=== PATIENT | female | born 2000 | race Caucasian/White ===

== ENCOUNTER 2023-12-15 10:11 | Outpatient (OUT) | payer OTHER, SELFPAY ==
--- NOTE | 2023-12-15 10:13 | US_ITS ---
The [address] [address] Patient Name: CEDRIC MALDONADO MRN: [id number] date: 2000 Sex: F Assigned Patient Location: [facility] Current Patient Location: [facility] Accession/Order Number: [id number] Exam Date: 12/15/2023 10:15 Report Date: 12/15/2023 11:46 At the request of: OSORIO PANIAGUA Procedure: US OB transvaginal EXAMINATION: US OB transvaginal HISTORY: MISSED MENSES COMPARISON: No relevant comparison available. FINDINGS: GESTATIONAL SAC: Present YOLK SAC: Absent POLE: Absent CARDIAC: Absent UTERUS: Normal size and appearance. OVARIES: Right: Normal. Left: Normal. CERVIX: 3.7 cm in length and closed. CUL-DE-SAC: Normal. OTHER: None. AGE BY LMP: 9 weeks 1 day GORGE BY LMP: 07/18/2024 AGE BY US CRL: GORGE BY US CRL: US/US OB transvaginal IMPRESSION: 1. 6 x 4 x 2 mm fluid collection within endometrial cavity, possibly very early gestational sac. Follow-up recommended. Electronically authenticated by: VIC SOTO Date: 12/15/2023 11:46
== END 2023-12-15 10:12 | disposition home or self-care (01) ==
LOC: NOMS 10:11
PROVIDERS: Visit Provider Obstetrics & Gynecology
DX: N92.6 Irregular menstruation, unspecified (principal)
CPT/HCPCS: 76817

== ENCOUNTER 2023-12-29 10:29 | Outpatient (OUT) | payer OTHER, SELFPAY ==
--- NOTE | 2023-12-29 10:31 | US_ITS ---
[address] [address] Patient Name: CEDRIC MALDONADO MRN: [id number] date: 2000 Sex: F Assigned Patient Location: [facility] Current Patient Location: Accession/Order Number: [id number] Exam Date: 12/29/2023 10:32 Report Date: 12/30/2023 05:06 At the request of: OSORIO PANIAGUA Procedure: US OB transvaginal EXAMINATION: US OB transvaginal HISTORY: VIABILITY COMPARISON: Ultrasound OB transvaginal 12/15/2023 FINDINGS: GESTATIONAL SAC: Present and normal appearing. YOLK SAC: Present and normal appearing. POLE: Present and normal appearing. CARDIAC: Present. UTERUS: Normal size and appearance. OVARIES: Right: Normal. Left: Normal. CERVIX: 3.4 cm in length and closed. CUL-DE-SAC: Normal. OTHER: None. AGE BY LMP: 11 weeks 1 day GORGE BY LMP: 07/18/2024 AGE BY US CRL: 6 weeks 5 days GORGE BY US CRL: 08/18/2024 US/US OB transvaginal IMPRESSION: 1. Single live intrauterine 6 weeks 5 days by today's ultrasound. Electronically authenticated by: VIC SOTO Date: 12/30/2023 05:06
--- OUTSIDE RECORDS SUMMARY | 2023-12-29 10:52 | XMS_ITS | CCD ---
Author Organization [facility] Care Team Providers Care [employer] Laboratory Technician Name Role Phone Tanmay Wu Attending Unavailable NO FAMILY PHYSICIAN Primary Care Unavailable Dipti Quinones Primary Care Provider [phone] Unavailable Primary Care Provider Unavailshila Quinones SPINNING ROOM WORKER - Dipti WEEMS Primary Care Provider OVIDIO ROY Referring Unavailable DIPTI QUINONES Primary Care Unavailable DIPTI QUINONES Referring Unavailable ARCELIA ., DR AC Primary Care Unavailable ARCELIA ., DR AC Attending Unavailable ARCELIA ., DR AC Admitting Unavailable ARCELIA ., DR AC Primary Care Unavailable ARCELIA ., DR AC Consulting Unavailable ARCELIA ., DR AC Admitting Unavailable ARCELIA ., DR AC Attending Unavailable ARCELIA ., DR AC Consulting Unavailable REQUEST, NONE LISTED Primary Care Unavaila ble ARCELIA ., DR AC Admitting Unavailable ARCELIA ., DR AC Attending Unavailable ZIEBER, DR VIC Cary Consulting Unavailable VIRGILIO ., TRINITY Consulting Unavailable VIRGILIO ., TRINITY Attending Unavailable REQUEST, NONE LISTED Primary Care Unavaila ble VIRGILIO ., TRINITY Admitting Unavailable ARCELIA ., DR AC Consulting Unavailable ARCELIA ., DR AC Admitting Unavailable ARCELIA ., DR AC Attending Unavailable REQUEST, NONE LISTED Primary Care Unavaila ble ARCELIA ., DR AC Consulting Unavailable REQUEST, NONE LISTED Primary Care Unavaila ble ARCELIA ., DR AC Attending Unavailable ARCELIA ., DR AC Admitting Unavailable ARCELIA ., DR AC Admitting Unavailable ARCELIA ., DR AC Consulting Unavailable REQUEST, DR NONE LISTED Primary Care Unavaila ble ARCELIA ., DR AC Attending Unavailable ARCELIA ., DR AC Admitting Unavailable REQUEST, DR NONE LISTED Primary Care Unavaila ble DEBORAH, DR AMIE Montemayor Consulting Unavailable ARCELIA ., DR AC Attending Unavailable ARCELIA ., DR AC Consulting Unavailable ARCELIA ., DR AC Primary Care Unavailable VIRGILIO ., TRINITY Consulting Unavailable VIRGILIO ., TRINITY Attending Unavailable VIRGILIO ., TRINITY Admitting Unavailable ARCELIA ., DR AC Primary Care Unavailable ARCELIA ., DR AC Consulting Unavailable ARCELIA ., DR AC Attending Unavailable ARCELIA ., DR AC Admitting Unavailable ZIEBER, DR VIC Cary Consulting Unavailable REQUEST, DR ROSS LISTED Consulting Unavaila ble ARCELIA ., DR AC Primary Care Unavailable ARCELIA ., DR AC Consulting Unavailable ARCELIA ., DR AC Attending Unavailable ARCELIA ., DR AC Admitting Unavailable ARCELIA ., DR AC Procedure Practitioner Unavail able KARASIK ., DR AVERY Consulting Unavailabl e KARASIK ., DR AVERY Attending Unavailabl e [facility] [place] URIAS Primary Care Unavailable KARASIK ., DR AVERY Admitting Unavailabl e Medications Current Medications Medication Drug Class(es) Dates Sig (Normalized) Sig (Original) ibuprofen 600 mg oral tablet (4 sources) Nonsteroidal Anti-inflammatory Drug take 1 tablet by mouth every six hours as needed for pain ibuprofen (ADVIL;MOTRIN) 600 MG tablet Take 600 mg by mouth every 6 hours as needed for Pain 0 Active Problems Active Problems Problem Classification Problem Date Documented Da te Episodic/Chronic Allergic reactions (1 source) Urticaria; Translations: [Urticaria, unspecified] Episodic Menstrual disorders (4 sources) Dysmenorrhea; Translations: [Dysmenorrhea, unspecified] Onset: 07-28-2014 07-28-2014 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 sources) Second degree perineal laceration during delivery; Translations: [SECOND DEG PERINEAL LAC DUR DELIV] Onset: 07-01-2022 Episodic Other complications of (4 sources) Decreased movements, second trimester, not applicable or unspecified; Translations: [DECR FTL MOVEMENTS 2ND TRI NA/UNS] Onset: 04-20-2022 Episodic Other nutritional; endocrine; and metabolic disorders (1 source) Body mass index 30+ - obesity; Translations: [Body mass index (BMI) 35.0-35.9, adult] Chronic Other and delivery including normal (14 sources) Encounter for routine follow-up; Translations: [Single live ] Onset: 01-04-2022 Episodic Other screening for suspected conditions (not mental disorders or infectious disease) (16 sources) Patient encounter status; Translations: [Encounter for screening for other suspected endocrine disorder] Onset: 03-01-2022 Episodic Other skin disorders (1 source) Decorative tattoo; Translations: [Other specified disorders of pigmentation] Episodic Polyhydramnios and other problems of amniotic cavity (4 sources) Premature rupture of membranes, unspecified as to length of time between rupture and onset of labor, unspecified weeks of gestation; Translations: [PROM UNS TM BTWN RUPT AND LABR UNS WK] Onset: 05-26-2022 Episodic Residual codes; unclassified (1 source) Sexually active; Translations: [High risk heterosexual behavior] Episodic Residual codes; unclassified (1 source) Weeks of gestation of not specified; Translations: [WEEKS GESTATION NOT SPEC] Onset: 07-06-2022 Episodic Residual codes; unclassified (1 source) 27 weeks gestation of ; Translations: [27 WEEKS GESTATION OF ] Onset: 04-25-2022 Episodic Past or Other Problems Problem Classification Problem Date Documented Date Episodic/Chronic Headache; including migraine (4 sources) Frequent headache; Translations: [Frequent headaches] Onset: 07-28-2014 07-28-2014 Episodic Immunizations and screening for infectious disease (3 sources) Contact with or exposure to other viral diseases; Translations: [Encounter for screening for human papillomavirus (HPV)] Onset: 03-03-2022 Episodic Other female genital disorders (1 source) Other specified noninflammatory disorders of vagina; Translations: [OTH SPEC NONINFLAMMATORY D/O VAGINA] Onset: 03-03-2022 Episodic Other skin disorders (3 sources) Acne; Translations: [Acne vulgaris] Onset: 07-28-2014 07-28-2014 Episodic Other skin disorders (1 source) Acne vulgaris; Translations: [Acne vulgaris] Onset: 07-28-2014 07-28-2014 Episodic Results Test Name Value Interpretation Reference Range Facility CBC AUTO DIFFon 07-02-2022 BASO # 0.0 103/ul Normal 0.0-0.1 [facility] Comment on above: Performed By: #### G LU1HR #### [facility] [address] [address] [address] Shell Cadena Basophils/100 WBC (Bld) 0.1 % Critically low 0.2-2.0 [facility] Comment on above: Performed By: #### G LU1HR #### [facility] [address] [address] [address] Shell Cadena EO # 0.1 103/ul Normal 0.0-0.7 [facility] Comment on above: Performed By: #### G LU1HR #### [facility] [address] [address] [address] Shell Cadena Eosinophils/100 WBC (Bld) 0.7 % Critically low 0.9-7.0 [facility] Comment on above: Performed By: #### G LU1HR #### [facility] [address] [place] [address] Dr. Shell Cadena Erythrocyte distribution width (RBC) [Ratio] 13.2 % Normal 11.0-15.0 [facility] Comment on above: Performed By: #### G LU1HR #### [facility] [address] [place] [address] Dr. Shell Cadena Hematocrit (Bld) [Volume fraction] 29.9 % Critically low 36.0-48.0 [facility] Comment on above: Performed By: #### G LU1HR #### [facility] [address] [place] [address] Dr. Shell Cadena Hemoglobin (Bld) [Mass/Vol] 9.9 g/dL Critically low 12.0-16.0 [facility] Comment on above: Performed By: #### G LU1HR #### [facility] [address] [address] [address] Shell Cadena IG # 0.10 10e3/ul Critically high 0.00-0.03 [facility] Comment on above: Performed By: #### G LU1HR #### [facility] [address] [place] [address] Dr. Shell Cadena IG % 0.7 % Critically high 0.0-0.5 [facility] Comment on above: Performed By: #### G LU1HR #### [facility] [address] [address] [address] Shell Cadena LYMPH # 2.7 103/ul Normal 1.2-3.8 [facility] Comment on above: Performed By: #### G LU1HR #### [facility] [address] [address] [address] Shell Cadena Lymphocytes/100 WBC (Bld) 18.4 % Critically low 20.5-60.0 [facility] Comment on above: Performed By: #### G LU1HR #### [facility] [address] [address] [address] Shell Cadena MANUAL DIFF REQ NO Normal [facility] Comment on above: Performed By: #### G LU1HR #### [facility] [address] [address] [address] Shell Cadena MCH (RBC) [Entitic mass] 29.1 pg Normal 26.7-34.0 [facility] Comment on above: Performed By: #### G LU1HR #### [facility] [address] [address] [address] Shell Cadena MCHC (RBC) [Mass/Vol] 33.1 g/dL Normal 29.9-35.2 [facility] Comment on above: Performed By: #### G LU1HR #### [facility] [address] [address] [address] Shell Cadena MCV (RBC) [Entitic vol] 87.9 fL Normal 81.0-99.0 [facility] Comment on above: Performed By: #### G LU1HR #### [facility] [address] [address] [address] Shell Cadena MONO # 0.9 103/ul Critically high 0.3-0.8 [facility] Comment on above: Performed By: #### G LU1HR #### [facility] [address] [address] [address] Shell Cadena Monocytes/100 WBC (Bld) 5.7 % Normal 1.7-12.0 [facility] Comment on above: Performed By: #### G LU1HR #### [facility] [address] [place] [address] Dr. Shell Cadena NEUT # 11.0 103/ul Critically high 1.4-6.5 [facility] Comment on above: Performed By: #### G LU1HR #### [facility] [address] [place] [address] Dr. Shell Cadena Neutrophils/100 WBC (Bld) 74.4 % Normal 43.0-75.0 [facility] Comment on above: Performed By: #### G LU1HR #### [facility] [address] [place] [address] Dr. Shell Cadena Platelet mean volume (Bld) [Entitic vol] 10.8 fL Normal 9.5-13.5 [facility] Comment on above: Performed By: #### G LU1HR #### [facility] [address] [place] [address] Dr. Shell Cadena PLT 411 103/ul Normal 150-450 [facility] Comment on above: Performed By: #### G LU1HR #### [facility] [address] [place] [address] Dr. Shell Cadena RBC 3.40 106/ul Critically low 4.20-5.40 [facility] Comment on above: Performed By: #### G LU1HR #### [facility] [address] [place] [address] Dr. Shell Cadena WBC 14.8 103/ul Critically high 4.0-11.0 [facility] Comment on above: Performed By: #### G LU1HR #### [facility] [address] [place] [address] Dr. Shell Cadena CULTURE URINEon 07-02-2022 CULTURE URINE Culture Observations: GREATER THAN TWO ORGANISMS PRESENT. PLEASE RESUBMIT CLEAN CATCH MID-STREAM URINE IF CLINICALLY INDICATED. Normal [facility] Comment on above: Performed By: #### U RCX #### [facility] [address] [place] [address] Dr. Shell Cadena CBC AUTO DIFFon 07-01-2022 BASO # 0.0 103/ul Normal 0.0-0.1 [facility] Comment on above: Performed By: #### N BOX #### [facility] [address] [address] [address] Shell Cadena Basophils/100 WBC (Bld) 0.2 % Normal 0.2-2.0 [facility] Comment on above: Performed By: #### N BOX #### [facility] [address] [address] [address] Shell Cadena EO # 0.2 103/ul Normal 0.0-0.7 [facility] Comment on above: Performed By: #### N BOX #### [facility] [address] [place] [address] Dr. hSell Cadena Eosinophils/100 WBC (Bld) 1.3 % Normal 0.9-7.0 [facility] Comment on above: Performed By: #### N BOX #### [facility] [address] [place] [address] Dr. Shell Cadena Erythrocyte distribution width (RBC) [Ratio] 13.2 % Normal 11.0-15.0 [facility] Comment on above: Performed By: #### N BOX #### [facility] [address] [place] [address] Dr. Shell Cadena Hematocrit (Bld) [Volume fraction] 34.7 % Critically low 36.0-48.0 [facility] Comment on above: Performed By: #### N BOX #### [facility] [address] [place] [address] Dr. Shell Cadena Hemoglobin (Bld) [Mass/Vol] 11.5 g/dL Critically low 12.0-16.0 [facility] Comment on above: Performed By: #### N BOX #### [facility] [address] [address] [address] Shell Cadena IG # 0.07 10e3/ul Critically high 0.00-0.03 [facility] Comment on above: Performed By: #### N BOX #### [facility] [address] [place] [address] Dr. Shell Cadena IG % 0.5 % Normal 0.0-0.5 [facility] Comment on above: Performed By: #### N BOX #### [facility] [address] [place] [address] Dr. Shell Cadena LYMPH # 2.4 103/ul Normal 1.2-3.8 [facility] Comment on above: Performed By: #### N BOX #### [facility] [address] [place] [address] Dr. Shell Cadena Lymphocytes/100 WBC (Bld) 18.9 % Critically low 20.5-60.0 [facility] Comment on above: Performed By: #### N BOX #### [facility] [address] [place] [address] Dr. Shell Cadena MANUAL DIFF REQ NO Normal [facility] Comment on above: Performed By: #### N BOX #### [facility] [address] [place] [address] Dr. Shell Cadena MCH (RBC) [Entitic mass] 28.8 pg Normal 26.7-34.0 [facility] Comment on above: Performed By: #### N BOX #### [facility] [address] [place] [address] Dr. Shell Cadena MCHC (RBC) [Mass/Vol] 33.1 g/dL Normal 29.9-35.2 [facility] Comment on above: Performed By: #### N BOX #### [facility] [address] [place] [address] Dr. Shell Cadena MCV (RBC) [Entitic vol] 87.0 fL Normal 81.0-99.0 [facility] Comment on above: Performed By: #### N BOX #### [facility] [address] [place] [address] Dr. Shell Cadena MONO # 0.8 103/ul Normal 0.3-0.8 [facility] Comment on above: Performed By: #### N BOX #### [facility] [address] [place] [address] Dr. Shell Cadena Monocytes/100 WBC (Bld) 6.5 % Normal 1.7-12.0 [facility] Comment on above: Performed By: #### N BOX #### [facility] [address] [address] [address] Shell Cadena NEUT # 9.4 103/ul Critically high 1.4-6.5 [facility] Comment on above: Performed By: #### N BOX #### [facility] [address] [address] [address] Shell Cadena Neutrophils/100 WBC (Bld) 72.6 % Normal 43.0-75.0 [facility] Comment on above: Performed By: #### N BOX #### [facility] [address] [place] [address] Dr. Shell Cadena Platelet mean volume (Bld) [Entitic vol] 10.7 fL Normal 9.5-13.5 [facility] Comment on above: Performed By: #### N BOX #### [facility] [address] [place] [address] Dr. Shell Cadena PLT 466 103/ul Critically high 150-450 [facility] Comment on above: Performed By: #### N BOX #### [facility] [address] [place] [address] Dr. Shell Cadena RBC 3.99 106/ul Critically low 4.20-5.40 [facility] Comment on above: Performed By: #### N BOX #### [facility] [address] [place] [address] Dr. Shell Cadena WBC 12.9 103/ul Critically high 4.0-11.0 [facility] Comment on above: Performed By: #### N BOX #### [facility] [address] [place] [address] Dr. Shell Cadena DRUG SCREEN RAPID (URINE)on 07-01-2022 AMP Negative Normal NEGATIVE [facility] Comment on above: Performed By: #### N BOX #### [facility] [address] [place] [address] Dr. Shell Cadena BAR Negative Normal NEGATIVE [facility] Comment on above: Performed By: #### N BOX #### [facility] [address] [place] [address] Dr. Shell Cadena BUP Negative Normal NEGATIVE [facility] Comment on above: Performed By: #### N BOX #### [facility] [address] [place] [address] Dr. Shell Cadena BZO Negative Normal NEGATIVE [facility] Comment on above: Performed By: #### N BOX #### [facility] [address] [place] [address] Dr. Shell Cadena PAMELA Negative Normal NEGATIVE [facility] Comment on above: Performed By: #### N BOX #### [facility] [address] [place] [address] Dr. Shell Cadena CUT-OFFS SEE BELOW Normal [facility] Comment on above: Result Comment: AMP (Amphetamine): 500ng/mL, BAR (Barbituates): 200 ng/mL, BZO (Benzodiazepines): 150 ng/mL, BUP (Buprenorphine): 10 ng/mL, PAMELA (Cocaine): 150 ng/mL, mAMP (Methamphetamine): 500 ng/mL, MTD (Methadone): 200 ng/mL, OPI (Opiates): 100 ng/mL, OXY (Oxycodone): 100 ng/mL, PCP (Phencyclidine): 25 ng/mL, PPX (Propoxyphene): 300 ng/mL, THC (Cannabinoids): 50 ng/mL, TCA (Trycyclic Antidepressants): 300 ng/mL Performed By: #### N BOX #### [facility] [address] [place] [address] Dr. Shell Cadena DRUG CUT HEADER DRUG CLASS TEST SYSTEM CUT-OFF CONCENTRATIONS ARE FOLLOWS: Normal [facility] Comment on above: Performed By: #### N BOX #### [facility] [address] [place] [address] Dr. Shell Cadena mAMP Negative Normal NEGATIVE [facility] Comment on above: Performed By: #### N BOX #### [facility] [address] [place] [address] Dr. Shell Cadena MTD Negative Normal NEGATIVE [facility] Comment on above: Performed By: #### N BOX #### [facility] [address] [address] [address] Shell Cadena OPI Negative Normal NEGATIVE [facility] Comment on above: Performed By: #### N BOX #### [facility] [address] [address] [address] Shell Cadena OXY Negative Normal NEGATIVE [facility] Comment on above: Performed By: #### N BOX #### [facility] [address] [address] [address] Shell Cadena PCP Negative Normal NEGATIVE [facility] Comment on above: Performed By: #### N BOX #### [facility] [address] [place] [address] Dr. Shell Cadena PPX Negative Normal NEGATIVE [facility] Comment on above: Performed By: #### N BOX #### [facility] [address] [place] [address] Dr. Shell Cadena TCA Negative Normal NEGATIVE [facility] Comment on above: Performed By: #### N BOX #### [facility] [address] [place] [address] Dr. Shell Cadena THC Positive Abnormal NEGATIVE [facility] Comment on above: Performed By: #### N BOX #### [facility] [address] [place] [address] Dr. Shell Cadena TYPE AND SCREENon 07-01-2022 TYPE AND SCREEN Negative Normal [facility] Comment on above: Performed By: #### G LU1HR #### [facility] [address] [place] [address] Dr. Shell Cadena UA (CLEAN/CATCH) CUTTER APPRENTICE HAND/MICRO I F IND.on 07-01-2022 Bilirubin Ql (U) Negative Normal NEGATIVE [facility] Comment on above: Performed By: #### U ACSTERRI UMICRO #### [facility] [address] [place] [address] Dr. Shell Cadena Clarity (U) CLEAR Normal CLEAR [facility] Comment on above: Performed By: #### U ACSTERRI UMICRO #### [facility] [address] [place] [address] Dr. Shell Cadena Color (U) LT. YELLOW Normal YELLOW [facility] Comment on above: Performed By: #### U ACSIND, UMICRO #### [facility] [address] [address] [address] Shell Cadena Glucose Ql (U) Negative Normal NEGATIVE [facility] Comment on above: Performed By: #### U ACSIND, UMICRO #### [facility] [address] [address] [address] Shell Cadena Hemoglobin Ql (U) LARGE Abnormal NEGATIVE [facility] Comment on above: Performed By: #### U ACSIND, UMICRO #### [facility] [address] [address] [address] Shell Cadena Ketones Ql (U) Negative Normal NEGATIVE [facility] Comment on above: Performed By: #### U ACSIND, UMICRO #### [facility] [address] [address] [address] Shell Cadena LEUKOCYTES SMALL Abnormal NEGATIVE [facility] Comment on above: Performed By: #### U ACSIND, UMICRO #### [facility] [address] [address] [address] Shell Cadena Nitrite Ql (U) Negative Normal NEGATIVE [facility] Comment on above: Performed By: #### U ACSIND, UMICRO #### [facility] [address] [address] [address] Shell Cadena pH (U) 6.5 [pH] Normal 5-9 [facility] Comment on above: Performed By: #### U ACSIND, UMICRO #### [facility] [address] [address] [address] Shell Cadena SPEC GRAVITY 1.020 Normal 1.005-<=1.025 [facility] Comment on above: Performed By: #### U ACSIND, UMICRO #### [facility] [address] [address] [address] Shell Cadena UA PROTEIN Negative Normal NEGATIVE/ TRACE [facility] Comment on above: Performed By: #### U ACSIND, UMICRO #### [facility] [address] [address] [address] Shell Cadena UR MICRO IND INDICATED Normal [facility] Comment on above: Performed By: #### U ACSIND, UMICRO #### [facility] [address] [place] [address] Dr. Shell Cadena Urobilinogen Qn (U) 0.2 {Tabitha'U}/dL Normal 0.2 - 1. 0 [facility] Comment on above: Performed By: #### U ACSIND, UMICRO #### [facility] [address] [place] [address] Dr. Shell Cadena URINE MICROSCOPIC ONLYon BACTERIA TRACE Abnormal NONE SEEN [facility] Comment on above: Performed By: #### U ACSIND, UMICRO #### [facility] [address] [place] [address] Dr. Shell Cadena Bacteria identified Cx Nom (U) INDICATED Normal [facility] Comment on above: Performed By: #### U ACSIND, UMICRO #### [facility] [address] [place] [address] Dr. Shell Cadena CAST NONE SEEN Normal NONE SEEN [facility] Comment on above: Performed By: #### U ACSIND, UMICRO #### [facility] [address] [place] [address] Dr. Shell Cadena Crystals LM Nom (Urine sed) NONE SEEN Normal NONE SEEN [facility] Comment on above: Performed By: #### U ACSIND, UMICRO #### [facility] [address] [place] [address] Dr. Shell Cadena Epithelial cells LM Ql (Urine sed) FEW Abnormal NONE SEEN /RARE [facility] Comment on above: Performed By: #### U ACSIND, UMICRO #### [facility] [address] [place] [address] Dr. Shell Cadena MUCOUS NONE SEEN Normal NONE SEEN [facility] Comment on above: Performed By: #### U ACSIND, UMICRO #### [facility] [address] [place] [address] Dr. Shell Cadena RBC (U) [#/Vol] /uL Abnormal 0-2 [facility] Comment on above: Performed By: #### U ELDON VASQUEZ #### [facility] [address] [place] [address] Dr. Shell Cadena WBC 10-20 Abnormal NONE SEEN [facility] Comment on above: Performed By: #### U ELDON VASQUEZ #### [facility] [address] [place] [address] Dr. Shell Cadena GROUP B STREP CULTUREon 06-06 S. agalactiae Ag Ql (Unsp spec) Culture Observations: NEGATIVE FOR GROUP B STREPTOCOCCUS. Normal [facility] Comment on above: Performed By: #### G BSCX #### [facility] [address] [place] [address] Dr. Shell Cadena US PREG AMNIOTIC FLUID VOLUM Eddie 05-26-2022 US PREG AMNIOTIC FLUID VOLUME EXAMINATION: US PREG AMNIOTIC FLUID VOLUME HISTORY: Premature rupture of membranes COMPARISON: Ultrasound anatomy 03/10/2022 TECHNIQUE: Limited sonographic examination for amniotic fluid volume FINDINGS: Presentation: Cephalic Amniotic fluid: 10.2 cm (normal range). Heart rate: 140 bpm GA: 32 weeks 1 day GORGE: 07/20/2022 IMPRESSION: 1. Single live intrauterine . 2. Normal amniotic fluid volume. Electronically authenticated by: VIC SOTO Date: 2022-05-26 15:21 Normal [facility] CBC AUTO DIFFon 04-23-2022 BASO # 0.0 103/ul Normal 0.0-0.1 [facility] Comment on above: Performed By: #### G LU1HR #### [facility] [address] [place] [address] Dr. Shell Cadena Basophils/100 WBC (Bld) 0.2 % Normal 0.2-2.0 T [facility] Comment on above: Performed By: #### G LU1HR #### [facility] [address] [place] [address] Dr. Shell Cadena EO # 0.2 103/ul Normal 0.0-0.7 [facility] Comment on above: Performed By: #### G LU1HR #### [facility] [address] [place] [address] Dr. Shell Cadena Eosinophils/100 WBC (Bld) 2.1 % Normal 0.9-7.0 [facility] Comment on above: Performed By: #### G LU1HR #### [facility] [address] [place] [address] Dr. Shell Cadena Erythrocyte distribution width (RBC) [Ratio] 12.8 % Normal 11.0-15.0 [facility] Comment on above: Performed By: #### G LU1HR #### [facility] [address] [place] [address] Dr. Shell Cadena Hematocrit (Bld) [Volume fraction] 31.7 % Critically low 36.0-48.0 [facility] Comment on above: Performed By: #### G LU1HR #### [facility] [address] [place] [address] Dr. Shell Cadena Hemoglobin (Bld) [Mass/Vol] 10.7 g/dL Critically low 12.0-16.0 [facility] Comment on above: Performed By: #### G LU1HR #### [facility] [address] [place] [address] Dr. Shell Cadena IG # 0.09 10e3/ul Critically high 0.00-0.03 [facility] Comment on above: Performed By: #### G LU1HR #### [facility] [address] [place] [address] Dr. Shell Cadena IG % 0.8 % Critically high 0.0-0.5 [facility] Comment on above: Performed By: #### G LU1HR #### [facility] [address] [place] [address] Dr. Shell Cadena LYMPH # 2.0 103/ul Normal 1.2-3.8 [facility] Comment on above: Performed By: #### G LU1HR #### [facility] [address] [place] [address] Dr. Shell Cadena Lymphocytes/100 WBC (Bld) 18.1 % Critically low 20.5-60.0 [facility] Comment on above: Performed By: #### G LU1HR #### [facility] [address] [place] [address] Dr. Shell Cadena MANUAL DIFF REQ NO Normal [facility] Comment on above: Performed By: #### G LU1HR #### [facility] [address] [place] [address] Dr. Shell Cadena MCH (RBC) [Entitic mass] 30.4 pg Normal 26.7-34.0 [facility] Comment on above: Performed By: #### G LU1HR #### [facility] [address] [place] [address] Dr. Shell Cadena MCHC (RBC) [Mass/Vol] 33.8 g/dL Normal 29.9-35.2 [facility] Comment on above: Performed By: #### G LU1HR #### [facility] [address] [place] [address] Dr. Shell Cadena MCV (RBC) [Entitic vol] 90.1 fL Normal 81.0-99.0 [facility] Comment on above: Performed By: #### G LU1HR #### [facility] [address] [place] [address] Dr. Shell Cadena MONO # 0.7 103/ul Normal 0.3-0.8 [facility] Comment on above: Performed By: #### G LU1HR #### [facility] [address] [place] [address] Dr. Shell Cadena Monocytes/100 WBC (Bld) 6.1 % Normal 1.7-12.0 [facility] Comment on above: Performed By: #### G LU1HR #### [facility] [address] [place] [address] Dr. Shell Cadena NEUT # 7.9 103/ul Critically high 1.4-6.5 [facility] Comment on above: Performed By: #### G LU1HR #### [facility] [address] [place] [address] Dr. Shell Cadena Neutrophils/100 WBC (Bld) 72.7 % Normal 43.0-75.0 [facility] Comment on above: Performed By: #### G LU1HR #### [facility] [address] [address] [address] Shell Cadena Platelet mean volume (Bld) [Entitic vol] 10.4 fL Normal 9.5-13.5 [facility] Comment on above: Performed By: #### G LU1HR #### [facility] [address] [place] [address] Dr. Shell Cadena PLT 369 103/ul Normal 150-450 [facility] Comment on above: Performed By: #### G LU1HR #### [facility] [address] [place] [address] Dr. Shell Cadena RBC 3.52 106/ul Critically low 4.20-5.40 [facility] Comment on above: Performed By: #### G LU1HR #### [facility] [address] [place] [address] Dr. Shell Cadena WBC 10.9 103/ul Normal 4.0-11.0 [facility] Comment on above: Performed By: #### G LU1HR #### [facility] [address] [place] [address] Dr. Shell Cadena GLUCOSE - 1HRon 04-23-2022 Glucose [Mass/Vol] 117 mg/dL Critically high 74-106 T [facility] Comment on above: Performed By: #### G LU1HR #### [facility] [address] [place] [address] Dr. Shell Cadena UA (CLEAN/CATCH) CUTTER APPRENTICE HAND/MICRO I F IND.on 04-20-2022 Bilirubin Ql (U) Negative Normal NEGATIVE [facility] Comment on above: Performed By: #### U ACSIND #### [facility] [address] [place] [address] Dr. Shell Cadena Clarity (U) CLEAR Normal CLEAR [facility] Comment on above: Performed By: #### U ACSIND #### [facility] [address] [place] [address] Dr. Shell Cadena Color (U) LT. YELLOW Normal YELLOW [facility] Comment on above: Performed By: #### U ACSIND #### [facility] [address] [address] [address] Shell Cadena Glucose Ql (U) Negative Normal NEGATIVE [facility] Comment on above: Performed By: #### U ACSIND #### [facility] [address] [address] [address] Shell Cadena Hemoglobin Ql (U) Negative Normal NEGATIVE [facility] Comment on above: Performed By: #### U ACSIND #### [facility] [address] [address] [address] Shell Cadena Ketones Ql (U) Negative Normal NEGATIVE [facility] Comment on above: Performed By: #### U ACSIND #### [facility] [address] [place] [address] Dr. Shell Cadena LEUKOCYTES Negative Normal NEGATIVE [facility] Comment on above: Performed By: #### U ACSIND #### [facility] [address] [address] [address] Shell Cadena Nitrite Ql (U) Negative Normal NEGATIVE [facility] Comment on above: Performed By: #### U ACSIND #### [facility] [address] [place] [address] Dr. Shell Cadena pH (U) 6.0 [pH] Normal 5-9 [facility] Comment on above: Performed By: #### U ACSIND #### [facility] [address] [address] [address] Shell Cadena SPEC GRAVITY 1.015 Normal 1.005-<=1.025 [facility] Comment on above: Performed By: #### U ACSIND #### [facility] [address] [place] [address] Dr. Shell Cadena UA PROTEIN Negative Normal NEGATIVE/ TRACE [facility] Comment on above: Performed By: #### U ACSIND #### [facility] [address] [address] [address] Shell Cadena UR MICRO IND NOT INDICATED Normal [facility] Comment on above: Performed By: #### U ACSIND #### [facility] [address] [place], [place] [address] Dr. Shell Cadena Urobilinogen Qn (U) 0.2 {Tabitha'U}/dL Normal 0.2 - 1. 0 [facility] Comment on above: Performed By: #### U ACSIND #### [facility] [address] [id number] Shell Cadena US PREG ANATOMY SINGLEon US PREG ANATOMY SINGLE EXAMINATION: US PREG ANATOMY SINGLE HISTORY: screening COMPARISON: Ultrasound transvaginal 12/10/2021 TECHNIQUE: Transabdominal sonographic examination was performed for obstetrical and evaluation. FINDINGS: Number: 1 Heart Rate: 153.4 bpm H.B. /min Amniotic Fluid Volume: Subjectively normal Placental Location: Anterior with lower margin 4.9 cm from os. Cervix Length: 4.8 cm, closed. ANATOMY: Normal Structures -cerebellum, choroid plexus, cisterna magna, lateral cerebral ventricles, orbits, midline falx, hard palate, four-chamber heart, RVOT, LVOT, stomach, kidneys, bladder, umbilical cord insertion into abdomen, three-vessel cord, cervical spine, thoracic spine, lumbar spine, sacral spine, right upper extremity, left upper extremity, right lower extremity, left lower extremity. SUBOPTIMALLY SEEN: None ABNORMALITIES: None BIOMETRY: BPD: 5.1 cm 21 weeks 4 days HC: 19.4 cm 21 weeks 4 days AC: 16.5 cm 21 weeks 4 days FL: 3.4 cm 20 weeks 5 days EFW:407.7 grams; 49% FL/AC: 20.5 FL/BPD: 66.2 HC/AC: 1.2 GESTATIONAL AGE: Age by EDC: 21 weeks 1 days GORGE by EDC: 07/20/2022 Age by current US: 21 weeks 3 days GORGE by current US: 07/18/2022 IMPRESSION: 1. Single live intrauterine with growth detailed above. Electronically authenticated by: VIC SOTO Date: 2022-03-11 07:26 Normal [facility] PAP ACOG PANEL 2: 21 to 29on 03-09-2022 . . Normal [facility] Comment on above: Result Comment: Perf ormed at: WB Performed By: #### N BOX #### [facility] [address] [address] [address] Shell Cadena Age Gdln ACOG Testing 21-29 [facility] Comment on above: Performed By: #### N BOX #### [facility] [address] [address] [address] Shell Cadena DIAGNOSIS: Comment [facility] Comment on above: Result Comment: NEGA TIVE FOR INTRAEPITHELIAL LESION OR MALIGNANCY. THIS SPECIMEN WAS RESCREENED PART OF OUR MANAGER OF BUSINESS OPERATIONS PROGRAM. Performed at: WB Performed By: #### N BOX #### [facility] [address] [place] [address] Dr. Shell Cadena Methodology: Comment [facility] Comment on above: Result Comment: This liquid based ThinPrep(R) pap test was screened with the use of an image guided system. Performed at: WB Performed By: #### N BOX #### [facility] [address] [place] [address] Dr. Shell Cadena Note: Comment [facility] Comment on above: Result Comment: The Pap smear is a screening test designed to aid in the detection of premalignant and malignant conditions of the uterine cervix. It is not a diagnostic procedure and should not be used as the sole means of detecting cervical cancer. Both false-positive and false-negative reports do occur. . Performed at: WB Performed By: #### N BOX #### [facility] [address] [place] [address] Dr. Shell Cadena Performed by: Comment Normal [facility] Comment on above: Result Comment: Hudson Roy, Wholesale Account Manager (ASCP) Performed at: [facility] Performed By: #### N BOX #### [facility] [address] [place] [address] Dr. Shell Cadena QC reviewed by: Comment Normal [facility] Comment on above: Result Comment: Han Quevedo, Wholesale Account Manager Performed at: WB Performed By: #### N BOX #### [facility] [address] [place] [address] Dr. Shell Cadena Reflex Criteria: Comment Normal [facility] Comment on above: Result Comment: The HPV DNA reflex criteria were not met with this specimen result therefore, no HPV testing was performed. . Performed at: WB Performed By: #### N BOX #### [facility] [address] [address] [address] Shell Cadena Specimen adequacy: Comment Normal [facility] Comment on above: Result Comment: Sati sfactory for evaluation. No endocervical component is identified. Performed at: WB Performed By: #### N BOX #### [facility] [address] [address] [address] Shell Cadena AFP MATERNAL FOR SPINA BIFID Aon 03-04-2022 AFP MoM 1.01 [facility] Comment on above: Performed By: #### N BOX #### [facility] [address] [address] [address] Shell Cadena AFP Value 61.7 ng/mL [facility] Comment on above: Performed By: #### N BOX #### [facility] [address] [address] [address] Shell Cadena AFP, Serum for Spina Bifida Report Normal [facility] Comment on above: Performed By: #### N BOX #### [facility] [address] [address] [address] Shell Cadena Comment Comment [facility] Comment on above: Result Comment: Zen Messer, Ph.D., [facility] Director . References: Available Upon Request. . Multiples Of Median Cutoffs For AFP Elevations Silveira 2.5 Black 2.8 IDD 2.0 Twins 4.5 Abbreviation Definitions IDD - Insulin Dep Diabetes OSBR - Open Spina Bifida Risk . For further inquiries contact [employer] [facility] at [phone]. . This test was developed and its performance characteristics determined by [employer]. It has not been cleared or approved by the Food and Drug Administration. Performed By: #### N BOX #### [facility] [address] [address] [address] Shell Cadena Gest Age Collection Date 20.7 weeks [facility] Comment on above: Performed By: #### N BOX #### [facility] [address] [address] [address] Shell Cadena Gestat, Age Based on LMP Normal [facility] Comment on above: Result Comment: 02/2021 Recalculations are not recommended when gestational dating by LMP and ultrasound are within 10 days. Performed By: #### N BOX #### [facility] [address] [address] [address] Shell Cadena Insulin Dep Diabetes No Normal [facility] Comment on above: Performed By: #### N BOX #### [facility] [address] [address] [address] Shell Cadena Interpretation Comment Normal [facility] Comment on above: Result Comment: Inte rpretation: Screen Negative . This result is screen negative for OSB. The AFP MoM calculated is based on the gestational age provided. MS-AFP can identify up to 80% of open neural tube defects. Closed neural tube defects and some open defects may not be detected by this test. This test does not screen for Down Syndrome or Trisomy 18. If screening for Down Syndrome or Trisomy 18 is desired, contact [employer] to discuss available options. The [employer] recommends amniocentesis be offered to women age 35 and older. Performed By: #### N BOX #### [facility] [address] [place] [address] Dr. Shell Cadena [age] Normal [facility] Comment on above: Performed By: #### N BOX #### [facility] [address] [place] [address] Dr. Shell Cadena Multiple Gestation No Normal [facility] Comment on above: Performed By: #### N BOX #### [facility] [address] [place] [address] Dr. Shell Cadena OS[place] [id number] Normal [facility] Comment on above: Performed By: #### N BOX #### [facility] [address] [place] [address] Dr. Shell aCdena PDF . Normal [facility] Comment on above: Performed By: #### N BOX #### [facility] [address] [place] [address] Dr. Shell Cadena Race Normal [facility] Comment on above: Performed By: #### N BOX #### [facility] [address] [place] [address] Dr. Shell Cadena Test Results: Negative Normal [facility] Comment on above: Performed By: #### N BOX #### [facility] [address] [place] [address] Dr. Shell Cadena CHLAMYDIA/GONOCOCCUS FERNANDO (SW AB/URINE/PAPon 03-03-2022 Chlamydia trachomatis, FERNANDO Negative Normal Negative [facility] Comment on above: Performed By: #### N BOX #### [facility] [address] [place] [address] Dr. Shell Cadena Neisseria gonorrhoeae, FERNANDO Negative Normal Negative [facility] Comment on above: Performed By: #### N BOX #### [facility] [address] [place] [address] Dr. Shell Cadena VAGINITIS/VAGINOSIS DNA PROB Eddie 03-03-2022 Marla species Negative Normal Negative [facility] Comment on above: Performed By: #### G LU1HR #### [facility] [address] [place] [address] Dr. Shell Cadena Gardnerella vaginalis Negative Normal Negative [facility] Comment on above: Performed By: #### G LU1HR #### [facility] [address] [place] [address] Dr. Shell Cadena Trichomonas vaginalis Negative Normal Negative [facility] Comment on above: Performed By: #### G LU1HR #### [facility] [address] [place] [address] Dr. Shell Cadena HEP B SURFACE ANTIGEN SCREEN on 01-05-2022 HBsAg Screen Negative Normal Negative [facility] Comment on above: Performed By: #### H BSANS #### [facility] [address] [place] [address] Dr. Shell Cadena HEPATITIS C VIRUS AB W/ REFL EX QUANTon 01-05-2022 HCV AB <0.1 Normal 0.0-0.9 [facility] Comment on above: Performed By: #### H CVPCRR #### [facility] [address] [place] [address] Dr. Shell Cadena Interpretation: Comment Normal [facility] Comment on above: Result Comment: Nega tive Not infected with HCV, unless recent infection is suspected or other evidence exists to indicate HCV infection. Performed By: #### H CVPCRR #### [facility] [address] [place] [address] Dr. Shell Cadena HIV 1 AND 2 WITH REFLEXon HIV Screen 4th Generation wRfx Non-Reactive Normal Non Reactive [facility] Comment on above: Result Comment: HIV Negative HIV-1/HIV-2 antibodies and HIV-1 p24 antigen were NOT detected. There is no laboratory evidence of HIV infection. Performed By: #### G LU1HR #### [facility] [address] [place] [address] Dr. Shell Cadena RPR QUANTon 01-05-2022 Rapid Plasma Reagin, Quant Non-Reactive Normal NonRea<1:1 [facility] Comment on above: Result Comment: Plea se Note: This test does not meet current guidelines for screening and diagnosis of syphilis. This test is intended for following treatment response in patients being treated for syphilis infection. To screen for syphilis infection, a reflex cascade that includes both RPR and a treponema-specific assay should be utilized, such as Treponema pallidum (Syphilis) Screening Kenedy (045580) or Rapid Plasma Reagin (RPR) Test With Reflex to Quantitative RPR and Confirmatory Treponema pallidum Antibodies (579556). Performed By: #### N BOX #### [facility] [address] [place] [address] Dr. Shell Cadena RUBELLA AB IGGon 01-05-2022 Rubella Antibodies, IgG 2.83 index Normal Immune >0.99 [facility] Comment on above: Result Comment: Non- immune <0.90 Equivocal 0.90 - 0.99 Immune >0.99 Performed By: #### N BOX #### [facility] [address] [place] [address] Dr. Shell Cadena CBC AUTO DIFFon 01-04-2022 BASO # 0.0 103/ul Normal 0.0-0.1 [facility] Comment on above: Performed By: #### C BC #### [facility] [address] [place] [address] Dr. Shell Cadena Basophils/100 WBC (Bld) 0.1 % Critically low 0.2-2.0 [facility] Comment on above: Performed By: #### C BC #### [facility] [address] [place] [address] Dr. Shell Cadena EO # 0.3 103/ul Normal 0.0-0.7 [facility] Comment on above: Performed By: #### C BC #### [facility] [address] [place] [address] Dr. Shell Cadena Eosinophils/100 WBC (Bld) 3.5 % Normal 0.9-7.0 [facility] Comment on above: Performed By: #### C BC #### [facility] [address] [place] [address] Dr. Shell Cadena Erythrocyte distribution width (RBC) [Ratio] 12.4 % Normal 11.0-15.0 [facility] Comment on above: Performed By: #### C BC #### [facility] [address] [place] [address] Dr. Shell Cadena Hematocrit (Bld) [Volume fraction] 34.8 % Critically low 36.0-48.0 [facility] Comment on above: Performed By: #### C BC #### [facility] [address] [place] [address] Dr. Shell Cadena Hemoglobin (Bld) [Mass/Vol] 12.0 g/dL Normal 12.0-16.0 [facility] Comment on above: Performed By: #### C BC #### [facility] [address] [place] [address] Dr. Shell Cadena IG # 0.03 10e3/ul Normal 0.00-0.03 [facility] Comment on above: Performed By: #### C BC #### [facility] [address] [place] [address] Dr. Shell Cadena IG % 0.4 % Normal 0.0-0.5 [facility] Comment on above: Performed By: #### C BC #### [facility] [address] [place] [address] Dr. Shell Cadena LYMPH # 1.5 103/ul Normal 1.2-3.8 [facility] Comment on above: Performed By: #### C BC #### [facility] [address] [place] [address] Dr. Shell Cadena Lymphocytes/100 WBC (Bld) 20.5 % Normal 20.5-60.0 [facility] Comment on above: Performed By: #### C BC #### [facility] [address] [place] [address] Dr. Shell Cadena MANUAL DIFF REQ NO Normal [facility] Comment on above: Performed By: #### C BC #### [facility] [address] [place] [address] Dr. Shell Cadena MCH (RBC) [Entitic mass] 29.6 pg Normal 26.7-34.0 [facility] Comment on above: Performed By: #### C BC #### [facility] [address] [place] [address] Dr. Shell Cadena MCHC (RBC) [Mass/Vol] 34.5 g/dL Normal 29.9-35.2 [facility] Comment on above: Performed By: #### C BC #### [facility] [address] [place] [address] Dr. Shell Cadena MCV (RBC) [Entitic vol] 85.9 fL Normal 81.0-99.0 [facility] Comment on above: Performed By: #### C BC #### [facility] [address] [place] [address] Dr. Shell Cadena MONO # 0.4 103/ul Normal 0.3-0.8 [facility] Comment on above: Performed By: #### C BC #### [facility] [address] [place] [address] Dr. Shell Cadena Monocytes/100 WBC (Bld) 6.0 % Normal 1.7-12.0 [facility] Comment on above: Performed By: #### C BC #### [facility] [address] [place] [address] Dr. Shell Cadena NEUT # 5.0 103/ul Normal 1.4-6.5 [facility] Comment on above: Performed By: #### C BC #### [facility] [address] [place] [address] Dr. Shell Cadena Neutrophils/100 WBC (Bld) 69.5 % Normal 43.0-75.0 [facility] Comment on above: Performed By: #### C BC #### [facility] [address] [place] [address] Dr. Shell Cadena Platelet mean volume (Bld) [Entitic vol] 10.1 fL Normal 9.5-13.5 [facility] Comment on above: Performed By: #### C BC #### [facility] [address] [place] [address] Dr. Shell Cadena PLT 364 103/ul Normal 150-450 [facility] Comment on above: Performed By: #### C BC #### [facility] [address] [place] [address] Dr. Shell Cadena RBC 4.05 106/ul Critically low 4.20-5.40 [facility] Comment on above: Performed By: #### C BC #### [facility] [address] [place] [address] Dr. Shell Cadena WBC 7.2 103/ul Normal 4.0-11.0 [facility] Comment on above: Performed By: #### C BC #### [facility] [address] [place] [address] Dr. Shell Cadena CULTURE URINEon 01-04-2022 CULTURE URINE Culture Observations: NO GROWTH. Normal [facility] Comment on above: Performed By: #### G LU1HR #### [facility] [address] [place] [address] Dr. Shell Cadena GLYCOHEMOGLOBIN A1Con 2021 ADA RECOMMENDATION SEE BELOW Normal [facility] Comment on above: Result Comment: ADA RECOMMENDED LIMIT 4.0 - 6.0 ADA THERAPEUTIC TARGET < 7.0 ACTION SUGGESTED > 7.0 Performed By: #### N BOX #### [facility] [address] [place] [address] Dr. Shell Cadena Glucose [Mass/Vol] 91 mg/dL Normal [facility] Comment on above: Performed By: #### N BOX #### [facility] [address] [address] [address] Shell Cadena HbA1c (Bld) [Mass fraction] 4.8 % Normal 4.5-6.2 [facility] Comment on above: Performed By: #### N BOX #### [facility] [address] [place] [address] Dr. Shell Cadena ISIS BOX TEST PT SEND OUTo n 01-04-2022 SENT TO REF LAB 01/04/2022 Normal [facility] Comment on above: Performed By: #### N BOX #### [facility] [address] [place] [address] Dr. Shell Cadena TYPE AND SCREENon 01-04-2022 TYPE AND SCREEN Negative Normal [facility] Comment on above: Performed By: #### G LU1HR #### [facility] [address] [place] [address] Dr. Shell Cadena US PREG TVon 12-10-2021 US PREG TV EXAMINATION: US PREG TV HISTORY: Missed period COMPARISON: No relevant comparison available. FINDINGS: Transvaginal images Silveira intrauterine gestation Gestational sac: 3.4 cm, 8 weeks 4 days CRL: 1.77 cm, 8 weeks 2 days Yolk sac: 5.1 mm Heart rate: 182 bpm Cervix: Closed, 3.9 cm The uterus is normal in appearance, anteverted, anteflexed The ovaries are normal in appearance Clinical age: 9 weeks 1 day Clinical GORGE: 07/14/2022 Ultrasound age: 8 weeks 2 days Ultrasound GORGE: 07/20/2022 IMPRESSION: Viable silveira intrauterine gestation measuring 8 weeks 2 days Electronically authenticated by: AMIE CABRERA Date: 2021-12-10 17:08 Normal [facility] Chanelle Pierre Panelon 021 EBV (VCA) Ab, IgG 1296 U/mL High <100 [facility] Comment on above: Performed By: #### H IVCMB, PHEP, CRP, ANAX, EBVPRO #### [address] [address] [employer]: Sebastian Roman MD #### CP, SED, TSHX, CDP, HCG #### [facility] [address] [place], [place] [id number] [employer]: Amie Urrutia MD EBV (VCA) Ab, IgM 15 U/mL Normal <100 [facility] Comment on above: Performed By: #### H IVCMB, PHEP, CRP, ANAX, EBVPRO #### [address] [id number] [employer]: Sebastian Roman MD #### CP, SED, TSHX, CDP, HCG #### [facility] [address] [place], [place] [id number] [employer]: Amie Urrutia MD EBV Early Ab, IgG 76 U/mL Normal <100 [facility] Comment on above: Performed By: #### H IVCMB, PHEP, CRP, ANAX, EBVPRO #### [address] [id number] [employer]: Sebastian Roman MD #### CP, SED, TSHX, CDP, HCG #### [facility] [address] [place], [place] [id number] [employer]: Amie Urrutia MD EBV Interpretation (NOTE) Normal [facility] Comment on above: Result Comment: Reference Range: Negative <100 U/mL Positive >120 U/mL Equivocal 100-120 U/mL Guidelines for the Interpretation of Chanelle-Pierre Viral Serologies Antibodies Clinical Situation IgG-VCA EBNA EA IgM-VCA _ No past infection - - - - Acute infection + - + + Convalescent phase + + +/- +/- Past infection + + - - Chronic or reactivated + + + - infection + = Antibody present - = Antibody absent Reference: Clinical Diagnosis and Management by Laboratory Methods; 17 Edition, Tanmay Taylor M.D. Performed By: #### H IVCMB, PHEP, CRP, ANAX, EBVPRO #### [address] [id number] [employer]: Sebastian Roman MD #### CP, SED, TSHX, CDP, HCG #### [facility] [address] [place], [place] [id number] [employer]: Amie Urrutia MD EBV Nuclear Ab, IgG 416 U/mL High <100 [facility] Comment on above: Performed By: #### H IVCMB, PHEP, CRP, ANAX, EBVPRO #### [address] [id number] [employer]: Sebastian Roman MD #### CP, SED, TSHX, CDP, HCG #### [facility] [address] [place], [place] [id number] [employer]: Amie Urrutia MD NAS Screen w/reflexon 2020 NAS Screen Negative Normal NEG [facility] Comment on above: Performed By: #### H IVCMB, PHEP, CRP, ANAX, EBVPRO #### [address] [id number] [employer]: Sebastian Roman MD #### CP, SED, TSHX, CDP, HCG #### [facility] [address] [place], [place] [phone] [employer]: Amie Urrutia MD Anti-dsDNA 0.7 IU/mL Normal <10.0 [facility] Comment on above: Result Comment: Reference Range: <10.0 Negative 10.0-15.0 Equivocal >15.0 Positive Performed By: #### H IVCMB, PHEP, CRP, ANAX, EBVPRO #### [address] [id number] [employer]: Sebastian Roman MD #### CP, SED, TSHX, CDP, HCG #### [facility] [address] [place] [address] [employer]: Amie Urrutia MD RAJ Screen 0.2 U/mL Normal <0.7 [facility] Comment on above: Result Comment: Reference Range: <0.7 Negative 0.7-1.0 Equivocal >1.0 Positive RAJ Screen includes U1RNP,RNP70,Sm,Ro(SS-A),La(SS-B),CENP,Scl-70,Molly-1 Performed By: #### H IVCMB, PHEP, CRP, ANAX, EBVPRO #### [address] [address] [employer]: Sebastian Roman MD #### CP, SED, TSHX, CDP, HCG #### [facility] [address] [place] [address] [employer]: Amie Urrutia MD C-Reactive Proteinon 021 CRP [Mass/Vol] mg/L Normal 0.0-5.0 [facility] Comment on above: Performed By: #### H IVCMB, PHEP, CRP, ANAX, EBVPRO #### [address] [id number] [employer]: Sebastian Roman MD #### CP, SED, TSHX, CDP, HCG #### [facility] [address] [place] [phone] [employer]: Amie Urrutia MD Food, Comprehensiveon 2020 Barley IgE <0.10 Normal 0.00-0.34 [facility] Comment on above: Result Comment: ALLERGEN, INTERP, IMMUNOCAP SCORE IGE <0.10 Class 0 No significant level detected 0.10-0.34 Class 0/1 Clinical relevance undertermined 0.35 to 0.70 Class 1 Low 0.71 to 3.50 Class 2 Moderate 3.51 to 17.50 Class 3 High 17.51 to 50.00 Class 4 Very High 50.01 to 100.00 Class 5 Very High >100.00 Class 6 Very High units: kU/L Increasing ranges are reflective of increasing concentrations of allergen specific IgE. These concentrations may not correlate with the degree of clinical response or skin testing results when challenged with a specific allergen. The correlation of allergy laboratory results with the clinical history and in vivo reactivity to specific allergens is essential. A negative test may not rule out clinical allergy or even anaphylaxis. Performed By: #### H IVCMB, PHEP, CRP, ANAX, EBVPRO #### [place] [id number] [employer]: Sebastian Roman MD #### CP, SED, TSHX, CDP, HCG #### [facility] [address] [place] [address] [employer]: Amie Urrutia MD Beef IgE <0.10 Normal 0.00-0.34 [facility] Comment on above: Performed By: #### H IVCMB, PHEP, CRP, ANAX, EBVPRO #### [facility] [employer] [address] [place], [place] [id number] [employer]: Sebastian Roman MD #### CP, SED, TSHX, CDP, HCG #### [facility] [address] [place] [address] [employer]: Amie Urrutia MD Cabbage IgE <0.10 Normal 0.00-0.34 [facility] Comment on above: Performed By: #### H IVCMB, PHEP, CRP, ANAX, EBVPRO #### [facility] [employer] [address] [place] [id number] [employer]: Sebastian Roman MD #### CP, SED, TSHX, CDP, HCG #### [facility] [address] [place] [phone] [employer]: Amie Urrutia MD Carrot IgE <0.10 Normal 0.00-0.34 [facility] Comment on above: Performed By: #### H IVCMB, PHEP, CRP, ANAX, EBVPRO #### [address] [id number] [employer]: Sebastian Roman MD #### CP, SED, TSHX, CDP, HCG #### [facility] [address] [place] [phone] [employer]: Amie Urrutia MD Chicken IgE <0.10 Normal 0.00-0.34 [facility] Comment on above: Performed By: #### H IVCMB, PHEP, CRP, ANAX, EBVPRO #### [place] [id number] [employer]: Sebastian Roman MD #### CP, SED, TSHX, CDP, HCG #### [facility] [address] [place] [phone] [employer]: Amie Urrutia MD Codfish IgE <0.10 Normal 0.00-0.34 [facility] Comment on above: Performed By: #### H IVCMB, PHEP, CRP, ANAX, EBVPRO #### [address] [phone] [employer]: Sebastian Roman MD #### CP, SED, TSHX, CDP, HCG #### [facility] [address] [place] [phone] [employer]: Amie Urrutia MD Cuba IgE <0.10 Normal 0.00-0.34 [facility] Comment on above: Performed By: #### H IVCMB, PHEP, CRP, ANAX, EBVPRO #### [address] [phone] [employer]: Sebastian Roman MD #### CP, SED, TSHX, CDP, HCG #### [facility] [address] [place], [place] [phone] [employer]: Amie Urrutia MD Crab IgE <0.10 Normal 0.00-0.34 [facility] Comment on above: Performed By: #### H IVCMB, PHEP, CRP, ANAX, EBVPRO #### [address] [phone] [employer]: Sebastian Roman MD #### CP, SED, TSHX, CDP, HCG #### [facility] [address] [place] [address] [employer]: Amie Urrutia MD Egg White IgE <0.10 Normal 0.00-0.34 [facility] Comment on above: Performed By: #### H IVCMB, PHEP, CRP, ANAX, EBVPRO #### [address] [id number] [employer]: Sebastian Roman MD #### CP, SED, TSHX, CDP, HCG #### [facility] [address] [place] [address] [employer]: Amie Urrutia MD Grape IgE <0.10 Normal 0.00-0.34 [facility] Comment on above: Performed By: #### H IVCMB, PHEP, CRP, ANAX, EBVPRO #### [address] [id number] [employer]: Sebastian Roman MD #### CP, SED, TSHX, CDP, HCG #### [facility] [address] [place] [address] [employer]: Amie Urrutia MD Lettuce IgE <0.10 Normal 0.00-0.34 [facility] Comment on above: Performed By: #### H IVCMB, PHEP, CRP, ANAX, EBVPRO #### [address] [phone] [employer]: Sebastian Roman MD #### CP, SED, TSHX, CDP, HCG #### [facility] [address] [place] [phone] [employer]: Amie Urrutia MD Milk (Cow) IgE <0.10 Normal 0.00-0.34 [facility] Comment on above: Performed By: #### H IVCMB, PHEP, CRP, ANAX, EBVPRO #### [address] [id number] [employer]: Sebastian Roman MD #### CP, SED, TSHX, CDP, HCG #### [facility] [address] [place] [phone] [employer]: Amie Urrutia MD [facility] IgE <0.10 Normal 0.00-0.34 [facility] Comment on above: Performed By: #### H IVCMB, PHEP, CRP, ANAX, EBVPRO #### [address] [id number] [employer]: Sebastian Roman MD #### CP, SED, TSHX, CDP, HCG #### [facility] [address] [place] [phone] [employer]: Amie Urrutia MD Oat IgE <0.10 Normal 0.00-0.34 [facility] Comment on above: Performed By: #### H IVCMB, PHEP, CRP, ANAX, EBVPRO #### [address] [id number] [employer]: Sebastian Roman MD #### CP, SED, TSHX, CDP, HCG #### [facility] [address] [place], [place] [id number] [employer]: Amie Urrutia MD Swain IgE <0.10 Normal 0.00-0.34 [facility] Comment on above: Performed By: #### H IVCMB, PHEP, CRP, ANAX, EBVPRO #### [address] [id number] [employer]: Sebastian Roman MD #### CP, SED, TSHX, CDP, HCG #### [facility] [address] [place], [place] [phone] [employer]: Amie Urrutia MD Peanut IgE <0.10 Normal 0.00-0.34 [facility] Comment on above: Performed By: #### H IVCMB, PHEP, CRP, ANAX, EBVPRO #### [address] [id number] [employer]: Sebastian Roman MD #### CP, SED, TSHX, CDP, HCG #### [facility] [address] [place], [place] [phone] [employer]: MD Jaz Branm IgE <0.10 Normal 0.00-0.34 [facility] Comment on above: Performed By: #### H IVCMB, PHEP, CRP, ANAX, EBVPRO #### [address] [id number] [employer]: Sebastian Roman MD #### CP, SED, TSHX, CDP, HCG #### [facility] [address] [place], [place] [phone] [employer]: Amie Urrutia MD Pork IgE <0.10 Normal 0.00-0.34 [facility] Comment on above: Performed By: #### H IVCMB, PHEP, CRP, ANAX, EBVPRO #### [address] [id number] [employer]: Sebastian Roman MD #### CP, SED, TSHX, CDP, HCG #### [facility] [address] [place] [address] [employer]: Amie Urrutia MD Potato IgE <0.10 Normal 0.00-0.34 [facility] Comment on above: Performed By: #### H IVCMB, PHEP, CRP, ANAX, EBVPRO #### [address] [id number] [employer]: Sebastian Roman MD #### CP, SED, TSHX, CDP, HCG #### [facility] [address] [place] [phone] [employer]: Amie Urrutia MD Rice IgE <0.10 Normal 0.00-0.34 [facility] Comment on above: Performed By: #### H IVCMB, PHEP, CRP, ANAX, EBVPRO #### [address] [phone] [employer]: Sebastian Roman MD #### CP, SED, TSHX, CDP, HCG #### [facility] [address] [place] [phone] [employer]: Amie Urrutia MD Reno IgE <0.10 Normal 0.00-0.34 [facility] Comment on above: Performed By: #### H IVCMB, PHEP, CRP, ANAX, EBVPRO #### [address] [id number] [employer]: Sebastian Roman MD #### CP, SED, TSHX, CDP, HCG #### [facility] [address] [place] [phone] [employer]: Amie Urrutia MD Shrimp IgE <0.10 Normal 0.00-0.34 [facility] Comment on above: Performed By: #### H IVCMB, PHEP, CRP, ANAX, EBVPRO #### [address] [id number] [employer]: Sebastian Roman MD #### CP, SED, TSHX, CDP, HCG #### [facility] [address] [place] [address] [employer]: Amie Urrutia MD Soybean IgE <0.10 Normal 0.00-0.34 [facility] Comment on above: Performed By: #### H IVCMB, PHEP, CRP, ANAX, EBVPRO #### [address] [id number] [employer]: Sebastian Roman MD #### CP, SED, TSHX, CDP, HCG #### [facility] [address] [place] [phone] [employer]: Amie Urrutia MD Tomato IgE <0.10 Normal 0.00-0.34 [facility] Comment on above: Performed By: #### H IVCMB, PHEP, CRP, ANAX, EBVPRO #### [place] [id number] [employer]: Sebastian Roman MD #### CP, SED, TSHX, CDP, HCG #### [facility] [address] [place] [phone] [employer]: Amie Urrutia MD Tuna IgE <0.10 Normal 0.00-0.34 [facility] Comment on above: Performed By: #### H IVCMB, PHEP, CRP, ANAX, EBVPRO #### [place] [id number] [employer]: Sebastian Roman MD #### CP, SED, TSHX, CDP, HCG #### [facility] [address] [place] [phone] [employer]: Amie Urrutia MD Wheat IgE <0.10 Normal 0.00-0.34 [facility] Comment on above: Performed By: #### H IVCMB, PHEP, CRP, ANAX, EBVPRO #### [address] [address] [employer]: Sebastian Roman MD #### CP, SED, TSHX, CDP, HCG #### [facility] [address] [place], [place] [phone] [employer]: Amie Urrutia MD Immunoglobulin E 41 IU/mL Normal <101 [facility] Comment on above: Performed By: #### H IVCMB, PHEP, CRP, ANAX, EBVPRO #### [address] [address] [employer]: Sebastian Roman MD #### CP, SED, TSHX, CDP, HCG #### [facility] [address] [place], [place] [id number] [employer]: Amie Urrutia MD HIV Ag/Abon 10-27-2020 HIV Ag/Ab Non-Reactive Normal NR [facility] Comment on above: Result Comment: No l aboratory evidence of HIV infection. If acute HIV infection is suspected, consider testing for HIV-1 RNA. Performed By: #### H IVCMB, PHEP, CRP, ANAX, EBVPRO #### [address] [address] [employer]: Sebastian Roman MD #### CP, SED, TSHX, CDP, HCG #### [facility] [address] [place], [place] [id number] [employer]: Amie Urrutia MD Hepatitis Acute Dinesh 10-27 Hep A Ab,IgM Non-Reactive Normal NR [facility] Comment on above: Performed By: #### H IVCMB, PHEP, CRP, ANAX, EBVPRO #### [address] [id number] [employer]: Sebastian Roman MD #### CP, SED, TSHX, CDP, HCG #### [facility] [address] [place], [place] [phone] [employer]: Amie Urrutia MD Hep B Core Ab,IgM Non-Reactive Normal [facility] Comment on above: Performed By: #### H IVCMB, PHEP, CRP, ANAX, EBVPRO #### [address] [id number] [employer]: Sebastian Roman MD #### CP, SED, TSHX, CDP, HCG #### [facility] [address] [place], [place] [phone] [employer]: Amie Urrutia MD Hep B Surf Ag Non-Reactive Normal NR [facility] Comment on above: Performed By: #### H IVCMB, PHEP, CRP, ANAX, EBVPRO #### [address] [phone] [employer]: Sebastian Roman MD #### CP, SED, TSHX, CDP, HCG #### [facility] [address] [place], [place] [phone] [employer]: Amie Urrutia MD Hep C Ab Non-Reactive Normal [facility] Comment on above: Result Comment: The hepatitis C procedure used in our laboratory is a Chemiluminescent test specific for three recombinant HCV antigens. A negative anti-HCV result indicates that the antibodies to hepatitis C virus are not present at this time. Individuals with reactive anti-HCV should be considered infected and infectious until proven otherwise. Confirmation of all equivocal or reactive results is recommended by ordering HCV RNA by PCR. Performed By: #### H IVCMB, PHEP, CRP, ANAX, EBVPRO #### [address] [id number] [employer]: Sebastian Roman MD #### CP, SED, TSHX, CDP, HCG #### [facility] [address] [place] [address] [employer]: Amie Urrutia MD C-Reactive ProteinOrdered By : Dipti Quinones on 10-26-2020 CRP [Mass/Vol] mg/L 0.0 - 5.0 mg/L [email or web address] Work Phone: [email or web address] Work Phone: CBC Auto DifferentialOrdered By: Dipti Quinones on 10-26-2020 [employer] E[employer] # 0.20 [employer] Work Phone: Absolute Immature Granulocyte NOT REPORTED [email or web address] Work Phone: Absolute Lymph # 2.30 [employer] [facility] Work Phone: Absolute Wilkin # 0.40 [employer] Work Phone: Basophils (Bld) [#/Vol] 0.00 10*3/uL [email or web address] Work Phone: Basophils/100 WBC (Bld) 0 % 0 - 2 % [employer] Work Phone: Differential Type YES [facility] Work Phone: Eosinophils/100 WBC (Bld) 3 % 0 - 5 % [email or web address] Work Phone: Hematocrit (Bld) [Volume fraction] 39.0 % 36 - 46 % [email or web address] Work Phone: Hemoglobin.gastrointest inal spec 1 Ql (Stl) 13.3 g/dL 12.0 - 16.0 g/dL [email or web address] Work Phone: Immature Granulocytes NOT REPORTED 0 % [employer] Work Phone: Lymphocytes/100 WBC (Bld) 30 % 15 - 40 % [email or web address] Work Phone: MCH (RBC) [Entitic mass] 29.8 pg 26 - 34 pg [email or web address] Work Phone: MCHC (RBC) [Mass/Vol] 34.2 g/dL 31 - 37 g/dL [employer] Work Phone: MCV (RBC) [Entitic vol] 87.0 fL 80 - 100 fL [employer] Phone: Monocytes/100 WBC (Bld) 6 % 4 - 8 % [employer] Phone: NRBC Automated NOT REPORTED per 100 WBC [facility] [employer] [facility] Work Phone: Platelet distribution width (Bld) [Ratio] 13.4 % 12.1 - 15.2 % [employer] Phone: Platelet Estimate NOT REPORTED [employer] Phone: Platelet mean volume (Bld) [Entitic vol] NOT REPORTED 6.0 - 12.0 fL [employer] Phone: Platelets (Bld) [#/Vol] 403 10*3/uL [employer] Phone: RBC (Bld) [#/Vol] 4.48 10*6/uL 4.0 - 5.2 m/uL [employer] Phone: RBC (Bld) [#/Vol] NOT REPORTED [employer] Phone: Segmented neutrophils/100 WBC (Bld) 61 % 47 - 75 % [employer] Phone: Segs Absolute 4.60 [employer] Work Phone: WBC (Bld) [#/Vol] 7.6 10*3/uL [employer] Phone: WBC (Bld) [#/Vol] NOT REPORTED [employer] Phone: [employer] Phone: CBC with Diffon 10-26-2020 Abs. Basophil 0.00 k/uL Normal 0.0-0.2 [facility] Comment on above: Performed By: #### H IVCMB, PHEP, CRP, ANAX, EBVPRO #### [address] [phone] [employer]: Sebastian Roman MD #### CP, SED, TSHX, CDP, HCG #### [facility] [address] [place], [place] [phone] [employer]: Amie Urrutia MD Abs.Neutrophil (Seg) 4.60 k/uL Normal 2.5-7.0 [facility] Comment on above: Performed By: #### H IVCMB, PHEP, CRP, ANAX, EBVPRO #### [address] [id number] [employer]: Sebastian Roman MD #### CP, SED, TSHX, CDP, HCG #### [facility] [address] [place] [address] [employer]: Amie Urrutia MD Auto Diff Performed YES Normal [facility] Comment on above: Performed By: #### H IVCMB, PHEP, CRP, ANAX, EBVPRO #### [address] [phone] [employer]: Sebastian Roman MD #### CP, SED, TSHX, CDP, HCG #### [facility] [address] [place], [place] [phone] [employer]: Amie Urrutia MD Basophils/100 WBC (Bld) 0 % Normal 0-2 M [facility] Comment on above: Performed By: #### H IVCMB, PHEP, CRP, ANAX, EBVPRO #### [address] [phone] [employer]: Sebastian Roman MD #### CP, SED, TSHX, CDP, HCG #### [facility] [address] [place] [address] [employer]: Amie Urrutia MD Eosinophils (Bld) [#/Vol] 0.20 10*3/uL Normal 0.0-0.4 [facility] Comment on above: Performed By: #### H IVCMB, PHEP, CRP, ANAX, EBVPRO #### [address] [id number] [employer]: Sebastian Roman MD #### CP, SED, TSHX, CDP, HCG #### [facility] [address] [place], [place] [id number] [employer]: Amie Urrutia MD Eosinophils/100 WBC (Bld) 3 % Normal 0-5 [facility] Comment on above: Performed By: #### H IVCMB, PHEP, CRP, ANAX, EBVPRO #### [address] [id number] [employer]: Sebastian Roman MD #### CP, SED, TSHX, CDP, HCG #### [facility] [address] [place] [phone] [employer]: Amie Urrutia MD Erythrocyte distribution width (RBC) [Ratio] 13.4 % Normal 12.1-15.2 [facility] Comment on above: Performed By: #### H IVCMB, PHEP, CRP, ANAX, EBVPRO #### [address] [phone] [employer]: Sebastian Roman MD #### CP, SED, TSHX, CDP, HCG #### [facility] [address] [place] [phone] [employer]: Amie Urrutia MD Hematocrit (Bld) [Volume fraction] 39.0 % Normal 36-46 [facility] Comment on above: Performed By: #### H IVCMB, PHEP, CRP, ANAX, EBVPRO #### [address] [id number] [employer]: Sebastian Roman MD #### CP, SED, TSHX, CDP, HCG #### [facility] [address] [place], [place] [id number] [employer]: Amie Urrutia MD Hemoglobin (Bld) [Mass/Vol] 13.3 g/dL Normal 12.0-16.0 [facility] Comment on above: Performed By: #### H IVCMB, PHEP, CRP, ANAX, EBVPRO #### [address] [id number] [employer]: Sebastian Roman MD #### CP, SED, TSHX, CDP, HCG #### [facility] [address] [place] [address] [employer]: Amie Urrutia MD Lymphocytes (Bld) [#/Vol] 2.30 10*3/uL Normal 1.0-4.8 [facility] Comment on above: Performed By: #### H IVCMB, PHEP, CRP, ANAX, EBVPRO #### [address] [id number] [employer]: Sebastian Roman MD #### CP, SED, TSHX, CDP, HCG #### [facility] [address] [place], [place] [id number] [employer]: Amie Urrutia MD Lymphocytes/100 WBC (Bld) 30 % Normal 15-40 [facility] Comment on above: Performed By: #### H IVCMB, PHEP, CRP, ANAX, EBVPRO #### [address] [id number] [employer]: Sebastian Roman MD #### CP, SED, TSHX, CDP, HCG #### [facility] [address] [place], [place] [id number] [employer]: Amie Urrutia MD MCH (RBC) [Entitic mass] 29.8 pg Normal 26-34 [facility] Comment on above: Performed By: #### H IVCMB, PHEP, CRP, ANAX, EBVPRO #### [address] [id number] [employer]: Sebastian Roman MD #### CP, SED, TSHX, CDP, HCG #### [facility] [address] [place], [place] [id number] [employer]: Amie Urrutia MD MCHC (RBC) [Mass/Vol] 34.2 g/dL Normal 31-37 [facility] Comment on above: Performed By: #### H IVCMB, PHEP, CRP, ANAX, EBVPRO #### [address] [id number] [employer]: Sebastian Roman MD #### CP, SED, TSHX, CDP, HCG #### [facility] [address] [place] [address] [employer]: Amie Urrutia MD MCV (RBC) [Entitic vol] 87.0 fL Normal 80-100 [facility] Comment on above: Performed By: #### H IVCMB, PHEP, CRP, ANAX, EBVPRO #### [address] [address] [employer]: Sebastian Roman MD #### CP, SED, TSHX, CDP, HCG #### [facility] [address] [place] [id number] [employer]: Amie Urrutia MD Monocytes (Bld) [#/Vol] 0.40 10*3/uL Normal 0.0-1.0 [facility] Comment on above: Performed By: #### H IVCMB, PHEP, CRP, ANAX, EBVPRO #### [address] [id number] [employer]: Sebastian Roman MD #### CP, SED, TSHX, CDP, HCG #### [facility] [address] [place], [place] [id number] [employer]: Amie Urrutia MD Monocytes/100 WBC (Bld) 6 % Normal 4-8 [facility] Comment on above: Performed By: #### H IVCMB, PHEP, CRP, ANAX, EBVPRO #### [address] [id number] [employer]: Sebastian Roman MD #### CP, SED, TSHX, CDP, HCG #### [facility] [address] [place], [place] [id number] [employer]: Amie Urrutia MD Neutrophil (Seg) 61 % Normal 47-75 [facility] Comment on above: Performed By: #### H IVCMB, PHEP, CRP, ANAX, EBVPRO #### [address] [id number] [employer]: Sebastian Roman MD #### CP, SED, TSHX, CDP, HCG #### [facility] [address] [place], [place] [id number] [employer]: Amie Urrutia MD Platelets (Bld) [#/Vol] 403 10*3/uL Normal 140-450 [facility] Comment on above: Performed By: #### H IVCMB, PHEP, CRP, ANAX, EBVPRO #### [address] [address] [employer]: Sebastian Roman MD #### CP, SED, TSHX, CDP, HCG #### [facility] [address] [place], [place] [id number] [employer]: Amie Urrutia MD RBC (Bld) [#/Vol] 4.48 10*6/uL Normal 4.0-5.2 [facility] Comment on above: Performed By: #### H IVCMB, PHEP, CRP, ANAX, EBVPRO #### [address] [id number] [employer]: Sebastian Roman MD #### CP, SED, TSHX, CDP, HCG #### [facility] [address] [place], [place] [id number] [employer]: Amie Urrutia MD WBC (Bld) [#/Vol] 7.6 10*3/uL Normal 4.5-13.5 [facility] Comment on above: Performed By: #### H IVCMB, PHEP, CRP, ANAX, EBVPRO #### [address] [address] [employer]: Sebastian Roman MD #### CP, SED, TSHX, CDP, HCG #### [facility] [address] [place], [place] [id number] [employer]: Amie Urrutia MD Abs.Imm.Granulocyte NOT REPORTED Normal 0.00-0.30 [facility] Comment on above: Performed By: #### H IVCMB, PHEP, CRP, ANAX, EBVPRO #### [address] [id number] [employer]: Sebastian Roman MD #### CP, SED, TSHX, CDP, HCG #### [facility] [address] [place], [place] [id number] [employer]: Amie Urrutia MD Immature Granulocyte NOT REPORTED Normal 0 [facility] Comment on above: Performed By: #### H IVCMB, PHEP, CRP, ANAX, EBVPRO #### [address] [id number] [employer]: Sebastian Roman MD #### CP, SED, TSHX, CDP, HCG #### [facility] [address] [place], [place] [id number] [employer]: Amie Urrutia MD MPV NOT REPORTED Normal 6.0-12.0 [facility] Comment on above: Performed By: #### H IVCMB, PHEP, CRP, ANAX, EBVPRO #### [facility] [address] [place], [place] 5837508 [employer]: Sebastian Roman MD #### CP, SED, TSHX, CDP, HCG #### [facility] [address] [place], [place] [id number] [employer]: Amie Urrutia MD NRBC Automated NOT REPORTED Normal [facility] Comment on above: Performed By: #### H IVCMB, PHEP, CRP, ANAX, EBVPRO #### [address] [id number] [employer]: Sebastian Roman MD #### CP, SED, TSHX, CDP, HCG #### [facility] [address] [place] [address] [employer]: Amie Urrutia MD Platelet Estimate NOT REPORTED Normal [facility] Comment on above: Performed By: #### H IVCMB, PHEP, CRP, ANAX, EBVPRO #### [address] [id number] [employer]: Sebastian Roman MD #### CP, SED, TSHX, CDP, HCG #### [facility] [address] [place] [address] [employer]: Amie Urrutia MD RBC morphology finding Nom (Bld) NOT REPORTED Normal [facility] Comment on above: Performed By: #### H IVCMB, PHEP, CRP, ANAX, EBVPRO #### [address] [phone] [employer]: Sebastian Roman MD #### CP, SED, TSHX, CDP, HCG #### [facility] [address] [place], [place] [phone] [employer]: Amie Urrutia MD WBC Morphology NOT REPORTED Normal [facility] Comment on above: Performed By: #### H IVCMB, PHEP, CRP, ANAX, EBVPRO #### [place] [place], [place] 8209808 [employer]: Sebastian Roman MD #### CP, SED, TSHX, CDP, HCG #### [facility] [address] [place], [place] [id number] [employer]: Amie Urrutia MD Comp Metabolic Profon 2020 (cont.) Normal [facility] Comment on above: Result Comment: Aver age GFR for 20-29 years old: 116 mL/min/1.73sq m Chronic Kidney Disease: <60 mL/min/1.73sq m Kidney failure: <15 mL/min/1.73sq m eGFR calculated using average adult body mass. Additional eGFR calculator available at: http://www.[employer]en[employer]roll/multiple_crcl_2011.htm Performed By: #### H IVCMB, PHEP, CRP, ANAX, EBVPRO #### [address] [id number] [employer]: Sebastian Roman MD #### CP, SED, TSHX, CDP, HCG #### [facility] [address] [place], [place] [phone] [employer]: Amie Urrutia MD Albumin [Mass/Vol] 4.3 g/dL Normal 3.5-5.2 [facility] Comment on above: Performed By: #### H IVCMB, PHEP, CRP, ANAX, EBVPRO #### [facility] [place], [place] 3010908 [employer]: Sebastian Roman MD #### CP, SED, TSHX, CDP, HCG #### [facility] [address] [place], [place] 4815290 [employer]: Amie Urrutia MD Alkaline Phos 82 U/L Normal 35-104 [facility] Comment on above: Performed By: #### H IVCMB, PHEP, CRP, ANAX, EBVPRO #### [address] 2000508 [employer]: Sebastian Roman MD #### CP, SED, TSHX, CDP, HCG #### [facility] [address] [place], [place] [id number] [employer]: Amie Urrutia MD ALT [Catalytic activity/Vol] 13 U/L Normal 5-33 [facility] Comment on above: Performed By: #### H IVCMB, PHEP, CRP, ANAX, EBVPRO #### [address] [id number] [employer]: Sebastian Roman MD #### CP, SED, TSHX, CDP, HCG #### [facility] [address] [place], [place] [id number] [employer]: Amie Urrutia MD Anion gap [Moles/Vol] 10 mmol/L Normal 9-17 [facility] Comment on above: Performed By: #### H IVCMB, PHEP, CRP, ANAX, EBVPRO #### [address] [phone] [employer]: Sebastian Roman MD #### CP, SED, TSHX, CDP, HCG #### [facility] [address] [place], [place] [phone] [employer]: Amie Urrutia MD AST [Catalytic activity/Vol] 14 U/L Normal <32 [facility] Comment on above: Performed By: #### H IVCMB, PHEP, CRP, ANAX, EBVPRO #### [address] [id number] [employer]: Sebastian Roman MD #### CP, SED, TSHX, CDP, HCG #### [facility] [address] [place], [place] [id number] [employer]: Amie Urrutia MD Bilirubin [Mass/Vol] 0.26 mg/dL Low 0.30-1.20 [facility] Comment on above: Performed By: #### H IVCMB, PHEP, CRP, ANAX, EBVPRO #### [address] [id number] [employer]: Sebastian Roman MD #### CP, SED, TSHX, CDP, HCG #### [facility] [address] [place], [place] [id number] [employer]: Amie Urrutia MD BUN/CRE Ratio 12 Normal 9-20 [facility] Comment on above: Performed By: #### H IVCMB, PHEP, CRP, ANAX, EBVPRO #### [address] [id number] [employer]: Sebastian Roman MD #### CP, SED, TSHX, CDP, HCG #### [facility] [address] [place], [place] 4515590 [employer]: Amie Urrutia MD Calcium [Mass/Vol] 9.5 mg/dL Normal 8.6-10.4 [facility] Comment on above: Performed By: #### H IVCMB, PHEP, CRP, ANAX, EBVPRO #### [address] [id number] [employer]: Sebastian Roman MD #### CP, SED, TSHX, CDP, HCG #### [facility] [address] [place], [place] 1364390 [employer]: Amie Urrutia MD Chloride [Moles/Vol] 103 mmol/L Normal 98-107 [facility] Comment on above: Performed By: #### H IVCMB, PHEP, CRP, ANAX, EBVPRO #### [address] [id number] [employer]: Sebastian Roman MD #### CP, SED, TSHX, CDP, HCG #### [facility] [address] [place] [address] [employer]: Amie Urrutia MD CO2 [Moles/Vol] 24 mmol/L Normal 20-31 [facility] Comment on above: Performed By: #### H IVCMB, PHEP, CRP, ANAX, EBVPRO #### [address] [id number] [employer]: Sebastian Roman MD #### CP, SED, TSHX, CDP, HCG #### [facility] [address] [place] [phone] [employer]: Amie Urrutia MD Creatinine [Mass/Vol] 0.51 mg/dL Normal 0.50-0.90 [facility] Comment on above: Performed By: #### H IVCMB, PHEP, CRP, ANAX, EBVPRO #### [address] [phone] [employer]: Sebastian Roman MD #### CP, SED, TSHX, CDP, HCG #### [facility] [address] [place] [address] [employer]: Amie Urrutia MD GFR, Amer >60 Normal >60 [facility] Comment on above: Performed By: #### H IVCMB, PHEP, CRP, ANAX, EBVPRO #### [address] [id number] [employer]: Sebastian Roman MD #### CP, SED, TSHX, CDP, HCG #### [facility] [address] [place], [place] [id number] [employer]: Amie Urrutia MD GFR,non Amer >60 Normal >60 [facility] Comment on above: Performed By: #### H IVCMB, PHEP, CRP, ANAX, EBVPRO #### [address] [id number] [employer]: Sebastian Roman MD #### CP, SED, TSHX, CDP, HCG #### [facility] [address] [place], [place] [phone] [employer]: Amie Urrutia MD Glucose [Mass/Vol] 87 mg/dL Normal 70-99 [facility] Comment on above: Performed By: #### H IVCMB, PHEP, CRP, ANAX, EBVPRO #### [address] [address] [employer]: Sebastian Roman MD #### CP, SED, TSHX, CDP, HCG #### [facility] [address] [place], [place] [phone] [employer]: Amie Urrutia MD Potassium [Moles/Vol] 3.4 mmol/L Low 3.7-5.3 [facility] Comment on above: Performed By: #### H IVCMB, PHEP, CRP, ANAX, EBVPRO #### [address] [address] [employer]: Sebastian Roman MD #### CP, SED, TSHX, CDP, HCG #### [facility] [address] [place], [place] 3695890 [employer]: Amie Urrutia MD Protein [Mass/Vol] 7.1 g/dL Normal 6.4-8.3 [facility] Comment on above: Performed By: #### H IVCMB, PHEP, CRP, ANAX, EBVPRO #### [address] [address] [employer]: Sebastian Roman MD #### CP, SED, TSHX, CDP, HCG #### [facility] [address] [place], [place] [id number] [employer]: Amie Urrutia MD Sodium [Moles/Vol] 137 mmol/L Normal 135-144 [facility] Comment on above: Performed By: #### H IVCMB, PHEP, CRP, ANAX, EBVPRO #### [address] [id number] [employer]: Sebastian Roman MD #### CP, SED, TSHX, CDP, HCG #### [facility] [address] [place], [place] [phone] [employer]: Amie Urrtuia MD Urea nitrogen [Mass/Vol] 6 mg/dL Normal 6-20 [facility] Comment on above: Performed By: #### H IVCMB, PHEP, CRP, ANAX, EBVPRO #### [address] [phone] [employer]: Sebastian Roman MD #### CP, SED, TSHX, CDP, HCG #### [facility] [address] [place] [phone] [employer]: Amie Urrutia MD Albumin/Glob Ratio NOT REPORTED Normal 1.0-2.5 [facility] Comment on above: Performed By: #### H IVCMB, PHEP, CRP, ANAX, EBVPRO #### [address] [id number] [employer]: Sebastian Roman MD #### CP, SED, TSHX, CDP, HCG #### [facility] [address] [place], [place] [phone] [employer]: Amie Urrutia MD Staging: NOT REPORTED Normal [facility] Comment on above: Performed By: #### H IVCMB, PHEP, CRP, ANAX, EBVPRO #### [address] [id number] [employer]: Sebastian Roman MD #### CP, SED, TSHX, CDP, HCG #### [facility] [address] [place] [address] [employer]: Amie Urrutia MD Comprehensive Metabolic Pane lOrdered By: Dipti Quinones on 10-26-2020 Albumin [Mass/Vol] 4.3 g/dL 3.5 - 5.2 g/dL [facility] [employer] Work Phone: Albumin/Globulin Ratio NOT REPORTED [facility] Phone: ALP (Bld) [Catalytic activity/Vol] 82 U/L 35 - 104 U/L [facility] Work Phone: ALT [Catalytic activity/Vol] 13 U/L 5 - 33 U/L [facility] [employer] Phone: Anion gap [Moles/Vol] 10 mmol/L 9 - 17 mmol/L [facility] Phone: AST [Catalytic activity/Vol] 14 U/L <32 [facility] [employer] Phone: Bilirubin [Mass/Vol] 0.26 mg/dL Low 0.30 - 1.20 mg/dL [facility] Phone: Calcium [Mass/Vol] 9.5 mg/dL 8.6 - 10. 4 mg/dL [facility] Phone: Chloride [Moles/Vol] 103 mmol/L 98 - 10 7 mmol/L [facility] Phone: CO2 [Moles/Vol] 24 mmol/L 20 - 31 mmol/L [facility] [employer] Phone: Creatinine [Mass/Vol] 0.51 mg/dL 0.50 - 0.90 mg/dL [facility] [employer] Phone: Free PSA/Total PSA [Mass fraction] 7.1 g/dL 6.4 - 8.3 g/dL [employer] Phone: GFR >60 >60 mL/min [employer] Phone: GFR Non- >60 >60 mL/min [facility] Phone: GFR/1.73 sq M.predicted MDRD (S/P/Bld) [Vol rate/Area] [facility] Phone: Comment on above: Average GFR for 20-2 9 years old: 116 mL/min/1.73sq m Chronic Kidney Disease: <60 mL/min/1.73sq m Kidney failure: <15 mL/min/1.73sq m eGFR calculated using average adult body mass. Additional eGFR calculator available at: http://www.[employer]en[employer]roll/multiple_crcl_2012.htm GFR/1.73 sq M.predicted MDRD (S/P/Bld) [Vol rate/Area] NOT REPORTED [employer] Phone: Glucose [Mass/Vol] 87 mg/dL 70 - 99 mg/dL [employer] Phone: Interpretation and review of laboratory results Abnormal [employer] Phone: Potassium [Moles/Vol] 3.4 mmol/L Low 3.7 - 5.3 mmol/L [facility] Phone: Sodium [Moles/Vol] 137 mmol/L 135 - 144 mmol/L [employer] Phone: Urea nitrogen (BldV) [Mass/Vol] 6 mg/dL 6 - 20 mg/dL [employer] Phone: Urea nitrogen/Creatinine (Bld) [Mass ratio] 12 [facility] [employer] Phone: HCG Screen, Bloodon 10-27-19 21 HCG Screen, Blood Negative Normal NEG [facility] Comment on above: Result Comment: Spec imens with hCG levels near the threshold of the test (25 mIU/mL) may give a negative or indeterminate result. In such cases, another test should be performed with a new specimen in 48-72 hours. If early is suspected clinically in this setting, correlation with quantitative serum b-hCG level is suggested. [employer] has confirmed the use of plasma for this test. This has not been cleared or approved by the U.S. Food and Drug Administration. The FDA has determined that such clearance is not necessary. Performed By: #### H IVCMB, PHEP, CRP, ANAX, EBVPRO #### [employer] [address] [place] [address] [employer]: Sebastian Roman MD #### CP, SED, TSHX, CDP, HCG #### [facility] [address] [place] [address] [employer]: Amie Urrutia MD HIV ScreenOrdered By: Dipti Quinones on 10-26-2020 HIV Ag/Ab Non-Reactive NONREACTIVE XD [facility] [employer] Work Phone: Comment on above: No laboratory eviden ce of HIV infection. If acute HIV infection is suspected, consider testing for HIV-1 RNA. [employer] Phone: Hepatitis Panel, AcuteOrdere d By: Dipti Quinones on 10-26-2020 HAV IgM IA Qn (S) Non-Reactive NONREACTIVE [facility] [employer] Work Phone: Hep B Core Ab, IgM Non-Reactive NONREACTIVE [facility] [employer] Work Phone: Hepatitis B Surface Ag Non-Reactive NONREACTIVE [facility] Work Phone: Hepatitis C Ab Non-Reactive NONREACTIVE [facility] [employer] [facility] Work Phone: Comment on above: The hepatitis C procedure used in our laboratory is a Chemiluminescent test specific for three recombinant HCV antigens. A negative anti-HCV result indicates that the antibodies to hepatitis C virus are not present at this time. Individuals with reactive anti-HCV should be considered infected and infectious until proven otherwise. Confirmation of all equivocal or reactive results is recommended by ordering HCV RNA by PCR. [employer] Phone: No Panel InformationOrdered By: Dipti Quinones on 10-26-2020 [employer] Phone: Sedimentation Rateon 10-26- 021 Sedimentation Rate 7 mm Normal 0-20 [facility] Comment on above: Performed By: #### H IVCMB, PHEP, CRP, ANAX, EBVPRO #### [facility] [address] [place], [place] 2486[address] [employer]: Sebastian Roman MD #### CP, SED, TSHX, CDP, HCG #### [facility] [address] [place] [address] [employer]: Amie Urrutia MD Sedimentation RateOrdered By : Dipti Quinones on 10-26-2020 Sed Rate 7 mm 0 - 20 mm [facility] Work Phone: [facility] Work Phone: TSH w/reflex to FT4on 2020 TSH Qn 3.36 m[IU]/L Normal 0.30-5.00 [facility] Comment on above: Performed By: #### H IVCMB, PHEP, CRP, ANAX, EBVPRO #### [facility] [place], [place] [id number] [employer]: Sebastian Roman MD #### CP, SED, TSHX, CDP, HCG #### [facility] [address] [place] [address] [employer]: Amie Urrutia MD TSH with ReflexOrdered By: Ar Quinones on 10-26-2020 TSH Qn 3.36 m[IU]/L [facility] Work Phone: UrinalysisOrdered By: Dipti Quinones on 10-26-2020 Bilirubin Urine Negative NEGATIVE [facility] Work Phone: Color, UA YELLOW YELLOW [facility] Work Phone: Glucose, Ur Negative NEGATIVE [facility] Work Phone: Ketones Ql (U) Negative NEGATIVE [facility] Work Phone: Leukocyte esterase Test strip Ql (U) Negative NEGATIVE [facility] Work Phone: Nitrite, Urine Negative NEGATIVE [facility] Work Phone: pH, UA 7.0 [facility] [employer] Phone: Protein, UA Negative NEGATIVE [facility] [employer] Phone: Specific [place], UA 1.010 [facility] [employer] Phone: Turbidity UA CLEAR CLEAR [facility] [employer] Phone: Urinalysis Comments [facility] [employer] Phone: Urine Hgb Negative NEGATIVE [facility] [employer] Phone: Urobilinogen, Urine Normal Normal [facility] [employer] Phone: [facility] [employer] Phone: Urinalysis, Routineon 2020 Bilirubin, SemiQt,Ur Negative Normal NEG [facility] Comment on above: Performed By: #### H IVCMB, PHEP, CRP, ANAX, EBVPRO #### [address] [address] [employer]: Sebastian Roman MD #### CP, SED, TSHX, CDP, HCG #### [facility] [address] [place] [address] [employer]: Amie Urrutia MD Blood, Urine Negative Normal NEG [facility] Comment on above: Performed By: #### H IVCMB, PHEP, CRP, ANAX, EBVPRO #### [facility] [employer] [address] [place] [id number] [employer]: Sebastian Roman MD #### CP, SED, TSHX, CDP, HCG #### [facility] [address] [place] [address] [employer]: Amie Urrutia MD Clarity (U) CLEAR Normal CLEAR [facility] Comment on above: Performed By: #### H IVCMB, PHEP, CRP, ANAX, EBVPRO #### [facility] [employer] [address] [place] [address] [id number] [employer]: Sebastian Roman MD #### CP, SED, TSHX, CDP, HCG #### [facility] [address] [facility] [place], [place] [id number] [employer]: Amie Urrutia MD Color (U) YELLOW Normal YEL [facility] Comment on above: Performed By: #### H IVCMB, PHEP, CRP, ANAX, EBVPRO #### [address] [address] [employer]: Sebastian Roman MD #### CP, SED, TSHX, CDP, HCG #### [facility] [address] [place], [place] [id number] [employer]: Amie Urrutia MD Comment [facility] Comment on above: Performed By: #### H IVCMB, PHEP, CRP, ANAX, EBVPRO #### [address] [address] [employer]: Sebastian Roman MD #### CP, SED, TSHX, CDP, HCG #### [facility] [address] [place], [place] 0000490 [employer]: Amie Urrutia MD Glucose Ql (U) Negative Normal NEG [facility] Comment on above: Performed By: #### H IVCMB, PHEP, CRP, ANAX, EBVPRO #### [address] [address] [employer]: Sebastian Roman MD #### CP, SED, TSHX, CDP, HCG #### [facility] [address] [place], [place] [id number] [employer]: Amie Urrutia MD Ketones Ql (U) Negative Normal NEG [facility] Comment on above: Performed By: #### H IVCMB, PHEP, CRP, ANAX, EBVPRO #### [address] [id number] [employer]: Sebastian Roman MD #### CP, SED, TSHX, CDP, HCG #### [facility] [address] [place], [place] [address]990 [employer]: Amie Urrutia MD Leukocyte esterase Test strip Ql (U) Negative Normal NEG [facility] Comment on above: Performed By: #### H IVCMB, PHEP, CRP, ANAX, EBVPRO #### [address] [id number] [employer]: Sebastian Roman MD #### CP, SED, TSHX, CDP, HCG #### [facility] [address] [place] [id number] [employer]: Amie Urrutia MD Nitrite,Ur Negative Normal NEG [facility] Comment on above: Performed By: #### H IVCMB, PHEP, CRP, ANAX, EBVPRO #### [address] [id number] [employer]: Sebastian Roman MD #### CP, SED, TSHX, CDP, HCG #### [facility] [address] [place] [id number] [employer]: Amie Urrutia MD PH,Ur 7.0 Normal 5.0-8.0 [facility] Comment on above: Performed By: #### H IVCMB, PHEP, CRP, ANAX, EBVPRO #### [address] [id number] [employer]: Sebastian Roman MD #### CP, SED, TSHX, CDP, HCG #### [facility] [address] [place], [place] [id number] [employer]: Amie Urrutia MD Protein Ql (U) Negative Normal NEG [facility] Comment on above: Performed By: #### H IVCMB, PHEP, CRP, ANAX, EBVPRO #### [id number] [place], [place] 130[address] [employer]: Sebastian Roman MD #### CP, SED, TSHX, CDP, HCG #### [facility] [address] [place], [place] [id number] [employer]: Amie Urrutia MD Spec. [place],Ur 1.010 Normal 1.005-1.030 [facility] Comment on above: Performed By: #### H IVCMB, PHEP, CRP, ANAX, EBVPRO #### [facility] [address] [place] [address] [employer]: Sebastian Roman MD #### CP, SED, TSHX, CDP, HCG #### [facility] [address] [place], [place] [id number] [employer]: Amie Urrutia MD Urobilinogen,Ur Normal Normal NORM [facility] Comment on above: Performed By: #### H IVCMB, PHEP, CRP, ANAX, EBVPRO #### [address] [id number] [employer]: Sebastian Roman MD #### CP, SED, TSHX, CDP, HCG #### [facility] [address] [place], [place] [id number] [employer]: Amie Urrutia MD hCG, Serum, QualitativeOrder ed By: Dipti Quinones on 10-26-2020 hCG Qual Negative NEGATIVE [facility] [employer] Phone: Comment on above: Specimens with hCG l evels near the threshold of the test (25 mIU/mL) may give a negative or indeterminate result. In such cases, another test should be performed with a new specimen in 48-72 hours. If early is suspected clinically in this setting, correlation with quantitative serum b-hCG level is suggested. [employer] has confirmed the use of plasma for this test. This has not been cleared or approved by the U.S. Food and Drug Administration. The FDA has determined that such clearance is not necessary. [employer] Phone: [id number] 03-18-2020 SARS-CoV-2 (COVID-19) RNA FERNANDO+probe Ql (Unsp spec) Normal [facility] Comment on above: Performed By: #### H IVCMB, PHEP, CRP, ANAX, EBVPRO #### [facility] [employer] [facility] [place], [place] [id number] [employer]: Sebastian Roman MD #### CP, SED, TSHX, CDP, HCG #### [facility] [address] [place] [address] [employer]: Amie Urrutia MD SARS-CoV-2 (COVID-19) RNA FERNANDO+probe Ql (Unsp spec) Not detected Normal NOTDET [facility] Comment on above: Result Comment: The specimen is NEGATIVE for SARS-CoV-2, the novel coronavirus associated with COVID-19. A negative result does not rule out COVID-19. Erin SARS-CoV-2 for use on the Erin 6800/8800 Systems is a real-time RT-PCR test intended for the qualitative detection of nucleic acids from SARS-CoV-2 in clinician-collected nasal, nasopharyngeal, and oropharyngeal swab specimens from individuals who meet COVID-19 clinical and/or epidemiological criteria. Erin SARS-CoV-2 is for use only under Emergency Use Authorization (EUA) in laboratories certified under Clinical Laboratory Improvement Amendments of 1988 (CLIA), 42 U.S.C. ?263a, that meet requirements to perform high or moderate complexity tests. An individual without symptoms of COVID-19 and who is not shedding SARS-CoV-2 virus would expect to have a negative (not detected) result in this assay. Fact sheet for Healthcare Providers: https://www.fda.gov/media/951295/download Fact sheet for Patients: https://www.fda.gov/media/550563/download METHODOLOGY: RT-PCR Performed By: #### H IVCMB, PHEP, CRP, ANAX, EBVPRO #### [facility] [employer] [address] [place], [place] [id number] [employer]: Sebastian Roman MD #### CP, SED, TSHX, CDP, HCG #### [facility] [address] [place] [address] [employer]: Amie Urrutia MD [id number] 03-17-2020 SARS-CoV-2 (COVID-19) RNA FERNANDO+probe Ql (Unsp spec) .THROAT Normal [facility] Comment on above: Performed By: #### H IVCMB, PHEP, CRP, ANAX, EBVPRO #### [facility] [address] [place], [place] [id number] [employer]: Sebastian Roman MD #### CP, SED, TSHX, CDP, HCG #### [facility] [address] [place] [address] [employer]: Amie Urrutia MD Glucose, Fastingon 9 Glucose [Mass/Vol] 102 mg/dL High 70 - 99 mg/dL [place], [place] Interpretation and review of laboratory results Abnormal [place] Hemoglobin A1Con 11-22-2018 Glucose [Mass/Vol] 97 mg/dL [place] Comment on above: The ADA and AACC rec ommend providing the estimated average glucose result to permit better patient understanding of their HBA1c result. HbA1c (Bld) [Mass fraction] 5.0 % 4.8 - 5.9 % [place] CBC Auto Differentialon 10-08 Basophils (Bld) [#/Vol] 0.10 10*3/uL [place] Basophils/100 WBC (Bld) 1 % 0 - 2 % M [place], [place] Differential Type YES [place] Eosinophils (Bld) [#/Vol] 0.50 10*3/uL High [place] Eosinophils/100 WBC (Bld) 10 % High 0 - 5 % [place] Erythrocyte distribution width (RBC) [Ratio] 13.5 % 12.1 - 15.2 % [place] Hematocrit (Bld) [Volume fraction] 40.9 % 36 - 46 % [place] Hemoglobin (Bld) [Mass/Vol] 13.9 g/dL 12 - 16 g/dL [place] Interpretation and review of laboratory results Abnormal [place] Lymphocytes (Bld) [#/Vol] 1.70 10*3/uL [place] Lymphocytes/100 WBC (Bld) 36 % 15 - 40 % [place] MCH (RBC) [Entitic mass] 29.6 pg 26 - 34 pg [place] MCHC (RBC) [Mass/Vol] 33.9 g/dL 31 - 37 g/dL M [place] MCV (RBC) [Entitic vol] 87.4 fL 80 - 100 fL [place] Monocytes (Bld) [#/Vol] 0.40 10*3/uL [place] Monocytes/100 WBC (Bld) 8 % 4 - 8 % M [place] Platelet mean volume (Bld) [Entitic vol] NOT REPORTED 6 - 12 fL [place] Platelets (Bld) [#/Vol] NOT REPORTED [place] Platelets (Bld) [#/Vol] 309 10*3/uL [place] RBC (Bld) [#/Vol] 4.68 10*6/uL 4 - 5.2 m/uL [place] RBC morphology finding Nom (Bld) NOT REPORTED [place] Segmented neutrophils/100 WBC (Bld) 45 % Low 47 - 75 % [place] Segs Absolute 2.20 Low [place] WBC (Bld) [#/Vol] NOT REPORTED per 100 WBC [place] WBC (Bld) [#/Vol] 4.9 10*3/uL [place] WBC Morphology NOT REPORTED [place] Otheron 10-26-2018 Immature granulocytes (Bld) [#/Vol] NOT REPORTED 0 % [place] T4, Freeon 10-26-2018 Thyroxine, Free 1.21 ng/dL 0.93 - 1.7 ng/dL [place] TSH without Reflexon 019 TSH Qn 1.86 m[IU]/L [place] Complete Blood Count Auto Di ffon 03-18-2018 Basophils #/vol (Bld) 0.1 10*3/uL Normal 0.0-0.2 [facility] Comment on above: Result Comment: PERF ORMED BY: [place] [address] PATHOLOGIST PERFORMANCE REPORTER PRINCE ARCOS M.D. Performed By: #### C BC, ETOH, CMP #### [facility] [address] [place] [address] [place] Basophils/100 WBC (Bld) 0.6 % Normal . [facility] Comment on above: Performed By: #### C BC, ETOH, CMP #### [facility] [address] Eosinophils #/vol (Bld) 0.1 10*3/uL Normal 0.0-0.45 [facility] Comment on above: Performed By: #### C BC, ETOH, CMP #### [place] [address] [place] Eosinophils/100 WBC (Bld) 1.5 % Normal . [facility] Comment on above: Performed By: #### C BC, ETOH, CMP #### [facility] [address] [place] [address] [place] Erythrocyte distribution width Ratio (RBC) 13.4 % Normal 11.9-15.3 [facility] Comment on above: Performed By: #### C BC, ETOH, CMP #### [facility] [address] [place] [address] Hematocrit Volume Fraction (Bld) 44.1 % Normal 34.0-46.4 [facility] Comment on above: Performed By: #### C BC, ETOH, CMP #### [address] Hemoglobin mass conc (Bld) 14.7 g/dL Normal 11.8-15.4 [facility] Comment on above: Performed By: #### C BC, ETOH, CMP #### [facility] [address] Lymphocytes #/vol (Bld) 1.2 10*3/uL Normal 1.00-4.8 [facility] Comment on above: Performed By: #### C BC, ETOH, CMP #### [facility] [address] Lymphocytes/100 WBC (Bld) 13.8 % Normal . [facility] Comment on above: Performed By: #### C BC, ETOH, CMP #### [address] MCH Entitic mass (RBC) 29.1 pg Normal 24.7-34.3 [facility] Comment on above: Performed By: #### C BC, ETOH, CMP #### [address] MCH Entitic mass (RBC) 33.3 g/dL Normal 32.0-35.0 [facility] Comment on above: Performed By: #### C BC, ETOH, CMP #### [address] MCV Entitic volume (RBC) 87.3 fL Normal 80-100 [facility] Comment on above: Performed By: #### C BC, ETOH, CMP #### [address] Monocytes #/vol (Bld) 0.5 10*3/uL Normal 0.0-0.8 [facility] Comment on above: Performed By: #### C BC, ETOH, CMP #### [facility] [address] [place] [address] [place] Monocytes/100 WBC (Bld) 6.3 % Normal . [facility] Comment on above: Performed By: #### C BC, ETOH, CMP #### [address] Neutrophils #/vol (Bld) 6.6 10*3/uL Normal 1.8-7.7 [facility] Comment on above: Performed By: #### C BC, ETOH, CMP #### [facility] [address] Neutrophils/100 WBC (Bld) 77.8 % Normal . [facility] Comment on above: Performed By: #### C BC, ETOH, CMP #### [facility] [address] Nucleated RBC/100 WBC Ratio (Bld) 0.5 % High 0-0 [facility] Comment on above: Performed By: #### C BC, ETOH, CMP #### [facility] [address] Platelet mean volume Entitic volume (Bld) 8.8 fL Normal 6.3-10.7 [facility] Comment on above: Performed By: #### C BC, ETOH, CMP #### [facility] [address] Platelets #/vol (Bld) 342 10*3/uL Normal 150-450 [facility] Comment on above: Performed By: #### C BC, ETOH, CMP #### [facility] [address] RBC #/vol (Bld) 5.06 10*6/uL High 3.60-5.00 [facility] Comment on above: Performed By: #### C BC, ETOH, CMP #### [facility] [address] WBC #/vol (Bld) 8.4 10*3/uL Normal 3.8-11.6 [facility] Comment on above: Performed By: #### C BC, ETOH, CMP #### [facility] [address] Comprehensive Metabolic Pane yennifer 03-18-2018 Albumin mass conc 4.5 g/dL Normal 3.2-5.5 [facility] Comment on above: Performed By: #### C BC, ETOH, CMP #### [facility] [address] Albumin/Globulin mass ratio 1.3 {ratio} Normal [facility] Comment on above: Performed By: #### C BC, ETOH, CMP #### [facility] [address] [place] [address] [place] ALP enzyme act/vol 72 U/L Normal 32-92 [facility] Comment on above: Performed By: #### C BC, ETOH, CMP #### [facility] [address] [place] [address] [place] ALT enzyme act/vol 15 U/L Normal 10-60 [facility] Comment on above: Performed By: #### C BC, ETOH, CMP #### [facility] [address] AST enzyme act/vol 18 U/L Normal 10-42 [facility] Comment on above: Performed By: #### C BC, ETOH, CMP #### [facility] [address] Bilirubin mass conc 1.0 mg/dL Normal 0.3-1.2 [facility] Comment on above: Performed By: #### C BC, ETOH, CMP #### [facility] [address] [place] [address] [place] Calcium mass conc 10.0 mg/dL Normal 8.2-10.2 [facility] Comment on above: Performed By: #### C BC, ETOH, CMP #### [facility] [address] [place] [address] [place] Chloride molar conc 107 mmol/L Normal 95-114 [facility] Comment on above: Performed By: #### C BC, ETOH, CMP #### [facility] [address] [place] [address] [place] CO2 molar conc 21.1 mmol/L Low 22.0-30.0 [facility] Comment on above: Performed By: #### C BC, ETOH, CMP #### [facility] [address] Creatinine mass conc 0.72 mg/dL Normal 0.44-1.03 [facility] Comment on above: Performed By: #### C BC, ETOH, CMP #### [address] Creatinine mass conc 115.9015999085 mg/dL Normal [facility] Comment on above: Result Comment: PERF ORMED BY: [place] [address] PATHOLOGIST PERFORMANCE REPORTER PRINCE ARCOS M.D. Performed By: #### C BC, ETOH, CMP #### [address] Estimated GFR ( Leeanna > 60 Normal [facility] Comment on above: Result Comment: GFR estimated reference range: According to KDOQI guidelines, <60 ml/min/1.73m2 is sufficient to diagnose a patient with chronic kidney disease. Performed By: #### C BC, ETOH, CMP #### [address] Estimated GFR (Non- Am > 60 Normal [facility] Comment on above: Performed By: #### C BC, ETOH, CMP #### [address] Globulin mass conc (S) 3.4 g/dL Normal [facility] Comment on above: Performed By: #### C BC, ETOH, CMP #### [address] Glucose mass conc 113 mg/dL High 70-100 [facility] Comment on above: Result Comment: [facility] Glucose Reference Range is dependent on time and content of last meal. Glucose of more than 200 mg/dL in a nonstressed, ambulatory subject supports the diagnosis of Diabetes Mellitus. ADA recommended reference range Performed By: #### C BC, ETOH, CMP #### [place] [address] [place] Potassium molar conc 3.5 mmol/L Normal 3.5-5.1 [facility] Comment on above: Performed By: #### C BC, ETOH, CMP #### [address] Protein mass conc 7.9 g/dL Normal 6.1-7.9 [facility] Comment on above: Performed By: #### C BC, ETOH, CMP #### [facility] [address] Sodium molar conc 137 mmol/L Normal 136-146 [facility] Comment on above: Performed By: #### C BC, ETOH, CMP #### [facility] [address] Urea nitrogen mass conc 10 mg/dL Normal 9-23 [facility] Comment on above: Performed By: #### C BC, ETOH, CMP #### [facility] [address] [place] [address] [place] Drug Screen,Urineon 03-18-19 19 Amphetamine Screen,Urine Negative Normal Negative [facility] Comment on above: Performed By: #### U APLUS, URDS #### [place] [address] [place] Barbiturate Screen,Urine Negative Normal Negative [facility] Comment on above: Performed By: #### U APLUS, URDS #### [place] [address] [place] Benzodiazepines Screen,Urine Negative Normal Negative [facility] Comment on above: Performed By: #### U APLUS, URDS #### [address] Cannabinoid Screen,Urine Positive High Negative [facility] Comment on above: Result Comment: Thes e are unconfirmed results and should not be used for legal purposes. Drug Cut-Off Concentration: AMPH 1000 ng/mL JORGE 200 ng/mL STEVEN 200 ng/mL COCM 300 ng/mL OP 300 ng/mL PCP 25 ng/mL THC 20 ng/mL PERFORMED BY: [place] [address] PATHOLOGIST PERFORMANCE REPORTER PRINCE ARCOS M.D. Performed By: #### U APLUS, URDS #### [place] [address] [place] Cocaine Screen,Urine Negative Normal Negative [facility] Comment on above: Performed By: #### U APLUS, URDS #### [address] [place] [address] [place] Opiate Screen,Urine Negative Normal Negative [facility] Comment on above: Performed By: #### U APLUS, URDS #### [facility] [address] Phencyclidine Screen,Urine Negative Normal Negative [facility] Comment on above: Performed By: #### U APLUS, URDS #### [facility] [address] Ethyl Alcohol Profileon 03-09 Ethanol mass conc mg/dL Normal [facility] Comment on above: Performed By: #### C BC, ETOH, CMP #### [facility] [address] Percent Ethanol Test not performed Normal [facility] Comment on above: Result Comment: PERF ORMED BY: [place] [address] PATHOLOGIST PERFORMANCE REPORTER PRINCE RACOS M.D. Performed By: #### C BC, ETOH, CMP #### [address] Urinalysis and Microscopicon 03-18-2018 Appearance Nom (U) Cloudy Critically abnormal Clear [facility] Comment on above: Order Comment: Name Collection Type: Clean-Voided Midstream Performed By: #### U APLUS, URDS #### [address] Bacteria LM.HPF #/area (Urine sed) None Seen Normal None Seen [facility] Comment on above: Order Comment: Name Collection Type: Clean-Voided Midstream Performed By: #### U APLUS, URDS #### [address] Bilirubin,Urine Negative Normal Negative [facility] Comment on above: Order Comment: Name Collection Type: Clean-Voided Midstream Performed By: #### U APLUS, URDS #### [address] Color Nom (U) Yellow Normal Yellow [facility] Comment on above: Order Comment: Name Collection Type: Clean-Voided Midstream Performed By: #### U APLUS, URDS #### [facility] [address] Glucose Ql (U) Normal Normal Normal [facility] Comment on above: Order Comment: Name Collection Type: Clean-Voided Midstream Performed By: #### U APLUS, URDS #### [facility] [address] Hyaline Casts,Urine 0-8 Normal 0-8 [facility] Comment on above: Order Comment: Name Collection Type: Clean-Voided Midstream Result Comment: PERF ORMED BY: [place] [address] PATHOLOGIST PERFORMANCE REPORTER PRINCE ARCOS M.D. Performed By: #### U APLUS, URDS #### [facility] [address] [place] [address] Ketones Ql (U) Trace High Negative [facility] Comment on above: Order Comment: Name Collection Type: Clean-Voided Midstream Performed By: #### U APLUS, URDS #### [facility] [address] [place] [address] Leukocyte esterase Test strip Ql (U) Negative Normal Negative [facility] Comment on above: Order Comment: Name Collection Type: Clean-Voided Midstream Performed By: #### U APLUS, URDS #### [facility] [address] [place] [address] [place] Nitrite,Urine Negative Normal Negative [facility] Comment on above: Order Comment: Name Collection Type: Clean-Voided Midstream Performed By: #### U APLUS, URDS #### [facility] [address] [place] [address] [place] Occult Blood,Urine Negative Normal Negative [facility] Comment on above: Order Comment: Name Collection Type: Clean-Voided Midstream Result Comment: PERF ORMED BY: [place] [address] PATHOLOGIST PERFORMANCE REPORTER PRINCE ARCOS M.D. Performed By: #### U APLUS, URDS #### [address] pH (U) 5.0 [pH] Normal 5.0-9.0 [facility] Comment on above: Order Comment: Name Collection Type: Clean-Voided Midstream Performed By: #### U APLUS, URDS #### [address] Protein mass conc (U) 30 mg/dL High Negative [facility] Comment on above: Order Comment: Name Collection Type: Clean-Voided Midstream Performed By: #### U APLUS, URDS #### [address] RBC LM.HPF #/area (Urine sed) 1-2 Normal 0-4 [facility] Comment on above: Order Comment: Name Collection Type: Clean-Voided Midstream Performed By: #### U APLUS, URDS #### [address] Specificy [place],Urine 1.022 Normal 1.001-1.030 [facility] Comment on above: Order Comment: Name Collection Type: Clean-Voided Midstream Performed By: #### U APLUS, URDS #### [address] Squamous Epithelial Cell,Urine 0-1 Normal 0-2 [facility] Comment on above: Order Comment: Name Collection Type: Clean-Voided Midstream Performed By: #### U APLUS, URDS #### [address] Urobilinogen,Urine Normal Normal Normal [facility] Comment on above: Order Comment: Name Collection Type: Clean-Voided Midstream Performed By: #### U APLUS, URDS #### [address] WBC LM.HPF #/area (Urine sed) 1-2 Normal 0-4 [facility] Comment on above: Order Comment: Name Collection Type: Clean-Voided Midstream Performed By: #### U APLUS, URDS #### [facility] [address] [place] [id number] [facility] Vital Signs Date Time Vital Sign Value Performing Clinician Stu silver 03-04-2022 04:06-0500 Body weight 75.[address] OSORIO REARDON . [facility] Comment on above: Performed By: #### N BOX #### [facility] [address] [address] [address] Shell Cadena Encounters Encounter Date Encounter Type Care Provider Facility Start: 07-06-2022 End: 07-06-[address] OSORIO REARDON . Facility:[facility] Start: 07-01-2022 End: 07-03-2022 Evaluation and management of inpatient DR OSORIO REARDON . Facility:[facility] Start: 06-22-2022 End: 06-22-[address] OSORIO REARDON . Facility:[facility] Start: 05-26-2022 End: 05-27-[address] OSORIO REARDON . Facility:[facility] Start: 04-23-2022 End: 04-24-[address] OSORIO REARDON . Facility:[facility] Start: 04-20-2022 End: 04-21-[address] BENNIE BUSTAMANTE . Facility:[facility] Start: 03-10-2022 End: 03-11-[address] OSORIO REARDON . Facility:[facility] Start: 03-01-2022 End: 03-01-2022 ambulatory TRINITY POOLE . Facility:[facility] Start: 03-01-2022 End: 03-02-[address] OSORIO REARDON . Facility:[facility] Start: 01-04-2022 End: 01-05-[address] OSORIO REARDON . Facility:[facility] Start: 12-10-2021 End: 12-11-[address] OSORIO REARDON . Facility:[facility] Start: 10-26-2020 End: 10-27-[address] [facility] Start: 10-26-2020 End: 10-26-2020 Subsequent hospital visit by physician Dipti Quinones [employer] WORKER - [employer]BI[employer]ACTICE LEAD Work Phone: [facility] Comment on above: Urticarial rash; Sexually active child; BMI 35.0-35.9,adult; Screening for thyroid disorder; Screening, anemia, deficiency, iron; Screening for diabetes mellitus; Tattoos Start: 03-17-2020 End: 03-18-2020 ambulatory OVIDIO Duarte [facility] Start: 03-17-2020 End: 03-17-2020 Subsequent hospital visit by physician [facility] Comment on above: Suspected COVID-19 v irus infection Start: 11-22-2018 End: 11-22-2018 Subsequent hospital visit by physician Dipti [facility] Start: 10-26-2018 End: 10-26-2018 Subsequent hospital visit by physician Dipti [facility] Start: 03-18-2018 End: 03-18-2018 Emergency department patient visit Tanmay Wu Facility:[facility] Procedures Date Procedure Procedure Detail Performing Clinician Start: 07-01-2022 Delivery of Products of Conception, External Approach DR OSORIO REARDON . Start: 07-01-2022 Division of Female Perineum, External Approach DR OSORIO REARDON . Start: 07-01-2022 Drainage of Amniotic Fluid, Therapeutic from Products of Conception, Via Natural or Artificial Opening DR OSORIO REARDON . 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 PRACTICE LEAD Work Phone: Start: 11-22-[address] gtt 3 specimens Osorio Reardon Work Phone: Start: 11-22-2018 Hemoglobin glycosylated a1c Osorio Reardon Work Phone: Start: 10-26-2018 Assay of free thyroxine Osorio Reardon Work Phone: Start: 10-26-2018 Assay of thyroid stimulating hormone tsh Osorio Reardon Work Phone: Start: 10-26-2018 Blood count complete auto&auto difrntl wbc Osorio Reardon Work Phone: Plan of Treatment Date Care Activity Detail Author Start: 01-05-2022 DTaP/Tdap/Td vaccine (7 - Td or Tdap) DTaP/Tdap/Td vaccine (7 - Td or Tdap) [facility] Phone: Start: 10-07-2020 Influenza vaccination Flu vaccine (# 1) [facility] Phone: Start: 12-31-2019 Screening for malign ant neoplasm of cervix [place] Start: 10-08-2019 Influenza vaccination Flu vaccine (# 1) [place] Start: 10-07-2018 Influenza vaccination Flu vaccine (# 1) [place] Start: 2017 DTaP/Tdap/Td vaccine (1 - Tdap) DTaP/Tdap/Td vaccine (1 - Tdap) [place] Start: 2014 Chlamydia screen Chlamydia screen [place], [place] Start: 2014 Screening for Chlamy yan trachomatis Chlamydia screen [place] Start: 2013 HIV screen HIV screen [place], [place] Start: 2013 HIV screening HIV screen [place], [place] Start: 2013 HPV vaccine (1 - Fem pritesh 3-dose series) HPV vaccine (1 - Female 3-dose series) [place] Start: 2010 COVID-19 Vaccine (1) COVID-19 Vaccin e (1) [facility] Phone: Start: 2009 HPV vaccine (1 - 2-d ose series) HPV vaccine (1 - 2-dose series) [place] Start: 12-31-1999 Varicella vaccine (1 of 2 - 2-dose childhood series) Varicella vaccine (1 of 2 - 2-dose childhood series) [place] Start: 1998 Hepatitis C screening Hepatitis C sc reen [place] End: 10-26-2020 NAS Screen With Reflex NAS Screen With Reflex Lab Routine Urticarial rash 1 Occurrences starting 10/26/2020 until 10/26/2020 [employer] Phone: Comment on above: 1 Occurrences starti ng 10/26/2020 until 10/26/2020 NAS Screen With Reflex NAS Scree n With Reflex Lab Routine Urticarial rash 10/26/2020 3:45 PM EDT [employer] Phone: End: 03-17-2020 COVID-19 COVID-19 Lab Routine Suspected Covid-19 Virus Infection 1 Occurrences starting 03/17/2020 until 03/17/2020 [place] Comment on above: 1 Occurrences starti ng 03/17/2020 until 03/17/2020 COVID-19 COVID-19 Lab Rou annalisa Suspected COVID-19 virus infection 03/17/2020 2:52 PM EST [place] End: 10-26-2020 Chanelle Pierre Virus (EBV) Antibody Panel I Chanelle Pierre Virus (EBV) Antibody Panel I Lab Routine Urticarial rash BMI 35.0-35.9,adult 1 Occurrences starting 10/26/2020 until 10/26/2020 [employer] Phone: Comment on above: 1 Occurrences starti ng 10/26/2020 until 10/26/2020 End: 10-26-2020 Chanelle-Pierre virus VCA antibody panel Chanelle-Pierre virus VCA antibody panel Lab Routine Once for 1 Occurrences starting 10/26/2020 until 10/26/2020 [employer] Phone: Comment on above: Once for 1 Occurrenc es starting 10/26/2020 until 10/26/2020 Chanelle-Pierre virus V CA antibody panel Chanelle-Pierre virus VCA antibody panel Lab Routine 10/26/2020 3:45 PM EDT [employer] Phone: Food Comprehensive Panel Food Co mprehensive Panel Lab Routine Urticarial rash 10/26/2020 3:45 PM EDT [employer] Phone: Payers Date Payer Category Payer Self-pay 2014 Unknown [id number] 2014 Unknown [employer] xxxxxxxxxxx 2014-Present [phone] [address] [place] [address] xxxxxxxxxxx [id number] 1998 Unknown [id number] 1998 Unknown [id number] [id number] 1998 Unknown [id number] [id number] 1998 Unknown [id number] [id number] 1998 Unknown [id number] [id number] 1998 Unknown [id number] [id number] 1998 Unknown [id number] [id number] 1998 Unknown [id number] [id number] 1998 Unknown [id number] [id number] 1998 Unknown [id number] [id number] 1998 Unknown [id number] [id number] 1998 Unknown [id number] [id number] 1998 Unknown [id number] [id number] 1959 Unknown [id number] 1959 Unknown [id number] Unknown [id number] [id number] Unknown [id number] Social History Date Type Detail Facility Start: 07-05-2017 Tobacco smoking stat [facility] Start: 07-05-2017 Alcohol intake No [facility] Start: 1998 Sex Assigned At Not on file M [place], [place] Start: 03-17-2020 Tobacco smoking stat [facility] Current every day smoker [facility] Start: 12-27-2019 End: 09-25-2020 History of tobacco use Cigarette Smoker [place] Start: 03-17-2020 End: 10-26-2020 Cigarettes smoked current (pack per day) - Reported [place] Start: 03-17-2020 End: 10-26-2020 Tobacco use and exposure [facility] used [facility] Start: 03-17-2020 End: 10-26-2020 Alcohol intake Current non-drinker of alcohol (finding) [place] Start: 10-26-2020 Tobacco smoking stat [facility] Former smoker [employer] Phone: Start: 12-27-2019 End: 09-25-2020 History of tobacco use [facility] Evaluation note Note Date & Type Note Facility Evaluation note Diagnosis Urticarial rash Urticaria, unspecified Sexually active child Problems related to high-risk sexual behavior BMI 35.0-35.9,adult Body Mass Index 35.0-35.9, adult Screening for thyroid disorder Screening, anemia, deficiency, iron Screening for iron deficiency anemia Screening for diabetes mellitus Tattoos Other dyschromia documented in this encounter [employer] Phone: Summary Purpose Family History No Family History Records FoundNo Family History Records FoundNo Family History Records Found Advance Directives No Advanced Directives Records FoundDocuments on File Type Date Recorded 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 Advance Directives and Living Will 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 of Tube 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 Operator Documents on File Type Date Recorded 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 This clinical summary was aggregated from multiple sources. Caution should be exercised in using it in the provision of clinical care. This summary normalizes information from multiple sources, and as a consequence, information in this document may materially change the coding, format and clinical context of patient data. In addition, data may be omitted in some cases. CLINICAL DECISIONS SHOULD BE BASED ON THE PRIMARY CLINICAL RECORDS. [employer] provides no warranty or guarantee of the accuracy or completeness of information in this document.
== END 2023-12-29 10:30 | disposition home or self-care (01) ==
LOC: NOMS 10:29
PROVIDERS: Visit Provider Obstetrics & Gynecology
DX: Z34.91 Encounter for supervision of normal pregnancy, unspecified, first trimester (principal); Z3A.01 Less than 8 weeks gestation of pregnancy; N92.6 Irregular menstruation, unspecified
CPT/HCPCS: 76817

== ENCOUNTER 2024-01-11 18:29 | Emergency (ER) | payer OTHER, SELFPAY ==
[2024-01-11] VITALS (18 sets, daily range): BP systolic 102–109; BP diastolic 57–71; PULSE 62–115; TEMP 36.8; O2SAT 96–100; BMI 21.0
--- OUTSIDE RECORDS SUMMARY | 2024-01-11 18:53 | XMS_ITS | CCD ---
Author Organization [facility] Care Team Providers Care Harness Worker Name Role Phone Tanmay Wu Attending Unavailable NO FAMILY PHYSICIAN Primary Care Unavailable Dipti Quinones Primary Care Provider [phone] Unavailable Primary Care Provider Unavailshila Quinones SERVER SOFTWARE ENGINEER - Dipti WEEMS Primary Care Provider OVIDIO ROY Referring Unavailable DIPTI QUINONES Primary Care Unavailable DIPTI QUINONES Referring Unavailable CARON ., DR AC Primary Care Unavailable CARON ., DR AC Attending Unavailable CARON ., DR AC Admitting Unavailable CARON ., DR AC Primary Care Unavailable CARON ., DR AC Consulting Unavailable CARON ., DR AC Admitting Unavailable CARON ., DR AC Attending Unavailable CARON ., DR AC Consulting Unavailable REQUEST, NONE LISTED Primary Care Unavaila ble CARON ., DR AC Admitting Unavailable CARON ., DR AC Attending Unavailable ZIEBER, DR VIC Cary Consulting Unavailable VIRGILIO ., TRINITY Consulting Unavailable VIRGILIO ., TRINITY Attending Unavailable REQUEST, NONE LISTED Primary Care Unavaila ble VIRGILIO ., TRINITY Admitting Unavailable CARON ., DR AC Consulting Unavailable CARON ., DR AC Admitting Unavailable CARON ., DR AC Attending Unavailable REQUEST, NONE LISTED Primary Care Unavaila ble CARON ., DR AC Consulting Unavailable REQUEST, NONE LISTED Primary Care Unavaila ble CARON ., DR AC Attending Unavailable CARON ., DR AC Admitting Unavailable CARON ., DR AC Admitting Unavailable CARON ., DR AC Consulting Unavailable REQUEST, DR NONE LISTED Primary Care Unavaila ble CARON ., DR AC Attending Unavailable CARON ., DR AC Admitting Unavailable REQUEST, DR NONE LISTED Primary Care Unavaila ble WEST, DR AMIE Montemayor Consulting Unavailable CARON ., DR AC Attending Unavailable CARON ., DR AC Consulting Unavailable CARON ., DR AC Primary Care Unavailable VIRGILIO ., TRINITY Consulting Unavailable VIRGILIO ., TRINITY Attending Unavailable VIRGILIO ., TRINITY Admitting Unavailable CARON ., DR AC Primary Care Unavailable CARON ., DR AC Consulting Unavailable CARON ., DR AC Attending Unavailable CARON ., DR AC Admitting Unavailable ZIEBER, DR VIC Cary Consulting Unavailable REQUEST, DR ROSS LISTED Consulting Unavaila ble CARON ., DR AC Primary Care Unavailable CARON ., DR AC Consulting Unavailable CARON ., DR AC Attending Unavailable CARON ., DR AC Admitting Unavailable CARON ., DR AC Procedure Practitioner Unavail able KARASIK ., DR AVERY Consulting Unavailabl e KARASIK ., DR AVERY Attending Unavailabl e [facility], DR URIAS Primary Care Unavailable KARASIK ., DR AVERY Admitting Unavailabl e Unavailable Primary Care Provider Unavailabl e Medications Current Medications Medication Drug Class(es) Dates Sig (Normalized) Sig (Original) ibuprofen 600 mg oral tablet (4 sources) Nonsteroidal Anti-inflammatory Drug take 1 tablet by mouth every six hours as needed for pain ibuprofen (ADVIL;MOTRIN) 600 MG tablet Take 600 mg by mouth every 6 hours as needed for Pain 0 Active ondansetron 4 mg disintegrating oral tablet (1 source) Serotonin-3 Receptor Antagonist Start: 12-29-2023 End: 01-28-2024 take 1 tablet by mouth every six hours for nausea ondansetron ODT (Zofran-ODT) 4 MG disintegrating tablet Indications: Nausea and vomiting, unspecified vomiting type Take 1 tablet (4 mg) by mouth every 6 (six) hours if needed for nausea or vomiting 30 tablet 2 12/29/2023 01/28/2024 Active MV-Min-Fe Fum-FA-DHA ( 1 PO) (1 source) MV-Min- Fe Fum-FA-DHA ( 1 PO) Take by mouth. Active sertraline 100 mg oral tablet (2 sources) Serotonin Reuptake Inhibitor Start: 12-21-2022 take 1 tablet by mouth in the morning sertraline (Zoloft) 100 MG tablet Indications: Major depressive disorder with current active episode, unspecified depression episode severity, unspecified whether recurrent (CMS/HCC) Take 1 tablet (100 mg) by mouth in the morning. 360 tablet 12/21/2022 Active take 1 tablet by mouth in the mo rning sertraline (Zoloft) 50 MG tablet Take 50 mg by mouth in the morning. 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 (3 [...] adult] Chronic Other and delivery including normal (16 sources) Encounter for routine follow-up; Translations: [Single [...] Test Name Value Interpretation Reference Range Facility HCG ( test) Ql (U)o n 12-29-2023 Interpretation and review of laboratory results Abnormal [facility] Preg Test, Ur Positive Negative [facility] Urinalysis macro (dipstick) panel (U)on 12-29-2023 Bilirubin, UA Negative Negative - 4(70) +++ mg/dL [facility] Blood, UA Negative Negative - 50 Missael/mcL [facility] Clarity, UA Clear [facility] Color, UA Yellow [facility] Glucose, UA Negative Negative - 2000(110) ++++ mg/dL [facility] Interpretation and review of laboratory results Normal [facility] Ketones, UA Negative Negative - 160(16) ++++ mg/dL [facility] Leukocytes, UA Negative Negative - 500+++ [place]/mcL [facility] Nitrite, UA Negative Negative - Positive [facility] pH, UA 6 5 - 9 [facility] Protein, UA Negative Negative - 2000(20) ++++ mg/dL [facility] Spec Grav, UA 1.025 1 - 1.03 [facility] Urobilinogen, UA 0.2 0.2 - 12 mg/dL [facility] CBC AUTO DIFFon 07-02-2022 BASO # 0.0 103/ul Normal 0.0-0.[address] [facility] Comment on above: Performed By: #### G LU1HR #### [facility] [address] [place] [address] Dr. Shell Cadena Basophils/100 WBC (Bld) 0.1 % Critically low 0.2-2.[address] [facility] Comment on above: Performed By: #### G LU1HR #### [facility] [address] [place] [address] Dr. Shell Cadena EO # 0.1 103/ul Normal 0.0-0.7 [facility] Comment on above: Performed By: #### G LU1HR #### [facility] [address] [place] [address] Dr. Shell Cadena Eosinophils/100 WBC (Bld) 0.7 % Critically low 0.9-7.[address] [facility] Comment on above: Performed By: #### G LU1HR #### [facility] [address] [place] [address] Dr. Shell Cadena Erythrocyte distribution width (RBC) [Ratio] 13.2 % Normal 11.0-15.[address] [facility] Comment on above: Performed By: #### G LU1HR #### [facility] [address] [place] [address] Dr. Shell Cadena Hematocrit (Bld) [Volume fraction] 29.9 % Critically low 36.0-48.[address] [facility] Comment on above: Performed By: #### G LU1HR #### [facility] [address] [place] [address] Dr. Shell Cadena Hemoglobin (Bld) [Mass/Vol] 9.9 g/dL Critically low 12.0-16.[address] [facility] Comment on above: Performed By: #### G LU1HR #### [facility] [address] [place] [address] Dr. Shell Cadena IG # 0.10 10e3/ul Critically high 0.00-0.03 [facility] Comment on above: Performed By: #### G LU1HR #### [facility] [address] [address] [address] Shell Cadena IG % 0.7 % Critically high 0.0-0.5 [facility] Comment on above: Performed By: #### G LU1HR #### [facility] [address] [address] [address] Shell Cadena LYMPH # 2.7 103/ul Normal 1.2-3.[address] [facility] Comment on above: Performed By: #### G LU1HR #### [facility] [address] [address] [address] Shell Cadena Lymphocytes/100 WBC (Bld) 18.4 % Critically low 20.5-60.[address] [facility] Comment on above: Performed By: #### G LU1HR #### [facility] [address] [place] [address] Dr. Shell Cadena MANUAL DIFF REQ NO Normal [facility] Comment on above: Performed By: #### G LU1HR #### [facility] [address] [place] [address] Dr. Shell Cadena MCH (RBC) [Entitic mass] 29.1 pg Normal 26.7-34.[address] [facility] Comment on above: Performed By: #### G LU1HR #### [facility] [address] [place] [address] Dr. Shell Cadena MCHC (RBC) [Mass/Vol] 33.1 g/dL Normal 29.9-35.[address] [facility] Comment on above: Performed By: #### G LU1HR #### [facility] [address] [place] [address] Dr. Shell Cadena MCV (RBC) [Entitic vol] 87.9 fL Normal 81.0-99.[address] [facility] Comment on above: Performed By: #### G LU1HR #### [facility] [address] [place] [address] Dr. Shell Cadena MONO # 0.9 103/ul Critically high 0.3-0.8 [facility] Comment on above: Performed By: #### G LU1HR #### [facility] [address] [address] [address] Shell Cadena Monocytes/100 WBC (Bld) 5.7 % Normal 1.7-12.[address] [facility] Comment on above: Performed By: #### G LU1HR #### [facility] [address] [address] [address] Shell Cadena NEUT # 11.0 103/ul Critically high 1.4-6.5 [facility] Comment on above: Performed By: #### G LU1HR #### [facility] [address] [place] [address] Dr. Shell Cadena Neutrophils/100 WBC (Bld) 74.4 % Normal 43.0-75.[address] [facility] Comment on above: Performed By: #### G LU1HR #### [facility] [address] [place] [address] Dr. Shell Cadena Platelet mean volume (Bld) [Entitic vol] 10.8 fL Normal 9.5-13.[address] [facility] Comment on above: Performed By: #### G LU1HR #### [facility] [address] [place] [address] Dr. Shell Cadena PLT 411 103/ul Normal 150-450 [facility] Comment on above: Performed By: #### G LU1HR #### [facility] [address] [place] [address] Dr. Shell Cadean RBC 3.40 106/ul Critically low 4.20-5.40 [facility] Comment on above: Performed By: #### G LU1HR #### [facility] [address] [place] [address] Dr. Shell Cadena WBC 14.8 103/ul Critically high 4.0-11.0 [facility] Comment on above: Performed By: #### G LU1HR #### [facility] [address] [place] [address] Dr. Shell Cadean CULTURE URINEon 07-02-2022 CULTURE URINE Culture Observations: GREATER THAN TWO ORGANISMS PRESENT. PLEASE RESUBMIT CLEAN CATCH MID-STREAM URINE IF CLINICALLY INDICATED. Normal [facility] Comment on above: Performed By: #### U RCX #### [facility] [address] [place] [address] Dr. Shell Cadena CBC AUTO DIFFon 07-01-2022 BASO # 0.0 103/ul Normal 0.0-0.[address] [facility] Comment on above: Performed By: #### N BOX #### [facility] [address] [place] [address] Dr. Shell Cadena Basophils/100 WBC (Bld) 0.2 % Normal 0.2-2.[address] [facility] Comment on above: Performed By: #### N BOX #### [facility] [address] [place] [address] Dr. Shell Cadena EO # 0.2 103/ul Normal 0.0-0.[address] [facility] Comment on above: Performed By: #### N BOX #### [facility] [address] [place] [address] Dr. Shell Cadena Eosinophils/100 WBC (Bld) 1.3 % Normal 0.9-7.[address] [facility] Comment on above: Performed By: #### N BOX #### [facility] [address] [place] [address] Dr. Shell Cadena Erythrocyte distribution width (RBC) [Ratio] 13.2 % Normal 11.0-15.[address] [facility] Comment on above: Performed By: #### N BOX #### [facility] [address] [place] [address] Dr. Shell Cadena Hematocrit (Bld) [Volume fraction] 34.7 % Critically low 36.0-48.[address] [facility] Comment on above: Performed By: #### N BOX #### [facility] [address] [place] [address] Dr. Shell Cadena Hemoglobin (Bld) [Mass/Vol] 11.5 g/dL Critically low 12.0-16.[address] [facility] Comment on above: Performed By: #### N BOX #### [facility] [address] [place] [address] Dr. Shell Cadena IG # 0.07 10e3/ul Critically high 0.00-0.03 [facility] Comment on above: Performed By: #### N BOX #### [facility] [address] [address] [address] Shell Cadena IG % 0.5 % Normal 0.0-0.[address] [facility] Comment on above: Performed By: #### N BOX #### [facility] [address] [address] [address] Shell Cadena LYMPH # 2.4 103/ul Normal 1.2-3.[address] [facility] Comment on above: Performed By: #### N BOX #### [facility] [address] [place] [address] Dr. Shell Cadena Lymphocytes/100 WBC (Bld) 18.9 % Critically low 20.5-60.[address] [facility] Comment on above: Performed By: #### N BOX #### [facility] [address] [place] [address] Dr. Shell Cadena MANUAL DIFF REQ NO Normal [facility] Comment on above: Performed By: #### N BOX #### [facility] [address] [place] [address] Dr. Shell Cadena MCH (RBC) [Entitic mass] 28.8 pg Normal 26.7-34.[address] [facility] Comment on above: Performed By: #### N BOX #### [facility] [address] [place] [address] Dr. Shell Cadena MCHC (RBC) [Mass/Vol] 33.1 g/dL Normal 29.9-35.[address] [facility] Comment on above: Performed By: #### N BOX #### [facility] [address] [place] [address] Dr. Shell Cadena MCV (RBC) [Entitic vol] 87.0 fL Normal 81.0-99.[address] [facility] Comment on above: Performed By: #### N BOX #### [facility] [address] [place] [address] Dr. Shell Cadena MONO # 0.8 103/ul Normal 0.3-0.8 [facility] Comment on above: Performed By: #### N BOX #### [facility] [address] [place] [address] Dr. Shell Cadena Monocytes/100 WBC (Bld) 6.5 % Normal 1.7-12.[address] [facility] Comment on above: Performed By: #### N BOX #### [facility] [address] [place] [address] Dr. Shell Cadena NEUT # 9.4 103/ul Critically high 1.4-6.5 [facility] Comment on above: Performed By: #### N BOX #### [facility] [address] [place] [address] Dr. Shell Cadena Neutrophils/100 WBC (Bld) 72.6 % Normal 43.0-75.[address] [facility] Comment on above: Performed By: #### N BOX #### [facility] [address] [place] [address] Dr. Shell Cadena Platelet mean volume (Bld) [Entitic vol] 10.7 fL Normal 9.5-13.5 [facility] Comment on above: Performed By: #### N BOX #### [facility] [address] [place] [address] Dr. Shell Cadena PLT 466 103/ul Critically high 150-450 [facility] Comment on above: Performed By: #### N BOX #### [facility] [address] [place] [address] Dr. Shell Cadena RBC 3.99 106/ul Critically low 4.20-5.40 [facility] Comment on above: Performed By: #### N BOX #### [facility] [address] [address] [address] Shell Cadena WBC 12.9 103/ul Critically high 4.0-11.0 [facility] Comment on above: Performed By: #### N BOX #### [facility] [address] [place] [address] Dr. Shell Cadena DRUG SCREEN RAPID (URINE)on 07-01-2022 AMP Negative Normal NEGATIVE [facility] Comment on above: Performed By: #### N BOX #### [facility] [address] [address] [address] Shell Cadena BAR Negative Normal NEGATIVE [facility] Comment on above: Performed By: #### N BOX #### [facility] [address] [place] [address] Dr. Shell Cadena BUP Negative Normal NEGATIVE [facility] Comment on above: Performed By: #### N BOX #### [facility] [address] [place] [address] Dr. Shell Cadena BZO Negative Normal NEGATIVE [facility] Comment on above: Performed By: #### N BOX #### [facility] [address] [place] [address] Dr. Shell Cadena PAMELA Negative Normal NEGATIVE [facility] Comment on above: Performed By: #### N BOX #### [facility] [address] [place] [address] Dr. Shell Cadena CUT-OFFS SEE BELOW Normal [facility] Comment on above: Result Comment: AMP (Amphetamine): 500ng/mL, BAR (Barbituates): 200 ng/mL, BZO (Benzodiazepines): 150 ng/mL, BUP (Buprenorphine): 10 ng/mL, PAMELA (Cocaine): 150 ng/mL, mAMP (Methamphetamine): 500 ng/mL, MTD (Methadone): 200 ng/mL, OPI (Opiates): 100 ng/mL, OXY (Oxycodone): 100 ng/mL, PCP (Phencyclidine): 25 ng/mL, PPX (Propoxyphene): 300 ng/mL, THC (Cannabinoids): 50 ng/mL, TCA (Trycyclic Antidepressants): 300 ng/mL Performed By: #### N BOX #### [facility] [address] [place] [address] Dr. Shell Cadena DRUG CUT HEADER DRUG CLASS TEST SYSTEM CUT-OFF CONCENTRATIONS ARE FOLLOWS: Normal [facility] Comment on above: Performed By: #### N BOX #### [facility] [address] [place] [address] Dr. Shell Cadena mAMP Negative Normal NEGATIVE [facility] Comment on above: Performed By: #### N BOX #### [facility] [address] [address] [address] Shell Cadena MTD Negative Normal NEGATIVE [facility] Comment on above: Performed By: #### N BOX #### [facility] [address] [place] [address] Dr. Shell Cadena OPI Negative Normal NEGATIVE [facility] Comment on above: Performed By: #### N BOX #### [facility] [address] [address] [address] Shell Cadena OXY Negative Normal NEGATIVE [facility] Comment on above: Performed By: #### N BOX #### [facility] [address] [place] [address] Dr. Shell Cadena PCP Negative Normal NEGATIVE [facility] Comment on above: Performed By: #### N BOX #### [facility] [address] [place] [address] Dr. Shell Cadena PPX Negative Normal NEGATIVE [facility] Comment on above: Performed By: #### N BOX #### [facility] [address] [place] [address] Dr. Shell Cadena TCA Negative Normal NEGATIVE [facility] Comment on above: Performed By: #### N BOX #### [facility] [address] [place] [address] Dr. Shell Cadena THC Positive Abnormal NEGATIVE [facility] Comment on above: Performed By: #### N BOX #### [facility] [address] [place] [address] Dr. Shell Cadena TYPE AND SCREENon 07-01-2022 TYPE AND SCREEN Negative Normal [facility] Comment on above: Performed By: #### G LU1HR #### [facility] [address] [place] [address] Dr. Shell Cadena UA (CLEAN/CATCH) TRAUMA REGISTRAR/MICRO I F IND.on 07-01-2022 Bilirubin Ql (U) Negative Normal NEGATIVE [facility] Comment on above: Performed By: #### U ACSIND, UMICRO #### [facility] [address] [place] [address] Dr. Shell Cadena Clarity (U) CLEAR Normal CLEAR [facility] Comment on above: Performed By: #### U ACSIND, UMICRO #### [facility] [address] [address] [address] Shell Cadena Color (U) LT. YELLOW Normal YELLOW [facility] Comment on above: Performed By: #### U ACSIND, UMICRO #### [facility] [address] [address] [address] Shell Cadena Glucose Ql (U) Negative Normal NEGATIVE [facility] Comment on above: Performed By: #### U ACSIND, UMICRO #### [facility] [address] [address] [address] Shell Cadena Hemoglobin Ql (U) LARGE Abnormal NEGATIVE [facility] Comment on above: Performed By: #### U ACSIND, UMICRO #### [facility] [address] [place] [address] Dr. Shell Cadena Ketones Ql (U) Negative Normal NEGATIVE [facility] Comment on above: Performed By: #### U ACSIND, UMICRO #### [facility] [address] [address] [address] Shell Cadena LEUKOCYTES SMALL Abnormal NEGATIVE [facility] Comment on above: Performed By: #### U ACSIND, UMICRO #### [facility] [address] [place] [address] Dr. Shell Cadena Nitrite Ql (U) Negative Normal NEGATIVE [facility] Comment on above: Performed By: #### U ACSIND, UMICRO #### [facility] [address] [address] [address] Shell Cadena pH (U) 6.5 [pH] Normal 5-9 [facility] Comment on above: Performed By: #### U ACSIND, UMICRO #### [facility] [address] [place] [address] Dr. Shell Cadena SPEC GRAVITY 1.020 Normal 1.005-<=1.025 [facility] Comment on above: Performed By: #### U ACSIND, UMICRO #### [facility] [address] [place] [address] Dr. Shell Cadena UA PROTEIN Negative Normal NEGATIVE/ TRACE [facility] Comment on above: Performed By: #### U ACSTERRI, UMICRO #### [facility] [address] [place] [address] Dr. Shell Cadena UR MICRO IND INDICATED Normal [facility] Comment on above: Performed By: #### U ACSTERRI, UMICRO #### [facility] [address] [place] [address] Dr. Shell Cadena Urobilinogen Qn (U) 0.2 {Tabitha'U}/dL Normal 0.2 - 1. 0 [facility] Comment on above: Performed By: #### U ACSTERRI, UMICRO #### [facility] [address] [place] [address] Dr. Shell Cadena URINE MICROSCOPIC ONLYon BACTERIA TRACE Abnormal NONE SEEN [facility] Comment on above: Performed By: #### U ACSTERRI, UMICRO #### [facility] [address] [place] [address] Dr. Shell Cadena Bacteria identified Cx Nom (U) INDICATED Normal [facility] Comment on above: Performed By: #### U ACSTERRI, UMICRO #### [facility] [address] [place] [address] Dr. Shell Cadena CAST NONE SEEN Normal NONE SEEN [facility] Comment on above: Performed By: #### U ACSTERRI, UMICRO #### [facility] [address] [place] [address] Dr. Shell Cadena Crystals LM Nom (Urine sed) NONE SEEN Normal NONE SEEN [facility] Comment on above: Performed By: #### U ACSTERRI, UMICRO #### [facility] [address] [place] [address] Dr. Shell Cadena Epithelial cells LM Ql (Urine sed) FEW Abnormal NONE SEEN /RARE [facility] Comment on above: Performed By: #### U ACSIND, UMICRO #### [facility] [address] [place] [address] Dr. Shell Cadena MUCOUS NONE SEEN Normal NONE SEEN [facility] Comment on above: Performed By: #### U ACSTERRI UMICRO #### [facility] [address] [place] [address] Dr. Shell Cadena RBC (U) [#/Vol] /uL Abnormal 0-2 [facility] Comment on above: Performed By: #### U ACSTERRI, UMICRO #### [facility] [address] [place] [address] Dr. Shell Cadena WBC 10-20 Abnormal NONE SEEN [facility] Comment on above: Performed By: #### U ACSTERRI UMICRO #### [facility] [address] [place] [address] Dr. Shell Cadena GROUP B STREP CULTUREon 06-06 S. agalactiae Ag Ql (Unsp spec) Culture Observations: NEGATIVE FOR GROUP B STREPTOCOCCUS. Normal [facility] Comment on above: Performed By: #### G BSCX #### [facility] [address] [place] [address] Dr. Shell Cadena US PREG AMNIOTIC FLUID [...] VIC SOTO Date: 2022-05-26 15:21 Normal [facility] CBC AUTO DIFFon 04-23-2022 BASO # 0.0 103/ul Normal 0.0-0.1 [facility] Comment on above: Performed By: #### G LU1HR #### [facility] [address] [place] [address] Dr. Shell Cadena Basophils/100 WBC (Bld) 0.2 % Normal 0.2-2.0 [facility] Comment on above: Performed By: #### G LU1HR #### [facility] [address] [address] [address] Shell Cadena EO # 0.2 103/ul Normal 0.0-0.[address] [facility] Comment on above: Performed By: #### G LU1HR #### [facility] [address] [address] [address] Shell Cadena Eosinophils/100 WBC (Bld) 2.1 % Normal 0.9-7.[address] [facility] Comment on above: Performed By: #### G LU1HR #### [facility] [address] [place] [address] Dr. Shell Cadena Erythrocyte distribution width (RBC) [Ratio] 12.8 % Normal 11.0-15.[address] [facility] Comment on above: Performed By: #### G LU1HR #### [facility] [address] [place] [address] Dr. Shell Cadena Hematocrit (Bld) [Volume fraction] 31.7 % Critically low 36.0-48.[address] [facility] Comment on above: Performed By: #### G LU1HR #### [facility] [address] [place] [address] Dr. Shell Cadena Hemoglobin (Bld) [Mass/Vol] 10.7 g/dL Critically low 12.0-16.[address] [facility] Comment on above: Performed By: #### G LU1HR #### [facility] [address] [place] [address] Dr. Shell Cadena IG # 0.09 10e3/ul Critically high 0.00-0.03 [facility] Comment on above: Performed By: #### G LU1HR #### [facility] [address] [place] [address] Dr. Shell Cadena IG % 0.8 % Critically high 0.0-0.5 [facility] Comment on above: Performed By: #### G LU1HR #### [facility] [address] [place] [address] Dr. Shell Cadena LYMPH # 2.0 103/ul Normal 1.2-3.[address] [facility] Comment on above: Performed By: #### G LU1HR #### [facility] [address] [address] [address] Shell Cadena Lymphocytes/100 WBC (Bld) 18.1 % Critically low 20.5-60.[address] [facility] Comment on above: Performed By: #### G LU1HR #### [facility] [address] [address] [address] Shell Cadena MANUAL DIFF REQ NO Normal [facility] Comment on above: Performed By: #### G LU1HR #### [facility] [address] [address] [address] Shell Cadena MCH (RBC) [Entitic mass] 30.4 pg Normal 26.7-34.[address] [facility] Comment on above: Performed By: #### G LU1HR #### [facility] [address] [place] [address] Dr. Shell Cadena MCHC (RBC) [Mass/Vol] 33.8 g/dL Normal 29.9-35.[address] [facility] Comment on above: Performed By: #### G LU1HR #### [facility] [address] [place] [address] Dr. Shell Cadena MCV (RBC) [Entitic vol] 90.1 fL Normal 81.0-99.[address] [facility] Comment on above: Performed By: #### G LU1HR #### [facility] [address] [place] [address] Dr. Shell Cadena MONO # 0.7 103/ul Normal 0.3-0.[address] [facility] Comment on above: Performed By: #### G LU1HR #### [facility] [address] [place] [address] Dr. Shell Cadena Monocytes/100 WBC (Bld) 6.1 % Normal 1.7-12.0 [facility] Comment on above: Performed By: #### G LU1HR #### [facility] [address] [place] [address] Dr. Shell Cadena NEUT # 7.9 103/ul Critically high 1.4-6.5 [facility] Comment on above: Performed By: #### G LU1HR #### [facility] [address] [address] [address] Shell Cadena Neutrophils/100 WBC (Bld) 72.7 % Normal 43.0-75.[address] [facility] Comment on above: Performed By: #### G LU1HR #### [facility] [address] [place] [address] Dr. Shell Cadena Platelet mean volume (Bld) [Entitic vol] 10.4 fL Normal 9.5-13.[address] [facility] Comment on above: Performed By: #### G LU1HR #### [facility] [address] [place] [address] Dr. Shell Cadena PLT 369 103/ul Normal 150-[address] [facility] Comment on above: Performed By: #### G LU1HR #### [facility] [address] [place] [address] Dr. Shell Cadena RBC 3.52 106/ul Critically low 4.20-5.40 [facility] Comment on above: Performed By: #### G LU1HR #### [facility] [address] [place] [address] Dr. Shell Cadena WBC 10.9 103/ul Normal 4.0-11.[address] [facility] Comment on above: Performed By: #### G LU1HR #### [facility] [address] [place] [address] Dr. Shell Cadena GLUCOSE - 1HRon 04-23-2022 Glucose [Mass/Vol] 117 mg/dL Critically high 74-106 [facility] Comment on above: Performed By: #### G LU1HR #### [facility] [address] [place] [address] Dr. Shell Cadena UA (CLEAN/CATCH) TRAUMA REGISTRAR/MICRO I F IND.on 04-20-2022 Bilirubin Ql (U) Negative Normal NEGATIVE [facility] Comment on above: Performed By: #### U ACSIND #### [facility] [address] [place] [address] Dr. Shell Cadena Clarity (U) CLEAR Normal CLEAR [facility] Comment on above: Performed By: #### U ACSIND #### [facility] [address] [address] [address] Shell Cadena Color (U) LT. YELLOW Normal YELLOW [facility] Comment on above: Performed By: #### U ACSIND #### [facility] [address] [address] [address] Shell Cadena Glucose Ql (U) Negative Normal NEGATIVE [facility] Comment on above: Performed By: #### U ACSIND #### [facility] [address] [address] [address] Shell Cadena Hemoglobin Ql (U) Negative Normal NEGATIVE [facility] Comment on above: Performed By: #### U ACSIND #### [facility] [address] [place] [address] Dr. Shell Cadena Ketones Ql (U) Negative Normal NEGATIVE [facility] Comment on above: Performed By: #### U ACSIND #### [facility] [address] [place] [address] Dr. Shell Cadena LEUKOCYTES Negative Normal NEGATIVE [facility] Comment on above: Performed By: #### U ACSIND #### [facility] [address] [address] [address] Shell Cadena Nitrite Ql (U) Negative Normal NEGATIVE [facility] Comment on above: Performed By: #### U ACSIND #### [facility] [address] [place] [address] Dr. Shell Cadena pH (U) 6.0 [pH] Normal 5-[address] [facility] Comment on above: Performed By: #### U ACSIND #### [facility] [address] [address] [address] Shell Cadena SPEC GRAVITY 1.015 Normal 1.005-<=1.025 [facility] Comment on above: Performed By: #### U ACSIND #### [facility] [address] [place] [address] Dr. Shell Cadena UA PROTEIN Negative Normal NEGATIVE/ TRACE [facility] Comment on above: Performed By: #### U ACSIND #### [facility] [address] [address] [address] Shell Cadena UR MICRO IND NOT INDICATED Normal [facility] Comment on above: Performed By: #### U ACSIND #### [facility] [address] [place], [place] [address] Dr. Shell Cadena Urobilinogen Qn (U) 0.2 {Tabitha'U}/dL Normal 0.2 - 1. 0 [facility] Comment on above: Performed By: #### U ACSIND #### [facility] [address] [address] [address] Shell Cadena US PREG ANATOMY SINGLEon [...] authenticated by: VIC SOTO Date: 2022-03-11 07:26 [facility] PAP ACOG PANEL 2: 21 to 29on 03-09-2022 . . Normal [facility] Comment on above: Result Comment: Perf ormed at: WB Performed By: #### N BOX #### [facility] [address] [address] [address] Shell Cadena Age Gdln ACOG Testing - [facility] Comment on above: Performed By: #### N BOX #### [facility] [address] [address] [address] Shell Cadena DIAGNOSIS: Comment [facility] Comment on above: Result Comment: NEGA TIVE FOR INTRAEPITHELIAL LESION OR MALIGNANCY. THIS SPECIMEN WAS RESCREENED PART OF OUR SENIOR [employer] PROGRAM[employer] PROGRAM. Performed at: WB Performed By: #### N BOX #### [facility] [address] [address] [address] Shell Cadena Methodology: Comment [facility] Comment on above: Result Comment: This liquid based ThinPrep(R) pap test was screened with the use of an image guided system. Performed at: WB Performed By: #### N BOX #### [facility] [address] [address] [address] Shell Cadena Note: Comment [facility] Comment on above: Result Comment: [...] WB Performed By: #### N BOX #### [facility] [address] [address] [address] Shell Cadena Performed by: Comment Normal [facility] Comment on above: Result Comment: Hudson Roy, Spearer (ASCP) Performed at: [facility] Performed By: #### N BOX #### [facility] [address] [address] [address] Shell Cadena QC reviewed by: Comment Normal [facility] Comment on above: Result Comment: Han Quevedo, Spearer Performed at: WB Performed By: #### N BOX #### [facility] [address] [address] [address] Shell Cadena Reflex Criteria: Comment Normal [facility] Comment on above: Result Comment: The HPV DNA reflex criteria were not met with this specimen result therefore, no HPV testing was performed. . Performed at: WB Performed By: #### N BOX #### [facility] [address] [address] [address] Shell Cadena Specimen adequacy: Comment Normal [facility] Comment on above: Result Comment: Sati sfactory for evaluation. No endocervical component is identified. Performed at: WB Performed By: #### N BOX #### [facility] [address] [address] [address] Shell Cadena AFP MATERNAL FOR SPINA BIFID Aon 03-04-2022 AFP MoM 1.[address] [facility] Comment on above: Performed By: #### N BOX #### [facility] [address] [address] [address] Shell Cadena AFP Value 61.7 ng/mL Normal [facility] Comment on above: Performed By: #### N BOX #### [facility] [address] [address] [address] Shell Cadena AFP, Serum for Spina Bifida Report Normal [facility] Comment on above: Performed By: #### N BOX #### [facility] [address] [place] [address] Dr. Shell Cadena Comment Comment Normal [facility] Comment on above: Result Comment: Zen Messer, Ph.D., [facility] Director . References: Available Upon Request. . Multiples Of Median Cutoffs For AFP Elevations Silveira 2.5 Black 2.8 IDD 2.0 Twins 4.5 Abbreviation Definitions IDD - Insulin Dep Diabetes OSBR - Open Spina Bifida Risk . For further inquiries contact [employer] [facility] at [phone]. . This test was developed and its performance characteristics determined by [employer]. It has not been cleared or approved by the Food and Drug Administration. Performed By: #### N BOX #### [facility] [address] [address] [address] Shell Matson Age Collection Date 20.7 weeks [facility] Comment on above: Performed By: #### N BOX #### [facility] [address] [address] [address] Shell Cadena Gestat, Age Based on LMP Normal [facility] Comment on above: Result Comment: 02/2021 Recalculations are not recommended when gestational dating by LMP and ultrasound are within 10 days. Performed By: #### N BOX #### [facility] [address] [address] [address] Shell Cadena Insulin Dep Diabetes No Normal [facility] Comment on above: Performed By: #### N BOX #### [facility] [address] [address] [address] Shell Cadena Interpretation Comment Normal [facility] Comment on above: Result Comment: Inte rpretation: [...] Customer Services to discuss available options. The [employer] recommends amniocentesis be offered to women age 35 and older. Performed By: #### N BOX #### [facility] [address] [address] [address] Shell Cadena [age] Normal [facility] Comment on above: Performed By: #### N BOX #### [facility] [address] [address] [address] Shell Cadena Multiple Gestation No Normal [facility] Comment on above: Performed By: #### N BOX #### [facility] [address] [place] [address] Dr. Shell Cadena OS[place] [address] Normal [facility] Comment on above: Performed By: #### N BOX #### [facility] [address] [place] [address] Dr. Shell Cadena PDF . Normal [facility] Comment on above: Performed By: #### N BOX #### [facility] [address] [place] [address] Dr. Shell Cadena Race Normal [facility] Comment on above: Performed By: #### N BOX #### [facility] [address] [place] [address] Dr. Shell Cadena Test Results: Negative Normal [facility] Comment on above: Performed By: #### N BOX #### [facility] [address] [place] [address] Dr. Shell Cadena CHLAMYDIA/GONOCOCCUS FERNANDO (SW AB/URINE/PAPon 03-03-2022 Chlamydia trachomatis, FERNANDO Negative Normal Negative [facility] Comment on above: Performed By: #### N BOX #### [facility] [address] [place] [address] Dr. Shell Cadena Neisseria gonorrhoeae, FERNANDO Negative Normal Negative [facility] Comment on above: Performed By: #### N BOX #### [facility] [address] [place] [address] Dr. Shell Cadena VAGINITIS/VAGINOSIS DNA PROB Eddie 03-03-2022 Marla species Negative Normal Negative [facility] Comment on above: Performed By: #### G LU1HR #### [facility] [address] [place] [address] Dr. Shell Cadena Gardnerella vaginalis Negative Normal Negative [facility] Comment on above: Performed By: #### G LU1HR #### [facility] [address] [place] [address] Dr. Shell Cadena Trichomonas vaginalis Negative Normal Negative [facility] Comment on above: Performed By: #### G LU1HR #### [facility] [address] [place] [address] Dr. Shell Cadena HEP B SURFACE ANTIGEN SCREEN on 01-05-2022 HBsAg Screen Negative Normal Negative [facility] Comment on above: Performed By: #### H BSANS #### [facility] [address] [address] [address] Shell Cadena HEPATITIS C VIRUS AB W/ REFL EX QUANTon 01-05-2022 HCV AB <0.1 Normal 0.0-0.[address] [facility] Comment on above: Performed By: #### H CVPCRR #### [facility] [address] [place] [address] Dr. Shell Cadena Interpretation: Comment Normal [facility] Comment on above: Result Comment: Nega tive Not infected with HCV, unless recent infection is suspected or other evidence exists to indicate HCV infection. Performed By: #### H CVPCRR #### [facility] [address] [place] [address] Dr. Shell Cadena HIV 1 AND 2 WITH REFLEXon HIV Screen 4th Generation wRfx Non-Reactive Normal Non Reactive [facility] Comment on above: Result Comment: HIV Negative HIV-1/HIV-2 antibodies and HIV-1 p24 antigen were NOT detected. There is no laboratory evidence of HIV infection. Performed By: #### G LU1HR #### [facility] [address] [place] [address] Dr. Shell Cadena RPR QUANTon 01-05-2022 Rapid Plasma Reagin, Quant Non-Reactive Normal NonRea<1:[address] [facility] Comment on above: Result Comment: Plea se Note: This test does not meet current guidelines for screening and diagnosis of syphilis. This test is intended for following treatment response in patients being treated for syphilis infection. To screen for syphilis infection, a reflex cascade that includes both RPR and a treponema-specific assay should be utilized, such as Treponema pallidum (Syphilis) Screening [place] (252163) or Rapid Plasma Reagin (RPR) Test With Reflex to Quantitative RPR and Confirmatory Treponema pallidum Antibodies (193726). Performed By: #### N BOX #### [facility] [address] [place] [address] Dr. Shell Cadena RUBELLA AB IGGon 01-05-2022 Rubella Antibodies, IgG 2.83 index Normal Immune >0.[address] [facility] Comment on above: Result Comment: Non- immune <0.90 Equivocal 0.90 - 0.99 Immune >0.99 Performed By: #### N BOX #### [facility] [address] [place] [address] Dr. Shell Cadena CBC AUTO DIFFon 01-04-2022 BASO # 0.0 103/ul Normal 0.0-0.[address] [facility] Comment on above: Performed By: #### C BC #### [facility] [address] [place] [address] Dr. Shell Cadena Basophils/100 WBC (Bld) 0.1 % Critically low 0.2-2.[address] [facility] Comment on above: Performed By: #### C BC #### [facility] [address] [place] [address] Dr. Shell Cadena EO # 0.3 103/ul Normal 0.0-0.[address] [facility] Comment on above: Performed By: #### C BC #### [facility] [address] [place] [address] Dr. Shell Cadena Eosinophils/100 WBC (Bld) 3.5 % Normal 0.9-7.[address] [facility] Comment on above: Performed By: #### C BC #### [facility] [address] [place] [address] Dr. Shell Cadena Erythrocyte distribution width (RBC) [Ratio] 12.4 % Normal 11.0-15.[address] [facility] Comment on above: Performed By: #### C BC #### [facility] [address] [place] [address] Dr. Shell Cadena Hematocrit (Bld) [Volume fraction] 34.8 % Critically low 36.0-48.[address] [facility] Comment on above: Performed By: #### C BC #### [facility] [address] [place] [address] Dr. Shell Cadena Hemoglobin (Bld) [Mass/Vol] 12.0 g/dL Normal 12.0-16.[address] [facility] Comment on above: Performed By: #### C BC #### [facility] [address] [place] [address] Dr. Shell Cadena IG # 0.03 10e3/ul Normal 0.00-0.[address] [facility] Comment on above: Performed By: #### C BC #### [facility] [address] [place] [address] Dr. Shell Cadena IG % 0.4 % Normal 0.0-0.[address] [facility] Comment on above: Performed By: #### C BC #### [facility] [address] [place] [address] Dr. Shell Cadena LYMPH # 1.5 103/ul Normal 1.2-3.[address] [facility] Comment on above: Performed By: #### C BC #### [facility] [address] [place] [address] Dr. Shell Cadena Lymphocytes/100 WBC (Bld) 20.5 % Normal 20.5-60.[address] [facility] Comment on above: Performed By: #### C BC #### [facility] [address] [place] [address] Dr. Shell Cadena MANUAL DIFF REQ NO Normal [facility] Comment on above: Performed By: #### C BC #### [facility] [address] [place] [address] Dr. Shell Cadena MCH (RBC) [Entitic mass] 29.6 pg Normal 26.7-34.[address] [facility] Comment on above: Performed By: #### C BC #### [facility] [address] [place] [address] Dr. Shell Cadena MCHC (RBC) [Mass/Vol] 34.5 g/dL Normal 29.9-35.[address] [facility] Comment on above: Performed By: #### C BC #### [facility] [address] [place] [address] Dr. Shell Cadena MCV (RBC) [Entitic vol] 85.9 fL Normal 81.0-99.[address] [facility] Comment on above: Performed By: #### C BC #### [facility] [address] [place] [address] Dr. Shell Cadena MONO # 0.4 103/ul Normal 0.3-0.[address] [facility] Comment on above: Performed By: #### C BC #### [facility] [address] [place] [address] Dr. Shell Cadena Monocytes/100 WBC (Bld) 6.0 % Normal 1.7-12.[address] [facility] Comment on above: Performed By: #### C BC #### [facility] [address] [place] [address] Dr. Shell Cadena NEUT # 5.0 103/ul Normal 1.4-6.[address] [facility] Comment on above: Performed By: #### C BC #### [facility] [address] [place] [address] Dr. Shell Cadena Neutrophils/100 WBC (Bld) 69.5 % Normal 43.0-75.[address] [facility] Comment on above: Performed By: #### C BC #### [facility] [address] [place] [address] Dr. Shell Cadena Platelet mean volume (Bld) [Entitic vol] 10.1 fL Normal 9.5-13.[address] [facility] Comment on above: Performed By: #### C BC #### [facility] [address] [place] [address] Dr. Shell Cadena PLT 364 103/ul Normal 150-[address] [facility] Comment on above: Performed By: #### C BC #### [facility] [address] [place] [address] Dr. Shell Cadena RBC 4.05 106/ul Critically low 4.20-5.40 [facility] Comment on above: Performed By: #### C BC #### [facility] [address] [place] [address] Dr. Shell Cadena WBC 7.2 103/ul Normal 4.0-11.[address] [facility] Comment on above: Performed By: #### C BC #### [facility] [address] [place] [address] Dr. Shell Cadena CULTURE URINEon 01-04-2022 CULTURE URINE Culture Observations: NO GROWTH. Normal [facility] Comment on above: Performed By: #### G LU1HR #### [facility] [address] [address] [address] Shell Cadena GLYCOHEMOGLOBIN A1Con 2021 ADA RECOMMENDATION SEE BELOW Normal [facility] Comment on above: Result Comment: ADA RECOMMENDED LIMIT 4.0 - 6.0 ADA THERAPEUTIC TARGET < 7.0 ACTION SUGGESTED > 7.0 Performed By: #### N BOX #### [facility] [address] [address] [address] Shell Cadena Glucose [Mass/Vol] 91 mg/dL Normal [facility] Comment on above: Performed By: #### N BOX #### [facility] [address] [address] [address] Shell Cadena HbA1c (Bld) [Mass fraction] 4.8 % Normal 4.5-6.[address] [facility] Comment on above: Performed By: #### N BOX #### [facility] [address] [address] [address] Shell Cadena ISIS BOX TEST PT SEND OUTo n 01-04-2022 SENT TO REF LAB 01/04/2022 Normal [facility] Comment on above: Performed By: #### N BOX #### [facility] [address] [place] [address] Dr. Shell Cadena TYPE AND SCREENon 01-04-2022 TYPE AND SCREEN Negative Normal [facility] Comment on above: Performed By: #### G LU1HR #### [facility] [address] [place] [address] Dr. Shell Cadena US PREG TVon 12-10-2021 [...] by: AMIE CABRERA Date: 2021-12-10 17:[address] [facility] Chanelle Pierre Panelon 021 EBV (VCA) Ab, IgG 1296 U/mL High <100 [facility] Comment on above: Performed By: #### H IVCMB, PHEP, CRP, ANAX, EBVPRO #### [address] [address] Laborer [place]: Sebastian Roman MD #### CP, SED, TSHX, CDP, HCG #### [facility] [address] [id number] Laborer [place]: Amie Urrutia MD EBV (VCA) Ab, IgM 15 U/mL Normal <100 [facility] Comment on above: Performed By: #### H IVCMB, PHEP, CRP, ANAX, EBVPRO #### [address] [address] Laborer [place]: Sebastian Roman MD #### CP, SED, TSHX, CDP, HCG #### [facility] [address] [place], [place] [id number] Laborer [place]: Amie Urrutia MD EBV Early Ab, IgG 76 U/mL Normal <100 [facility] Comment on above: Performed By: #### H IVCMB, PHEP, CRP, ANAX, EBVPRO #### [address] [address] Laborer [place]: Sebastian Roman MD #### CP, SED, TSHX, CDP, HCG #### [facility] [address] [id number] Laborer [place]: Amie Urrutia MD EBV Interpretation (NOTE) Normal [facility] Comment on above: Result Comment: Reference Range: Negative <100 U/mL Positive >120 U/mL Equivocal 100-120 U/mL Guidelines for the Interpretation of Chanelle-Pierre Viral Serologies Antibodies Clinical Situation IgG-VCA EBNA EA IgM-VCA No past infection - - - - [...] H IVCMB, PHEP, CRP, ANAX, EBVPRO #### [address] [id number] Laborer [place]: Sebastian Roman MD #### CP, SED, TSHX, CDP, HCG #### [facility] [address] [id number] Laborer [place]: Amie Urrutia MD EBV Nuclear Ab, IgG 416 U/mL High <100 [facility] Comment on above: Performed By: #### H IVCMB, PHEP, CRP, ANAX, EBVPRO #### [address] [id number] Laborer [place]: Sebastian Roman MD #### CP, SED, TSHX, CDP, HCG #### [facility] [address] [id number] Laborer [place]: Amie Urrutia MD NAS Screen w/reflexon 2020 NAS Screen Negative Normal NEG [facility] Comment on above: Performed By: #### H IVCMB, PHEP, CRP, ANAX, EBVPRO #### [address] [id number] Laborer [place]: Sebastian Roman MD #### CP, SED, TSHX, CDP, HCG #### [facility] [address] [place] [address] Laborer [place]: Amie Urrutia MD Anti-dsDNA 0.7 IU/mL Normal <10.0 [facility] Comment on above: Result Comment: Reference Range: <10.0 Negative 10.0-15.0 Equivocal >15.0 Positive Performed By: #### H IVCMB, PHEP, CRP, ANAX, EBVPRO #### [address] [id number] Laborer [employer]bark: Sebastian Roman MD #### CP, SED, TSHX, CDP, HCG #### [facility] [address] [place] [address] Laborer [place]: Amie Urrutia MD RAJ Screen 0.2 U/mL Normal <0.7 [facility] Comment on above: Result Comment: Reference Range: <0.7 Negative 0.7-1.0 Equivocal >1.0 Positive RAJ Screen includes U1RNP,RNP70,Sm,Ro(SS-A),La(SS-B),CENP,Scl-70,Molly-1 Performed By: #### H IVCMB, PHEP, CRP, ANAX, EBVPRO #### [address] [id number] Laborer [employer]bark: Sebastian Roman MD #### CP, SED, TSHX, CDP, HCG #### [facility] [address] [place] [address] Laborer [place]b[employer]: Amie Urrutia MD C-Reactive Proteinon 021 CRP [Mass/Vol] mg/L Normal 0.0-5.0 [facility] Comment on above: Performed By: #### H IVCMB, PHEP, CRP, ANAX, EBVPRO #### [address] [id number] Laborer [employer]bark: Sebastian Roman MD #### CP, SED, TSHX, CDP, HCG #### [facility] [address] [place] [address] Laborer [place]bark: Amie Urrutia MD Food, Comprehensiveon 2020 Barley IgE <0.10 Normal 0.00-0.34 [facility] Comment on above: Result Comment: ALLERGEN, [...] H IVCMB, PHEP, CRP, ANAX, EBVPRO #### [facility] [employer] [address] [place] [address] Laborer [employer]: Sebastian Roman MD #### CP, SED, TSHX, CDP, HCG #### [facility] [address] [place] [address] Laborer [place]bark: Amie Urrutia MD Beef IgE <0.10 Normal 0.00-0.34 [facility] Comment on above: Performed By: #### H IVCMB, PHEP, CRP, ANAX, EBVPRO #### [facility] [employer] [address] [place] [address] [id number] Laborer [employer]bark: Sebastian Roman MD #### CP, SED, TSHX, CDP, HCG #### [facility] [address] [place] [address] Laborer [place]bark: Amie Urrutai MD Cabbage IgE <0.10 Normal 0.00-0.34 [facility] Comment on above: Performed By: #### H IVCMB, PHEP, CRP, ANAX, EBVPRO #### [address] [phone] Laborer [employer]bark: Sebastian Roman MD #### CP, SED, TSHX, CDP, HCG #### [facility] [address] [place] [id number] Laborer [place]bark: Amie Urrutia MD Carrot IgE <0.10 Normal 0.00-0.34 [facility] Comment on above: Performed By: #### H IVCMB, PHEP, CRP, ANAX, EBVPRO #### [place] [phone] Laborer Tanbark: Sebastian Roman MD #### CP, SED, TSHX, CDP, HCG #### [facility] [address] [place] [id number] Laborer [place]bark: Amie Urrutia MD Chicken IgE <0.10 Normal 0.00-0.34 [facility] Comment on above: Performed By: #### H IVCMB, PHEP, CRP, ANAX, EBVPRO #### [place] [phone] Laborer [employer]bark: Sebastian Roman MD #### CP, SED, TSHX, CDP, HCG #### [facility] [address] [place] [id number] Laborer [place]bark: Amie Urrutia MD Codfish IgE <0.10 Normal 0.00-0.34 [facility] Comment on above: Performed By: #### H IVCMB, PHEP, CRP, ANAX, EBVPRO #### [place] [phone] Laborer [employer]bark: Sebastian Roman MD #### CP, SED, TSHX, CDP, HCG #### [facility] [address] [place] [id number] Laborer [place]bark: Amie Urrutia MD Onaka IgE <0.10 Normal 0.00-0.34 [facility] Comment on above: Performed By: #### H IVCMB, PHEP, CRP, ANAX, EBVPRO #### [address] [phone] Laborer [employer]bark: Sebastian Roman MD #### CP, SED, TSHX, CDP, HCG #### [facility] [address] [place], [place] 0357190 Laborer Tanbark: Amie Urrutia MD Crab IgE <0.10 Normal 0.00-0.34 [facility] Comment on above: Performed By: #### H IVCMB, PHEP, CRP, ANAX, EBVPRO #### [address] [id number] Laborer [employer]bark: Sebastian Roman MD #### CP, SED, TSHX, CDP, HCG #### [facility] [address] [place], [place] [id number] Laborer Tanbark: Amie Urrutia MD Egg White IgE <0.10 Normal 0.00-0.34 [facility] Comment on above: Performed By: #### H IVCMB, PHEP, CRP, ANAX, EBVPRO #### [address] [phone] Laborer [employer]bark: Sebastian Roman MD #### CP, SED, TSHX, CDP, HCG #### [facility] [address] [place] [address] Laborer [place]bark: Amie Urrutia MD Grape IgE <0.10 Normal 0.00-0.34 [facility] Comment on above: Performed By: #### H IVCMB, PHEP, CRP, ANAX, EBVPRO #### [address] [phone] Laborer [employer]bark: Sebastian Roman MD #### CP, SED, TSHX, CDP, HCG #### [facility] [address] [place] [id number] Laborer [place]bark: Amie Urrutia MD Lettuce IgE <0.10 Normal 0.00-0.34 [facility] Comment on above: Performed By: #### H IVCMB, PHEP, CRP, ANAX, EBVPRO #### [address] [phone] Laborer [employer]bark: Sebastian Roman MD #### CP, SED, TSHX, CDP, HCG #### [facility] [address] [place] [address] Laborer [place]bark: Amie Urrutia MD Milk (Cow) IgE <0.10 Normal 0.00-0.34 [facility] Comment on above: Performed By: #### H IVCMB, PHEP, CRP, ANAX, EBVPRO #### [place] [address] Laborer [employer]bark: Sebastian Roman MD #### CP, SED, TSHX, CDP, HCG #### [facility] [address] [place] [id number] Laborer Tanbark: Amie Urrutia MD [place] IgE <0.10 Normal 0.00-0.34 [facility] Comment on above: Performed By: #### H IVCMB, PHEP, CRP, ANAX, EBVPRO #### [place] [address] Laborer [employer]bark: Sebastian Roman MD #### CP, SED, TSHX, CDP, HCG #### [facility] [address] [place] [id number] Laborer Tanbark: Amie Urrutia MD Oat IgE <0.10 Normal 0.00-0.34 [facility] Comment on above: Performed By: #### H IVCMB, PHEP, CRP, ANAX, EBVPRO #### [address] [phone] Laborer [employer]bark: Sebastian Roman MD #### CP, SED, TSHX, CDP, HCG #### [facility] [address] [place], [place] 1211090 Laborer Tanbark: Amie Urrutia MD Walsh IgE <0.10 Normal 0.00-0.34 [facility] Comment on above: Performed By: #### H IVCMB, PHEP, CRP, ANAX, EBVPRO #### [address] [phone] Laborer Tanbark: Sebastian Roman MD #### CP, SED, TSHX, CDP, HCG #### [facility] [address] [place], [place] [id number] Laborer [employer]bark: Amie Urrutia MD Peanut IgE <0.10 Normal 0.00-0.34 [facility] Comment on above: Performed By: #### H IVCMB, PHEP, CRP, ANAX, EBVPRO #### [address] [id number] Laborer [employer]bark: Sebastian Roman MD #### CP, SED, TSHX, CDP, HCG #### [facility] [address] [place], [place] [phone] Laborer Tanbark: Amie Urrutia MD Pepper C. annuum IgE <0.10 Normal 0.00-0.34 [facility] Comment on above: Performed By: #### H IVCMB, PHEP, CRP, ANAX, EBVPRO #### [address] [phone] Laborer Tanbark: Sebastian Roman MD #### CP, SED, TSHX, CDP, HCG #### [facility] [address] [place], [place] [phone] Laborer Tanbark: Amie Urrutia MD Pork IgE <0.10 Normal 0.00-0.34 [facility] Comment on above: Performed By: #### H IVCMB, PHEP, CRP, ANAX, EBVPRO #### [place] [phone] Laborer Tanbark: Sebastian Roman MD #### CP, SED, TSHX, CDP, HCG #### [facility] [address] [place] [id number] Laborer Tanbark: Amie Urrutia MD Potato IgE <0.10 Normal 0.00-0.34 [facility] Comment on above: Performed By: #### H IVCMB, PHEP, CRP, ANAX, EBVPRO #### [place] [phone] Laborer Tanbark: Sebastian Roman MD #### CP, SED, TSHX, CDP, HCG #### [facility] [address] [place] [id number] Laborer Tanbark: Amie Urrutia MD Rice IgE <0.10 Normal 0.00-0.34 [facility] Comment on above: Performed By: #### H IVCMB, PHEP, CRP, ANAX, EBVPRO #### [place] [phone] Laborer Tanbark: Sebastian Roman MD #### CP, SED, TSHX, CDP, HCG #### [facility] [address] [place] [id number] Laborer Tanbark: Amie Urrutia MD Doucette IgE <0.10 Normal 0.00-0.34 [facility] Comment on above: Performed By: #### H IVCMB, PHEP, CRP, ANAX, EBVPRO #### [place] [phone] Laborer Tanbark: Sebastian Roman MD #### CP, SED, TSHX, CDP, HCG #### [facility] [address] [place] [id number] Laborer [place]bark: Amie Urrutia MD Shrimp IgE <0.10 Normal 0.00-0.34 [facility] Comment on above: Performed By: #### H IVCMB, PHEP, CRP, ANAX, EBVPRO #### [address] [phone] Laborer Tanbark: Sebastian Roman MD #### CP, SED, TSHX, CDP, HCG #### [facility] [address] [place] [address] Laborer [place]bark: Amie Urrutia MD Soybean IgE <0.10 Normal 0.00-0.34 [facility] Comment on above: Performed By: #### H IVCMB, PHEP, CRP, ANAX, EBVPRO #### [address] [phone] Laborer Tanbark: Sebastian Roman MD #### CP, SED, TSHX, CDP, HCG #### [facility] [address] [place] [address] Laborer [place]bark: Amie Urrutia MD Tomato IgE <0.10 Normal 0.00-0.34 [facility] Comment on above: Performed By: #### H IVCMB, PHEP, CRP, ANAX, EBVPRO #### [address] [phone] Laborer [place]bark: Sebastian Roman MD #### CP, SED, TSHX, CDP, HCG #### [facility] [address] [place] [address] Laborer [place]bark: Amie Urrutia MD Tuna IgE <0.10 Normal 0.00-0.34 [facility] Comment on above: Performed By: #### H IVCMB, PHEP, CRP, ANAX, EBVPRO #### [address] [phone] Laborer Tanbark: Sebastian Roman MD #### CP, SED, TSHX, CDP, HCG #### [facility] [address] [place] [address] Laborer Tanbark: Amie Urrutia MD Wheat IgE <0.10 Normal 0.00-0.34 [facility] Comment on above: Performed By: #### H IVCMB, PHEP, CRP, ANAX, EBVPRO #### [address] [address] Laborer [place]bark: Sebastian Roman MD #### CP, SED, TSHX, CDP, HCG #### [facility] [address] [place], [place] [phone] Laborer Tanbark: Amie Urrutia MD Immunoglobulin E 41 IU/mL Normal <101 [facility] Comment on above: Performed By: #### H IVCMB, PHEP, CRP, ANAX, EBVPRO #### [address] [address] Laborer [employer]bark: Sebastian Roman MD #### CP, SED, TSHX, CDP, HCG #### [facility] [address] [place], [place] [phone] Laborer Tanbark: Amie Urrutia MD HIV Ag/Abon 10-27-2020 HIV Ag/Ab Non-Reactive Normal NR [facility] Comment on above: Result Comment: No l aboratory evidence of HIV infection. If acute HIV infection is suspected, consider testing for HIV-1 RNA. Performed By: #### H IVCMB, PHEP, CRP, ANAX, EBVPRO #### [address] [phone] Laborer [employer]bark: Sebastian Roman MD #### CP, SED, TSHX, CDP, HCG #### [facility] [address] [place], [place] 3949690 Laborer Tanbark: Amie Urrutia MD Hepatitis Acute [facility] [place] 10-27 Hep A Ab,IgM Non-Reactive Normal NR [facility] Comment on above: Performed By: #### H IVCMB, PHEP, CRP, ANAX, EBVPRO #### [address] [id number] Laborer [employer]bark: Sebastian Roman MD #### CP, SED, TSHX, CDP, HCG #### [facility] [address] [place], [place] [id number] Laborer Tanbark: Amie Urrutia MD Hep B Core Ab,IgM Non-Reactive Normal NR [facility] Comment on above: Performed By: #### H IVCMB, PHEP, CRP, ANAX, EBVPRO #### [address] [id number] Laborer [employer]bark: Sebastian Roman MD #### CP, SED, TSHX, CDP, HCG #### [facility] [address] [place] [id number] Laborer Tanbark: Amie Urrutia MD Hep B Surf Ag Non-Reactive Normal NR [facility] Comment on above: Performed By: #### H IVCMB, PHEP, CRP, ANAX, EBVPRO #### [address] [phone] Laborer [employer]bark: Sebastian Roman MD #### CP, SED, TSHX, CDP, HCG #### [facility] [address] [place] [id number] Laborer Tanbark: Amie Urrutia MD Hep C Ab Non-Reactive Normal NR [facility] Comment on above: Result Comment: The [...] H IVCMB, PHEP, CRP, ANAX, EBVPRO #### [place] [address] [place], [place] 3908808 Laborer Tanbark: Sebastian Roman MD #### CP, SED, TSHX, CDP, HCG #### [facility] [address] [place] [address] Laborer [place]bark: Amie Urrutia MD C-Reactive ProteinOrdered By : Dipti Quinones on 10-26-2020 CRP [Mass/Vol] mg/L 0.0 - 5.0 mg/L [facility] Work Phone: [facility] Work Phone: CBC Auto DifferentialOrdered By: Dipti Quinones on 10-26-2020 [employer] [facility] # 0.20 [facility] Work Phone: Absolute Immature Granulocyte NOT REPORTED [facility] [employer] Work Phone: Absolute Lymph # 2.30 [employer] [facility] Work Phone: Absolute [place] # 0.40 [employer] [facility] Work Phone: Basophils (Bld) [#/Vol] 0.00 10*3/uL [facility] Work Phone: Basophils/100 WBC (Bld) 0 % 0 - 2 % [facility] Work Phone: Differential Type YES [facility] Work Phone: Eosinophils/100 WBC (Bld) 3 % 0 - 5 % [facility] Work Phone: Hematocrit (Bld) [Volume fraction] 39.0 % 36 - 46 % [facility] Work Phone: Hemoglobin.gastrointes tinal spec 1 Ql (Stl) 13.3 g/dL 12.0 - 16.0 g/dL [facility] Work Phone: Immature Granulocytes NOT REPORTED 0 % [facility] [employer] Work Phone: Lymphocytes/100 WBC (Bld) 30 % 15 - 40 % [employer] Work Phone: MCH (RBC) [Entitic mass] 29.8 pg 26 - 34 pg [employer] Work Phone: MCHC (RBC) [Mass/Vol] 34.2 g/dL 31 - 37 g/dL [facility] [employer] Work Phone: MCV (RBC) [Entitic vol] 87.0 fL 80 - 100 fL [employer] Work Phone: Monocytes/100 WBC (Bld) 6 % 4 - 8 % [employer] Work Phone: NRBC Automated NOT REPORTED per 100 WBC [employer] Work Phone: Platelet distribution width (Bld) [Ratio] 13.4 % 12.1 - 15.2 % [employer] Work Phone: Platelet Estimate NOT REPORTED [employer] Work Phone: Platelet mean volume (Bld) [Entitic vol] NOT REPORTED 6.0 - 12.0 fL [employer] Work Phone: Platelets (Bld) [#/Vol] 403 10*3/uL [employer] Work Phone: RBC (Bld) [#/Vol] 4.48 10*6/uL 4.0 - 5.2 m/uL [employer] Work Phone: RBC (Bld) [#/Vol] NOT REPORTED [employer] Work Phone: Segmented neutrophils/100 WBC (Bld) 61 % 47 - 75 % [employer] Work Phone: Segs Absolute 4.60 [employer] Work Phone: WBC (Bld) [#/Vol] 7.6 10*3/uL [employer] Work Phone: WBC (Bld) [#/Vol] NOT REPORTED [employer] Work Phone: [employer] Work Phone: CBC with Diffon 10-26-2020 Abs. Basophil 0.00 k/uL Normal 0.0-0.2 [facility] Comment on above: Performed By: #### H IVCMB, PHEP, CRP, ANAX, EBVPRO #### [address] [id number] Laborer [place]bark: Sebastian Roman MD #### CP, SED, TSHX, CDP, HCG #### [facility] [address] [place], [place] [id number] Laborer [place]bark: Amie Urrutia MD Abs.Neutrophil (Seg) 4.60 k/uL Normal 2.5-7.0 [facility] Comment on above: Performed By: #### H IVCMB, PHEP, CRP, ANAX, EBVPRO #### [address] [id number] Laborer [employer]bark: Sebastian Roman MD #### CP, SED, TSHX, CDP, HCG #### [facility] [address] [place] [address] Laborer [employer]bark: Amie Urrutia MD Auto Diff Performed YES Normal [facility] Comment on above: Performed By: #### H IVCMB, PHEP, CRP, ANAX, EBVPRO #### [address] [phone] Laborer [employer]bark: Sebastian Roman MD #### CP, SED, TSHX, CDP, HCG #### [facility] [address] [place], [place] [phone] Laborer [employer]bark: Amie Urrutia MD Basophils/100 WBC (Bld) 0 % Normal 0-2 [facility] Comment on above: Performed By: #### H IVCMB, PHEP, CRP, ANAX, EBVPRO #### [address] [phone] Laborer [employer]bark: Sebastian Roman MD #### CP, SED, TSHX, CDP, HCG #### [facility] [address] [place], [place] 8680090 Laborer Tanbark: Amie Urrutia MD Eosinophils (Bld) [#/Vol] 0.20 10*3/uL Normal 0.0-0.4 [facility] Comment on above: Performed By: #### H IVCMB, PHEP, CRP, ANAX, EBVPRO #### [address] [phone] Laborer [employer]bark: Sebastian Roman MD #### CP, SED, TSHX, CDP, HCG #### [facility] [address] [place] [address] Laborer [employer]bark: Amie Urrutia MD Eosinophils/100 WBC (Bld) 3 % Normal 0-5 [facility] Comment on above: Performed By: #### H IVCMB, PHEP, CRP, ANAX, EBVPRO #### [address] [phone] Laborer [employer]bark: Sebastian Roman MD #### CP, SED, TSHX, CDP, HCG #### [facility] [address] [place] [address] Laborer [employer]bark: Amie Urrutia MD Erythrocyte distribution width (RBC) [Ratio] 13.4 % Normal 12.1-15.2 [facility] Comment on above: Performed By: #### H IVCMB, PHEP, CRP, ANAX, EBVPRO #### [address] [phone] Laborer [employer]bark: Sebastian Roman MD #### CP, SED, TSHX, CDP, HCG #### [facility] [address] [place] [id number] Laborer [employer]bark: Amie Urrutia MD Hematocrit (Bld) [Volume fraction] 39.0 % Normal 36-46 [facility] Comment on above: Performed By: #### H IVCMB, PHEP, CRP, ANAX, EBVPRO #### [address] [id number] Laborer [employer]bark: Sebastian Roman MD #### CP, SED, TSHX, CDP, HCG #### [facility] [address] [place], [place] [phone] Laborer Tanbark: Amie Urrutia MD Hemoglobin (Bld) [Mass/Vol] 13.3 g/dL Normal 12.0-16.0 [facility] Comment on above: Performed By: #### H IVCMB, PHEP, CRP, ANAX, EBVPRO #### [address] [id number] Laborer Tanbark: Sebastian Roman MD #### CP, SED, TSHX, CDP, HCG #### [facility] [address] [place] [id number] Laborer Tanbark: Amie Urrutia MD Lymphocytes (Bld) [#/Vol] 2.30 10*3/uL Normal 1.0-4.8 [facility] Comment on above: Performed By: #### H IVCMB, PHEP, CRP, ANAX, EBVPRO #### [address] [id number] Laborer Tanbark: Seabstian Roman MD #### CP, SED, TSHX, CDP, HCG #### [facility] [address] [place], [place] [id number] Laborer Tanbark: Amie Urrutia MD Lymphocytes/100 WBC (Bld) 30 % Normal 15-40 [facility] Comment on above: Performed By: #### H IVCMB, PHEP, CRP, ANAX, EBVPRO #### [address] [phone] Laborer [employer]bark: Sebastian Roman MD #### CP, SED, TSHX, CDP, HCG #### [facility] [address] [place] [address] Laborer [employer]bark: Amie Urrutia MD MCH (RBC) [Entitic mass] 29.8 pg Normal 26-34 [facility] Comment on above: Performed By: #### H IVCMB, PHEP, CRP, ANAX, EBVPRO #### [address] [phone] Laborer [employer]bark: Sebastian Roman MD #### CP, SED, TSHX, CDP, HCG #### [facility] [address] [place] [address] Laborer [employer]bark: Amie Urrutia MD MCHC (RBC) [Mass/Vol] 34.2 g/dL Normal 31-[address] [facility] Comment on above: Performed By: #### H IVCMB, PHEP, CRP, ANAX, EBVPRO #### [address] [address] Laborer [employer]bark: Sebastian Roman MD #### CP, SED, TSHX, CDP, HCG #### [facility] [address] [place] [address] Laborer [employer]bark: Amie Urrutia MD MCV (RBC) [Entitic vol] 87.0 fL Normal 80-100 [facility] Comment on above: Performed By: #### H IVCMB, PHEP, CRP, ANAX, EBVPRO #### [address] [phone] Laborer [employer]bark: Sebastian Roman MD #### CP, SED, TSHX, CDP, HCG #### [facility] [address] [place] [address] Laborer Tanbark: Amie Urrutia MD Monocytes (Bld) [#/Vol] 0.40 10*3/uL Normal 0.0-1.0 [facility] Comment on above: Performed By: #### H IVCMB, PHEP, CRP, ANAX, EBVPRO #### [address] [place] [address] Laborer [employer]bark: Sebastian Roman MD #### CP, SED, TSHX, CDP, HCG #### [facility] [address] [place], [place] [phone] Laborer Tanbark: Amie Urrutia MD Monocytes/100 WBC (Bld) 6 % Normal 4-8 [facility] Comment on above: Performed By: #### H IVCMB, PHEP, CRP, ANAX, EBVPRO #### [address] [address] Laborer [employer]bark: Sebastian Roman MD #### CP, SED, TSHX, CDP, HCG #### [facility] [address] [place], [place] 3731990 Laborer Tanbark: Amie Urrutia MD Neutrophil (Seg) 61 % Normal 47-75 [facility] Comment on above: Performed By: #### H IVCMB, PHEP, CRP, ANAX, EBVPRO #### [address] [address] Laborer [employer]bark: Sebastian Roman MD #### CP, SED, TSHX, CDP, HCG #### [facility] [address] [place], [place] [phone] Laborer Tanbark: Amie Urrutia MD Platelets (Bld) [#/Vol] 403 10*3/uL Normal 140-450 [facility] Comment on above: Performed By: #### H IVCMB, PHEP, CRP, ANAX, EBVPRO #### [address] [address] Laborer [employer]bark: Sebastian Roman MD #### CP, SED, TSHX, CDP, HCG #### [facility] [address] [place], [place] [id number] Laborer Tanbark: Amie Urrutia MD RBC (Bld) [#/Vol] 4.48 10*6/uL Normal 4.0-5.2 [facility] Comment on above: Performed By: #### H IVCMB, PHEP, CRP, ANAX, EBVPRO #### [address] [phone] Laborer [employer]bark: Sebastian Roman MD #### CP, SED, TSHX, CDP, HCG #### [facility] [address] [place] [id number] Laborer Tanbark: Amie Urrutia MD WBC (Bld) [#/Vol] 7.6 10*3/uL Normal 4.5-13.5 [facility] Comment on above: Performed By: #### H IVCMB, PHEP, CRP, ANAX, EBVPRO #### [address] [phone] Laborer [employer]bark: Sebastian Roman MD #### CP, SED, TSHX, CDP, HCG #### [facility] [address] [place], [place] [phone] Laborer Tanbark: Amie Urrutia MD Abs.Imm.Granulocyte NOT REPORTED Normal 0.00-0.[address] [facility] Comment on above: Performed By: #### H IVCMB, PHEP, CRP, ANAX, EBVPRO #### [address] [phone] Laborer [employer]bark: Sebastian Roman MD #### CP, SED, TSHX, CDP, HCG #### [facility] [address] [place], [place] 6858190 Laborer Tanbark: Amie Urrutia MD Immature Granulocyte NOT REPORTED Normal 0 [facility] Comment on above: Performed By: #### H IVCMB, PHEP, CRP, ANAX, EBVPRO #### [address] [phone] Laborer [employer]bark: Sebastian Roman MD #### CP, SED, TSHX, CDP, HCG #### [facility] [address] [place], [place] [phone] Laborer Tanbark: Amie Urrutia MD MPV NOT REPORTED Normal 6.0-12.0 [facility] Comment on above: Performed By: #### H IVCMB, PHEP, CRP, ANAX, EBVPRO #### [address] [id number] Laborer [employer]bark: Sebastian Roman MD #### CP, SED, TSHX, CDP, HCG #### [facility] [address] [place], [place] [id number] Laborer Tanbark: Amie Urrutia MD NRBC Automated NOT REPORTED Normal [facility] Comment on above: Performed By: #### H IVCMB, PHEP, CRP, ANAX, EBVPRO #### [address] [id number] Laborer [employer]bark: Sebastian Roman MD #### CP, SED, TSHX, CDP, HCG #### [facility] [address] [place] [address] Laborer Tanbark: Amie Urrutia MD Platelet Estimate NOT REPORTED Normal [facility] Comment on above: Performed By: #### H IVCMB, PHEP, CRP, ANAX, EBVPRO #### [address] [id number] Laborer [employer]bark: Sebastian Roman MD #### CP, SED, TSHX, CDP, HCG #### [facility] [address] [place], [place] [phone] Laborer Tanbark: Amie Urrutia MD RBC morphology finding Nom (Bld) NOT REPORTED Normal [facility] Comment on above: Performed By: #### H IVCMB, PHEP, CRP, ANAX, EBVPRO #### [address] [id number] Laborer [employer]bark: Sebastian Roman MD #### CP, SED, TSHX, CDP, HCG #### [facility] [address] [place] [address] Laborer [employer]bark: Amie Urrutia MD WBC Morphology NOT REPORTED Normal [facility] Comment on above: Performed By: #### H IVCMB, PHEP, CRP, ANAX, EBVPRO #### [place] [place], [place] 3556908 Laborer [employer]bark: Sebastian Roman MD #### CP, SED, TSHX, CDP, HCG #### [facility] [address] [place] [address] Laborer [employer]bark: Amie Urrutia MD Comp Metabolic Profon 2020 (cont.) Normal [facility] Comment on above: Result Comment: Aver age GFR for 20-29 years old: 116 mL/min/1.73sq m Chronic Kidney Disease: <60 mL/min/1.73sq m Kidney failure: <15 mL/min/1.73sq m eGFR calculated using average adult body mass. Additional eGFR calculator available at: [email or web address]_[email or web address] Performed By: #### H IVCMB, PHEP, CRP, ANAX, EBVPRO #### [address] [id number] Laborer [employer]: Sebastian Roman MD #### CP, SED, TSHX, CDP, HCG #### [facility] [facility] [address] [place] [address] Laborer Tanbark: Amie Urrutia MD Albumin [Mass/Vol] 4.3 g/dL Normal 3.5-5.2 [facility] Comment on above: Performed By: #### H IVCMB, PHEP, CRP, ANAX, EBVPRO #### [facility] [address], [place] [id number] Laborer Tanbark: Sebastian Roman MD #### CP, SED, TSHX, CDP, HCG #### [facility] [address] [place], [place] [id number] Laborer Tanbark: Amie Urrutia MD Alkaline Phos 82 U/L Normal 35-104 [facility] Comment on above: Performed By: #### H IVCMB, PHEP, CRP, ANAX, EBVPRO #### [address] [id number] Laborer Tanbark: Sebastian Roman MD #### CP, SED, TSHX, CDP, HCG #### [facility] [address] [place], [place] [id number] Laborer Tanbark: Amie Urrutia MD ALT [Catalytic activity/Vol] 13 U/L Normal 5-33 [facility] Comment on above: Performed By: #### H IVCMB, PHEP, CRP, ANAX, EBVPRO #### [address] [id number] Laborer Tanbark: Sebastian Roman MD #### CP, SED, TSHX, CDP, HCG #### [facility] [address] [place], [place] [id number] Laborer Tanbark: Amie Urrutia MD Anion gap [Moles/Vol] 10 mmol/L Normal 9-[address] [facility] Comment on above: Performed By: #### H IVCMB, PHEP, CRP, ANAX, EBVPRO #### [address] [id number] Laborer Tanbark: Sebastian Roman MD #### CP, SED, TSHX, CDP, HCG #### [facility] [address] [place], [place] 9117290 Laborer Tanbark: Amie Urrutia MD AST [Catalytic activity/Vol] 14 U/L Normal <32 [facility] Comment on above: Performed By: #### H IVCMB, PHEP, CRP, ANAX, EBVPRO #### [address] [address] Laborer Tanbark: Sebastian Roman MD #### CP, SED, TSHX, CDP, HCG #### [facility] [address] [place], [place] [id number] Laborer Tanbark: Amie Urrutia MD Bilirubin [Mass/Vol] 0.26 mg/dL Low 0.30-1.20 [facility] Comment on above: Performed By: #### H IVCMB, PHEP, CRP, ANAX, EBVPRO #### [address] [id number] Laborer Tanbark: Sebastian Roman MD #### CP, SED, TSHX, CDP, HCG #### [facility] [address] [place] [id number] Laborer Tanbark: Amie Urrutia MD BUN/CRE Ratio 12 Normal 9-20 [facility] Comment on above: Performed By: #### H IVCMB, PHEP, CRP, ANAX, EBVPRO #### [address] [id number] Laborer Tanbark: Sebastian Roman MD #### CP, SED, TSHX, CDP, HCG #### [facility] [address] [place] [id number] Laborer Tanbark: Amie Urrutia MD Calcium [Mass/Vol] 9.5 mg/dL Normal 8.6-10.4 [facility] Comment on above: Performed By: #### H IVCMB, PHEP, CRP, ANAX, EBVPRO #### [address] [id number] Laborer Tanbark: Sebastian Roman MD #### CP, SED, TSHX, CDP, HCG #### [facility] [address] [place], [place] [id number] Laborer Tanbark: Amie Urrutia MD Chloride [Moles/Vol] 103 mmol/L Normal 98-107 [facility] Comment on above: Performed By: #### H IVCMB, PHEP, CRP, ANAX, EBVPRO #### [address] [id number] Laborer Tanbark: Sebastian Roman MD #### CP, SED, TSHX, CDP, HCG #### [facility] [address] [place], [place] [id number] Laborer Tanbark: Amie Urrutia MD CO2 [Moles/Vol] 24 mmol/L Normal 20-31 [facility] Comment on above: Performed By: #### H IVCMB, PHEP, CRP, ANAX, EBVPRO #### [address] [id number] Laborer Tanbark: Sebastian Roman MD #### CP, SED, TSHX, CDP, HCG #### [facility] [address] [place] [id number] Laborer Tanbark: Amie Urrutia MD Creatinine [Mass/Vol] 0.51 mg/dL Normal 0.50-0.[address] [facility] Comment on above: Performed By: #### H IVCMB, PHEP, CRP, ANAX, EBVPRO #### [address] [phone] Laborer Tanbark: Sebastian Roman MD #### CP, SED, TSHX, CDP, HCG #### [facility] [address] [place], [place] 2054390 Laborer Tanbark: Amie Urrutia MD GFR, Amer >60 Normal >60 [facility] Comment on above: Performed By: #### H IVCMB, PHEP, CRP, ANAX, EBVPRO #### [address] [id number] Laborer Tanbark: Sebastian Roman MD #### CP, SED, TSHX, CDP, HCG #### [facility] [address] [place], [place] [id number] Laborer Tanbark: Amie Urrutia MD GFR,non Amer >60 Normal >60 [facility] Comment on above: Performed By: #### H IVCMB, PHEP, CRP, ANAX, EBVPRO #### [address] [address] Laborer Tanbark: Sebastian Roman MD #### CP, SED, TSHX, CDP, HCG #### [facility] [address] [place], [place] 1896690 Laborer Tanbark: Amie Urrutia MD Glucose [Mass/Vol] 87 mg/dL Normal 70-99 [facility] Comment on above: Performed By: #### H IVCMB, PHEP, CRP, ANAX, EBVPRO #### [address] [phone] Laborer Tanbark: Sebastian Roman MD #### CP, SED, TSHX, CDP, HCG #### [facility] [address] [place], [place] 7657490 Laborer Tanbark: Amie Urrutia MD Potassium [Moles/Vol] 3.4 mmol/L Low 3.7-5.[address] [facility] Comment on above: Performed By: #### H IVCMB, PHEP, CRP, ANAX, EBVPRO #### [address] [id number] Laborer Tanbark: Sebastian Roman MD #### CP, SED, TSHX, CDP, HCG #### [facility] [address] [place], [place] [id number] Laborer Tanbark: Amie Urrutia MD Protein [Mass/Vol] 7.1 g/dL Normal 6.4-8.3 [facility] Comment on above: Performed By: #### H IVCMB, PHEP, CRP, ANAX, EBVPRO #### [address] [id number] Laborer Tanbark: Sebastian Roman MD #### CP, SED, TSHX, CDP, HCG #### [facility] [address] [place], [place] 3186690 Laborer Tanbark: Amie Urrutia MD Sodium [Moles/Vol] 137 mmol/L Normal 135-144 [facility] Comment on above: Performed By: #### H IVCMB, PHEP, CRP, ANAX, EBVPRO #### [address] [id number] Laborer Tanbark: Sebastian Roman MD #### CP, SED, TSHX, CDP, HCG #### [facility] [address] [place] [address] Laborer Tanbark: Amie Urrutia MD Urea nitrogen [Mass/Vol] 6 mg/dL Normal 6-20 [facility] Comment on above: Performed By: #### H IVCMB, PHEP, CRP, ANAX, EBVPRO #### [address] [phone] Laborer Tanbark: Sebastian Roman MD #### CP, SED, TSHX, CDP, HCG #### [facility] [address] [place], [place] [phone] Laborer Tanbark: Amie Urrutia MD Albumin/Glob Ratio NOT REPORTED Normal 1.0-2.5 [facility] Comment on above: Performed By: #### H IVCMB, PHEP, CRP, ANAX, EBVPRO #### [address] [phone] Laborer Tanbark: Sebastian Roman MD #### CP, SED, TSHX, CDP, HCG #### [facility] [address] [place], [place] [phone] Laborer Tanbark: Amie Urrutia MD Staging: NOT REPORTED Normal [facility] Comment on above: Performed By: #### H IVCMB, PHEP, CRP, ANAX, EBVPRO #### [address] [place] [address] Laborer Tanbark: Sebastian Roman MD #### CP, SED, TSHX, CDP, HCG #### [facility] [address] [place] [address] Laborer Tanbark: Amie Urrutia MD Comprehensive Metabolic Pane lOrdered By: Dipti Quinones on 10-26-2020 Albumin [Mass/Vol] 4.3 g/dL 3.5 - 5.2 g/dL [facility] [employer] Work Phone: Albumin/Globulin Ratio NOT REPORTED [facility] [employer] Phone: ALP (Bld) [Catalytic activity/Vol] 82 U/L 35 - 104 U/L [facility] [employer] Phone: ALT [Catalytic activity/Vol] 13 U/L 5 - 33 U/L [facility] [employer] Phone: Anion gap [Moles/Vol] 10 mmol/L 9 - 17 mmol/L [facility] Phone: AST [Catalytic activity/Vol] 14 U/L <32 [facility] [employer] Phone: Bilirubin [Mass/Vol] 0.26 mg/dL Low 0.30 - 1.20 mg/dL [facility] [employer] Phone: Calcium [Mass/Vol] 9.5 mg/dL 8.6 - 10. 4 mg/dL [facility] Phone: Chloride [Moles/Vol] 103 mmol/L 98 - 10 7 mmol/L [facility] [employer] Phone: CO2 [Moles/Vol] 24 mmol/L 20 - 31 mmol/L [facility] Phone: Creatinine [Mass/Vol] 0.51 mg/dL 0.50 - 0.90 mg/dL [facility] Phone: Free PSA/Total PSA [Mass fraction] 7.1 g/dL 6.4 - 8.3 g/dL [facility] Phone: GFR >60 >60 mL/min [employer] Phone: GFR Non- >60 >60 mL/min [facility] Phone: GFR/1.73 sq M.predicted MDRD (S/P/Bld) [Vol rate/Area] [facility] Phone: Comment on above: Average GFR for 20-2 9 years old: 116 mL/min/1.73sq m Chronic Kidney Disease: <60 mL/min/1.73sq m Kidney failure: <15 mL/min/1.73sq m eGFR calculated using average adult body mass. Additional eGFR calculator available at: http://www.Pionetics/[employer]X Systems_crcl_2012.htm GFR/1.73 sq M.predicted MDRD (S/P/Bld) [Vol rate/Area] NOT REPORTED [facility] Phone: Glucose [Mass/Vol] 87 mg/dL 70 - 99 mg/dL [facility] [employer] Phone: Interpretation and review of laboratory results Abnormal [facility] Phone: Potassium [Moles/Vol] 3.4 mmol/L Low 3.7 - 5.3 mmol/L [facility] Phone: Sodium [Moles/Vol] 137 mmol/L 135 - 144 mmol/L [facility] Phone: Urea nitrogen (BldV) [Mass/Vol] 6 mg/dL 6 - 20 mg/dL [facility] Phone: Urea nitrogen/Creatinine (Bld) [Mass ratio] 12 [facility] Phone: HCG Screen, Bloodon 10-27-19 21 HCG Screen, Blood Negative Normal NEG [facility] Comment on above: Result Comment: Spec imens with hCG levels near the threshold of the test (25 mIU/mL) may give a negative or indeterminate result. In such cases, another test should be performed with a new specimen in 48-72 hours. If early is suspected clinically in this setting, correlation with quantitative serum b-hCG level is suggested. [employer] has confirmed the use of plasma for this test. This has not been cleared or approved by the U.S. Food and Drug Administration. The FDA has determined that such clearance is not necessary. Performed By: #### H IVCMB, PHEP, CRP, ANAX, EBVPRO #### [employer] [address] [place] [address] Laborer Tanbark: Sebastian Roman MD #### CP, SED, TSHX, CDP, HCG #### [facility] [address] [place] [address] Laborer Tanbark: Amie Urrutia MD HIV ScreenOrdered By: Dipti Quinones on 10-26-2020 HIV Ag/Ab Non-Reactive NONREACTIVE [facility] Work Phone: Comment on above: No laboratory eviden ce of HIV infection. If acute HIV infection is suspected, consider testing for HIV-1 RNA. [employer] Work Phone: Hepatitis Panel, AcuteOrdere d By: Dipti Quinones on 10-26-2020 HAV IgM IA Qn (S) Non-Reactive NONREACTIVE [facility] [employer] Work Phone: Hep B Core Ab, IgM Non-Reactive NONREACTIVE [facility] [employer] Work Phone: Hepatitis B Surface Ag Non-Reactive NONREACTIVE [facility] [employer] Work Phone: Hepatitis C Ab Non-Reactive NONREACTIVE [facility] Work Phone: Comment on above: The hepatitis [...] recommended by ordering HCV RNA by PCR. [employer] Phone: No Panel InformationOrdered By: Dipti Quinones on 10-26-2020 [facility] Work Phone: Sedimentation Rateon 021 Sedimentation Rate 7 mm Normal 0-20 [facility] Comment on above: Performed By: #### H IVCMB, PHEP, CRP, ANAX, EBVPRO #### [facility] [address], [place] [id number] Laborer Tanbark: Sebastian Roman MD #### CP, SED, TSHX, CDP, HCG #### [facility] [address] [place] [address] Laborer Tanbark: Amie Urrutia MD Sedimentation RateOrdered By : Dipti Quinones on 10-26-2020 Sed Rate 7 mm 0 - 20 mm [facility] Work Phone: [facility] Work Phone: TSH w/reflex to FT4on 2020 TSH Qn 3.36 m[IU]/L Normal 0.30-5.00 [facility] Comment on above: Performed By: #### H IVCMB, PHEP, CRP, ANAX, EBVPRO #### [facility] [address], [place] [id number] Laborer Tanbark: Sebastian Roman MD #### CP, SED, TSHX, CDP, HCG #### [facility] [address] [place] [address] Laborer Tanbark: Amie Urrutia MD TSH with ReflexOrdered By: Ar Quinones on 10-26-2020 TSH Qn 3.36 m[IU]/L [facility] Work Phone: UrinalysisOrdered By: Dipti Quinones on 10-26-2020 Bilirubin Urine Negative NEGATIVE [facility] Work Phone: Color, UA YELLOW YELLOW [facility] Work Phone: Glucose, Ur Negative NEGATIVE [facility] Work Phone: Ketones Ql (U) Negative NEGATIVE [facility] Work Phone: Leukocyte esterase Test strip Ql (U) Negative NEGATIVE [facility] [employer] Work Phone: Nitrite, Urine Negative NEGATIVE [facility] Work Phone: pH, UA 7.0 [facility] Work Phone: Protein, UA Negative NEGATIVE [facility] [employer] Work Phone: Specific [place], UA 1.010 [employer] Work Phone: Turbidity UA CLEAR CLEAR [facility] Work Phone: Urinalysis Comments [facility] Work Phone: Urine Hgb Negative NEGATIVE [facility] [employer] Phone: Urobilinogen, Urine Normal Normal [facility] [employer] Phone: [facility] Work Phone: Urinalysis, Routineon 2020 Bilirubin, SemiQt,Ur Negative Normal NEG [facility] Comment on above: Performed By: #### H IVCMB, PHEP, CRP, ANAX, EBVPRO #### [address] [phone] Laborer Tanbark: Sebastian Roman MD #### CP, SED, TSHX, CDP, HCG #### [facility] [address] [place] [address] Laborer Tanbark: Amie Urrutia MD Blood, Urine Negative Normal NEG [facility] Comment on above: Performed By: #### H IVCMB, PHEP, CRP, ANAX, EBVPRO #### [facility] [employer] [address] [place] [address] [id number] Laborer Tanbark: Sebastian Roman MD #### CP, SED, TSHX, CDP, HCG #### [facility] [address] [place] [address] Laborer Tanbark: Amie Urrutia MD Clarity (U) CLEAR Normal CLEAR [facility] Comment on above: Performed By: #### H IVCMB, PHEP, CRP, ANAX, EBVPRO #### [address] [id number] Laborer Tanbark: Sebastian Roman MD #### CP, SED, TSHX, CDP, HCG #### [facility] [address] [place], [place] 9163290 Laborer Tanbark: Amie Urrutia MD Color (U) YELLOW Normal YEL [facility] Comment on above: Performed By: #### H IVCMB, PHEP, CRP, ANAX, EBVPRO #### [address] [phone] Laborer Tanbark: Sebastian Roman MD #### CP, SED, TSHX, CDP, HCG #### [facility] [address] [place] [id number] Laborer Tanbark: Amie Urrutia MD Comment Normal [facility] Comment on above: Performed By: #### H IVCMB, PHEP, CRP, ANAX, EBVPRO #### [address] [id number] Laborer Tanbark: Sebastian Roman MD #### CP, SED, TSHX, CDP, HCG #### [facility] [address] [place], [place] 1072090 Laborer Tanbark: Amie Urrutia MD Glucose Ql (U) Negative Normal NEG [facility] Comment on above: Performed By: #### H IVCMB, PHEP, CRP, ANAX, EBVPRO #### [address] [phone] Laborer Tanbark: Sebastian Roman MD #### CP, SED, TSHX, CDP, HCG #### [facility] [address] [place], [place] [id number] Laborer Tanbark: Amie Urrutia MD Ketones Ql (U) Negative Normal NEG [facility] Comment on above: Performed By: #### H IVCMB, PHEP, CRP, ANAX, EBVPRO #### [address] [id number] Laborer Tanbark: Sebastian Roman MD #### CP, SED, TSHX, CDP, HCG #### [facility] [address] [place], [place] 1107190 Laborer Tanbark: Amie Urrutia MD Leukocyte esterase Test strip Ql (U) Negative Normal NEG [facility] Comment on above: Performed By: #### H IVCMB, PHEP, CRP, ANAX, EBVPRO #### [address] [phone] Laborer Tanbark: Sebastian Roman MD #### CP, SED, TSHX, CDP, HCG #### [facility] [address] [place], [place] 6933090 Laborer Tanbark: Amie Urrutia MD Nitrite,Ur Negative Normal NEG [facility] Comment on above: Performed By: #### H IVCMB, PHEP, CRP, ANAX, EBVPRO #### [address] [id number] Laborer Tanbark: Sebastian Roman MD #### CP, SED, TSHX, CDP, HCG #### [facility] [address] [place], [place] 0984590 Laborer Tanbark: Amie Urrutia MD PH,Ur 7.0 Normal 5.0-8.0 [facility] Comment on above: Performed By: #### H IVCMB, PHEP, CRP, ANAX, EBVPRO #### [address] [id number] Laborer Tanbark: Sebastian Roman MD #### CP, SED, TSHX, CDP, HCG #### [facility] [address] [place], [place] [phone] Laborer Tanbark: Amie Urrutia MD Protein Ql (U) Negative Normal NEG [facility] Comment on above: Performed By: #### H IVCMB, PHEP, CRP, ANAX, EBVPRO #### [address] [phone] Laborer Tanbark: Sebastian Roman MD #### CP, SED, TSHX, CDP, HCG #### [facility] [address] [place], [place] 8889290 Laborer Tanbark: Amie Urrutia MD Spec. [place],Ur 1.010 Normal 1.005-1.030 [facility] Comment on above: Performed By: #### H IVCMB, PHEP, CRP, ANAX, EBVPRO #### [address] [id number] Laborer Tanbark: Sebastian Roman MD #### CP, SED, TSHX, CDP, HCG #### [facility] [address] [place], [place] 0123890 Laborer Tanbark: Amie Urrutia MD Urobilinogen,Ur Normal Normal NORM [facility] Comment on above: Performed By: #### H IVCMB, PHEP, CRP, ANAX, EBVPRO #### [address] [id number] Laborer Tanbark: Sebastian Roman MD #### CP, SED, TSHX, CDP, HCG #### [facility] [address] [place], [place] [id number] Laborer Tanbark: Amie Urrutia MD hCG, Serum, QualitativeOrder ed By: Dipti Quinones on 10-26-2020 hCG Qual Negative NEGATIVE [facility] Work Phone: Comment on above: Specimens with hCG l evels near the threshold of the test (25 mIU/mL) may give a negative or indeterminate result. In such cases, another test should be performed with a new specimen in 48-72 hours. If early is suspected clinically in this setting, correlation with quantitative serum b-hCG level is suggested. [employer] has confirmed the use of plasma for this test. This has not been cleared or approved by the U.S. Food and Drug Administration. The FDA has determined that such clearance is not necessary. [facility] Work Phone: [id number] 03-18-2020 SARS-CoV-2 (COVID-19) RNA FERNANDO+probe Ql (Unsp spec) Normal [facility] Comment on above: Performed By: #### H IVCMB, PHEP, CRP, ANAX, EBVPRO #### [facility] [employer] [address] [place] [address] Laborer Tanbark: Sebastian Roman MD #### CP, SED, TSHX, CDP, HCG #### [facility] [address] [place] [address] Laborer Tanbark: Amie Urrutia MD SARS-CoV-2 (COVID-19) RNA FERNANDO+probe Ql (Unsp spec) Not detected Normal NOTDET [facility] Comment on above: Result Comment: The specimen is NEGATIVE for SARS-CoV-2, the novel coronavirus associated with COVID-19. A negative result does not rule out COVID-19. Erin SARS-CoV-2 for use on the Erin [employer] is a real-time RT-PCR test intended [...] this assay. Fact sheet for Healthcare Providers: https://www.fda.gov/media/115468/download Fact sheet for Patients: https://www.fda.gov/media/280802/download METHODOLOGY: RT-PCR Performed By: #### H IVCMB, PHEP, CRP, ANAX, EBVPRO #### [facility] [address], [place] [id number] Laborer Tanbark: Sebastian Roman MD #### CP, SED, TSHX, CDP, HCG #### [facility] [address] [place] [address] Laborer Tanbark: Amie Urrutia MD [id number] 03-17-2020 SARS-CoV-2 (COVID-19) RNA FERNANDO+probe Ql (Unsp spec) .THROAT Normal [facility] Comment on above: Performed By: #### H IVCMB, PHEP, CRP, ANAX, EBVPRO #### [facility] [address], [place] [id number] Laborer Tanbark: Sebastian Roman MD #### CP, SED, TSHX, CDP, HCG #### [facility] [address] [place] [address] Laborer Tanbark: Amie Urrutia MD Glucose, Fastingon 9 Glucose [Mass/Vol] 102 mg/dL High 70 - 99 mg/dL [place], [place] Interpretation and review of laboratory results Abnormal [place] Hemoglobin A1Con 11-22-2018 Glucose [Mass/Vol] 97 mg/dL [place] Comment on above: The ADA and AACC rec ommend providing the estimated average glucose result to permit better patient understanding of their HBA1c result. HbA1c (Bld) [Mass fraction] 5.0 % 4.8 - 5.9 % [place] CBC Auto Differentialon 10-08 Basophils (Bld) [#/Vol] 0.10 10*3/uL [place] Basophils/100 WBC (Bld) 1 % 0 - 2 % [place] Differential Type YES [place] Eosinophils (Bld) [#/Vol] 0.50 10*3/uL [place] Eosinophils/100 WBC (Bld) 10 % High 0 - 5 % [place] Erythrocyte distribution width (RBC) [Ratio] 13.5 % 12.1 - 15.2 % [place] Hematocrit (Bld) [Volume fraction] 40.9 % 36 - 46 % [place] Hemoglobin (Bld) [Mass/Vol] 13.9 g/dL 12 - 16 g/dL [place] Interpretation and review of laboratory results Abnormal [place] Lymphocytes (Bld) [#/Vol] 1.70 10*3/uL [place] Lymphocytes/100 WBC (Bld) 36 % 15 - 40 % [place] MCH (RBC) [Entitic mass] 29.6 pg 26 - 34 pg [place] MCHC (RBC) [Mass/Vol] 33.9 g/dL 31 - 37 g/dL [place] MCV (RBC) [Entitic vol] 87.4 fL 80 - 100 fL [place] Monocytes (Bld) [#/Vol] 0.40 10*3/uL [place] Monocytes/100 WBC (Bld) 8 % 4 - 8 % [place] Platelet mean volume (Bld) [Entitic vol] NOT REPORTED 6 - 12 fL [place], [place] Platelets (Bld) [#/Vol] NOT REPORTED [place] Platelets (Bld) [#/Vol] 309 10*3/uL [place] RBC (Bld) [#/Vol] 4.68 10*6/uL 4 - 5.2 m/uL [place] RBC morphology finding Nom (Bld) NOT REPORTED [place] Segmented neutrophils/100 WBC (Bld) 45 % Low 47 - 75 % [place] Segs Absolute 2.20 Low [place], [place] WBC (Bld) [#/Vol] NOT REPORTED per 100 WBC [place] WBC (Bld) [#/Vol] 4.9 10*3/uL [place] WBC Morphology NOT REPORTED [facility] Other[facility] 10-26-2018 Immature granulocytes (Bld) [#/Vol] NOT REPORTED 0 % [facility] T4, Freeon 10-26-2018 Thyroxine, Free 1.21 ng/dL 0.93 - 1.7 ng/dL [place] TSH without Reflexon 019 TSH Qn 1.86 m[IU]/L [place], [place] Complete Blood Count Auto Di ffon 03-18-2018 Basophils #/vol (Bld) 0.1 10*3/uL Normal 0.0-0.2 [facility] Comment on above: Result Comment: PERF ORMED BY: [place] [address] PATHOLOGIST [employer] PRINCE ARCOS M.D. Performed By: #### C BC, ETOH, CMP #### [facility] [address] [place] [address] Basophils/100 WBC (Bld) 0.6 % Normal . [facility] Comment on above: Performed By: #### C BC, ETOH, CMP #### [facility] [address] [place] [address] [place] Eosinophils #/vol (Bld) 0.1 10*3/uL Normal 0.0-0.45 [facility] Comment on above: Performed By: #### C BC, ETOH, CMP #### [facility] [address] [place] [address] [place] Eosinophils/100 WBC (Bld) 1.5 % Normal . [facility] Comment on above: Performed By: #### C BC, ETOH, CMP #### [facility] [address] [place] [address] [place] Erythrocyte distribution width Ratio (RBC) 13.4 % Normal 11.9-15.3 [facility] Comment on above: Performed By: #### C BC, ETOH, CMP #### [facility] [address] [place] [address] Hematocrit Volume Fraction (Bld) 44.1 % Normal 34.0-46.4 [facility] Comment on above: Performed By: #### C BC, ETOH, CMP #### [facility] [address] Hemoglobin mass conc (Bld) 14.7 g/dL Normal 11.8-15.4 [facility] Comment on above: Performed By: #### C BC, ETOH, CMP #### [facility] [address] Lymphocytes #/vol (Bld) 1.2 10*3/uL Normal 1.00-4.8 [facility] Comment on above: Performed By: #### C BC, ETOH, CMP #### [address] Lymphocytes/100 WBC (Bld) 13.8 % Normal . [facility] Comment on above: Performed By: #### C BC, ETOH, CMP #### [address] MCH Entitic mass (RBC) 29.1 pg Normal 24.7-34.3 [facility] Comment on above: Performed By: #### C BC, ETOH, CMP #### [address] MCH Entitic mass (RBC) 33.3 g/dL Normal 32.0-35.0 [facility] Comment on above: Performed By: #### C BC, ETOH, CMP #### [address] MCV Entitic volume (RBC) 87.3 fL Normal 80-100 [facility] Comment on above: Performed By: #### C BC, ETOH, CMP #### [facility] [address] [place] [address] [place] Monocytes #/vol (Bld) 0.5 10*3/uL Normal 0.0-0.8 [facility] Comment on above: Performed By: #### C BC, ETOH, CMP #### [facility] [address] [place] [address] [place] Monocytes/100 WBC (Bld) 6.3 % Normal . [facility] Comment on above: Performed By: #### C BC, ETOH, CMP #### [facility] [address] Neutrophils #/vol (Bld) 6.6 10*3/uL Normal 1.8-7.7 [facility] Comment on above: Performed By: #### C BC, ETOH, CMP #### [facility] [address] [place] [address] [place] Neutrophils/100 WBC (Bld) 77.8 % Normal . [facility] Comment on above: Performed By: #### C BC, ETOH, CMP #### [facility] [address] Nucleated RBC/100 WBC Ratio (Bld) 0.5 % High 0-0 [facility] Comment on above: Performed By: #### C BC, ETOH, CMP #### [facility] [address] Platelet mean volume Entitic volume (Bld) 8.8 fL Normal 6.3-10.7 [facility] Comment on above: Performed By: #### C BC, ETOH, CMP #### [facility] [address] [place] [address] [place] Platelets #/vol (Bld) 342 10*3/uL Normal 150-450 [facility] Comment on above: Performed By: #### C BC, ETOH, CMP #### [facility] [address] [place] [address] [place] RBC #/vol (Bld) 5.06 10*6/uL High 3.60-5.00 [facility] Comment on above: Performed By: #### C BC, ETOH, CMP #### [facility] [address] [place] [address] [place] WBC #/vol (Bld) 8.4 10*3/uL Normal 3.8-11.6 [facility] Comment on above: Performed By: #### C BC, ETOH, CMP #### [facility] [address] Comprehensive Metabolic Pane yennifer 03-18-2018 Albumin mass conc 4.5 g/dL Normal 3.2-5.5 [facility] Comment on above: Performed By: #### C BC, ETOH, CMP #### [address] Albumin/Globulin mass ratio 1.3 {ratio} Normal [facility] Comment on above: Performed By: #### C BC, ETOH, CMP #### [facility] [address] ALP enzyme act/vol 72 U/L Normal 32-92 [facility] Comment on above: Performed By: #### C BC, ETOH, CMP #### [facility] [address] ALT enzyme act/vol 15 U/L Normal 10-60 [facility] Comment on above: Performed By: #### C BC, ETOH, CMP #### [address] AST enzyme act/vol 18 U/L Normal 10-42 [facility] Comment on above: Performed By: #### C BC, ETOH, CMP #### [address] Bilirubin mass conc 1.0 mg/dL Normal 0.3-1.2 [facility] Comment on above: Performed By: #### C BC, ETOH, CMP #### [place] [address] [place] Calcium mass conc 10.0 mg/dL Normal 8.2-10.2 [facility] Comment on above: Performed By: #### C BC, ETOH, CMP #### [place] [address] [place] Chloride molar conc 107 mmol/L Normal 95-114 [facility] Comment on above: Performed By: #### C BC, ETOH, CMP #### [address] CO2 molar conc 21.1 mmol/L Low 22.0-30.0 [facility] Comment on above: Performed By: #### C BC, ETOH, CMP #### [address] Creatinine mass conc 0.72 mg/dL Normal 0.44-1.03 [facility] Comment on above: Performed By: #### C BC, ETOH, CMP #### [address] Creatinine mass conc 115.4343223039 mg/dL Normal [facility] Comment on above: Result Comment: PERF ORMED BY: [place] [address] PATHOLOGIST ADJUNCT FACULTY INSTRUCTOR PRINCE ARCOS M.D. Performed By: #### C BC, ETOH, CMP #### [address] Estimated GFR ( Leeanna > 60 [facility] Comment on above: Result Comment: GFR estimated reference range: According to KDOQI guidelines, <60 ml/min/1.73m2 is sufficient to diagnose a patient with chronic kidney disease. Performed By: #### C BC, ETOH, CMP #### [address] Estimated GFR (Non- Am > 60 [facility] Comment on above: Performed By: #### C BC, ETOH, CMP #### [address] Globulin mass conc (S) 3.4 g/dL Normal [facility] Comment on above: Performed By: #### C BC, ETOH, CMP #### [address] Glucose mass conc 113 mg/dL High 70-100 [facility] Comment on above: Result Comment: Mode om Glucose Reference Range is dependent on time and content of last meal. Glucose of more than 200 mg/dL in a nonstressed, ambulatory subject supports the diagnosis of Diabetes Mellitus. ADA recommended reference range Performed By: #### C BC, ETOH, CMP #### [address] Potassium molar conc 3.5 mmol/L Normal 3.5-5.1 [facility] Comment on above: Performed By: #### C BC, ETOH, CMP #### [facility] [address] [place] [address] Protein mass conc 7.9 g/dL Normal 6.1-7.9 [facility] Comment on above: Performed By: #### C BC, ETOH, CMP #### [facility] [address] [place] [address] Sodium molar conc 137 mmol/L Normal 136-146 [facility] Comment on above: Performed By: #### C BC, ETOH, CMP #### [address] Urea nitrogen mass conc 10 mg/dL Normal 9-23 [facility] Comment on above: Performed By: #### C BC, ETOH, CMP #### [place] [address] [place] Drug Screen,Urineon 03-18-19 19 Amphetamine Screen,Urine Negative Normal Negative [facility] Comment on above: Performed By: #### U APLUS, URDS #### [place] [address] [place] Barbiturate Screen,Urine Negative Normal Negative [facility] Comment on above: Performed By: #### U APLUS, URDS #### [place] [address] [place] Benzodiazepines Screen,Urine Negative Normal Negative [facility] Comment on above: Performed By: #### U APLUS, URDS #### [place] [address] [place] Cannabinoid Screen,Urine Positive High Negative [facility] Comment on above: Result Comment: Thes e are unconfirmed results and should not be used for legal purposes. Drug Cut-Off Concentration: AMPH 1000 ng/mL JORGE 200 ng/mL STEVEN 200 ng/mL COCM 300 ng/mL OP 300 ng/mL PCP 25 ng/mL THC 20 ng/mL PERFORMED BY: [place] [address] PATHOLOGIST ADJUNCT FACULTY INSTRUCTOR PRINCE ARCOS M.D. Performed By: #### U APLUS, URDS #### [address] Cocaine Screen,Urine Negative Normal Negative [facility] Comment on above: Performed By: #### U APLUS, URDS #### [facility] [address] Opiate Screen,Urine Negative Normal Negative [facility] Comment on above: Performed By: #### U APLUS, URDS #### [address] Phencyclidine Screen,Urine Negative Normal Negative [facility] Comment on above: Performed By: #### U APLUS, URDS #### [address] Ethyl Alcohol Profileon 03-09 Ethanol mass conc mg/dL Normal [facility] Comment on above: Performed By: #### C BC, ETOH, CMP #### [address] Percent Ethanol Test not performed Normal [facility] Comment on above: Result Comment: PERF ORMED BY: [place] [address] PATHOLOGIST ADJUNCT FACULTY INSTRUCTOR PRINCE ARCOS M.D. Performed By: #### C BC, ETOH, CMP #### [address] Urinalysis and Microscopicon 03-18-2018 Appearance Nom (U) Cloudy Critically abnormal Clear [facility] Comment on above: Order Comment: Name Collection Type: Clean-Voided Midstream Performed By: #### U APLUS, URDS #### [address] Bacteria LM.HPF #/area (Urine sed) None Seen Normal None Seen [facility] Comment on above: Order Comment: Name Collection Type: Clean-Voided Midstream Performed By: #### U APLUS, URDS #### [address] Bilirubin,Urine Negative Normal Negative [facility] Comment on above: Order Comment: Name Collection Type: Clean-Voided Midstream Performed By: #### U APLUS, URDS #### [facility] [address] [place] [address] Color Nom (U) Yellow Normal Yellow [facility] Comment on above: Order Comment: Name Collection Type: Clean-Voided Midstream Performed By: #### U APLUS, URDS #### [facility] [address] Glucose Ql (U) Normal Normal Normal [facility] Comment on above: Order Comment: Name Collection Type: Clean-Voided Midstream Performed By: #### U APLUS, URDS #### [address] Hyaline Casts,Urine 0-8 Normal 0-8 [facility] Comment on above: Order Comment: Name Collection Type: Clean-Voided Midstream Result Comment: PERF ORMED BY: [place] [address] PATHOLOGIST ADJUNCT FACULTY INSTRUCTOR PRINCE ARCOS M.D. Performed By: #### U APLUS, URDS #### [facility] [address] [place] [address] Ketones Ql (U) Trace High Negative [facility] Comment on above: Order Comment: Name Collection Type: Clean-Voided Midstream Performed By: #### U APLUS, URDS #### [facility] [address] [place] [address] [place] Leukocyte esterase Test strip Ql (U) Negative Normal Negative [facility] Comment on above: Order Comment: Name Collection Type: Clean-Voided Midstream Performed By: #### U APLUS, URDS #### [facility] [address] [place] [address] [place] Nitrite,Urine Negative Normal Negative [facility] Comment on above: Order Comment: Name Collection Type: Clean-Voided Midstream Performed By: #### U APLUS, URDS #### [facility] [address] [place] [address] [place] Occult Blood,Urine Negative Normal Negative [facility] Comment on above: Order Comment: Name Collection Type: Clean-Voided Midstream Result Comment: PERF ORMED BY: [place] [address] PATHOLOGIST ADJUNCT FACULTY INSTRUCTOR PRINCE ARCOS M.D. Performed By: #### U APLUS, URDS #### [address] pH (U) 5.0 [pH] Normal 5.0-9.0 [facility] Comment on above: Order Comment: Name Collection Type: Clean-Voided Midstream Performed By: #### U APLUS, URDS #### [address] Protein mass conc (U) 30 mg/dL High Negative [facility] Comment on above: Order Comment: Name Collection Type: Clean-Voided Midstream Performed By: #### U APLUS, URDS #### [address] RBC LM.HPF #/area (Urine sed) 1-2 Normal 0-4 [facility] Comment on above: Order Comment: Name Collection Type: Clean-Voided Midstream Performed By: #### U APLUS, URDS #### [address] Specificy [place],Urine 1.022 Normal 1.001-1.030 [facility] Comment on above: Order Comment: Name Collection Type: Clean-Voided Midstream Performed By: #### U APLUS, URDS #### [address] Squamous Epithelial Cell,Urine 0-1 Normal 0-2 [facility] Comment on above: Order Comment: Name Collection Type: Clean-Voided Midstream Performed By: #### U APLUS, URDS #### [address] Urobilinogen,Urine Normal Normal Normal [facility] Comment on above: Order Comment: Name Collection Type: Clean-Voided Midstream Performed By: #### U APLUS, URDS #### [facility] [id number] [facility] WBC LM.HPF #/area (Urine sed) 1-2 Normal 0-4 [facility] Comment on above: Order Comment: Name Collection Type: Clean-Voided Midstream Performed By: #### U APLUS, URDS #### [facility] [id number] [facility] Vital Signs Date Time Vital Sign Value Performing Clinician Facility 12-29-2023 11: Body mass index (BMI) [Ratio] 20.67 kg/m2 [facility] 12-29-2023 11: Body weight 51.26 kg [facility] Nurse [facility] 12-29-2023 11:050 Diastolic blood pressure 77 mm[Hg] [facility] Nurse [facility] 12-29-2023 11:050 Systolic blood pressure 109 mm[Hg] Noms Nurse [facility] 03-04-2022 04:0500 Body weight 75.[address] OSORIO REARDON . [facility] Comment on above: Performed By: #### NBOX #### [facility] [address] [address] [address] Shell Cadena Encounters Encounter Date Encounter Type Care Provider Facility Start: 12-29-2023 End: 12-29-2023 ambulatory [facility] Caron Nurse [facility] Comment on above: GA: 6w5d Start: 07-06-2022 End: 07-06-[address] OSORIO [...] Facility:[facility]1 Start: 03-01-2022 End: 03-01-2022 ambulatory TRINITY VIRGILIO . Facility:[facility] Start: 03-01-2022 End: 03-02-[address] OSORIO REARDON . Facility:[facility] Start: 01-04-2022 End: 01-05-[address] OSORIO REARDON . Facility:[facility] Start: 12-10-2021 End: 12-11-[address] OSORIO REARDON . 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 Work Phone: [facility] Comment on above: Urticarial rash; Sexually active child; BMI 35.0-35.9,adult; Screening for thyroid disorder; Screening, anemia, deficiency, iron; Screening for diabetes mellitus; Tattoos Start: 03-17-2020 End: 03-18-2020 ambulatory [facility]ID[facility] Start: 03-17-2020 End: 03-17-2020 Subsequent hospital visit by physician [facility] Comment on above: Suspected COVID-19 v irus infection Start: 11-22-2018 End: 11-22-2018 Subsequent hospital visit by physician Dipti Quinones [facility] Start: 10-26-2018 End: 10-26-2018 Subsequent hospital visit by physician Dipti Quinones [facility] Start: 03-18-2018 End: 03-18-2018 Emergency department patient visit Tanmay Wu Facility:[facility] Procedures Date Procedure Procedure Detail Performing Clinician Start: 12-29-2023 Urnls dip stick/tabl et rgnt non-auto w/o micrscp Osorio Reardon DO Work Phone: Start: 07-01-2022 Delivery of Products of Conception, External Approach DR OSORIO REARDON . Start: 07-01-2022 Division of Female Perineum, External Approach DR OSORIO REARDON . Start: 05-26-2023 Drainage of Amniotic Fluid, Therapeutic from Products of Conception, Via Natural or Artificial Opening DR OSORIO REARDON . 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 Work Phone: Start: 11-22-2018 Glucose tolerance te [...] Treatment Date Care Activity Detail Author Start: 01-29-2024 End: 01-29-2024 Patient encounter procedure 01/29/2024 10:40 AM EST Routine [facility] [address] [place] [address] Osorio Reardon, DO [address] [place] [address] [facility] Start: 12-29-2023 End: 12-28-2024 ABO/Rh ABO/Rh Lab Routine Missed menses , unspecified gestational age Expected: 12/29/2023 (Approximate), Expires: 12/28/2024 [facility] Comment on above: Expected: 12/29/2023 (Approximate), Expires: 12/28/2024 Start: 12-29-2023 End: 12-28-2024 Blood type and Indirect antibody screen panel - Blood Type and screen Lab Routine Missed menses , unspecified gestational age Expected: 12/29/2023 (Approximate), Expires: 12/28/2024 [facility] Work Phone: Comment on above: Expected: 12/29/2023 (Approximate), Expires: 12/28/2024 Start: 12-29-2023 End: 12-28-2024 Drugs of abuse panel - Urine by Screen method Rapid drug screen, urine Lab Routine , unspecified gestational age Encounter for supervision of normal first in first trimester Expected: 12/29/2023 (Approximate), Expires: 12/28/2024 [facility] Comment on above: Expected: 12/29/2023 (Approximate), Expires: 12/28/2024 Start: 12-29-2023 End: 12-28-2024 US Pelvis transvaginal US OB transvaginal Imaging Routine Missed menses Expected: 12/29/2023 (Approximate), Expires: 12/28/2024 [facility] Comment on above: Expected: 12/29/2023 (Approximate), Expires: 12/28/2024 Start: 01-05-2022 DTaP/Tdap/Td vaccine (7 - Td or Tdap) DTaP/Tdap/Td vaccine (7 - Td or Tdap) [facility]: Start: 10-07-2020 Influenza vaccination Flu vaccine (# 1) [facility]: Start: 12-31-2019 Screening for malign ant neoplasm of cervix [place], [place] Start: 10-08-2019 Influenza vaccination Flu vaccine (# 1) [place] Start: 10-07-2018 Influenza vaccination Flu vaccine (# 1) [place] Start: 2017 DTaP/Tdap/Td vaccine (1 - Tdap) DTaP/Tdap/Td vaccine (1 - Tdap) [place] Start: 2014 Chlamydia screen Chlamydia screen [place], [place] Start: 2014 Screening for Chlamy yan trachomatis Chlamydia screen [place] Start: 2013 [facility] screen [facility] [place] [place] Start: 2013 [facility] screening [facility] [place] [place] Start: 2013 HPV vaccine (1 - Fem pritesh 3-dose series) HPV vaccine (1 - Female 3-dose series) [place] Start: 2010 COVID-19 Vaccine (1) COVID-19 Vaccin e (1) [facility] [employer] Phone: Start: 2009 HPV vaccine (1 - 2-d ose series) HPV vaccine (1 - 2-dose series) [place] Start: 12-31-1999 Varicella vaccine (1 of 2 - 2-dose childhood series) Varicella vaccine (1 of 2 - 2-dose childhood series) [place] Start: 1998 Hepatitis C screening Hepatitis C sc reen [place] End: 10-26-2020 NAS Screen With Reflex NAS Screen With Reflex Lab Routine Urticarial rash 1 Occurrences starting 10/26/2020 until 10/26/2020 [facility] [employer] Phone: Comment on above: 1 Occurrences starti ng 10/26/2020 until 10/26/2020 NAS Screen With Reflex NAS Scree n With Reflex Lab Routine Urticarial rash 10/26/2020 3:45 PM EDT [facility] [employer] Phone: Bacteria identified in Urine by Culture Urine culture Microbiology Routine Missed menses Ordered: 12/29/2023 [facility] [email or web address] Comment on above: Ordered: 12/29/2023 CBC W Auto Different ial panel - Blood CBC and differential Lab Routine Missed menses , unspecified gestational age Ordered: 12/29/2023 [facility] [email or web address] Comment on above: Ordered: 12/29/2023 End: 03-17-2020 COVID-19 COVID-19 Lab Routine Suspected Covid-19 Virus Infection 1 Occurrences starting 03/17/2020 until 03/17/2020 [place] Comment on above: 1 Occurrences starti ng 03/17/2020 until 03/17/2020 COVID-19 COVID-19 Lab Rou annalisa Suspected COVID-19 virus infection 03/17/2020 2:52 PM EST [place] End: 10-26-2020 Chanelle Pierre Virus (EBV) Antibody Panel I Chanelle Pierre Virus (EBV) Antibody Panel I Lab Routine Urticarial rash BMI 35.0-35.9,adult 1 Occurrences starting 10/26/2020 until 10/26/2020 [employer] Phone: Comment on above: 1 Occurrences starti ng 10/26/2020 until 10/26/2020 End: 10-26-2020 Chanelle-Pierre virus VCA antibody panel Chanelle-Pierre virus VCA antibody panel Lab Routine Once for 1 Occurrences starting 10/26/2020 until 10/26/2020 [employer] Phone: Comment on above: Once for 1 Occurrenc es starting 10/26/2020 until 10/26/2020 Chanelle-Pierre virus V CA antibody panel Chanelle-Pierre virus VCA antibody panel Lab Routine 10/26/2020 3:45 PM EDT [employer] Phone: Food Comprehensive Panel Food Co mprehensive Panel Lab Routine Urticarial rash 10/26/2020 3:45 PM EDT [employer] Phone: Hemoglobin A1c/Hemoglobin.total in Blood Hemoglobin A1c Lab Routine Missed menses , unspecified gestational age Ordered: 12/29/2023 [facility] Comment on above: Ordered: 12/29/2023 Hepatitis B virus surface Ag [Presence] in Serum or Plasma by Immunoassay Hepatitis B surface antigen Lab Routine Missed menses , unspecified gestational age Ordered: 12/29/2023 [facility] Comment on above: Ordered: 12/29/2023 Hepatitis C virus Ab [Presence] in Serum or Plasma by Immunoassay Hepatitis C antibody Lab Routine Missed menses , unspecified gestational age Ordered: 12/29/2023 [facility] Comment on above: Ordered: 12/29/2023 HIV-1/HIV-2 antigen/antibody combination immunoassay HIV-1 and HIV-2 antibodies Lab Routine Missed menses , unspecified gestational age Ordered: 12/29/2023 [facility] Comment on above: Ordered: 12/29/2023 Reagin Ab [Presence] in Serum by RPR RPR Lab Routine Missed menses , unspecified gestational age Ordered: 12/29/2023 [facility] Comment on above: Ordered: 12/29/2023 Rubella antibody, IgG Rubella an tibody, IgG Lab Routine Missed menses , unspecified gestational age Ordered: 12/29/2023 [facility] Comment on above: Ordered: 12/29/2023 Payers Date Payer Category Payer [facility] Insurance [employer] [id number] 2018 Self-pay 2014 Unknown [id number] 2014 Unknown [employer] xxxxxxxxxxx 2014-Present [phone] [address] [place] [address] xxxxxxxxxxx [id number] 1998 Unknown [id number] [id number]. 174 1998 Unknown [id number] 2.16.840.1.039027.3.579.2. 174 1998 Unknown [id number] 2.16.840.1.641235.3.579.2. 593 1998 Unknown [id number] 2.16.840.1.398402.3.579.2. 593 1998 Unknown [id number] 2.16.840.1.413527.3.579.2. 593 1998 Unknown [id number] 2.16.840.1.624447.3.579.2. 593 1998 Unknown [id number] 2.16.840.1.773091.3.579.2. 593 1998 Unknown [id number] 2.16.840.1.379000.3.579.2. 593 1998 Unknown [id number] 2.16.840.1.201547.3.579.2. 593 1998 Unknown [id number] 2.16.840.1.174364.3.579.2. 593 1998 Unknown [id number] 2.16.840.1.755851.3.579.2. 593 1998 Unknown [id number] 2.16.840.1.493872.3.579.2. 593 1998 Unknown [id number] 2.16.840.1.175062.3.579.2. 593 1998 Unknown [id number] 2.16.840.1.556423.3.579.2. 1259 1959 Unknown [id number] 1959 Unknown [id number] Unknown [id number] 2.16.840.1.816343.3.579.2. 531 Unknown [id number] 2.16.840.1.660610.3.579.2. 593 Social History Date Type Detail Facility Start: 07-05-2017 Tobacco smoking stat [facility] Never smoker [place] Start: 07-05-2017 Alcohol intake No [facility] [place], [place] Start: 1998 Sex Assigned At Not on file [place] Start: 03-17-2020 Tobacco smoking stat [facility] Start: 12-27-2019 End: 09-25-2020 History of tobacco use Cigarette Sm[place] Start: 03-17-2020 End: 10-26-2020 Cigarettes smoked current (pack per day) - Reported [employer] Start: 03-17-2020 End: 10-26-2020 Tobacco use and exposure Never used [employer] Start: 03-17-2020 End: 10-26-2020 Alcohol intake Current non-drinker of alcohol (finding) [facility] [employer] [facility] [employer] Start: 10-26-2020 Tobacco smoking stat [facility] Former smoker [employer] Work Phone: Start: 12-27-2019 End: 09-25-2020 History of tobacco use Current smoker [employer] Start: 08-26-2022 Tobacco smoking stat [facility] Tobacco smoking consumption unknown [facility] Start: 11-26-2023 [facility] History of Present illness Narrative 12-29-2023 Flora HeardWILDER - 12/29/2023 11:00 AM EST Note Date & Type Note Facility 12-29-2023 History of Presen t illness Narrative Reason for Appointment: Patient ID: Alecia Stringer is a 22 y.o. female who presents for Amenorrhea Patient presents today for a Nurse OB Intake appointment. Patient is 6w5d with a Estimated Date of Delivery: 08/18/24 OB History Para Term AB Living 3 1 1 SAB IAB Ectopic Multiple Live Births 1 # Outcome Date GA Lbr Jakob/2nd Weight Sex Type Anes PTL Lv 3 Current 2 Para 1 Current Medications: has a current medication list which includes the following prescription(s): ondansetron odt, mv-min-fe fum-fa-dha, sertraline, and sertraline. Medical History: Active Ambulatory Problems Diagnosis Date Noted No Active Ambulatory Problems Resolved Ambulatory Problems Diagnosis Date Noted No Resolved Ambulatory Problems Past Medical History: Diagnosis Date Infertility, female Family History Problem Relation Name Age of Onset Heart disease Mother Hypertension Mother Hypertension Maternal Grandmother Heart disease Maternal Grandmother Arthritis Maternal Grandmother Migraines Maternal Grandmother Diabetes Maternal Grandmother Clotting disorder Maternal Grandmother Hyperthyroidism Maternal Grandmother Stroke Maternal Grandmother Arthritis Maternal Grandfather Hyperlipidemia Maternal Grandfather Mental illness Paternal Grandmother Thyroid disease Paternal Grandmother Hypertension Paternal Grandfather Social History Tobacco Use Smoking status: Not on file Smokeless tobacco: Not on file Substance Use Topics Alcohol use: Not on file Drug use: Not on file Past Surgical History: Procedure Laterality Date WISDOM TOOTH EXTRACTION No Known Allergies Vitals: Estimated body mass index is 31.42 kg/m as calculated from the following: Height as of 08/29/22: 5' 2 . Weight as of 08/29/22: 171 lb 12.8 oz. BP: Patient's last menstrual period was 10/12/2023. Assessment/Plan Diagnoses and all orders for this visit: Missed menses - Type and screen; Future - ABO/Rh; Future - CBC and differential - Hemoglobin A1c - RPR - Rubella antibody, IgG - Hepatitis B surface antigen - Hepatitis C antibody - HIV-1 and HIV-2 antibodies - Urine culture - US OB transvaginal; Future - POCT , urine manually resulted - POCT urinalysis dipstick manually resulted , unspecified gestational age - Type and screen; Future - ABO/Rh; Future - CBC and differential - Hemoglobin A1c - RPR - Rubella antibody, IgG - Hepatitis B surface antigen - Hepatitis C antibody - HIV-1 and HIV-2 antibodies - Rapid drug screen, urine; Future Encounter for supervision of normal first in first trimester - Rapid drug screen, urine; Future Nausea and vomiting, unspecified vomiting type - ondansetron ODT (Zofran-ODT) 4 MG disintegrating tablet; Take 1 tablet (4 mg) by mouth every 6 (six) hours if needed for nausea or vomiting Nurse Note: OB Intake: Patient presents today for first OB visit. Patients history has been reviewed in great detail including any potential risks. Patient signed consent forms and patient desires testing in both trimesters. Patient currently has no complaints and has been advised to drink 6-8 glasses of water a day, eat no raw or undercooked meat, and stay away from [facility]. Patient has also been advised to not change litter boxes and eat 6 small meals a day. Patient has been consulted regarding the do's and don'ts of . Patient was given labs and all questions and concerns were answered. Follow Up: Patient is to return in 4 weeks for routine OB appointment. Follow Up: Patient is to have labs drawn at directed and return to office for initial OB appointment with provider. Patient may call office as needed with any concerns or questions. Nurse Visit Completed by: Flora Heard MA documented in this encounter [facility] Evaluation note Note Date & Type Note Facility Evaluation note Diagnosis Urticarial rash Urticaria, unspecified Sexually active child Problems related to high-risk sexual behavior BMI 35.0-35.9,adult Body Mass Index 35.0-35.9, adult Screening for thyroid disorder Screening, anemia, deficiency, iron Screening for iron deficiency anemia Screening for diabetes mellitus Tattoos Other dyschromia documented in this encounter [facility] Phone: Evaluation note Note Date & Type Note Facility Evaluation note Diagnosis Missed menses , unspecified gestational age Encounter for supervision of normal first in first trimester Nausea and vomiting, unspecified vomiting type documented in this encounter [facility] Summary Purpose Family History No Family History Records FoundNo Family History Records FoundNo Family History Records FoundNo Family History Records Found Advance Directives No Advanced Directives Records FoundDocuments on File Type Date Recorded 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 Advance Directives and Living Will Power of Block Tester Documents on File Type Date Recorded 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 ACP-Advance Directive ACP-Power of Block Tester Assessments Diagnosis Suspected COVID-19 virus infection Additional Source Comments INFORMATION SOURCE (unrecogn ized section and content) DATE CREATED AUTHOR 03/28/2018 [facility] DATE CREATED AUTHOR AUTHOR'S ORGANIZ ATION 10/30/2020 [facility] DATE CREATED AUTHOR AUTHOR'S ORGANIZ ATION 07/15/2022 [facility] DATE CREATED AUTHOR AUTHOR'S ORGANIZ ATION 01/01/2024 [facility] EPIC Reason for Visit (unrecogniz ed section and content) Reason Comments Amenorrhea FOR RECORDS PERTAINING TO PATIENTS WHO ARE [...] BE BASED ON THE PRIMARY CLINICAL RECORDS. [email or web address] provides no warranty or guarantee of the accuracy or completeness of information in this document.
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
[2024-01-11 19:46] LABS: Basophils Percent Auto 0.1 % (0.2-2.0); Eosinophils Absolute Auto 0.1 10^3/uL (0.0-0.7); Eosinophils Percent Auto 1.6 % (0.9-7.0); Hematocrit 32.6 % (36.0-48.0); Hemoglobin 11.1 g/dL (12.0-16.0); Immature Granulocytes Abs Auto 0.03 10^3/uL (0.00-0.03); Immature Granulocytes Pct Auto 0.3 % (0.0-0.5); Lymphocytes Absolute Auto 1.8 10^3/uL (1.2-3.8); Lymphocytes Percent Auto 20.2 % (20.5-60.0); Mean Corpuscular Hemoglobin 30.3 pg (26.7-34.0); Mean Corpuscular Volume 89.1 fL (81.0-99.0); Mean Platelet Volume 10.3 fL (9.5-13.5); Monocytes Absolute Auto 0.5 10^3/uL (0.3-0.8); Monocytes Percent Auto 5.9 % (1.7-12.0); Neutrophils Absolute Auto 6.4 10^3/uL (1.4-6.5); Neutrophils Percent Auto 71.9 % (43.0-75.0); Platelet Count 405 10^3/uL (150-450); Red Blood Count 3.66 10^6/uL (4.20-5.40); Red Cell Distribution Width 13.1 % (11.0-15.0); White Blood Count 8.9 10^3/uL (4.0-11.0)
[2024-01-11] MEDS: METOCLOPRAMIDE HCL 10 MG/2 ML VIAL 5 MG IVP (19:47)
[2024-01-11] MEDS: 0.9 % SODIUM CHLORIDE 1,000 ML 1000 ML IV (19:48)
[2024-01-11 20:05] LABS: Alanine Aminotransferase 15 U/L (14-59); Albumin Globulin Ratio 1.1; Albumin Level 3.5 g/dL (3.4-5.0); Alkaline Phosphatase 48 U/L (46-116); Anion Gap 13.1; Aspartate Amino Transferase 8 U/L (15-37); BUN Creatinine Ratio 9.1; Bilirubin Total 0.5 mg/dL (0.2-1.0); Calcium 9.3 mg/dL (8.5-10.1); Carbon Dioxide 25.1 mmol/L (21.0-32.0); Chloride 105 mmol/L (98-107); Estimated GFR (African America >60 (>=60 mL/min/1.73m^2); Estimated GFR (Non-African Ame >60 (>=60 mL/min/1.73m^2); Globulin 3.3 g/dL; Glucose 129 mg/dL (74-106); Potassium 3.2 mmol/L (3.5-5.1); Sodium 140 mmol/L (136-145); Total Protein 6.8 g/dL (6.4-8.2)
--- NOTE | 2024-01-11 20:21 | ED_ITS ---
HPI HPI - General Adult General Chief complaint: Nausea/Vomiting/Diarrhea Stated complaint: FAINTED, UNABLE TO EAT 3X DAYS, 8 WKS Time Seen by Provider: 01/11/24 19:06 Source: patient Mode of arrival: walk-in History of Present Illness HPI narrative: Patient is little over 8 weeks and states that she has had nausea and vomiting during this early but in the last 3 days she has not been able to keep anything down. She has felt faint. She is 2 para 1 and has had an ultrasound during this which revealed it to be an intrauterine . She does not report any infectious symptoms. Related Data Home Medications ?Medication ?Instructions ?Recorded ?Confirmed ondansetron 4 mg disintegrating 4 mg PO Q6H PRN nausea and vomiting 01/11/24 01/11/24 tablet Previous Rx's ?Medication ?Instructions ?Recorded metoclopramide HCl 10 mg tablet 10 mg PO BID PRN nausea and 01/11/24 (Reglan) vomiting #10 tabs Allergies Allergy/AdvReac Type Severity Reaction Status Date / Time No Known Drug Allergies Allergy Verified 01/11/24 18:41 Opioid HPI Opioid Management Most Recent Opioid Data: No Data to Display Review of Systems ROS Narrative All other systems are reviewed and are negative other than what is mentioned in the HPI. PFSH [facility] Social History Little interest or pleasure in doing things: not at all Feeling down, depressed, or hopeless: not at all Exam Narrative Exam Narrative: Vitals are stable. Patient is afebrile. HEENT exam is normal to inspection except for dry mouth. Neck is supple. Lung sounds are clear to auscultation bilaterally with good air entry. Heart has regular rate and rhythm. Abdomen is soft and nontender. There is no distention or organomegaly or guarding. Lower extremities are warm and dry with no tenderness. Speech and mentation are clear and intact. She moves all extremities actively. There is no facial asymmetry. Skin is warm and dry. Constitutional Vital Signs, click to edit/add: Last Vital Signs Temp 98.2 F 01/11/24 22:08 Pulse 78 01/11/24 22:08 Resp 19 01/11/24 22:08 BP 107/65 01/11/24 22:08 Pulse Ox 99 01/11/24 22:08 O2 Del Method Room Air 01/11/24 18:41 Course Vital Signs Vital signs: Vital Signs Pulse Rate 115 H 01/11/24 18:40 Respiratory Rate 15 01/11/24 18:40 Pulse Oximetry 96 01/11/24 18:40 Temperature 98.2 F 01/11/24 22:08 Pulse Rate 78 01/11/24 22:08 Respiratory Rate 19 01/11/24 22:08 Blood Pressure 107/65 01/11/24 22:08 Pulse Oximetry 99 01/11/24 22:08 Oxygen Delivery Method Room Air 01/11/24 18:41 Medical Decision Making MDM Narrative Medical decision making narrative: Patient is in the early first trimester of her second and has been experiencing vomiting which has become much worse in the last 3 days but she has not been able to keep anything down. She does appear clinically dehydrated and was treated with 2 L of IV fluids as well as Reglan 5 mg IV. She feels much better after that and was discharged with a prescription for Reglan 10 mg twice a day as needed for nausea and vomiting. Follow-up is with her doctor of podiatry and PCP as needed and she may return anytime for worsening symptoms. Differential Diagnosis Differential Diagnosis: Hyperemesis, dehydration, urinary tract infection, gastroenteritis Lab Data Labs: Lab Results 01/11/24 Range/Units 18:54 WBC 8.9 (4.0-11.0) 10^3/uL RBC 3.66 L (4.20-5.40) 10^6/uL Hgb 11.1 L (12.0-16.0) g/dL Hct 32.6 L (36.0-48.0) % MCV 89.1 (81.0-99.0) fL MCH 30.3 (26.7-34.0) pg MCHC 34.0 (29.9-35.2) g/dL RDW 13.1 (11.0-15.0) % Plt Count 405 (150-450) 10^3/uL MPV 10.3 (9.5-13.5) fL Neut % (Auto) 71.9 (43.0-75.0) % Lymph % (Auto) 20.2 L (20.5-60.0) % [place] % (Auto) 5.9 (1.7-12.0) % Eos % (Auto) 1.6 (0.9-7.0) % Baso % (Auto) 0.1 L (0.2-2.0) % Neut # (Auto) 6.4 (1.4-6.5) 10^3/uL Lymph # (Auto) 1.8 (1.2-3.8) 10^3/uL [place] # (Auto) 0.5 (0.3-0.8) 10^3/uL Eos # (Auto) 0.1 (0.0-0.7) 10^3/uL Baso # (Auto) 0.0 (0.0-0.1) 10^3/uL Abs Immat Gran (auto) 0.03 (0.00-0.03) 10^3/uL Imm/Tot Granulo (auto) 0.3 (0.0-0.5) % Sodium 140 (136-145) mmol/L Potassium 3.2 L (3.5-5.1) mmol/L Chloride 105 (98-107) mmol/L Carbon Dioxide 25.1 (21.0-32.0) mmol/L Anion Gap 13.1 BUN 6.0 L (7.0-18.0) mg/dL Creatinine 0.66 (0.55-1.02) mg/dL Est GFR ( Amer) >60 (>=60 mL/min/1.73m^2) Est GFR (Non-Af Amer) >60 (>=60 mL/min/1.73m^2) BUN/Creatinine Ratio 9.1 Glucose 129 H (74-106) mg/dL Calcium 9.3 (8.5-10.1) mg/dL Total Bilirubin 0.5 (0.2-1.0) mg/dL AST 8 L (15-37) U/L ALT 15 (14-59) U/L Alkaline Phosphatase 48 (46-116) U/L Total Protein 6.8 (6.4-8.2) g/dL Albumin 3.5 (3.4-5.0) g/dL Globulin 3.3 g/dL Albumin/Globulin Ratio 1.1 Discharge Plan Discharge Chief Complaint: Nausea/Vomiting/Diarrhea Clinical Impression: Vomiting complicating Patient Disposition: Home, Self-Care Time of Disposition Decision: 21:48 Condition: Good Mode of Transportation: Private Vehicle Prescriptions / Home Meds: New metoclopramide HCl [Reglan] 10 mg tablet 10 mg PO BID PRN (Reason: nausea and vomiting) Qty: 10 0RF No Action ondansetron 4 mg tablet,disintegrating 4 mg PO Q6H PRN (Reason: nausea and vomiting) Print Language: Turkmen Instructions: Nausea and Vomiting in (ED) Additional Instructions: Follow-up with your doctor of podiatry next week. Return for worsening symptoms Referrals: Physician,Non-Staff, MD [Primary Care Provider] - 1 week Discharge Date/Time: 01/11/24 22:18
[2024-01-11] MEDS: DEXTROSE 5%-LACTATED RINGERS 1,000 ML 999 ML IV (21:01)
--- NOTE | 2024-01-11 22:14 | PC.NURSE ---
i gave this patient verbal and paper discharge orders along with 1 e-script, this patient voices yes to understanding these. at time of discharge this patient voices no concerns and shows no signs of distress
== END 2024-01-11 22:18 | disposition home or self-care (01) ==
PROVIDERS: Physician Assistant; Emergency Provider Emergency Medicine
DX: O26.891 Other specified pregnancy related conditions, first trimester (principal); R11.10 Vomiting, unspecified; Z3A.08 8 weeks gestation of pregnancy
CPT/HCPCS: 36415; 80053; 85025; 85730; 96361; 96374; 99285; J2765

== ENCOUNTER 2024-01-29 11:40 | Outpatient (OUT) | payer OTHER, SELFPAY ==
[2024-01-29 12:06] LABS: BOX Test Reference Lab UNITY; BOX Test Sent Out UNITY
[2024-01-29 12:09] LABS: Basophils Percent Auto 0.1 % (0.2-2.0); Eosinophils Absolute Auto 0.2 10^3/uL (0.0-0.7); Eosinophils Percent Auto 2.8 % (0.9-7.0); Hematocrit 34.4 % (36.0-48.0); Hemoglobin 11.5 g/dL (12.0-16.0); Immature Granulocytes Abs Auto 0.06 10^3/uL (0.00-0.03); Immature Granulocytes Pct Auto 0.8 % (0.0-0.5); Lymphocytes Absolute Auto 1.8 10^3/uL (1.2-3.8); Lymphocytes Percent Auto 24.3 % (20.5-60.0); Mean Corpuscular HGB Conc 33.4 g/dL (29.9-35.2); Mean Corpuscular Hemoglobin 29.9 pg (26.7-34.0); Mean Corpuscular Volume 89.6 fL (81.0-99.0); Mean Platelet Volume 9.8 fL (9.5-13.5); Monocytes Absolute Auto 0.4 10^3/uL (0.3-0.8); Monocytes Percent Auto 4.9 % (1.7-12.0); Neutrophils Absolute Auto 5.1 10^3/uL (1.4-6.5); Neutrophils Percent Auto 67.1 % (43.0-75.0); Platelet Count 421 10^3/uL (150-450); Red Blood Count 3.84 10^6/uL (4.20-5.40); White Blood Count 7.5 10^3/uL (4.0-11.0)
[2024-01-29 12:22] LABS: Estimated Average Glucose 105 mg/dL; Glycohemoglobin A1C 5.3 % (4.5-6.2)
[2024-01-29 12:24] LABS: Amphetamine Screen Urine NEGATIVE (NEGATIVE); Barbiturates Screen Urine NEGATIVE (NEGATIVE); Benzodiazepines Screen Urine NEGATIVE (NEGATIVE); Buprenorphine Screen Urine NEGATIVE (NEGATIVE); Cannabinoid Screen Urine POSITIVE (NEGATIVE); Cocaine Screen Urine NEGATIVE (NEGATIVE); Methadone Screen Urine NEGATIVE (NEGATIVE); Methamphetamines Screen Urine NEGATIVE (NEGATIVE); Opiate Screen Urine NEGATIVE (NEGATIVE); Oxycodone Screen Urine NEGATIVE (NEGATIVE); Phencyclidine Screen Urine NEGATIVE (NEGATIVE); Tricyclic Antidepressant Urine NEGATIVE (NEGATIVE)
[2024-01-29 15:25] LABS: BOX Test Reference Lab FIRELANDS
[2024-01-30 06:07] LABS: HBsAg Screen Negative (Negative); HCV Ab Non Reactive (Non Reactive); HIV Ab/p24 Ag Screen Non Reactive (Non Reactive)
[2024-01-30 08:09] LABS: Rubella Antibodies, IgG 2.53 index (Immune >0.99)
[2024-01-30 12:08] LABS: Rapid Plasma Reagin, Quant Non Reactive titer (NonRea<1:1)
[2024-02-03 18:07] LABS: Cannabinoid Positive (.); Carboxy THC Conf, MS, UR 745 ng/mL (Cutoff=10)
== END 2024-01-29 11:41 | disposition home or self-care (01) ==
LOC: LAB 11:42
PROVIDERS: PCP Family Medicine; Visit Provider Obstetrics & Gynecology
DX: Z34.01 Encounter for supervision of normal first pregnancy, first trimester (principal); Z36.0 Encounter for antenatal screening for chromosomal anomalies; N92.6 Irregular menstruation, unspecified
CPT/HCPCS: 36415; 80307; 80349; 83036; 85025; 86592; 86762; 86803; 86850; 86900; 86901; 87086; 87340; 87389

== ENCOUNTER 2024-02-26 21:48 | Outpatient (REF) | payer OTHER, SELFPAY ==
--- OUTSIDE RECORDS SUMMARY | 2024-02-26 21:51 | XMS_ITS | CCD ---
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 WORKER - SKEWER UPDipti Primary Care Provider OVIDIO ROY Referring Unavailable DIPTI QUINONES Primary Care Unavailable DIPTI QUINONES Referring Unavailable CARON ., DR AC Primary Care Unavailable CARON ., DR AC Attending Unavailable CARON ., DR AC Admitting Unavailable CRAON ., DR AC Primary Care Unavailable CARON ., DR AC Consulting Unavailable CARON ., DR AC Admitting Unavailable CARON ., DR AC Attending Unavailable CARON ., DR AC Consulting Unavailable REQUEST, NONE LISTED Primary Care Unavaila ble CARON ., DR AC Admitting Unavailable CARON ., DR AC Attending Unavailable ZIEBER, DR VIC Cary Consulting Unavailable VIRGILIO ., ROSSI Consulting Unavailable VIRGILIO ., ROSSI Attending Unavailable REQUEST, NONE LISTED Primary Care Unavaila ble VIRGILIO ., ROSSI Admitting Unavailable CARON ., DR AC Consulting [...] DR NONE LISTED Primary Care Unavaila ble CASA, DR AMIE Montemayor Consulting Unavailable CARON ., DR AC Attending Unavailable CARON ., DR AC Consulting Unavailable CARON ., DR AC Primary Care Unavailable VIRGILIO ., ROSSI Consulting Unavailable VIRGILIO ., ROSSI Attending Unavailable VIRGILIO ., ROSSI Admitting Unavailable CARON ., DR AC Primary [...] KARASIK ., DR AVERY Attending Unavailabl e MISC, DR URIAS Primary Care Unavailable KARASIK ., DR AVERY Admitting Unavailabl e Unavailable Primary Care Provider Unavailabl e CARON, OSORIO Attending Unavailable Caron, Osorio Attending Unavailable Caron, Osorio Admitting Unavailable Medications Current Medications Medication Drug Class(es) Dates Sig (Normalized) Sig (Original) ibuprofen 600 mg oral tablet (4 sources) Nonsteroidal Anti-inflammatory Drug take 1 tablet by mouth every six hours as needed for pain ibuprofen (ADVIL;MOTRIN) 600 MG tablet Take 600 mg by mouth every 6 hours as needed for Pain 0 Active meclizine hydrochloride 25 mg oral tablet (6 sources) Antiemetic Start: 01-12-2024 End: 01-29-2024 take 1 tablet by mouth three times daily as needed for nausea meclizine (Antivert) 25 MG tablet Indications: Nausea and vomiting, unspecified vomiting type , Dizziness Take 1 tablet (25 mg) by mouth 3 (three) times a day as needed for dizziness or nausea for up to 15 doses 15 tablet 3 01/29/2024 Active ondansetron 4 mg disintegrating oral tablet (11 sources) Serotonin-3 Receptor Antagonist Start: 02-19-2024 take 1 tablet by mouth every six hours for nausea ondansetron ODT (Zofran-ODT) 4 MG disintegrating tablet Indications: Nausea and vomiting, unspecified vomiting type Take 1 tablet (4 mg) by mouth every 6 (six) hours if needed for nausea or vomiting for up to 30 doses 30 tablet 2 02/19/2024 Active Start: 12-29-2023 End: 01-28-2024 take 1 tablet by mouth every six hours for nausea ondansetron ODT (Zofran-ODT) 4 MG disintegrating tablet Indications: Nausea and vomiting, unspecified vomiting type Take 1 tablet (4 mg) by mouth every 6 (six) hours if needed for nausea or vomiting for up to 30 doses 30 tablet 2 02/19/2024 Active MV-Min-Fe Fum-FA-DHA ( 1 PO) (8 sources) MV-Min- Fe Fum-FA-DHA ( 1 PO) Take by mouth. Active sertraline 100 mg oral tablet (14 sources) Serotonin Reuptake Inhibitor Start: 02-13-2024 End: 03-14-2024 take 1 tablet by mouth once daily sertraline (Zoloft) 100 MG tablet Indications: Major depressive disorder with current active episode, unspecified depression episode severity, unspecified whether recurrent (CMS/HCC) Take 1 tablet (100 mg) by mouth Daily 30 tablet 02/13/2024 03/14/2024 Active Start: 01-09-2024 End: 02-08-2024 take 1 tablet by mouth in the morning sertraline (Zoloft) 100 MG tablet Indications: Major depressive disorder with current active episode, unspecified depression episode severity, unspecified whether recurrent (CMS/HCC) TAKE 1 TABLET BY MOUTH IN THE MORNING 360 tablet 3 01/10/2024 01/29/2024 Discontinued Start: 12-21-2022 take 1 tablet by anamika th in the morning sertraline (Zoloft) 100 MG tablet Indications: Major depressive disorder with current active episode, unspecified depression episode severity, unspecified whether recurrent (CMS/HCC) Take 1 tablet (100 mg) by mouth in the morning. 360 tablet 12/21/2022 Active End: 01-29-2024 take 1 tablet by mouth in the morning sertraline (Zoloft) 50 MG tablet Take 50 mg by mouth in the morning. 01/29/2024 Discontinued Problems Active Problems Problem Classification Problem Date Documented Date Episodic/Chronic Allergic reactions (1 source) Urticaria; Translations: [Urticaria, unspecified] Episodic Immunizations and screening for infectious disease (5 sources) Contact with or exposure to other viral diseases; Translations: [Encounter for screening for human papillomavirus (HPV)] Onset: 03-03-2022 02-26-2024 Episodic Menstrual disorders (5 sources) Dysmenorrhea; Translations: [Dysmenorrhea, unspecified] Onset: 07-28-2014 07-28-2014 Chronic Nausea and vomiting (4 sources) Nausea and vomiting; Translations: [Nausea with vomiting, unspecified] Onset: 02-19-2024 12-29-2023 Episodic OB-related trauma to perineum and vulva (3 sources) Second degree perineal laceration during delivery; Translations: [SECOND DEG PERINEAL LAC DUR DELIV] Onset: 07-01-2022 Episodic Other complications of (4 sources) Decreased movements, second trimester, not applicable or unspecified; Translations: [DECR FTL MOVEMENTS 2ND TRI NA/UNS] Onset: 04-20-2022 Episodic Other female genital disorders (2 sources) Vaginal discharge; Translations: [Other specified noninflammatory disorders of vagina] 02-26-2024 Episodic Other nutritional; endocrine; and metabolic disorders (1 source) Body mass index 30+ - obesity; Translations: [Body mass index (BMI) 35.0-35.9, adult] Chronic Other and delivery including normal (20 sources) Encounter for routine follow-up; Translations: [Single [...] WEEKS GESTATION OF ] Onset: 04-25-2022 Episodic Residual codes; unclassified (9 sources) Gestation period, 11 weeks; Translations: [11 weeks gestation of ] Onset: 01-29-2024 01-29-2024 Episodic Residual codes; unclassified (2 sources) Gestation period, 15 weeks; Translations: [15 weeks gestation of ] 02-26-2024 Episodic Past or Other Problems Problem Classification Problem Date Documented Date Episodic/Chronic Headache; including migraine (4 sources) Frequent headache; Translations: [Frequent headaches] Onset: 07-28-2014 07-28-2014 Episodic Other female genital disorders (1 source) Other specified noninflammatory disorders of vagina; Translations: [OTH SPEC NONINFLAMMATORY D/O VAGINA] Onset: 03-03-2022 Episodic Other skin disorders (3 sources) Acne; Translations: [Acne vulgaris] Onset: 07-28-2014 07-28-2014 Episodic Other skin disorders (1 source) Acne vulgaris; Translations: [Acne vulgaris] Onset: 07-28-2014 07-28-2014 Episodic Results Test Name Value Interpretation Reference Range Facility Urinalysis macro (dipstick) panel (U)on 02-26-2024 Bilirubin, UA Negative Negative - 4(70) +++ mg/dL [facility] Blood, UA Positive Negative - 50 Missael/mcL [facility] Clarity, UA Clear [facility] Color, UA Yellow [facility] Glucose, UA Negative Negative - 2000(110) ++++ mg/dL [facility] Interpretation and review of laboratory results Abnormal [facility] Ketones, UA Negative Negative - 160(16) ++++ mg/dL [facility] Leukocytes, UA Trace Negative - 500+++ Philly/mcL [facility] Nitrite, UA Negative Negative - Positive [facility] pH, UA 7.5 5 - 9 [facility] Protein, UA Trace Negative - 2000(20) ++++ mg/dL [facility] Spec Grav, UA 1.02 1 - 1.03 [facility] Urobilinogen, UA 1.0 0.2 - 12 mg/dL [facility] ALL CBC WITH AUTO DIFFon BASOPHILS ABSOLUTE AUTO 0 [facility] Basophils/100 WBC (Bld) 0.1 % Low 0.2 - 2.0 % [facility] Eosinophils/100 WBC (Bld) 2.8 % 0.9 - 7.0 % [facility] Erythrocyte distribution width (RBC) [Ratio] 13 % 11.0 - 15.0 % [facility] Hematocrit (Bld) [Volume fraction] 34.4 % Low 36.0 - 48.0 % [facility] Hemoglobin (Bld) [Mass/Vol] 11.5 g/dL Low 12.0 - 16.0 g/dL [facility] IMMATURE GRANULOCYTES ABS AUTO 0.06 High [facility] Immature granulocytes/100 WBC (Bld) 0.8 % High 0.0 - 0.5 % [facility] Interpretation and review of laboratory results Abnormal [facility] LYMPHOCYTES ABSOLUTE AUTO 1.8 [facility] Lymphocytes/100 WBC (Bld) 24.3 % 20.5 - 60.0 % [facility] MCH (RBC) [Entitic mass] 29.9 pg 26.7 - 34.0 pg [facility] MCHC (RBC) [Mass/Vol] 33.4 g/dL 29.9 - 35.2 g/dL [facility] MCV (RBC) [Entitic vol] 89.6 fL 81.0 - 99.0 fL [facility] MONOCYTES ABSOLUTE AUTO 0.4 [facility] Monocytes/100 WBC (Bld) 4.9 % 1.7 - 12.0 % [facility] NEUTROPHILS ABSOLUTE AUTO 5.1 [facility] Neutrophils/100 WBC (Bld) 67.1 % 43.0 - 75.0 % [facility] Platelet mean volume (Bld) [Entitic vol] 9.8 fL 9.5 - 13.5 fL [facility] TBH EO # 0.2 [facility] PLT [address] [facility] RBC 3.84 Low [facility] WBC 7.5 [facility] Urinalysis macro (dipstick) panel (U)Ordered By: Lamar Delacruz on 01-29-2024 Bilirubin, UA Negative Negative - 4(70) +++ mg/dL [facility] Work Phone: Blood, UA Negative Negative - 50 Missael/mcL [facility] Work Phone: Clarity, UA Clear [facility] Work Phone: Color, UA Yellow [facility] Work Phone: Glucose, UA Negative Negative - 1999(110) ++++ mg/dL [facility] Work Phone: Interpretation and review of laboratory results Abnormal [facility] Work Phone: Ketones, UA Negative Negative - 160(16) ++++ mg/dL [facility] Work Phone: Leukocytes, UA Positive Negative - 500+++ Philly/mcL [facility] Work Phone: Comment on above: small Nitrite, UA Negative Negative - Positive [facility] Work Phone: pH, UA 6 5 - 9 [facility] Work Phone: Protein, UA Negative Negative - 1999(20) ++++ mg/dL [facility] [employer] Work Phone: Spec Grav, UA 1.025 1 - 1.03 [facility] [employer] Work Phone: Urobilinogen, UA 0.2 0.2 - 12 mg/dL [facility] Work Phone: [facility] Work Phone: Urine Cultureon 01-29-2024 Bacteria identified Cx Nom (U) <9,000 colonies/ml mixed bacterial skin contaminants 2 Days PERFORMED BY: [place] [address] PATHOLOGIST SOFTWARE CONFIGURATION MANAGER MARY REYES M.D. Normal [facility] Comment on above: Performed By: #### C UU #### [address] HCG ( test) Ql (U)o n 12-29-2023 Interpretation and review of laboratory results Abnormal [facility] Preg Test, Ur Positive Negative [facility] Urinalysis macro (dipstick) panel (U)on 12-29-2023 Bilirubin, UA Negative Negative - 4(70) +++ mg/dL [facility] Blood, UA Negative Negative - 50 Missael/mcL [facility] Clarity, UA Clear [facility] Color, UA Yellow [facility] Glucose, UA Negative Negative - 1999(110) ++++ mg/dL [facility] Interpretation and review of laboratory results Normal [facility] Ketones, UA Negative Negative - 160(16) ++++ mg/dL [facility] Leukocytes, UA Negative Negative - 500+++ Philly/mcL [facility] Nitrite, UA Negative Negative - Positive [facility] pH, UA 6 5 - 9 [facility] Protein, UA Negative Negative - 1999(20) ++++ mg/dL [facility] Spec Grav, UA 1.025 1 - 1.03 [facility] Urobilinogen, UA 0.2 0.2 - 12 mg/dL [facility] CBC AUTO DIFFon 07-02-2022 BASO # 0.0 103/ul Normal 0.0-0.1 [facility] Comment on above: Performed By: #### G LU1HR #### [facility] [address] [place] [address] Dr. Shell Cadena Basophils/100 WBC (Bld) 0.1 % Critically low 0.2-2.0 [facility] Comment on above: Performed By: #### G LU1HR #### [facility] [address] [address] [address] Shell Cadena EO # 0.1 103/ul Normal 0.0-0.7 [facility] Comment on above: Performed By: #### G LU1HR #### [facility] [address] [place] [address] Dr. Shell Cadena Eosinophils/100 WBC (Bld) 0.7 % Critically low 0.9-7.0 [facility] Comment on above: Performed By: #### G LU1HR #### [facility] [address] [address] [address] Shell Cadena Erythrocyte distribution width (RBC) [Ratio] 13.2 % Normal 11.0-15.0 [facility] Comment on above: Performed By: #### G LU1HR #### [facility] [address] [place] [address] Dr. Shell Cadena Hematocrit (Bld) [Volume fraction] 29.9 % Critically low 36.0-48.0 [facility] Comment on above: Performed By: #### G LU1HR #### [facility] [address] [address] [address] Shell Cadena Hemoglobin (Bld) [Mass/Vol] 9.9 g/dL Critically low 12.0-16.0 [facility] Comment on above: Performed By: #### G LU1HR #### [facility] [address] [address] [address] Shell Cadena IG # 0.10 10e3/ul Critically high 0.00-0.03 [facility] Comment on above: Performed By: #### G LU1HR #### [facility] [address] [place] [address] Dr. Shell Cadena IG % 0.7 % Critically high 0.0-0.5 [facility] Comment on above: Performed By: #### G LU1HR #### [facility] [address] [place] [address] Dr. Shell Cadena LYMPH # 2.7 103/ul Normal 1.2-3.8 [facility] Comment on above: Performed By: #### G LU1HR #### [facility] [address] [place] [address] Dr. Shell Cadena Lymphocytes/100 WBC (Bld) 18.4 % Critically low 20.5-60.0 [facility] Comment on above: Performed By: #### G LU1HR #### [facility] [address] [place] [address] Dr. Shell Cadena MANUAL DIFF REQ NO Normal [facility] Comment on above: Performed By: #### G LU1HR #### [facility] [address] [place] [address] Dr. Shell Cadena MCH (RBC) [Entitic mass] 29.1 pg Normal 26.7-34.0 [facility] Comment on above: Performed By: #### G LU1HR #### [facility] [address] [place] [address] Dr. Shell Cadena MCHC (RBC) [Mass/Vol] 33.1 g/dL Normal 29.9-35.2 [facility] Comment on above: Performed By: #### G LU1HR #### [facility] [address] [place] [address] Dr. Shell Cadena MCV (RBC) [Entitic vol] 87.9 fL Normal 81.0-99.0 [facility] Comment on above: Performed By: #### G LU1HR #### [facility] [address] [place] [address] Dr. Shell Cadena MONO # 0.9 103/ul Critically high 0.3-0.8 [facility] Comment on above: Performed By: #### G LU1HR #### [facility] [address] [place] [address] Dr. Shell Cadena Monocytes/100 WBC (Bld) 5.7 % Normal 1.7-12.0 [facility] Comment on above: Performed By: #### G LU1HR #### [facility] [address] [place] [address] Dr. Shell Cadena NEUT # 11.0 103/ul Critically high 1.4-6.5 [facility] Comment on above: Performed By: #### G LU1HR #### [facility] [address] [place] [address] Dr. Shell Cadena Neutrophils/100 WBC (Bld) 74.4 % Normal 43.0-75.0 [facility] Comment on above: Performed By: #### G LU1HR #### [facility] [address] [place] [address] Dr. Shell Cadena Platelet mean volume (Bld) [Entitic vol] 10.8 fL Normal 9.5-13.5 [facility] Comment on above: Performed By: #### G LU1HR #### [facility] [address] [place] [address] Dr. Shell Cadena PLT 411 103/ul Normal 150-450 [facility] Comment on above: Performed By: #### G LU1HR #### [facility] [address] [place] [address] Dr. Shell Cadena RBC 3.40 106/ul Critically low 4.20-5.40 [facility] Comment on above: Performed By: #### G LU1HR #### [facility] [address] [place] [address] Dr. Shell Cadena WBC 14.8 103/ul Critically high 4.0-11.0 [facility] Comment on above: Performed By: #### G LU1HR #### [facility] [address] [place] [address] Dr. Shell Cadena CULTURE URINEon 07-02-2022 CULTURE URINE Culture Observations: GREATER THAN TWO ORGANISMS PRESENT. PLEASE RESUBMIT CLEAN CATCH MID-STREAM URINE IF CLINICALLY INDICATED. Normal [facility] Comment on above: Performed By: #### U RCX #### [facility] [address] [place] [address] Dr. Shell Cadena CBC AUTO DIFFon 07-01-2022 BASO # 0.0 103/ul Normal 0.0-0.1 [facility] Comment on above: Performed By: #### N BOX #### [facility] [address] [place] [address] Dr. Shell Cadena Basophils/100 WBC (Bld) 0.2 % Normal 0.2-2.0 [facility] Comment on above: Performed By: #### N BOX #### [facility] [address] [place] [address] Dr. Shell Cadena EO # 0.2 103/ul Normal 0.0-0.7 [facility] Comment on above: Performed By: #### N BOX #### [facility] [address] [place] [address] Dr. Shell Cadena Eosinophils/100 WBC (Bld) 1.3 % Normal 0.9-7.0 [facility] Comment on above: Performed By: #### N BOX #### [facility] [address] [place] [address] Dr. Shell Cadena Erythrocyte distribution width (RBC) [Ratio] 13.2 % Normal 11.0-15.0 [facility] Comment on above: Performed By: #### N BOX #### [facility] [address] [address] [address] Shell Cadena Hematocrit (Bld) [Volume fraction] 34.7 % Critically low 36.0-48.0 [facility] Comment on above: Performed By: #### N BOX #### [facility] [address] [address] [address] Shell Cadena Hemoglobin (Bld) [Mass/Vol] 11.5 g/dL Critically low 12.0-16.0 [facility] Comment on above: Performed By: #### N BOX #### [facility] [address] [address] [address] Shell Cadena IG # 0.07 10e3/ul Critically high 0.00-0.03 [facility] Comment on above: Performed By: #### N BOX #### [facility] [address] [place] [address] Dr. Shell Cadena IG % 0.5 % Normal 0.0-0.5 [facility] Comment on above: Performed By: #### N BOX #### [facility] [address] [address] [address] Shell Cadena LYMPH # 2.4 103/ul Normal 1.2-3.8 [facility] Comment on above: Performed By: #### N BOX #### [facility] [address] [place] [address] Dr. Shell Cadena Lymphocytes/100 WBC (Bld) 18.9 % Critically low 20.5-60.0 [facility] Comment on above: Performed By: #### N BOX #### [facility] [address] [place] [address] Dr. Shell Cadena MANUAL DIFF REQ NO Normal [facility] Comment on above: Performed By: #### N BOX #### [facility] [address] [place] [address] Dr. Shell Cadena MCH (RBC) [Entitic mass] 28.8 pg Normal 26.7-34.0 [facility] Comment on above: Performed By: #### N BOX #### [facility] [address] [place] [address] Dr. Shell Cadena MCHC (RBC) [Mass/Vol] 33.1 g/dL Normal 29.9-35.2 [facility] Comment on above: Performed By: #### N BOX #### [facility] [address] [address] [address] Shell Cadena MCV (RBC) [Entitic vol] 87.0 fL Normal 81.0-99.0 [facility] Comment on above: Performed By: #### N BOX #### [facility] [address] [place] [address] Dr. Shell Cadena MONO # 0.8 103/ul Normal 0.3-0.8 [facility] Comment on above: Performed By: #### N BOX #### [facility] [address] [place] [address] Dr. Shell Cadena Monocytes/100 WBC (Bld) 6.5 % Normal 1.7-12.0 [facility] Comment on above: Performed By: #### N BOX #### [facility] [address] [place] [address] Dr. Shell Cadena NEUT # 9.4 103/ul Critically high 1.4-6.5 [facility] Comment on above: Performed By: #### N BOX #### [facility] [address] [place] [address] Dr. Shell Cadena Neutrophils/100 WBC (Bld) 72.6 % Normal 43.0-75.0 [facility] Comment on above: Performed By: #### N BOX #### [facility] [address] [place] [address] Dr. Shell Cadena Platelet mean volume (Bld) [Entitic vol] 10.7 fL Normal 9.5-13.5 [facility] Comment on above: Performed By: #### N BOX #### [facility] [address] [place] [address] Dr. Shell Cadena PLT 466 103/ul Critically high 150-450 [facility] Comment on above: Performed By: #### N BOX #### [facility] [address] [place] [address] Dr. Shell Cadena RBC 3.99 106/ul Critically low 4.20-5.40 [facility] Comment on above: Performed By: #### N BOX #### [facility] [address] [place] [address] Dr. Shell Cadena WBC 12.9 103/ul Critically high 4.0-11.0 [facility] Comment on above: Performed By: #### N BOX #### [facility] [address] [place] [address] Dr. Shell Cadena DRUG SCREEN RAPID (URINE)on 07-01-2022 AMP Negative Normal NEGATIVE [facility] Comment on above: Performed By: #### N BOX #### [facility] [address] [place] [address] Dr. Shell Cadena BAR Negative Normal NEGATIVE [facility] Comment on above: Performed By: #### N BOX #### [facility] [address] [place] [address] Dr. Shell Cadena BUP Negative Normal NEGATIVE [facility] Comment on above: Performed By: #### N BOX #### [facility] [address] [place] [address] Dr. Shell Cadena BZO Negative Normal NEGATIVE [facility] Comment on above: Performed By: #### N BOX #### [facility] [address] [place] [address] Dr. Shell Cadena PAMELA Negative Normal NEGATIVE [facility] Comment on above: Performed By: #### N BOX #### [facility] [address] [place] [address] Dr. Shell Cadena CUT-OFFS SEE BELOW Normal [facility] Comment on above: Result Comment: AMP [...] ng/mL Performed By: #### N BOX #### [facility] [address] [place] [address] Dr. Shell Cadena DRUG CUT HEADER DRUG CLASS TEST SYSTEM CUT-OFF CONCENTRATIONS ARE FOLLOWS: Normal [facility] Comment on above: Performed By: #### N BOX #### [facility] [address] [place] [address] Dr. Shell Cadena mAMP Negative Normal NEGATIVE [facility] Comment on above: Performed By: #### N BOX #### [facility] [address] [place] [address] Dr. Shell Cadena MTD Negative Normal NEGATIVE [facility] Comment on above: Performed By: #### N BOX #### [facility] [address] [place] [address] Dr. Shell Cadena OPI Negative Normal NEGATIVE [facility] Comment on above: Performed By: #### N BOX #### [facility] [address] [place] [address] Dr. Shell Cadena OXY Negative Normal NEGATIVE [facility] Comment on above: Performed By: #### N BOX #### [facility] [address] [place] [address] Dr. Shell Cadena PCP Negative Normal NEGATIVE [facility] Comment on above: Performed By: #### N BOX #### [facility] [address] [place] [address] Dr. Shell Cadena PPX Negative Normal NEGATIVE [facility] Comment on above: Performed By: #### N BOX #### [facility] [address] [place] [address] Dr. Shell Cadena TCA Negative Normal NEGATIVE [facility] Comment on above: Performed By: #### N BOX #### [facility] [address] [place] [address] Dr. Shell Cadena THC Positive Abnormal NEGATIVE [facility] Comment on above: Performed By: #### N BOX #### [facility] [address] [place] [address] Dr. Shell Cadena TYPE AND SCREENon 07-01-2022 TYPE AND SCREEN Negative Normal [facility] Comment on above: Performed By: #### G LU1HR #### [facility] [address] [place] [address] Dr. Shell Cadena UA (CLEAN/CATCH) SHIP BOAT OR BARGE MATE/MICRO I F IND.on 07-01-2022 Bilirubin Ql (U) Negative Normal NEGATIVE [facility] Comment on above: Performed By: #### U ACSIND, UMICRO #### [facility] [address] [place] [address] Dr. Shell Cadena Clarity (U) CLEAR Normal CLEAR [facility] Comment on above: Performed By: #### U ACSIND, UMICRO #### [facility] [address] [place] [address] Dr. Shell Cadena Color (U) LT. YELLOW Normal YELLOW [facility] Comment on above: Performed By: #### U ACSIND, UMICRO #### [facility] [address] [place] [address] Dr. Shell Cadena Glucose Ql (U) Negative Normal NEGATIVE [facility] Comment on above: Performed By: #### U ACSIND, UMICRO #### [facility] [address] [place] [address] Dr. Shell Cadena Hemoglobin Ql (U) LARGE Abnormal NEGATIVE [facility] Comment on above: Performed By: #### U ACSIND, UMICRO #### [facility] [address] [place] [address] Dr. Shell Cadena Ketones Ql (U) Negative Normal NEGATIVE [facility] Comment on above: Performed By: #### U ACSIND, UMICRO #### [facility] [address] [place] [address] Dr. Shell Cadena LEUKOCYTES SMALL Abnormal NEGATIVE [facility] Comment on above: Performed By: #### U ACSIND, UMICRO #### [facility] [address] [place] [address] Dr. Shell Cadena Nitrite Ql (U) Negative Normal NEGATIVE [facility] Comment on above: Performed By: #### U ACSIND, UMICRO #### [facility] [address] [address] [address] Shell Cadena pH (U) 6.5 [pH] Normal 5-9 [facility] Comment on above: Performed By: #### U ACSIND, UMICRO #### [facility] [address] [address] [address] Shell Cadena SPEC GRAVITY 1.020 Normal 1.005-<=1.025 [facility] Comment on above: Performed By: #### U ACSIND, UMICRO #### [facility] [address] [address] [address] Shell Cadena UA PROTEIN Negative Normal NEGATIVE/ TRACE [facility] Comment on above: Performed By: #### U ACSIND, UMICRO #### [facility] [address] [place] [address] Dr. Shell Cadena UR MICRO IND INDICATED Normal [facility] Comment on above: Performed By: #### U ACSIND, UMICRO #### [facility] [address] [address] [address] Shell Cadena Urobilinogen Qn (U) 0.2 {Tabitha'U}/dL Normal 0.2 - 1. 0 [facility] Comment on above: Performed By: #### U ACSIND, UMICRO #### [facility] [address] [address] [address] Shell Cadena URINE MICROSCOPIC ONLYon BACTERIA TRACE Abnormal NONE SEEN [facility] Comment on above: Performed By: #### U ACSIND, UMICRO #### [facility] [address] [place] [address] Dr. Shell Cadena Bacteria identified Cx Nom (U) INDICATED Normal [facility] Comment on above: Performed By: #### U ACSIND, UMICRO #### [facility] [address] [address] [address] Shell Cadena CAST NONE SEEN Normal NONE SEEN [facility] Comment on above: Performed By: #### U ACSIND, UMICRO #### [facility] [address] [address] [address] Shell Cadena Crystals LM Nom (Urine sed) NONE SEEN Normal NONE SEEN [facility] Comment on above: Performed By: #### U ACSTERRI, UMICRO #### [facility] [address] [address] [address] Shell Cadena Epithelial cells LM Ql (Urine sed) FEW Abnormal NONE SEEN /RARE [facility] Comment on above: Performed By: #### U ACSTERRI, UMICRO #### [facility] [address] [address] [address] Shell Cadena MUCOUS NONE SEEN Normal NONE SEEN [facility] Comment on above: Performed By: #### U ACSTERRI UMICRO #### [facility] [address] [address] [address] Shell Cadena RBC (U) [#/Vol] /uL Abnormal 0-2 [facility] Comment on above: Performed By: #### U ACSTERRI UMICRO #### [facility] [address] [address] [address] Shell Cadena WBC 10-20 Abnormal NONE SEEN [facility] Comment on above: Performed By: #### U ACSTERRI UMICRO #### [facility] [address] [address] [address] Shell Cadena GROUP B STREP CULTUREon - S. agalactiae Ag Ql (Unsp spec) Culture Observations: NEGATIVE FOR GROUP B STREPTOCOCCUS. Normal [facility] Comment on above: Performed By: #### G BSCX #### [facility] [address] [address] [address] Shell Cadena US PREG AMNIOTIC FLUID [...] VIC SOTO Date: 2022-05-26 15:21 Normal [facility] CBC AUTO DIFFon 04-23-2022 BASO # 0.0 103/ul Normal 0.0-0.1 [facility] Comment on above: Performed By: #### G LU1HR #### [facility] [address] [place] [address] Dr. Shell Cadena Basophils/100 WBC (Bld) 0.2 % Normal 0.2-2.0 [facility] Comment on above: Performed By: #### G LU1HR #### [facility] [address] [place] [address] Dr. Shell Cadena EO # 0.2 103/ul Normal 0.0-0.7 [facility] Comment on above: Performed By: #### G LU1HR #### [facility] [address] [place] [address] Dr. Shell Cadena Eosinophils/100 WBC (Bld) 2.1 % Normal 0.9-7.0 [facility] Comment on above: Performed By: #### G LU1HR #### [facility] [address] [place] [address] Dr. Shell Cadena Erythrocyte distribution width (RBC) [Ratio] 12.8 % Normal 11.0-15.0 [facility] Comment on above: Performed By: #### G LU1HR #### [facility] [address] [place] [address] Dr. Shell Cadena Hematocrit (Bld) [Volume fraction] 31.7 % Critically low 36.0-48.0 [facility] Comment on above: Performed By: #### G LU1HR #### [facility] [address] [place] [address] Dr. Shell Cadena Hemoglobin (Bld) [Mass/Vol] 10.7 g/dL Critically low 12.0-16.0 [facility] Comment on above: Performed By: #### G LU1HR #### [facility] [address] [place] [address] Dr. Shell Cadena IG # 0.09 10e3/ul Critically high 0.00-0.03 [facility] Comment on above: Performed By: #### G LU1HR #### [facility] [address] [place] [address] Dr. Shell Cadena IG % 0.8 % Critically high 0.0-0.5 [facility] Comment on above: Performed By: #### G LU1HR #### [facility] [address] [place] [address] Dr. Shell Cadena LYMPH # 2.0 103/ul Normal 1.2-3.8 [facility] Comment on above: Performed By: #### G LU1HR #### [facility] [address] [place] [address] Dr. Shell Cadena Lymphocytes/100 WBC (Bld) 18.1 % Critically low 20.5-60.0 [facility] Comment on above: Performed By: #### G LU1HR #### [facility] [address] [place] [address] Dr. Shell Cadena MANUAL DIFF REQ NO Normal [facility] Comment on above: Performed By: #### G LU1HR #### [facility] [address] [place] [address] Dr. Shell Cadena MCH (RBC) [Entitic mass] 30.4 pg Normal 26.7-34.0 [facility] Comment on above: Performed By: #### G LU1HR #### [facility] [address] [place] [address] Dr. Shell Cadena MCHC (RBC) [Mass/Vol] 33.8 g/dL Normal 29.9-35.2 [facility] Comment on above: Performed By: #### G LU1HR #### [facility] [address] [place] [address] Dr. Shell Cadena MCV (RBC) [Entitic vol] 90.1 fL Normal 81.0-99.0 [facility] Comment on above: Performed By: #### G LU1HR #### [facility] [address] [place] [address] Dr. Shell Cadena MONO # 0.7 103/ul Normal 0.3-0.8 [facility] Comment on above: Performed By: #### G LU1HR #### [facility] [address] [place] [address] Dr. Shell Cadena Monocytes/100 WBC (Bld) 6.1 % Normal 1.7-12.0 [facility] Comment on above: Performed By: #### G LU1HR #### [facility] [address] [place] [address] Dr. Shell Cadena NEUT # 7.9 103/ul Critically high 1.4-6.5 [facility] Comment on above: Performed By: #### G LU1HR #### [facility] [address] [place] [address] Dr. Shell Cadena Neutrophils/100 WBC (Bld) 72.7 % Normal 43.0-75.0 [facility] Comment on above: Performed By: #### G LU1HR #### [facility] [address] [place] [address] Dr. Shell Cadena Platelet mean volume (Bld) [Entitic vol] 10.4 fL Normal 9.5-13.5 [facility] Comment on above: Performed By: #### G LU1HR #### [facility] [address] [place] [address] Dr. Shell Cadena PLT 369 103/ul Normal 150-450 [facility] Comment on above: Performed By: #### G LU1HR #### [facility] [address] [place] [address] Dr. Shell Cadena RBC 3.52 106/ul Critically low 4.20-5.40 [facility] Comment on above: Performed By: #### G LU1HR #### [facility] [address] [place] [address] Dr. Shell Cadena WBC 10.9 103/ul Normal 4.0-11.0 [facility] Comment on above: Performed By: #### G LU1HR #### [facility] [address] [place] [address] Dr. Shell Cadena GLUCOSE - 1HRon 04-23-2022 Glucose [Mass/Vol] 117 mg/dL Critically high 74-106 [facility] Comment on above: Performed By: #### G LU1HR #### [facility] [address] [place] [address] Dr. Shell Cadena UA (CLEAN/CATCH) SHIP BOAT OR BARGE MATE/MICRO I F IND.on 04-20-2022 Bilirubin Ql (U) Negative Normal NEGATIVE [facility] Comment on above: Performed By: #### U ACSIND #### [facility] [address] [address] [address] Shell Cadena Clarity (U) CLEAR Normal CLEAR [facility] Comment on above: Performed By: #### U ACSIND #### [facility] [address] [place] [address] Dr. Shell Cadena Color (U) LT. YELLOW Normal YELLOW [facility] Comment on above: Performed By: #### U ACSIND #### [facility] [address] [address] [address] Shell Cadena Glucose Ql (U) Negative Normal NEGATIVE [facility] Comment on above: Performed By: #### U ACSIND #### [facility] [address] [address] [address] Shell Cadena Hemoglobin Ql (U) Negative Normal NEGATIVE [facility] Comment on above: Performed By: #### U ACSIND #### [facility] [address] [address] [address] Shell Cadena Ketones Ql (U) Negative Normal NEGATIVE [facility] Comment on above: Performed By: #### U ACSIND #### [facility] [address] [address] [address] Shell Cadena LEUKOCYTES Negative Normal NEGATIVE [facility] Comment on above: Performed By: #### U ACSIND #### [facility] [address] [place] [address] Dr. Shell Cadena Nitrite Ql (U) Negative Normal NEGATIVE [facility] Comment on above: Performed By: #### U ACSIND #### [facility] [address] [address] [address] Shell Cadena pH (U) 6.0 [pH] Normal 5-9 [facility] Comment on above: Performed By: #### U ACSIND #### [facility] [address] [address] [address] Shell Cadena SPEC GRAVITY 1.015 Normal 1.005-<=1.025 [facility] Comment on above: Performed By: #### U ACSIND #### [facility] [address] [address] [address] Shell Cadena UA PROTEIN Negative Normal NEGATIVE/ TRACE [facility] Comment on above: Performed By: #### U ACSIND #### [facility] [address] [address] [address] Shell Cadena UR MICRO IND NOT INDICATED Normal [facility] Comment on above: Performed By: #### U ACSIND #### [facility] [address] [address] [address] Shell Cadena Urobilinogen Qn (U) 0.2 {Tabitha'U}/dL Normal 0.2 - 1. 0 [facility] Comment on above: Performed By: #### U ACSIND #### [facility] [address] [place] [address] Dr. Shell Cadena US PREG ANATOMY SINGLEon [...] authenticated by: VIC SOTO Date: 2022-03-11 07:26 [facility] PAP ACOG PANEL 2: 21 to 29on 03-09-2022 . . Normal [facility] Comment on above: Result Comment: Perf ormed at: WB Performed By: #### N BOX #### [facility] [address] [place] [address] Dr. Shell Cadena Age Gdln ACOG Testing - [facility] Comment on above: Performed By: #### N BOX #### [facility] [address] [address] [address] Shell Cadena DIAGNOSIS: Comment [facility] Comment on above: Result Comment: NEGA TIVE FOR INTRAEPITHELIAL LESION OR MALIGNANCY. THIS SPECIMEN WAS RESCREENED PART OF OUR JOB CHECKER PROGRAM. Performed at: WB Performed By: #### N BOX #### [facility] [address] [address] [address] Shell Cadena Methodology: Comment Normal [facility] Comment on above: Result Comment: This liquid based ThinPrep(R) pap test was screened with the use of an image guided system. Performed at: WB Performed By: #### N BOX #### [facility] [address] [place] [address] Dr. Shell Cadena Note: Comment [facility] Comment on above: Result Comment: The Pap smear is a screening test designed to aid in the detection of premalignant and malignant conditions of the uterine cervix. It is not a diagnostic procedure and should not be used as the sole means of detecting cervical cancer. Both false-positive and false-negative reports do occur. . Performed at: WB Performed By: #### N BOX #### [facility] [address] [address] [address] Shell Cadena Performed by: Comment Normal [facility] Comment on above: Result Comment: Hudson Roy, Cargo Surveyor (ASCP) Performed at: [facility] Performed By: #### N BOX #### [facility] [address] [address] [address] Shell Cadena QC reviewed by: Comment Normal [facility] Comment on above: Result Comment: Han Quevedo, Cargo Surveyor Performed at: WB Performed By: #### N BOX #### [facility] [address] [address] [address] Shell Cadena Reflex Criteria: Comment Normal [facility] Comment on above: Result Comment: The HPV DNA reflex criteria were not met with this specimen result therefore, no HPV testing was performed. . Performed at: WB Performed By: #### N BOX #### [facility] [address] [address] [address] Shell Cadena Specimen adequacy: Comment Normal [facility] Comment on above: Result Comment: Sati sfactory for evaluation. No endocervical component is identified. Performed at: WB Performed By: #### N BOX #### [facility] [address] [address] [address] Shell Cadena AFP MATERNAL FOR SPINA BIFID Aon 03-04-2022 AFP MoM 1.01 Normal [facility] Comment on above: Performed By: #### N BOX #### [facility] [address] [address] [address] Shell Cadena AFP Value 61.7 ng/mL Normal [facility] Comment on above: Performed By: #### N BOX #### [facility] [address] [address] [address] Shell Cadena AFP, Serum for Spina Bifida Report Normal [facility] Comment on above: Performed By: #### N BOX #### [facility] [address] [address] [address] Shell Cadena Comment Comment Normal [facility] Comment on above: Result Comment: Zen Messer, Ph.D., [facility] Director . References: Available Upon Request. . Multiples Of Median Cutoffs For AFP Elevations Silveira 2.5 Black 2.8 IDD 2.0 Twins 4.5 Abbreviation Definitions IDD - Insulin Dep Diabetes OSBR - Open Spina Bifida Risk . For further inquiries contact [facility] at [phone]. . This test was developed and its performance characteristics determined by [employer]. It has not been cleared or approved by the Food and Drug Administration. Performed By: #### N BOX #### [facility] [address] [address] [address] Shell Matson Age Collection Date 20.7 weeks [facility] Comment on above: Performed By: #### N BOX #### [facility] [address] [address] [address] Shell Cadena Gestat, Age Based on LMP [facility] Comment on above: Result Comment: 02/2021 Recalculations are not recommended when gestational dating by LMP and ultrasound are within 10 days. Performed By: #### N BOX #### [facility] [address] [address] [address] Shell Cadena Insulin Dep Diabetes No Normal [facility] Comment on above: Performed By: #### N BOX #### [facility] [address] [address] [address] Shell Cadena Interpretation Comment Normal [facility] Comment on above: Result Comment: Inte [...] Customer Services to discuss available options. The [employer] recommends amniocentesis be offered to women age 35 and older. Performed By: #### N BOX #### [facility] [address] [place] [address] Dr. Shell Cadena [age] Normal [facility] Comment on above: Performed By: #### N BOX #### [facility] [address] [place] [address] Dr. Shell Cadena Multiple Gestation No Normal [facility] Comment on above: Performed By: #### N BOX #### [facility] [address] [place] [address] Dr. Shell Cadena OSBR [place] [address] Normal [facility] Comment on above: Performed By: #### N BOX #### [facility] [address] [place] [address] Dr. Shell Cadena PDF . Normal [facility] Comment on above: Performed By: #### N BOX #### [facility] [address] [place] [address] Dr. Shell Cadena Race Normal [facility] Comment on above: Performed By: #### N BOX #### [facility] [address] [place] [address] Dr. Shell Cadena Test Results: Negative Normal [facility] Comment on above: Performed By: #### N BOX #### [facility] [address] [place] [address] Dr. Shell Cadena CHLAMYDIA/GONOCOCCUS FERNANDO (SW AB/URINE/PAPon 03-03-2022 Chlamydia trachomatis, FERNANDO Negative Normal Negative [facility] Comment on above: Performed By: #### N BOX #### [facility] [address] [place] [address] Dr. Shell Cadena Neisseria gonorrhoeae, FERNANDO Negative Normal Negative [facility] Comment on above: Performed By: #### N BOX #### [facility] [address] [place] [address] Dr. Shell Cadena VAGINITIS/VAGINOSIS DNA PROB Eddie 03-03-2022 Marla species Negative Normal Negative [facility] Comment on above: Performed By: #### G LU1HR #### [facility] [address] [place] [address] Dr. Shell Cadena Gardnerella vaginalis Negative Normal Negative [facility] Comment on above: Performed By: #### G LU1HR #### [facility] [address] [place] [address] Dr. Shell Cadena Trichomonas vaginalis Negative Normal Negative [facility] Comment on above: Performed By: #### G LU1HR #### [facility] [address] [place] [address] Dr. Shell Cadena HEP B SURFACE ANTIGEN SCREEN on 01-05-2022 HBsAg Screen Negative Normal Negative [facility] Comment on above: Performed By: #### H BSANS #### [facility] [address] [place] [address] Dr. Shell Cadena HEPATITIS C VIRUS AB W/ REFL EX QUANTon 01-05-2022 HCV AB <0.1 Normal 0.0-0.9 [facility] Comment on above: Performed By: #### H CVPCRR #### [facility] [address] [place] [address] Dr. Shell Cadena Interpretation: Comment Normal [facility] Comment on above: Result Comment: Nega tive Not infected with HCV, unless recent infection is suspected or other evidence exists to indicate HCV infection. Performed By: #### H CVPCRR #### [facility] [address] [place] [address] Dr. Shell Cadena HIV 1 AND 2 WITH REFLEXon HIV Screen 4th Generation wRfx Non-Reactive Normal Non Reactive [facility] Comment on above: Result Comment: HIV Negative HIV-1/HIV-2 antibodies and HIV-1 p24 antigen were NOT detected. There is no laboratory evidence of HIV infection. Performed By: #### G LU1HR #### [facility] [address] [place] [address] Dr. Shell Cadena RPR QUANTon 01-05-2022 Rapid Plasma Reagin, Quant Non-Reactive Normal NonRea<1:1 [facility] Comment on above: Result Comment: Plea se Note: This test does not meet current guidelines for screening and diagnosis of syphilis. This test is intended for following treatment response in patients being treated for syphilis infection. To screen for syphilis infection, a reflex cascade that includes both RPR and a treponema-specific assay should be utilized, such as Treponema pallidum (Syphilis) Screening [place] (889051) or Rapid Plasma Reagin (RPR) Test With Reflex to Quantitative RPR and Confirmatory Treponema pallidum Antibodies (288630). Performed By: #### N BOX #### [facility] [address] [place] [address] Dr. Shell Cadena RUBELLA AB IGGon 01-05-2022 Rubella Antibodies, IgG 2.83 index Normal Immune >0.99 [facility] Comment on above: Result Comment: Non- immune <0.90 Equivocal 0.90 - 0.99 Immune >0.99 Performed By: #### N BOX #### [facility] [address] [place] [address] Dr. Shell Cadena CBC AUTO DIFFon 01-04-2022 BASO # 0.0 103/ul Normal 0.0-0.1 [facility] Comment on above: Performed By: #### C BC #### [facility] [address] [place] [address] Dr. Shell Cadena Basophils/100 WBC (Bld) 0.1 % Critically low 0.2-2.0 [facility] Comment on above: Performed By: #### C BC #### [facility] [address] [place] [address] Dr. Shell Cadena EO # 0.3 103/ul Normal 0.0-0.7 [facility] Comment on above: Performed By: #### C BC #### [facility] [address] [place] [address] Dr. Shell Cadena Eosinophils/100 WBC (Bld) 3.5 % Normal 0.9-7.0 [facility] Comment on above: Performed By: #### C BC #### [facility] [address] [place] [address] Dr. Shell Cadena Erythrocyte distribution width (RBC) [Ratio] 12.4 % Normal 11.0-15.0 [facility] Comment on above: Performed By: #### C BC #### [facility] [address] [place] [address] Dr. Shell Cadena Hematocrit (Bld) [Volume fraction] 34.8 % Critically low 36.0-48.0 [facility] Comment on above: Performed By: #### C BC #### [facility] [address] [place] [address] Dr. Shell Cadena Hemoglobin (Bld) [Mass/Vol] 12.0 g/dL Normal 12.0-16.0 [facility] Comment on above: Performed By: #### C BC #### [facility] [address] [place] [address] Dr. Shell Cadena IG # 0.03 10e3/ul Normal 0.00-0.03 [facility] Comment on above: Performed By: #### C BC #### [facility] [address] [place] [address] Dr. Shell Cadena IG % 0.4 % Normal 0.0-0.5 [facility] Comment on above: Performed By: #### C BC #### [facility] [address] [place] [address] Dr. Shell Cadena LYMPH # 1.5 103/ul Normal 1.2-3.8 [facility] Comment on above: Performed By: #### C BC #### [facility] [address] [place] [address] Dr. Shell Cadena Lymphocytes/100 WBC (Bld) 20.5 % Normal 20.5-60.0 [facility] Comment on above: Performed By: #### C BC #### [facility] [address] [place] [address] Dr. Shell Cadena MANUAL DIFF REQ NO Normal [facility] Comment on above: Performed By: #### C BC #### [facility] [address] [place] [address] Dr. Shell Cadena MCH (RBC) [Entitic mass] 29.6 pg Normal 26.7-34.0 [facility] Comment on above: Performed By: #### C BC #### [facility] [address] [place] [address] Dr. Shell Cadena MCHC (RBC) [Mass/Vol] 34.5 g/dL Normal 29.9-35.2 [facility] Comment on above: Performed By: #### C BC #### [facility] [address] [place] [address] Dr. Shell Cadena MCV (RBC) [Entitic vol] 85.9 fL Normal 81.0-99.0 [facility] Comment on above: Performed By: #### C BC #### [facility] [address] [place] [address] Dr. Shell Cadena MONO # 0.4 103/ul Normal 0.3-0.8 [facility] Comment on above: Performed By: #### C BC #### [facility] [address] [place] [address] Dr. Shell Cadena Monocytes/100 WBC (Bld) 6.0 % Normal 1.7-12.0 [facility] Comment on above: Performed By: #### C BC #### [facility] [address] [place] [address] Dr. Shell Cadena NEUT # 5.0 103/ul Normal 1.4-6.5 [facility] Comment on above: Performed By: #### C BC #### [facility] [address] [place] [address] Dr. Shell Cadena Neutrophils/100 WBC (Bld) 69.5 % Normal 43.0-75.0 [facility] Comment on above: Performed By: #### C BC #### [facility] [address] [place] [address] Dr. Shell Cadena Platelet mean volume (Bld) [Entitic vol] 10.1 fL Normal 9.5-13.5 [facility] Comment on above: Performed By: #### C BC #### [facility] [address] [place] [address] Dr. Shell Cadena PLT 364 103/ul Normal 150-450 [facility] Comment on above: Performed By: #### C BC #### [facility] [address] [place] [address] Dr. hSell Cadena RBC 4.05 106/ul Critically low 4.20-5.40 [facility] Comment on above: Performed By: #### C BC #### [facility] [address] [address] [address] Shell Cadena WBC 7.2 103/ul Normal 4.0-11.0 [facility] Comment on above: Performed By: #### C BC #### [facility] [address] [place] [address] Dr. Shell Cadena CULTURE URINEon 01-04-2022 CULTURE URINE Culture Observations: NO GROWTH. Normal [facility] Comment on above: Performed By: #### G LU1HR #### [facility] [address] [place] [address] Dr. Shell Cadena GLYCOHEMOGLOBIN A1Con 2021 ADA RECOMMENDATION SEE BELOW Normal [facility] Comment on above: Result Comment: ADA RECOMMENDED LIMIT 4.0 - 6.0 ADA THERAPEUTIC TARGET < 7.0 ACTION SUGGESTED > 7.0 Performed By: #### N BOX #### [facility] [address] [place] [address] Dr. Shell Cadena Glucose [Mass/Vol] 91 mg/dL Normal [facility] Comment on above: Performed By: #### N BOX #### [facility] [address] [place] [address] Dr. Shell Cadena HbA1c (Bld) [Mass fraction] 4.8 % Normal 4.5-6.2 [facility] Comment on above: Performed By: #### N BOX #### [facility] [address] [place] [address] Dr. Shell Cadena ISIS BOX TEST PT SEND OUTo n 01-04-2022 SENT TO REF LAB 01/04/2022 Normal [facility] Comment on above: Performed By: #### N BOX #### [facility] [address] [place] [address] Dr. Shell Cadena TYPE AND SCREENon 01-04-2022 TYPE AND SCREEN Negative Normal [facility] Comment on above: Performed By: #### G LU1HR #### [facility] [address] [place], [place] [address] Dr. Shell Cadena US PREG TVon 12-10-2021 [...] AMIE CABRERA Date: 2021-12-10 17:08 Normal [facility] Chanelle Pierre Panelon 021 EBV (VCA) Ab, IgG 1296 U/mL High <100 [facility] Comment on above: Performed By: #### H IVCMB, PHEP, CRP, ANAX, EBVPRO #### [address] [id number] Entry Level Sales Associate: Sebastian Roman MD #### CP, SED, TSHX, CDP, HCG #### [facility] [address] [place] [address] Entry Level Sales Associate: Amie Urrutia MD EBV (VCA) Ab, IgM 15 U/mL Normal <100 [facility] Comment on above: Performed By: #### H IVCMB, PHEP, CRP, ANAX, EBVPRO #### [id number] [place], [place] [phone] Entry Level Sales Associate: Sebastian Roman MD #### CP, SED, TSHX, CDP, HCG #### [facility] [address] [place] [address] Entry Level Sales Associate: Amie Urrutia MD EBV Early Ab, IgG 76 U/mL Normal <100 [facility] Comment on above: Performed By: #### H IVCMB, PHEP, CRP, ANAX, EBVPRO #### [id number] [place], [place] [phone] Entry Level Sales Associate: Sebastian Roman MD #### CP, SED, TSHX, CDP, HCG #### [facility] [address] [place] [address] Entry Level Sales Associate: Amie Urrutia MD EBV Interpretation (NOTE) Normal [facility] Comment on above: Result Comment: Reference [...] Clinical Diagnosis and Management by Laboratory Methods; 17th Edition, Tanmay Taylor M.D. Performed By: #### H IVCMB, PHEP, CRP, ANAX, EBVPRO #### [address] [phone] Entry Level Sales Associate: Sebastian Roman MD #### CP, SED, TSHX, CDP, HCG #### [facility] [address] [place] [address] Entry Level Sales Associate: Amie Urrutia MD EBV Nuclear Ab, IgG 416 U/mL High <100 [facility] Comment on above: Performed By: #### H IVCMB, PHEP, CRP, ANAX, EBVPRO #### [address] [id number] Entry Level Sales Associate: Sebastian Roman MD #### CP, SED, TSHX, CDP, HCG #### [facility] [address] [place], [place] [id number] Entry Level Sales Associate: Amie Urrutia MD NAS Screen w/reflexon 2020 NAS Screen Negative Normal NEG [facility] Comment on above: Performed By: #### H IVCMB, PHEP, CRP, ANAX, EBVPRO #### [address] [id number] Entry Level Sales Associate: Sebastian Roman MD #### CP, SED, TSHX, CDP, HCG #### [facility] [address] [place] [address] Entry Level Sales Associate: Amie Urrutia MD Anti-dsDNA 0.7 IU/mL Normal <10.0 [facility] Comment on above: Result Comment: Reference Range: <10.0 Negative 10.0-15.0 Equivocal >15.0 Positive Performed By: #### H IVCMB, PHEP, CRP, ANAX, EBVPRO #### [address] [phone] Entry Level Sales Associate: Sebastian Roman MD #### CP, SED, TSHX, CDP, HCG #### [facility] [address] [place] [address] Entry Level Sales Associate: Amie Urrutia MD RAJ Screen 0.2 U/mL Normal <0.7 [facility] Comment on above: Result Comment: Reference Range: <0.7 Negative 0.7-1.0 Equivocal >1.0 Positive RAJ Screen includes U1RNP,RNP70,Sm,Ro(SS-A),La(SS-B),CENP,Scl-70,Molly-1 Performed By: #### H IVCMB, PHEP, CRP, ANAX, EBVPRO #### [address] [id number] Entry Level Sales Associate: Sebastian Roman MD #### CP, SED, TSHX, CDP, HCG #### [facility] [address] [place] [address] Entry Level Sales Associate: Amie Urrutia MD C-Reactive Proteinon 021 CRP [Mass/Vol] mg/L Normal 0.0-5.0 [facility] Comment on above: Performed By: #### H IVCMB, PHEP, CRP, ANAX, EBVPRO #### [facility] [employer] [address] [place], [place] [phone] Entry Level Sales Associate: Sebastian Roman MD #### CP, SED, TSHX, CDP, HCG #### [facility] [address] [place] [address] Entry Level Sales Associate: Amie Urrutia MD Food, Comprehensiveon 2020 Barley IgE <0.10 Normal 0.00-0.34 [facility] Comment on above: Result Comment: ALLERGEN, [...] H IVCMB, PHEP, CRP, ANAX, EBVPRO #### [facility] [employer] [address] [place] [address] Entry Level Sales Associate: Sebastian Roman MD #### CP, SED, TSHX, CDP, HCG #### [facility] [address] [place] [address] Entry Level Sales Associate: Amie Urrutia MD Beef IgE <0.10 Normal 0.00-0.34 [facility] Comment on above: Performed By: #### H IVCMB, PHEP, CRP, ANAX, EBVPRO #### [place] [address] Entry Level Sales Associate: Sebastian Roman MD #### CP, SED, TSHX, CDP, HCG #### [facility] [address] [place] [address] Entry Level Sales Associate: Amie Urrutia MD Cabbage IgE <0.10 Normal 0.00-0.34 [facility] Comment on above: Performed By: #### H IVCMB, PHEP, CRP, ANAX, EBVPRO #### [place] [address] [phone] Entry Level Sales Associate: Sebastian Roman MD #### CP, SED, TSHX, CDP, HCG #### [facility] [address] [phone] Entry Level Sales Associate: Amie Urrutia MD Carrot IgE <0.10 Normal 0.00-0.34 [facility] Comment on above: Performed By: #### H IVCMB, PHEP, CRP, ANAX, EBVPRO #### [id number] Entry Level Sales Associate: Sebastian Roman MD #### CP, SED, TSHX, CDP, HCG #### [facility] [address] [phone] Entry Level Sales Associate: Amie Urrutia MD Chicken IgE <0.10 Normal 0.00-0.34 [facility] Comment on above: Performed By: #### H IVCMB, PHEP, CRP, ANAX, EBVPRO #### [place] [address] Entry Level Sales Associate: Sebastian Roman MD #### CP, SED, TSHX, CDP, HCG #### [facility] [address] [phone] Entry Level Sales Associate: Amie Urrutia MD Codfish IgE <0.10 Normal 0.00-0.34 [facility] Comment on above: Performed By: #### H IVCMB, PHEP, CRP, ANAX, EBVPRO #### [address] [phone] Entry Level Sales Associate: Sebastian Roman MD #### CP, SED, TSHX, CDP, HCG #### [facility] [address] [place] [address] Entry Level Sales Associate: Amie Urrutia MD [place] IgE <0.10 Normal 0.00-0.34 [facility] Comment on above: Performed By: #### H IVCMB, PHEP, CRP, ANAX, EBVPRO #### [address] [phone] Entry Level Sales Associate: Sebastian Roman MD #### CP, SED, TSHX, CDP, HCG #### [facility] [address] [place] [address] Entry Level Sales Associate: Amie Urrutia MD Crab IgE <0.10 Normal 0.00-0.34 [facility] Comment on above: Performed By: #### H IVCMB, PHEP, CRP, ANAX, EBVPRO #### [address] [id number] Entry Level Sales Associate: Sebastian Roman MD #### CP, SED, TSHX, CDP, HCG #### [facility] [address] [place] [address] Entry Level Sales Associate: Amie Urrutia MD Egg White IgE <0.10 Normal 0.00-0.34 [facility] Comment on above: Performed By: #### H IVCMB, PHEP, CRP, ANAX, EBVPRO #### [address] [id number] Entry Level Sales Associate: Sebastian Roman MD #### CP, SED, TSHX, CDP, HCG #### [facility] [address] [phone] Entry Level Sales Associate: Amie Urrutia MD Grape IgE <0.10 Normal 0.00-0.34 [facility] Comment on above: Performed By: #### H IVCMB, PHEP, CRP, ANAX, EBVPRO #### [address] [phone] Entry Level Sales Associate: Sebastian Roman MD #### CP, SED, TSHX, CDP, HCG #### [facility] [address] [phone] Entry Level Sales Associate: Amie Urrutia MD Lettuce IgE <0.10 Normal 0.00-0.34 [facility] Comment on above: Performed By: #### H IVCMB, PHEP, CRP, ANAX, EBVPRO #### [place] [address] Entry Level Sales Associate: Sebastian Roman MD #### CP, SED, TSHX, CDP, HCG #### [facility] [address] [phone] Entry Level Sales Associate: Amie Urrutia MD Milk (Cow) IgE <0.10 Normal 0.00-0.34 [facility] Comment on above: Performed By: #### H IVCMB, PHEP, CRP, ANAX, EBVPRO #### [address] [phone] Entry Level Sales Associate: Sebastian Roman MD #### CP, SED, TSHX, CDP, HCG #### [facility] [address] [phone] Entry Level Sales Associate: Amie Urrutia MD [place] IgE <0.10 Normal 0.00-0.34 [facility] Comment on above: Performed By: #### H IVCMB, PHEP, CRP, ANAX, EBVPRO #### [address] [phone] Entry Level Sales Associate: Sebastian Roman MD #### CP, SED, TSHX, CDP, HCG #### [facility] [address] [place], [place] [phone] Entry Level Sales Associate: Amie Urrutia MD Oat IgE <0.10 Normal 0.00-0.34 [facility] Comment on above: Performed By: #### H IVCMB, PHEP, CRP, ANAX, EBVPRO #### [address] [phone] Entry Level Sales Associate: Sebastian Roman MD #### CP, SED, TSHX, CDP, HCG #### [facility] [address] [phone] Entry Level Sales Associate: Amie Urrutia MD [place] IgE <0.10 Normal 0.00-0.34 [facility] Comment on above: Performed By: #### H IVCMB, PHEP, CRP, ANAX, EBVPRO #### [address] [phone] Entry Level Sales Associate: Sebastian Roman MD #### CP, SED, TSHX, CDP, HCG #### [facility] [address] [phone] Entry Level Sales Associate: Amie Urrutia MD Peanut IgE <0.10 Normal 0.00-0.34 [facility] Comment on above: Performed By: #### H IVCMB, PHEP, CRP, ANAX, EBVPRO #### [address] [phone] Entry Level Sales Associate: Sebastian Roman MD #### CP, SED, TSHX, CDP, HCG #### [facility] [address] [place] [address] Entry Level Sales Associate: MD [facility] IgE <0.10 Normal 0.00-0.34 [facility] Comment on above: Performed By: #### H IVCMB, PHEP, CRP, ANAX, EBVPRO #### [address] [phone] Entry Level Sales Associate: Sebastian Roman MD #### CP, SED, TSHX, CDP, HCG #### [facility] [address] [phone] Entry Level Sales Associate: Amie Urrutia MD Pork IgE <0.10 Normal 0.00-0.34 [facility] Comment on above: Performed By: #### H IVCMB, PHEP, CRP, ANAX, EBVPRO #### [address] [phone] Entry Level Sales Associate: Sebastian Roman MD #### CP, SED, TSHX, CDP, HCG #### [facility] [address] [phone] Entry Level Sales Associate: Amie Urrutia MD Potato IgE <0.10 Normal 0.00-0.34 [facility] Comment on above: Performed By: #### H IVCMB, PHEP, CRP, ANAX, EBVPRO #### [address] [phone] Entry Level Sales Associate: Sebastian Roman MD #### CP, SED, TSHX, CDP, HCG #### [facility] [address] [phone] Entry Level Sales Associate: Amie Urrutia MD Rice IgE <0.10 Normal 0.00-0.34 [facility] Comment on above: Performed By: #### H IVCMB, PHEP, CRP, ANAX, EBVPRO #### [address] [phone] Entry Level Sales Associate: Sebastian Roman MD #### CP, SED, TSHX, CDP, HCG #### [facility] [address] [place], [place] [phone] Entry Level Sales Associate: Amie Urrutia MD [place] IgE <0.10 Normal 0.00-0.34 [facility] Comment on above: Performed By: #### H IVCMB, PHEP, CRP, ANAX, EBVPRO #### [address] [phone] Entry Level Sales Associate: Sebastian Roman MD #### CP, SED, TSHX, CDP, HCG #### [facility] [address] [phone] Entry Level Sales Associate: Amie Urrutia MD Shrimp IgE <0.10 Normal 0.00-0.34 [facility] Comment on above: Performed By: #### H IVCMB, PHEP, CRP, ANAX, EBVPRO #### [place] [address] [phone] Entry Level Sales Associate: Sebastian Roman MD #### CP, SED, TSHX, CDP, HCG #### [facility] [address] [place] [address] Entry Level Sales Associate: Amie Urrutia MD Soybean IgE <0.10 Normal 0.00-0.34 [facility] Comment on above: Performed By: #### H IVCMB, PHEP, CRP, ANAX, EBVPRO #### [address] [phone] Entry Level Sales Associate: Sebastian Roman MD #### CP, SED, TSHX, CDP, HCG #### [facility] [address] [place] [address] Entry Level Sales Associate: Amie Urrutia MD Tomato IgE <0.10 Normal 0.00-0.34 [facility] Comment on above: Performed By: #### H IVCMB, PHEP, CRP, ANAX, EBVPRO #### [address] [phone] Entry Level Sales Associate: Sebastian Roman MD #### CP, SED, TSHX, CDP, HCG #### [facility] [address] [place], [place] [phone] Entry Level Sales Associate: Amie Urrutia MD Tuna IgE <0.10 Normal 0.00-0.34 [facility] Comment on above: Performed By: #### H IVCMB, PHEP, CRP, ANAX, EBVPRO #### [address] [phone] Entry Level Sales Associate: Sebastian Roman MD #### CP, SED, TSHX, CDP, HCG #### [facility] [address] [place], [place] [phone] Entry Level Sales Associate: Amie Urrutia MD Wheat IgE <0.10 Normal 0.00-0.34 [facility] Comment on above: Performed By: #### H IVCMB, PHEP, CRP, ANAX, EBVPRO #### [address] [phone] Entry Level Sales Associate: Sebastian Roman MD #### CP, SED, TSHX, CDP, HCG #### [facility] [address] [place], [place] [phone] Entry Level Sales Associate: Amie Urrutia MD Immunoglobulin E 41 IU/mL Normal <101 [facility] [place] [facility] Comment on above: Performed By: #### H IVCMB, PHEP, CRP, ANAX, EBVPRO #### [address] [phone] Entry Level Sales Associate: Sebastian Roman MD #### CP, SED, TSHX, CDP, HCG #### [facility] [address] [place], [place] [phone] Entry Level Sales Associate: Amie Urrutia MD HIV Ag/Abon 10-27-2020 HIV Ag/Ab Non-Reactive Normal NR [facility] Comment on above: Result Comment: No l aboratory evidence of HIV infection. If acute HIV infection is suspected, consider testing for HIV-1 RNA. Performed By: #### H IVCMB, PHEP, CRP, ANAX, EBVPRO #### [address] [phone] Entry Level Sales Associate: Sebastian Roman MD #### CP, SED, TSHX, CDP, HCG #### [facility] [address] [place], [place] [phone] Entry Level Sales Associate: Amie Urrutia MD Hepatitis Acute [facility] 10-27 Hep A Ab,IgM Non-Reactive Normal NR [facility] Comment on above: Performed By: #### H IVCMB, PHEP, CRP, ANAX, EBVPRO #### [address] [phone] Entry Level Sales Associate: Sebastian Roman MD #### CP, SED, TSHX, CDP, HCG #### [facility] [address] [place], [place] [phone] Entry Level Sales Associate: Amie Urrutia MD Hep B Core Ab,IgM Non-Reactive Normal NR [facility] Comment on above: Performed By: #### H IVCMB, PHEP, CRP, ANAX, EBVPRO #### [address] [phone] Entry Level Sales Associate: Sebastian Roman MD #### CP, SED, TSHX, CDP, HCG #### [facility] [address] [place], [place] [phone] Entry Level Sales Associate: Amie Urrutia MD Hep B Surf Ag Non-Reactive Normal NR [facility] Comment on above: Performed By: #### H IVCMB, PHEP, CRP, ANAX, EBVPRO #### [address] [phone] Entry Level Sales Associate: Sebastian Roman MD #### CP, SED, TSHX, CDP, HCG #### [facility] [address] [facility] [place] [address] Entry Level Sales Associate: Amie Urrutia MD Hep C Ab Non-Reactive Normal NR [facility] Comment on above: Result Comment: The [...] H IVCMB, PHEP, CRP, ANAX, EBVPRO #### [facility] [address] [place], [place] [phone] Entry Level Sales Associate: Sebastian Roman MD #### CP, SED, TSHX, CDP, HCG #### [facility] [address] [place] [address] Entry Level Sales Associate: Amie Urrutia MD C-Reactive ProteinOrdered By : Dipti Quinones on 10-26-2020 CRP [Mass/Vol] mg/L 0.0 - 5.0 mg/L [facility] Work Phone: [facility] Work Phone: CBC Auto DifferentialOrdered By: Dipti Quinones on 10-26-2020 [employer] # 0.20 [facility] Work Phone: Absolute Immature Granulocyte NOT REPORTED [facility] Work Phone: Absolute Lymph # 2.30 [facility] alth Work Phone: Absolute [place] # 0.40 [facility] Work Phone: Basophils (Bld) [#/Vol] 0.00 10*3/uL [facility] Work Phone: Basophils/100 WBC (Bld) 0 % 0 - 2 % M [facility] Work Phone: Differential Type YES [facility]alt Work Phone: Eosinophils/100 WBC (Bld) 3 % 0 - 5 % [email or web address] Phone: Hematocrit (Bld) [Volume fraction] 39.0 % 36 - 46 % [email or web address] Phone: Hemoglobin.gastrointest inal spec 1 Ql (Stl) 13.3 g/dL 12.0 - 16.0 g/dL [email or web address] Phone: Immature Granulocytes NOT REPORTED 0 % M [employer] Work Phone: Lymphocytes/100 WBC (Bld) 30 % 15 - 40 % [email or web address] Phone: MCH (RBC) [Entitic mass] 29.8 pg 26 - 34 pg [email or web address] Phone: MCHC (RBC) [Mass/Vol] 34.2 g/dL 31 - 37 g/dL M [employer] Phone: MCV (RBC) [Entitic vol] 87.0 fL 80 - 100 fL [employer] Work Phone: Monocytes/100 WBC (Bld) 6 % 4 - 8 % [employer] Phone: NRBC Automated NOT REPORTED per 100 WBC [employer] Work Phone: Platelet distribution width (Bld) [Ratio] 13.4 % 12.1 - 15.2 % [email or web address] Phone: Platelet Estimate NOT REPORTED [email or web address] Phone: Platelet mean volume (Bld) [Entitic vol] NOT REPORTED 6.0 - 12.0 fL [email or web address] Phone: Platelets (Bld) [#/Vol] 403 10*3/uL [email or web address] Phone: RBC (Bld) [#/Vol] 4.48 10*6/uL 4.0 - 5.2 m/uL M [employer] Work Phone: RBC (Bld) [#/Vol] NOT REPORTED [facility] Phone: Segmented neutrophils/100 WBC (Bld) 61 % 47 - 75 % [facility] Phone: Segs Absolute 4.60 [facility] [employer] Work Phone: WBC (Bld) [#/Vol] 7.6 10*3/uL [facility] Work Phone: WBC (Bld) [#/Vol] NOT REPORTED [facility] Phone: [facility] Work Phone: CBC with Diffon 10-26-2020 Abs. Basophil 0.00 k/uL Normal 0.0-0.2 [facility] Comment on above: Performed By: #### H IVCMB, PHEP, CRP, ANAX, EBVPRO #### [place] [address] Entry Level Sales Associate: Sebastian Roman MD #### CP, SED, TSHX, CDP, HCG #### [facility] [address] [place] [phone] Entry Level Sales Associate: Amie Urrutia MD Abs.Neutrophil (Seg) 4.60 k/uL Normal 2.5-7.0 [facility] Comment on above: Performed By: #### H IVCMB, PHEP, CRP, ANAX, EBVPRO #### [place] [phone] Entry Level Sales Associate: Sebastian Roman MD #### CP, SED, TSHX, CDP, HCG #### [facility] [address] [place] [phone] Entry Level Sales Associate: Amie Urrutia MD Auto Diff Performed YES Normal [facility] Comment on above: Performed By: #### H IVCMB, PHEP, CRP, ANAX, EBVPRO #### [place] [phone] Entry Level Sales Associate: Sebastian Roman MD #### CP, SED, TSHX, CDP, HCG #### [facility] [address] [place], [place] 1000290 Entry Level Sales Associate: mAie Urrutia MD Basophils/100 WBC (Bld) 0 % Normal 0-2 M [facility] Comment on above: Performed By: #### H IVCMB, PHEP, CRP, ANAX, EBVPRO #### [address] [phone] Entry Level Sales Associate: Sebastian Roman MD #### CP, SED, TSHX, CDP, HCG #### [facility] [address] [place], [place] [phone] Entry Level Sales Associate: Amie Urrutia MD Eosinophils (Bld) [#/Vol] 0.20 10*3/uL Normal 0.0-0.4 [facility] Comment on above: Performed By: #### H IVCMB, PHEP, CRP, ANAX, EBVPRO #### [address] [phone] Entry Level Sales Associate: Sebastian Roman MD #### CP, SED, TSHX, CDP, HCG #### [facility] [address] [place], [place] [phone] Entry Level Sales Associate: Amie Urrutia MD Eosinophils/100 WBC (Bld) 3 % Normal 0-5 [facility] Comment on above: Performed By: #### H IVCMB, PHEP, CRP, ANAX, EBVPRO #### [address] [phone] Entry Level Sales Associate: Sebastian Roman MD #### CP, SED, TSHX, CDP, HCG #### [facility] [address] [place], [place] [phone] Entry Level Sales Associate: Amie Urrutia MD Erythrocyte distribution width (RBC) [Ratio] 13.4 % Normal 12.1-15.2 [facility] Comment on above: Performed By: #### H IVCMB, PHEP, CRP, ANAX, EBVPRO #### [address] [address] Entry Level Sales Associate: Sebastian Roman MD #### CP, SED, TSHX, CDP, HCG #### [facility] [address] [place] [phone] Entry Level Sales Associate: Amie Urrutia MD Hematocrit (Bld) [Volume fraction] 39.0 % Normal 36-46 [facility] Comment on above: Performed By: #### H IVCMB, PHEP, CRP, ANAX, EBVPRO #### [place] [phone] Entry Level Sales Associate: Sebastian Roman MD #### CP, SED, TSHX, CDP, HCG #### [facility] [address] [place] [phone] Entry Level Sales Associate: Amie Urrutia MD Hemoglobin (Bld) [Mass/Vol] 13.3 g/dL Normal 12.0-16.0 [facility] Comment on above: Performed By: #### H IVCMB, PHEP, CRP, ANAX, EBVPRO #### [place] [phone] Entry Level Sales Associate: Sebastian Roman MD #### CP, SED, TSHX, CDP, HCG #### [facility] [address] [place] [phone] Entry Level Sales Associate: Amie Urrutia MD Lymphocytes (Bld) [#/Vol] 2.30 10*3/uL Normal 1.0-4.8 [facility] Comment on above: Performed By: #### H IVCMB, PHEP, CRP, ANAX, EBVPRO #### [address] [phone] Entry Level Sales Associate: Sebastian Roman MD #### CP, SED, TSHX, CDP, HCG #### [facility] [address] [place] [address] Entry Level Sales Associate: Amie Urrutia MD Lymphocytes/100 WBC (Bld) 30 % Normal 15-40 [facility] Comment on above: Performed By: #### H IVCMB, PHEP, CRP, ANAX, EBVPRO #### [address] [phone] Entry Level Sales Associate: Sebastian Roman MD #### CP, SED, TSHX, CDP, HCG #### [facility] [address] [place] [address] Entry Level Sales Associate: Amie Urrutia MD MCH (RBC) [Entitic mass] 29.8 pg Normal 26-34 [facility] Comment on above: Performed By: #### H IVCMB, PHEP, CRP, ANAX, EBVPRO #### [address] [phone] Entry Level Sales Associate: Sebastian Roman MD #### CP, SED, TSHX, CDP, HCG #### [facility] [address] [place] [address] Entry Level Sales Associate: Amie Urrutia MD MCHC (RBC) [Mass/Vol] 34.2 g/dL Normal 31-37 [facility] Comment on above: Performed By: #### H IVCMB, PHEP, CRP, ANAX, EBVPRO #### [address] [phone] Entry Level Sales Associate: Sebastian Roman MD #### CP, SED, TSHX, CDP, HCG #### [facility] [address] [place] [address] Entry Level Sales Associate: Amie Urrutia MD MCV (RBC) [Entitic vol] 87.0 fL Normal 80-100 M [facility] Comment on above: Performed By: #### H IVCMB, PHEP, CRP, ANAX, EBVPRO #### [address] [address] Entry Level Sales Associate: Sebastian Roman MD #### CP, SED, TSHX, CDP, HCG #### [facility] [address] [place], [place] [phone] Entry Level Sales Associate: Amie Urrutia MD Monocytes (Bld) [#/Vol] 0.40 10*3/uL Normal 0.0-1.0 [facility] Comment on above: Performed By: #### H IVCMB, PHEP, CRP, ANAX, EBVPRO #### [address] [address] Entry Level Sales Associate: Sebastian Roman MD #### CP, SED, TSHX, CDP, HCG #### [facility] [address] [place], [place] [phone] Entry Level Sales Associate: Amie Urrutia MD Monocytes/100 WBC (Bld) 6 % Normal 4-8 M [facility] Comment on above: Performed By: #### H IVCMB, PHEP, CRP, ANAX, EBVPRO #### [address] [address] Entry Level Sales Associate: Sebastian Roman MD #### CP, SED, TSHX, CDP, HCG #### [facility] [address] [place], [place] [phone] Entry Level Sales Associate: Amie Urrutia MD Neutrophil (Seg) 61 % Normal 47-75 [facility] Comment on above: Performed By: #### H IVCMB, PHEP, CRP, ANAX, EBVPRO #### [address] [phone] Entry Level Sales Associate: Sebastian Roman MD #### CP, SED, TSHX, CDP, HCG #### [facility] [address] [place], [place] [phone] Entry Level Sales Associate: Amie Urrutia MD Platelets (Bld) [#/Vol] 403 10*3/uL Normal 140-450 [facility] Comment on above: Performed By: #### H IVCMB, PHEP, CRP, ANAX, EBVPRO #### [address] [phone] Entry Level Sales Associate: Sebastian Roman MD #### CP, SED, TSHX, CDP, HCG #### [facility] [address] [place], [place] [phone] Entry Level Sales Associate: Amie Urrutia MD RBC (Bld) [#/Vol] 4.48 10*6/uL Normal 4.0-5.2 [facility] Comment on above: Performed By: #### H IVCMB, PHEP, CRP, ANAX, EBVPRO #### [address] [address] Entry Level Sales Associate: Sebastian Roman MD #### CP, SED, TSHX, CDP, HCG #### [facility] [address] [place], [place] [phone] Entry Level Sales Associate: Amie Urrutia MD WBC (Bld) [#/Vol] 7.6 10*3/uL Normal 4.5-13.5 [facility] Comment on above: Performed By: #### H IVCMB, PHEP, CRP, ANAX, EBVPRO #### [address] [address] Entry Level Sales Associate: Sebastian Roman MD #### CP, SED, TSHX, CDP, HCG #### [facility] [address] [place], [place] [id number] Entry Level Sales Associate: Amie Urrutia MD Abs.Imm.Granulocyte NOT REPORTED Normal 0.00-0.30 [facility] Comment on above: Performed By: #### H IVCMB, PHEP, CRP, ANAX, EBVPRO #### [address] [address] Entry Level Sales Associate: Sebastian Roman MD #### CP, SED, TSHX, CDP, HCG #### [facility] [address] [place], [place] [phone] Entry Level Sales Associate: Amie Urrutia MD Immature Granulocyte NOT REPORTED Normal 0 [facility] Comment on above: Performed By: #### H IVCMB, PHEP, CRP, ANAX, EBVPRO #### [address] [phone] Entry Level Sales Associate: Sebastian Roman MD #### CP, SED, TSHX, CDP, HCG #### [facility] [address] [place], [place] [phone] Entry Level Sales Associate: Amie Urrutia MD MPV NOT REPORTED Normal 6.0-12.0 [facility] Comment on above: Performed By: #### H IVCMB, PHEP, CRP, ANAX, EBVPRO #### [address] [phone] Entry Level Sales Associate: Sebastian Roman MD #### CP, SED, TSHX, CDP, HCG #### [facility] [address] [place] [phone] Entry Level Sales Associate: Amie Urrutia MD NRBC Automated NOT REPORTED Normal [facility] Comment on above: Performed By: #### H IVCMB, PHEP, CRP, ANAX, EBVPRO #### [address] [phone] Entry Level Sales Associate: Sebastian Roman MD #### CP, SED, TSHX, CDP, HCG #### [facility] [address] [place], [place] [phone] Entry Level Sales Associate: Amie Urrutia MD Platelet Estimate NOT REPORTED Normal [facility] Comment on above: Performed By: #### H IVCMB, PHEP, CRP, ANAX, EBVPRO #### [address] [address] Entry Level Sales Associate: Sebastina Roman MD #### CP, SED, TSHX, CDP, HCG #### [facility] [address] [place] [address] Entry Level Sales Associate: Amie Urrutia MD RBC morphology finding Nom (Bld) NOT REPORTED Normal [facility] Comment on above: Performed By: #### H IVCMB, PHEP, CRP, ANAX, EBVPRO #### [facility] [employer] [address] [place] [address] [phone] Entry Level Sales Associate: Sebastian Roman MD #### CP, SED, TSHX, CDP, HCG #### [facility] [address] [place] [address] Entry Level Sales Associate: Amie Urrutia MD WBC Morphology NOT REPORTED Normal [facility] Comment on above: Performed By: #### H IVCMB, PHEP, CRP, ANAX, EBVPRO #### [facility] [employer] [address] [place] [address] [phone] Entry Level Sales Associate: Sebastian Roman MD #### CP, SED, TSHX, CDP, HCG #### [facility] [address] [place] [address] Entry Level Sales Associate: Amie Urrutia MD Comp Metabolic Profon 2020 (cont.) Normal [facility] Comment on above: Result Comment: Aver age GFR for 20-29 years old: 116 mL/min/1.73sq m Chronic Kidney Disease: <60 mL/min/1.73sq m Kidney failure: <15 mL/min/1.73sq m eGFR calculated using average adult body mass. Additional eGFR calculator available at: http://www.REscour.com/multiple_crcl_2012.htm Performed By: #### H IVCMB, PHEP, CRP, ANAX, EBVPRO #### [facility] [address] [place] [address] [phone] Entry Level Sales Associate: Sebastian Roman MD #### CP, SED, TSHX, CDP, HCG #### [facility] [address] [place] [address] Entry Level Sales Associate: Amie Urrutia MD Albumin [Mass/Vol] 4.3 g/dL Normal 3.5-5.2 [facility] Comment on above: Performed By: #### H IVCMB, PHEP, CRP, ANAX, EBVPRO #### [address] [phone] Entry Level Sales Associate: Sebastian Roman MD #### CP, SED, TSHX, CDP, HCG #### [facility] [address] [place] [phone] Entry Level Sales Associate: Amie Urrutia MD Alkaline Phos 82 U/L Normal 35-104 [facility] Comment on above: Performed By: #### H IVCMB, PHEP, CRP, ANAX, EBVPRO #### [place] [phone] Entry Level Sales Associate: Sebastian Roman MD #### CP, SED, TSHX, CDP, HCG #### [facility] [address] [place] [phone] Entry Level Sales Associate: Amie Urrutia MD ALT [Catalytic activity/Vol] 13 U/L Normal 5-33 [facility] Comment on above: Performed By: #### H IVCMB, PHEP, CRP, ANAX, EBVPRO #### [place] [phone] Entry Level Sales Associate: Sebastian Roman MD #### CP, SED, TSHX, CDP, HCG #### [facility] [address] [place] [address] Entry Level Sales Associate: Amie Urrutia MD Anion gap [Moles/Vol] 10 mmol/L Normal 9-17 [facility] Comment on above: Performed By: #### H IVCMB, PHEP, CRP, ANAX, EBVPRO #### [address] [place] [address] Entry Level Sales Associate: Sebastian Roman MD #### CP, SED, TSHX, CDP, HCG #### [facility] [address] [place], [place] [phone] Entry Level Sales Associate: Amie Urrutia MD AST [Catalytic activity/Vol] 14 U/L Normal <32 [facility] Comment on above: Performed By: #### H IVCMB, PHEP, CRP, ANAX, EBVPRO #### [address] [address] Entry Level Sales Associate: Sebastian Roman MD #### CP, SED, TSHX, CDP, HCG #### [facility] [address] [place], [place] [phone] Entry Level Sales Associate: Amie Ururtia MD Bilirubin [Mass/Vol] 0.26 mg/dL Low 0.30-1.20 [facility] Comment on above: Performed By: #### H IVCMB, PHEP, CRP, ANAX, EBVPRO #### [address] [phone] Entry Level Sales Associate: Sebastian Roman MD #### CP, SED, TSHX, CDP, HCG #### [facility] [address] [place], [place] [phone] Entry Level Sales Associate: Amie Urrutia MD BUN/CRE Ratio 12 Normal 9-20 [facility] Comment on above: Performed By: #### H IVCMB, PHEP, CRP, ANAX, EBVPRO #### [address] [phone] Entry Level Sales Associate: Sebastian Roman MD #### CP, SED, TSHX, CDP, HCG #### [facility] [address] [place], [place] [phone] Entry Level Sales Associate: Amie Urrutia MD Calcium [Mass/Vol] 9.5 mg/dL Normal 8.6-10.4 [facility] Comment on above: Performed By: #### H IVCMB, PHEP, CRP, ANAX, EBVPRO #### [address] [phone] Entry Level Sales Associate: Sebastian Roman MD #### CP, SED, TSHX, CDP, HCG #### [facility] [address] [place], [place] [phone] Entry Level Sales Associate: Amie Urrutia MD Chloride [Moles/Vol] 103 mmol/L Normal 98-107 [facility] Comment on above: Performed By: #### H IVCMB, PHEP, CRP, ANAX, EBVPRO #### [address] [phone] Entry Level Sales Associate: Sebastian Roman MD #### CP, SED, TSHX, CDP, HCG #### [facility] [address] [place] [phone] Entry Level Sales Associate: Amie Urrutia MD CO2 [Moles/Vol] 24 mmol/L Normal 20-31 [facility] Comment on above: Performed By: #### H IVCMB, PHEP, CRP, ANAX, EBVPRO #### [address] [phone] Entry Level Sales Associate: Sebastian Roman MD #### CP, SED, TSHX, CDP, HCG #### [facility] [address] [place] [phone] Entry Level Sales Associate: Amie Urrutia MD Creatinine [Mass/Vol] 0.51 mg/dL Normal 0.50-0.90 [facility] Comment on above: Performed By: #### H IVCMB, PHEP, CRP, ANAX, EBVPRO #### [address] [phone] Entry Level Sales Associate: Sebastian Roman MD #### CP, SED, TSHX, CDP, HCG #### [facility] [address] [place], [place] [phone] Entry Level Sales Associate: Amie Urrutia MD GFR, Amer >60 Normal >60 [facility] Comment on above: Performed By: #### H IVCMB, PHEP, CRP, ANAX, EBVPRO #### [address] [phone] Entry Level Sales Associate: Sebastian Roman MD #### CP, SED, TSHX, CDP, HCG #### [facility] [address] [place], [place] [phone] Entry Level Sales Associate: Amie Urrutia MD GFR,non Amer >60 Normal >60 [facility] Comment on above: Performed By: #### H IVCMB, PHEP, CRP, ANAX, EBVPRO #### [address] [phone] Entry Level Sales Associate: Sebastian Roman MD #### CP, SED, TSHX, CDP, HCG #### [facility] [address] [place], [place] [phone] Entry Level Sales Associate: Amie Urrutia MD Glucose [Mass/Vol] 87 mg/dL Normal 70-99 [facility] Comment on above: Performed By: #### H IVCMB, PHEP, CRP, ANAX, EBVPRO #### [address] [address] Entry Level Sales Associate: Sebastian Roman MD #### CP, SED, TSHX, CDP, HCG #### [facility] [address] [place], [place] [phone] Entry Level Sales Associate: Amie Urrutia MD Potassium [Moles/Vol] 3.4 mmol/L Low 3.7-5.3 [facility] Comment on above: Performed By: #### H IVCMB, PHEP, CRP, ANAX, EBVPRO #### [address] [phone] Entry Level Sales Associate: Sebastian Roman MD #### CP, SED, TSHX, CDP, HCG #### [facility] [address] [place], [place] [phone] Entry Level Sales Associate: Amie Urrutia MD Protein [Mass/Vol] 7.1 g/dL Normal 6.4-8.3 [facility] Comment on above: Performed By: #### H IVCMB, PHEP, CRP, ANAX, EBVPRO #### [address] [phone] Entry Level Sales Associate: Sebastian Roman MD #### CP, SED, TSHX, CDP, HCG #### [facility] [address] [place], [place] [phone] Entry Level Sales Associate: Amie Urrutia MD Sodium [Moles/Vol] 137 mmol/L Normal 135-144 [facility] Comment on above: Performed By: #### H IVCMB, PHEP, CRP, ANAX, EBVPRO #### [address] [phone] Entry Level Sales Associate: Sebastian Roman MD #### CP, SED, TSHX, CDP, HCG #### [facility] [address] [place], [place] [phone] Entry Level Sales Associate: Amie Urrutia MD Urea nitrogen [Mass/Vol] 6 mg/dL Normal 6-20 [facility] Comment on above: Performed By: #### H IVCMB, PHEP, CRP, ANAX, EBVPRO #### [address] [phone] Entry Level Sales Associate: Sebastian Roman MD #### CP, SED, TSHX, CDP, HCG #### [facility] [address] [place], [place] [phone] Entry Level Sales Associate: Amie Urrutia MD Albumin/Glob Ratio NOT REPORTED Normal 1.0-2.5 [facility] Comment on above: Performed By: #### H IVCMB, PHEP, CRP, ANAX, EBVPRO #### [facility] [address] [place], [place] [phone] Entry Level Sales Associate: Sebastian Roman MD #### CP, SED, TSHX, CDP, HCG #### [facility] [address] [place], [place] [phone] Entry Level Sales Associate: Amie Urrutia MD Staging: NOT REPORTED Normal [facility] Comment on above: Performed By: #### H IVCMB, PHEP, CRP, ANAX, EBVPRO #### [facility] [address] [place], [place] [phone] Entry Level Sales Associate: Sebastian Roman MD #### CP, SED, TSHX, CDP, HCG #### [facility] [address] [place] [address] Entry Level Sales Associate: Amie Urrutia MD Comprehensive Metabolic Pane lOrdered By: Dipti Quinones on 10-26-2020 Albumin [Mass/Vol] 4.3 g/dL 3.5 - 5.2 g/dL [facility] [employer] Work Phone: Albumin/Globulin Ratio NOT REPORTED [facility] [employer] Phone: ALP (Bld) [Catalytic activity/Vol] 82 U/L 35 - 104 U/L [facility] [employer] Phone: ALT [Catalytic activity/Vol] 13 U/L 5 - 33 U/L [facility] [employer] Phone: Anion gap [Moles/Vol] 10 mmol/L 9 - 17 mmol/L [facility] [employer] Phone: AST [Catalytic activity/Vol] 14 U/L <32 [facility] Phone: Bilirubin [Mass/Vol] 0.26 mg/dL Low 0.30 - 1.20 mg/dL [facility] Phone: Calcium [Mass/Vol] 9.5 mg/dL 8.6 - 10. 4 mg/dL [email or web address] Phone: Chloride [Moles/Vol] 103 mmol/L 98 - 10 7 mmol/L [email or web address] Phone: CO2 [Moles/Vol] 24 mmol/L 20 - 31 mmol/L [facility] Phone: Creatinine [Mass/Vol] 0.51 mg/dL 0.50 - 0.90 mg/dL [email or web address] Phone: Free PSA/Total PSA [Mass fraction] 7.1 g/dL 6.4 - 8.3 g/dL [email or web address] Phone: GFR >60 >60 mL/min [employer] Phone: GFR Non- >60 >60 mL/min [email or web address] Phone: GFR/1.73 sq M.predicted MDRD (S/P/Bld) [Vol rate/Area] [email or web address] Phone: Comment on above: Average GFR for 20-2 9 years old: 116 mL/min/1.73sq m Chronic Kidney Disease: <60 mL/min/1.73sq m Kidney failure: <15 mL/min/1.73sq m eGFR calculated using average adult body mass. Additional eGFR calculator available at: http://www.REscour.Shoulder Tap/multiple_crcl_2012.htm GFR/1.73 sq M.predicted MDRD (S/P/Bld) [Vol rate/Area] NOT REPORTED [facility] Phone: Glucose [Mass/Vol] 87 mg/dL 70 - 99 mg/dL [facility] [email or web address] Phone: Interpretation and review of laboratory results Abnormal Our [facility] Phone: Potassium [Moles/Vol] 3.4 mmol/L Low 3.7 - 5.3 mmol/L [facility] Phone: Sodium [Moles/Vol] 137 mmol/L 135 - 144 mmol/L [facility] Phone: Urea nitrogen (BldV) [Mass/Vol] 6 mg/dL 6 - 20 mg/dL [facility] Phone: Urea nitrogen/Creatinine (Bld) [Mass ratio] 12 [facility] Phone: HCG Screen, Bloodon 10-27-19 21 HCG Screen, Blood Negative Normal NEG [facility] Comment on above: Result Comment: Spec imens with hCG levels near the threshold of the test (25 mIU/mL) may give a negative or indeterminate result. In such cases, another test should be performed with a new specimen in 48-72 hours. If early is suspected clinically in this setting, correlation with quantitative serum b-hCG level is suggested. [employer] has confirmed the use of plasma for this test. This has not been cleared or approved by the U.S. Food and Drug Administration. The FDA has determined that such clearance is not necessary. Performed By: #### H IVCMB, PHEP, CRP, ANAX, EBVPRO #### [employer] [address] [place], [place] [id number] Entry Level Sales Associate: Sebastian Roman MD #### CP, SED, TSHX, CDP, HCG #### [facility] [address] [place] [address] Entry Level Sales Associate: Amie Urrutia MD HIV ScreenOrdered By: Dipti Quinones on 10-26-2020 HIV Ag/Ab Non-Reactive NONREACTIVE [facility] [employer] Work Phone: Comment on above: No laboratory eviden ce of HIV infection. If acute HIV infection is suspected, consider testing for HIV-1 RNA. [facility] Phone: Hepatitis Panel, AcuteOrdere d By: Dipti Quinones on 10-26-2020 HAV IgM IA Qn (S) Non-Reactive NONREACTIVE [facility] [employer] Work Phone: Hep B Core Ab, IgM Non-Reactive NONREACTIVE [facility] [employer] Work Phone: Hepatitis B Surface Ag Non-Reactive NONREACTIVE [email or web address] Phone: Hepatitis C Ab Non-Reactive NONREACTIVE [employer] Work Phone: Comment on above: The hepatitis [...] recommended by ordering HCV RNA by PCR. [employer] Work Phone: No Panel InformationOrdered By: Dipti Quinones on 10-26-2020 [email or web address] Phone: Sedimentation Rateon 021 Sedimentation Rate 7 mm Normal 0-20 [facility] Comment on above: Performed By: #### H IVCMB, PHEP, CRP, ANAX, EBVPRO #### [facility] [employer] [address] [place], [place] [id number] Entry Level Sales Associate: Sebastian Roman MD #### CP, SED, TSHX, CDP, HCG #### [facility] [address] [place] [address] Entry Level Sales Associate: Amie Urrutia MD Sedimentation RateOrdered By : Dipti Quinones on 10-26-2020 Sed Rate 7 mm 0 - 20 mm [facility] Phone: [facility] Phone: TSH w/reflex to FT4on 2020 TSH Qn 3.36 m[IU]/L Normal 0.30-5.00 [facility] Comment on above: Performed By: #### H IVCMB, PHEP, CRP, ANAX, EBVPRO #### [facility] [address] [place], [place] [phone] Entry Level Sales Associate: Sebastian Roman MD #### CP, SED, TSHX, CDP, HCG #### [facility] [address] [place] [address] Entry Level Sales Associate: Amie Urrutia MD TSH with ReflexOrdered By: Ar Quinones on 10-26-2020 TSH Qn 3.36 m[IU]/L [facility] [employer] Work Phone: UrinalysisOrdered By: Dipti Quinones on 10-26-2020 Bilirubin Urine Negative NEGATIVE [facility] Work Phone: Color, UA YELLOW YELLOW [facility] [employer] Work Phone: Glucose, Ur Negative NEGATIVE [facility] [employer] Work Phone: Ketones Ql (U) Negative NEGATIVE [facility] Work Phone: Leukocyte esterase Test strip Ql (U) Negative NEGATIVE [facility] Work Phone: Nitrite, Urine Negative NEGATIVE [facility] Work Phone: pH, UA 7.0 [facility] Work Phone: Protein, UA Negative NEGATIVE [facility] Work Phone: Specific [place], UA 1.010 [facility] [employer] Work Phone: Turbidity UA CLEAR CLEAR [facility] [employer] Work Phone: Urinalysis Comments [facility] [employer] Work Phone: Urine Hgb Negative NEGATIVE [facility] [employer] Phone: Urobilinogen, Urine Normal Normal [facility] Work Phone: [facility] [employer] Work Phone: Urinalysis, Routineon 2020 Bilirubin, SemiQt,Ur Negative Normal NEG [facility] Comment on above: Performed By: #### H IVCMB, PHEP, CRP, ANAX, EBVPRO #### [facility] [employer] [address] [place], [place] [phone] Entry Level Sales Associate: Sebastian Roman MD #### CP, SED, TSHX, CDP, HCG #### [facility] [address] [place], [place] [phone] Entry Level Sales Associate: Amie Urrutia MD Blood, Urine Negative Normal NEG [facility] Comment on above: Performed By: #### H IVCMB, PHEP, CRP, ANAX, EBVPRO #### [facility] [address] [place] [address] Entry Level Sales Associate: Sebastian Roman MD #### CP, SED, TSHX, CDP, HCG #### [facility] [address] [place], [place] [id number] Entry Level Sales Associate: Amie Urrutia MD Clarity (U) CLEAR Normal CLEAR [facility] Comment on above: Performed By: #### H IVCMB, PHEP, CRP, ANAX, EBVPRO #### [address] [phone] Entry Level Sales Associate: Sebastian Roman MD #### CP, SED, TSHX, CDP, HCG #### [facility] [address] [place], [place] [phone] Entry Level Sales Associate: Amie Urrutia MD Color (U) YELLOW Normal YEL [facility] Comment on above: Performed By: #### H IVCMB, PHEP, CRP, ANAX, EBVPRO #### [address] [id number] Entry Level Sales Associate: Sebastian Roman MD #### CP, SED, TSHX, CDP, HCG #### [facility] [address] [place], [place] [phone] Entry Level Sales Associate: Amie Urrutia MD Comment Normal [facility] Comment on above: Performed By: #### H IVCMB, PHEP, CRP, ANAX, EBVPRO #### [address] [address] Entry Level Sales Associate: Sebastian Roman MD #### CP, SED, TSHX, CDP, HCG #### [facility] [address] [place], [place] [phone] Entry Level Sales Associate: Amie Urrutia MD Glucose Ql (U) Negative Normal NEG [facility] Comment on above: Performed By: #### H IVCMB, PHEP, CRP, ANAX, EBVPRO #### [address] [phone] Entry Level Sales Associate: Sebastian Roman MD #### CP, SED, TSHX, CDP, HCG #### [facility] [address] [place], [place] [phone] Entry Level Sales Associate: Amie Urrutia MD Ketones Ql (U) Negative Normal NEG [facility] Comment on above: Performed By: #### H IVCMB, PHEP, CRP, ANAX, EBVPRO #### [address] [phone] Entry Level Sales Associate: Sebastian Roman MD #### CP, SED, TSHX, CDP, HCG #### [facility] [address] [place], [place] [phone] Entry Level Sales Associate: Amie Urrutia MD Leukocyte esterase Test strip Ql (U) Negative Normal NEG [facility] Comment on above: Performed By: #### H IVCMB, PHEP, CRP, ANAX, EBVPRO #### [address] [phone] Entry Level Sales Associate: Sebastian Roman MD #### CP, SED, TSHX, CDP, HCG #### [facility] [address] [place], [place] [phone] Entry Level Sales Associate: Amie Urrutia MD Nitrite,Ur Negative Normal NEG [facility] Comment on above: Performed By: #### H IVCMB, PHEP, CRP, ANAX, EBVPRO #### [address] [phone] Entry Level Sales Associate: Sebastian Roman MD #### CP, SED, TSHX, CDP, HCG #### [facility] [address] [place], [place] [phone] Entry Level Sales Associate: Amie Urrutia MD PH,Ur 7.0 Normal 5.0-8.0 [facility] Comment on above: Performed By: #### H IVCMB, PHEP, CRP, ANAX, EBVPRO #### [address] [address] Entry Level Sales Associate: Sebastian Roman MD #### CP, SED, TSHX, CDP, HCG #### [facility] [address] [place], [place] [phone] Entry Level Sales Associate: Amie Urrutia MD Protein Ql (U) Negative Normal NEG [facility] Comment on above: Performed By: #### H IVCMB, PHEP, CRP, ANAX, EBVPRO #### [address] [address] Entry Level Sales Associate: Sebastian Roman MD #### CP, SED, TSHX, CDP, HCG #### [facility] [address] [place] [phone] Entry Level Sales Associate: Amie Urrutia MD Spec. [place],Ur 1.010 Normal 1.005-1.030 [facility] Comment on above: Performed By: #### H IVCMB, PHEP, CRP, ANAX, EBVPRO #### [address] [address] Entry Level Sales Associate: Sebastian Roman MD #### CP, SED, TSHX, CDP, HCG #### [facility] [address] [place] [address] Entry Level Sales Associate: Amie Urrutia MD Urobilinogen,Ur Normal Normal NORM [facility] Comment on above: Performed By: #### H IVCMB, PHEP, CRP, ANAX, EBVPRO #### [address] [address] Entry Level Sales Associate: Sebastian Roman MD #### CP, SED, TSHX, CDP, HCG #### [facility] [address] [place] [address] Entry Level Sales Associate: Amie Urrutia MD hCG, Serum, QualitativeOrder ed By: Dipti Quinones on 10-26-2020 hCG Qual Negative NEGATIVE [email or web address] Phone: Comment on above: Specimens with hCG l evels near the threshold of the test (25 mIU/mL) may give a negative or indeterminate result. In such cases, another test should be performed with a new specimen in 48-72 hours. If early is suspected clinically in this setting, correlation with quantitative serum b-hCG level is suggested. [employer] has confirmed the use of plasma for this test. This has not been cleared or approved by the U.S. Food and Drug Administration. The FDA has determined that such clearance is not necessary. [email or web address] Phone: [id number] 03-18-2020 SARS-CoV-2 (COVID-19) RNA FERNANDO+probe Ql (Unsp spec) Normal [facility] Comment on above: Performed By: #### H IVCMB, PHEP, CRP, ANAX, EBVPRO #### [facility] [address] [place], [place] [phone] Entry Level Sales Associate: Sebastian Roman MD #### CP, SED, TSHX, CDP, HCG #### [facility] [address] [place] [address] Entry Level Sales Associate: Amie Urrutia MD SARS-CoV-2 (COVID-19) RNA FERNANDO+probe Ql (Unsp spec) Not detected Normal NOTDET [facility] Comment on above: Result Comment: The specimen is NEGATIVE for SARS-CoV-2, the novel coronavirus associated with COVID-19. A negative result does not rule out COVID-19. Erin SARS-CoV-2 for use on the Erin [employer]/8800 [employer] is a real-time RT-PCR test intended [...] this assay. Fact sheet for Healthcare Providers: https://www.fda.gov/media/435722/download Fact sheet for Patients: https://www.fda.gov/media/409002/download METHODOLOGY: RT-PCR Performed By: #### H IVCMB, PHEP, CRP, ANAX, EBVPRO #### [address] [phone] Entry Level Sales Associate: Sebastian Roman MD #### CP, SED, TSHX, CDP, HCG #### [facility] [address] [place] [address] Entry Level Sales Associate: Amie Urrutia MD [id number] 03-17-2020 SARS-CoV-2 (COVID-19) RNA FERNANDO+probe Ql (Unsp spec) .THROAT Normal [facility] Comment on above: Performed By: #### H IVCMB, PHEP, CRP, ANAX, EBVPRO #### [address] [phone] Entry Level Sales Associate: Sebastian Roman MD #### CP, SED, TSHX, CDP, HCG #### [facility] [address] [place] [address] Entry Level Sales Associate: Amie Urrutia MD Glucose, Fastingon 9 Glucose [Mass/Vol] 102 mg/dL High 70 - 99 mg/dL [place], [place] Interpretation and review of laboratory results Abnormal [place] Hemoglobin A1Con 11-22-2018 Glucose [Mass/Vol] 97 mg/dL [place] Comment on above: The ADA and AACC rec ommend providing the estimated average glucose result to permit better patient understanding of their HBA1c result. HbA1c (Bld) [Mass fraction] 5.0 % 4.8 - 5.9 % [place] CBC Auto Differentialon 10-08 Basophils (Bld) [#/Vol] 0.10 10*3/uL [place] Basophils/100 WBC (Bld) 1 % 0 - 2 % M [place], [place] Differential Type YES [place], [place] Eosinophils (Bld) [#/Vol] 0.50 10*3/uL [place] Eosinophils/100 WBC (Bld) 10 % High 0 - 5 % [place] Erythrocyte distribution width (RBC) [Ratio] 13.5 % 12.1 - 15.2 % [place] Hematocrit (Bld) [Volume fraction] 40.9 % 36 - 46 % [place] Hemoglobin (Bld) [Mass/Vol] 13.9 g/dL 12 - 16 g/dL [place] Interpretation and review of laboratory results Abnormal [place] Lymphocytes (Bld) [#/Vol] 1.70 10*3/uL [place] Lymphocytes/100 WBC (Bld) 36 % 15 - 40 % [place] MCH (RBC) [Entitic mass] 29.6 pg 26 - 34 pg [place] MCHC (RBC) [Mass/Vol] 33.9 g/dL 31 - 37 g/dL [place] MCV (RBC) [Entitic vol] 87.4 fL 80 - 100 fL [place] Monocytes (Bld) [#/Vol] 0.40 10*3/uL [place] Monocytes/100 WBC (Bld) 8 % 4 - 8 % [place] Platelet mean volume (Bld) [Entitic vol] NOT REPORTED 6 - 12 fL [place] Platelets (Bld) [#/Vol] NOT REPORTED [place] Platelets (Bld) [#/Vol] 309 10*3/uL [place] RBC (Bld) [#/Vol] 4.68 10*6/uL 4 - 5.2 m/uL [place] RBC morphology finding Nom (Bld) NOT REPORTED [place] Segmented neutrophils/100 WBC (Bld) 45 % Low 47 - 75 % [place] Segs Absolute 2.20 Low [place], [place] WBC (Bld) [#/Vol] NOT REPORTED per 100 WBC [place] WBC (Bld) [#/Vol] 4.9 10*3/uL [place] WBC Morphology NOT REPORTED [place], [place] Otheron 10-26-2018 Immature granulocytes (Bld) [#/Vol] NOT REPORTED 0 % [place] T4, Freeon 10-26-2018 Thyroxine, Free 1.21 ng/dL 0.93 - 1.7 ng/dL [place] TSH without Reflexon 019 TSH Qn 1.86 m[IU]/L [place] Vital Signs Date Time Vital Sign Value Performing Clinician Facility 02-26-2024 13:41-0500 Body mass index (BMI) [Ratio] 21 kg/m2 Rossi KENNEDY Work Phone: [facility] 02-26-2024 13:41-0500 Body weight 52.07 kg Rossi KENNEDY Work Phone: [facility] 02-26-2024 13:41-0500 Diastolic blood pressure 52 mm[Hg] Rossi KENNEDY Work Phone: [facility] 02-26-2024 13:41-0500 Systolic blood pressure 102 mm[Hg] Rossi KENNEDY Work Phone: [facility] 01-29-2024 11:08-0500 Body mass index (BMI) [Ratio] 20.51 kg/m2 Osorio Caron DO Work Phone: [facility] 01-29-2024 11:08-0500 Body weight 50.86 kg Osorio Caron DO Work Phone: [facility] 01-29-2024 11:08-0500 Diastolic blood pressure 50 mm[Hg] Osorio Caron DO Work Phone: [facility] 01-29-2024 11:08-0500 Systolic blood pressure 110 mm[Hg] Osorio Davido DO Work Phone: [facility] 12-29-2023 11:19-0500 Body mass index (BMI) [Ratio] 20.67 kg/m2 Nom Nurse [facility] 12-29-2023 11:19-0500 Body weight 51.26 kg [facility] Nurse [facility] 12-29-2023 11:19-0500 Diastolic blood pressure 77 mm[Hg] [facility] Nurse [facility] 12-29-2023 11:19-050 Systolic blood pressure 109 mm[Hg] [facility] Nurse [facility] 03-04-2022 04:06-0500 Body weight 75.[address] OSORIO REARDON . [facility] Comment on above: Performed By: #### NBOX #### [facility] [address] [address] [address] Shell Cadena Encounters Encounter Date Encounter Type Care Provider Facility Start: 02-26-2024 End: 02-26-2024 Bamboo flowsheet Rossi KENNEDY Work Phone: [facility] Start: 02-26-2024 End: 02-26-2024 Bamboo flowsheet Rossi KENNEDY Work Phone: [facility] Start: 02-26-2024 End: 02-26-2024 Patient encounter procedure Rossi KENNEDY Work Phone: [facility] Start: 02-26-2024 End: 02-26-2024 Periodic preventive med est patient 18-39 yrs Rossi KENNEDY Work Phone: [facility] Comment on above: Second trimester pre gnancy; 15 weeks gestation of ; Well woman exam with routine gynecological exam; Vaginal discharge; STD exposure Start: 01-29-2024 End: 01-29-2024 Bamboo flowsheet Osorio Reardon DO Work Phone: [facility] Start: 01-29-2024 End: 01-29-2024 Bamboo flowsheet Osorio Caron DO Work Phone: [facility] Start: 01-29-2024 End: 01-29-2024 Clinisync Result Encounter Osorio Caron DO Work Phone: [facility] External Department Unsolicited Start: 01-29-2024 End: 01-29-2024 ambulatory OSORIO CARON Not Available Start: 01-29-2024 End: 01-29-2024 Office outpatient visit 15 minutes Osorio Caron DO Work Phone: [facility] Comment on above: 11 weeks gestation o f ; First trimester Start: 12-29-2023 End: 12-29-2023 ambulatory [facility] [...] . Facility:[facility] Start: 03-01-2022 End: 03-01-2022 ambulatory ROSSI POOLE . Facility:[facility] Start: 03-01-2022 End: 03-02-[address] OSORIO REARDON . Facility:[facility] Start: 01-04-2022 End: 01-05-[address] OSORIO REARDON . Facility:[facility] Start: 12-10-2021 End: 12-11-[address] OSORIO REARDON . Facility: Start: 10-26-2020 End: 10-27-2020 ambulatory DIPTI QUINONES [facility] Start: 10-26-2020 End: 10-26-2020 Subsequent hospital visit by physician Dipti Quinones [employer] Work Phone: [facility] Comment on above: Urticarial rash; Sexually active child; BMI 35.0-35.9,adult; Screening for thyroid disorder; Screening, anemia, deficiency, iron; Screening for diabetes mellitus; Tattoos Start: 03-17-2020 End: 03-18-2020 ambulatory OVIDIO Cary [facility] Start: 03-17-2020 End: 03-17-2020 Subsequent hospital visit by physician [facility] Laboratory Comment on above: Suspected COVID-19 v irus infection Start: 11-22-2018 End: 11-22-2018 Subsequent hospital visit by physician Dipti Quinones [facility] Start: 10-26-2018 End: 10-26-2018 Subsequent hospital visit by physician Dipti Quinones [facility] Laboratory Procedures Date Procedure Procedure Detail Performing Clinician Start: 02-26-2024 Urnls dip stick/tabl et rgnt non-auto w/o micrscp Rossi KENNEDY Work Phone: Start: 01-29-2024 ALL CBC WITH AUTO DIFF Osorio Caron DO Work Phone: Start: 01-29-2024 Urnls dip stick/tabl et rgnt non-auto w/o micrscp Osorio Caron DO Work Phone: Start: 12-29-2023 Urnls dip stick/tabl et rgnt non-auto w/o micrscp Osorio Caron DO Work Phone: Start: 07-01-2022 Delivery of Products of Conception, External Approach DR OSORIO REARDON . Start: 07-01-2022 Division of Female Perineum, External Approach DR OSORIO REARDON . Start: 07-01-2022 Drainage of Amniotic Fluid, Therapeutic from Products of Conception, Via Natural or Artificial Opening DR OSORIO REARDON . Start: 10-26-2020 ALLERGEN, FOOD, COMPREHENSIVE PROFILE 1 Dipti Quinones [employer] Work Phone: Start: 10-26-2020 C-reactive protein Thao Quinones [employer] Work Phone: Start: 10-26-2020 Comprehensive metabo lic panel Dipti Quinones [employer] Work Phone: Start: 10-26-2020 Urnls dip stick/tabl et rgnt auto w/o microscopy Dipti Quinones [employer] Work Phone: Start: 11-22-[address] gtt 3 specimens Osorio Valladareszio Work Phone: Start: 11-22-2018 Hemoglobin glycosylated a1c Osorio Moran Caron Work Phone: Start: 10-26-2018 Assay of free thyroxine Osorio Valladareszio Work Phone: Start: 10-26-2018 Assay of thyroid stimulating hormone tsh Osorio Valladareszio Work Phone: Start: 10-26-2018 Blood count complete auto&auto difrntl wbc Osorio Davido Work Phone: Plan of Treatment Date Care Activity Detail Author Start: 03-26-2024 End: 03-26-2024 Patient encounter procedure 03/26/2024 2:10 PM EST Routine [facility] [address] [place] [address] Osorio Reardon DO [address] [place] [address] [facility] Start: 02-26-2024 End: 02-26-2024 Patient encounter procedure 02/26/2024 1:30 PM EST Routine [facility] [address] [place] [address] Rossi Poole PA [address] [place], [place] [id number] [facility] Start: 01-29-2024 End: 01-29-2024 Patient encounter procedure 01/29/2024 10:40 AM EST Routine [facility] [address] [place] [id number] Osorio Reardon DO [address] [place] [address] [facility] Start: 12-29-2023 End: 12-28-2024 ABO/Rh ABO/Rh Lab Routine Missed menses , unspecified gestational age Expected: 12/29/2023 (Approximate), Expires: 12/28/2024 [facility] Comment on above: Expected: 12/29/2023 (Approximate), Expires: 12/28/2024 Start: 12-29-2023 End: 12-28-2024 Blood type and Indirect antibody screen panel - Blood Type and screen Lab Routine Missed menses , unspecified gestational age Expected: 12/29/2023 (Approximate), Expires: 12/28/2024 [facility] Work Phone: Comment on above: Expected: 12/29/2023 (Approximate), Expires: 12/28/2024 Start: 12-29-2023 End: 12-28-2024 Drugs of abuse panel - Urine by Screen method Rapid drug screen, urine Lab Routine , unspecified gestational age Encounter for supervision of normal first in first trimester Expected: 12/29/2023 (Approximate), Expires: 12/28/2024 [facility] Comment on above: Expected: 12/29/2023 (Approximate), Expires: 12/28/2024 Start: 12-29-2023 End: 12-28-2024 US Pelvis transvaginal US OB transvaginal Imaging Routine Missed menses Expected: 12/29/2023 (Approximate), Expires: 12/28/2024 [facility] Comment on above: Expected: 12/29/2023 (Approximate), Expires: 12/28/2024 Start: 01-05-2022 DTaP/Tdap/Td vaccine (7 - Td or Tdap) DTaP/Tdap/Td vaccine (7 - Td or Tdap) [facility] Phone: Start: 10-07-2020 Influenza vaccination Flu vaccine (# 1) [facility] Phone: Start: 12-31-2019 Screening for malign ant neoplasm of cervix [place] Start: 10-08-2019 Influenza vaccination Flu vaccine (# 1) [place] Start: 10-07-2018 Influenza vaccination Flu vaccine (# 1) [place] Start: 2017 DTaP/Tdap/Td vaccine (1 - Tdap) DTaP/Tdap/Td vaccine (1 - Tdap) [place] Start: 2014 Chlamydia screen Chlamydia screen [place], [place] Start: 2014 Screening for Chlamy yan trachomatis [place]lam[place] Start: 2013 HIV screen HIV screen [place], [place] Start: 2013 HIV screening HIV screen [facility] [place] Start: 2013 HPV vaccine (1 - Fem pritesh 3-dose series) HPV vaccine (1 - Female 3-dose series) [place] Start: 2010 COVID-19 Vaccine (1) COVID-19 Vaccin e (1) [facility] Phone: Start: 2009 HPV vaccine (1 - 2-d ose series) HPV vaccine (1 - 2-dose series) [place] Start: 12-31-1999 Varicella vaccine (1 of 2 - 2-dose childhood series) Varicella vaccine (1 of 2 - 2-dose childhood series) [place] Start: 1998 Hepatitis C screening Hepatitis C sc [place]en [place] End: 10-26-2020 NAS Screen With Reflex NAS Screen With Reflex Lab Routine Urticarial rash 1 Occurrences starting 10/26/2020 until 10/26/2020 [facility] [employer] Phone: Comment on above: 1 Occurrences starti ng 10/26/2020 until 10/26/2020 NAS Screen With Reflex NAS Scree n With Reflex Lab Routine Urticarial rash 10/26/2020 3:45 PM EDT [email or web address] Phone: Bacteria identified in Urine by Culture Urine culture Microbiology Routine Missed menses Ordered: 12/29/2023 [facility] Comment on above: Ordered: 12/29/2023 CBC W Auto Different ial panel - Blood CBC and differential Lab Routine Missed menses , unspecified gestational age Ordered: 12/29/2023 [facility] Services Comment on above: Ordered: 12/29/2023 CHLAMYDIA TRACHOMATI S (GENITO/STI) CHLAMYDIA TRACHOMATIS (GENITO/STI) Lab Routine Vaginal discharge STD exposure Ordered: 02/26/2024 [facility] Comment on above: Ordered: 02/26/2024 End: 03-17-2020 COVID-19 COVID-19 Lab Routine Suspected Covid-19 Virus Infection 1 Occurrences starting 03/17/2020 until 03/17/2020 [place], [place] Comment on above: 1 Occurrences starti ng 03/17/2020 until 03/17/2020 COVID-19 COVID-19 Lab Rou annalisa Suspected COVID-19 virus infection 03/17/2020 2:52 PM EST [facility] [place] Cytology Cervical or vaginal smear or scraping study Pap Smear Pathology and Cytology Routine Well woman exam with routine gynecological exam Or[facility]: [facility]: Comment on above: Ordered: 02/26/2024 End: 10-26-2020 Chanelle Pierre Virus (EBV) Antibody Panel I Chanelle Pierre Virus (EBV) Antibody Panel I Lab Routine Urticarial rash BMI 35.0-35.9,adult 1 Occurrences starting 10/26/2020 until 10/26/2020 [email or web address] Phone: Comment on above: 1 Occurrences starti ng 10/26/2020 until 10/26/2020 End: 10-26-2020 Chanelle-Pierre virus VCA antibody panel Chanelle-Pierre virus VCA antibody panel Lab Routine Once for 1 Occurrences starting 10/26/2020 until 10/26/2020 [email or web address] Phone: Comment on above: Once for 1 Occurrenc es starting 10/26/2020 until 10/26/2020 Chanelle-Pierre virus V CA antibody panel Chanelle-Pierre virus VCA antibody panel Lab Routine 10/26/2020 3:45 PM EDT [email or web address] Phone: Food Comprehensive Panel Food Co mprehensive Panel Lab Routine Urticarial rash 10/26/2020 3:45 PM EDT [email or web address] Phone: Hemoglobin A1c/Hemoglobin.total in Blood Hemoglobin A1c Lab Routine Missed menses , unspecified gestational age Ordered: 12/29/2023 [facility] Comment on above: Ordered: 12/29/2023 Hepatitis B virus surface Ag [Presence] in Serum or Plasma by Immunoassay Hepatitis B surface antigen Lab Routine Missed menses , unspecified gestational age Ordered: 12/29/2023 [facility] Comment on above: Ordered: 12/29/2023 Hepatitis C virus Ab [Presence] in Serum or Plasma by Immunoassay Hepatitis C antibody Lab Routine Missed menses , unspecified gestational age Ordered: 12/29/2023 [facility] Comment on above: Ordered: 12/29/2023 HIV-1/HIV-2 antigen/antibody combination immunoassay HIV-1 and HIV-2 antibodies Lab Routine Missed menses , unspecified gestational age Ordered: 12/29/2023 [facility] Comment on above: Ordered: 12/29/2023 Neisseria gonorrhoea e DNA [Presence] in Unspecified specimen by FERNANDO with probe detection Neisseria gonorrhea DNA probe, direct Lab Routine Vaginal discharge STD exposure Ordered: 02/26/2024 [facility] Comment on above: Ordered: 02/26/2024 Reagin Ab [Presence] in Serum by RPR RPR Lab Routine Missed menses , unspecified gestational age Ordered: 12/29/2023 [facility] Comment on above: Ordered: 12/29/2023 Rubella antibody, IgG Rubella an tibody, IgG Lab Routine Missed menses , unspecified gestational age Ordered: 12/29/2023 [facility] Comment on above: Ordered: 12/29/2023 SURESWAB(R) ADVANCED VAGINITIS PLUS, TMA SURESWAB(R) ADVANCED VAGINITIS PLUS, TMA Pathology and Cytology Routine Vaginal discharge STD exposure Ordered: 02/26/2024 [facility] Comment on above: Ordered: 02/26/2024 Payers Date Payer Category Payer Self-pay 2022 Private Health Insurance [employer] [id number] 2014 Unknown [employer] xxxxxxxxxxx 2014-Present [phone] [address] [place] [address] xxxxxxxxxxx [id number] 2014 Unknown [id number]. [id number] 1998 Unknown [id number] 2.16.840.1.656534.3.579.2. 174 1998 Unknown [id number] 2.16.840.1.949728.3.579.2. 174 1998 Unknown [id number] 2.16.840.1.118533.3.579.2. 593 1998 Unknown [id number] 2.16.840.1.961251.3.579.2. 593 1998 Unknown [id number] 2.16.840.1.751132.3.579.2. 593 1998 Unknown [id number] 2.16.840.1.141273.3.579.2. 593 1998 Unknown [id number] 2.16.840.1.466700.3.579.2. 593 1998 Unknown [id number] 2.16.840.1.446643.3.579.2. 593 1998 Unknown [id number] 2.16.840.1.260933.3.579.2. 593 1998 Unknown [id number] 2.16.840.1.632716.3.579.2. 593 1998 Unknown [id number] 2.16.840.1.214809.3.579.2. 593 1998 Unknown [id number] 2.16.840.1.179214.3.579.2. 593 1998 Unknown [id number] 2.16.840.1.279761.3.579.2. 593 1998 Unknown [id number] 2.16.840.1.675895.3.579.2. 1259 1998 Unknown [id number] 2.16.840.1.784757.3.579.2. 1259 1959 Unknown [id number] 1959 Unknown [id number] Unknown [id number] 2.16.840.1.889691.3.579.2. 593 Unknown [id number] 2.16.840.1.933507.3.579.2. 531 Social History Date Type Detail Facility Start: 07-05-2017 Tobacco smoking stat [facility] Never smoker [place], [place] Start: 07-05-2017 Alcohol intake No [facility] [place], [place] Start: 1998 Sex Assigned At Not on file M [place], [place] Start: 03-17-2020 Tobacco smoking stat [facility] Current every day smoker [place], [place] Start: 12-27-2019 End: 09-25-2020 History of tobacco use Cigarette Smoker [place], [place] Start: 03-17-2020 End: 10-26-2020 Cigarettes smoked current (pack per day) - Reported [place], [place] Start: 03-17-2020 End: 10-26-2020 Tobacco use and exposure Never used [place] Start: 03-17-2020 End: 10-26-2020 Alcohol intake Current non-drinker of alcohol (finding) [email or web address] Start: 10-26-2020 Tobacco smoking stat [facility] Former smoker t3n [employer] Work Phone: Start: 12-27-2019 End: 09-25-2020 History of tobacco use Current smoker t[employer]n [employer] Start: 08-26-2022 Tobacco smoking stat [facility] Tobacco smoking consumption unknown [facility] Start: 11-26-2023 [facility] History of Present illness Narrative 02-26-2024 BRENT Nathan - 02/26/2024 1:30 PM EST Note Date & Type Note Facility 02-26-2024 History of Presen t illness Narrative Reason for Appointment: Patient ID: Alecia Stringer is a 23 y.o. female who presents for Routine Visit Patient presents today for Annual Exam. and Return OB appointment. MEDICATIONS Current Outpatient Medications Medication Instructions meclizine (ANTIVERT) 25 mg, Oral, 3 times daily PRN ondansetron ODT (Zofran-ODT) 4 MG disintegrating tablet DISSOLVE 1 tablet on top OF tongue EVERY 6 HOURS if needed FOR NAUSEA AND VOMITING ondansetron ODT (ZOFRAN-ODT) 4 mg, Oral, Every 6 hours PRN MV-Min-Fe Fum-FA-DHA ( 1 PO) Take by mouth. sertraline (ZOLOFT) 100 mg, Oral, Daily ALLERGIES No Known Allergies PROBLEMS Active Ambulatory Problems Diagnosis Date Noted 11 weeks gestation of 01/29/2024 First trimester 01/29/2024 Nausea and vomiting 02/19/2024 Resolved Ambulatory Problems Diagnosis Date Noted No Resolved Ambulatory Problems Past Medical History: Diagnosis Date Infertility, female HISTORY PAST MEDICAL HISTORY SOCIAL HISTORY Past Medical History: Diagnosis Date Infertility, female Social History Tobacco Use Smoking status: Not on file Smokeless tobacco: Not on file Substance Use Topics Alcohol use: Not on file Drug use: Not on file FAMILY HISTORY Family History Problem Relation Name Age of Onset Heart disease Mother Hypertension Mother Hypertension Maternal Grandmother Heart disease Maternal Grandmother Arthritis Maternal Grandmother Migraines Maternal Grandmother Diabetes Maternal Grandmother Clotting disorder Maternal Grandmother Hyperthyroidism Maternal Grandmother Stroke Maternal Grandmother Arthritis Maternal Grandfather Hyperlipidemia Maternal Grandfather Mental illness Paternal Grandmother Thyroid disease Paternal Grandmother Hypertension Paternal Grandfather SURGICAL HISTORY Past Surgical History: Procedure Laterality Date WISDOM TOOTH EXTRACTION REVIEW OF SYSTEMS Review of Systems: Review of Systems Constitutional: Negative. HENT: Negative. Eyes: Negative. Respiratory: Negative. Cardiovascular: Negative. Gastrointestinal: Negative. Genitourinary: Negative. Musculoskeletal: Negative. Skin: Negative. Neurological: Negative. All other systems reviewed and are negative. Hematological: Negative. Endocrine: Negative. Allergic/Immunologic: Negative. OBJECTIVE Objective: Physical Exam Constitutional: Appearance: Normal appearance. Genitourinary: Right Adnexa: not tender and no mass present. Left Adnexa: not tender and no mass present. No cervical discharge. Breasts: Breasts are soft. Right: Normal. Left: Normal. HENT: Head: Normocephalic. Nose: Nose normal. Mouth/Throat: Mouth: Mucous membranes are moist. Cardiovascular: Rate and Rhythm: Normal rate. Pulmonary: Effort: Pulmonary effort is normal. Abdominal: General: Bowel sounds are normal. Palpations: Abdomen is soft. Musculoskeletal: General: Normal range of motion. Cervical back: Normal range of motion. Neurological: General: No focal deficit present. Mental Status: She is alert. Skin: General: Skin is warm and dry. Psychiatric: Mood and Affect: Mood normal. Vitals and nursing note reviewed. Exam conducted with a home improvement installer present. Vitals: Estimated body mass index is 21 kg/m as calculated from the following: Height as of 08/29/22: 5' 2 . Weight as of this encounter: 114 lb 12.8 oz. BP: 102/52 Patient's last menstrual period was 10/12/2023. ASSESSMENT & PLAN ICD-10-CM 1. Second trimester Z34.92 POCT urinalysis dipstick manually resulted 2. 15 weeks gestation of Z3A.15 3. Well woman exam with routine gynecological exam Z01.419 Pap Smear 4. Vaginal discharge N89.8 SURESWAB(R) ADVANCED VAGINITIS PLUS, TMA CHLAMYDIA TRACHOMATIS (GENITO/STI) Neisseria gonorrhea DNA probe, direct 5. STD exposure Z20.2 SURESWAB(R) ADVANCED VAGINITIS PLUS, TMA CHLAMYDIA TRACHOMATIS (GENITO/STI) Neisseria gonorrhea DNA probe, direct Return OB/Annual Exam: Patient presents today for an annual exam/routine obstetrics appointment. Patient is currently 15w1d . Patient is doing well and states she has no complaints. Pap/cultures was obtained without difficulty and patient was given [facility] order to have obtained. Orders Placed This Encounter Procedures CHLAMYDIA TRACHOMATIS (GENITO/STI) Neisseria gonorrhea DNA probe, direct POCT urinalysis dipstick manually resulted Follow Up: Patient is to return to our office in 4 weeks for routine OB appointment Documented by BRENT Nathan on behalf of: BRENT Nathan documented in this encounter [facility] History of Present illness Narrative 01-29-2024 Osorio Reardon DO - 01/29/2024 10:40 AM EST Note Date & Type Note Facility 01-29-2024 History of Presen t illness Narrative Reason for Appointment: Patient ID: Alecia Stringer is a 23 y.o. female who presents for Routine Visit Patient presents today for Return OB appointment. Current Medications: has a current medication list which includes the following prescription(s): ondansetron odt and mv-min-fe fum-fa-dha. Medical History: Active Ambulatory Problems Diagnosis Date Noted 11 weeks gestation of 01/29/2024 First trimester 01/29/2024 Resolved Ambulatory Problems Diagnosis Date Noted No [...] Date WISDOM TOOTH EXTRACTION No Known Allergies Review of Systems: Review of Systems All other systems reviewed and are negative. Objective Physical Exam Constitutional: Appearance: Normal appearance. She is well-developed. Cardiovascular: Rate and Rhythm: Normal rate and regular rhythm. Pulmonary: Effort: Pulmonary effort is normal. Breath sounds: Normal breath sounds. Abdominal: General: Bowel sounds are normal. There is no distension. Palpations: Abdomen is soft. Tenderness: There is no abdominal tenderness. There is no guarding or rebound. Musculoskeletal: General: No swelling. Normal range of motion. Right lower leg: No edema. Left lower leg: No edema. Neurological: Mental Status: She is alert and oriented to person, place, and time. Skin: General: Skin is warm and dry. Psychiatric: Mood and Affect: Mood normal. Behavior: Behavior normal. Vitals and nursing note reviewed. Exam conducted with a home improvement installer present. Vitals: Estimated body mass index is 20.51 kg/m as calculated from the following: Height as of 08/29/22: 5' 2 . Weight as of this encounter: 112 lb 1.9 oz. BP: 110/50 Patient's last menstrual period was 10/12/2023. Assessment/Plan Encounter Diagnosis: ICD-10-CM 1. 11 weeks gestation of Z3A.11 POCT urinalysis dipstick manually resulted 2. First trimester Z34.91 POCT urinalysis dipstick manually resulted Return OB: Patient presents today for a routine obstetrics appointment. Patient is currently 11w1d . Patient states she is doing well but has complaints of being tired due to current . Patient has verbalizes frequent movement. labor precautions was discussed/given and patient was instructed to perform kick counts three times a day. Orders Placed This Encounter Procedures POCT urinalysis dipstick manually resulted Follow Up: Patient is to return to office in 4 week for routine OB appointment. Documented by Osorio Reardon DO on behalf of: Osorio Reardon DO documented in this encounter [facility] History of Present illness Narrative 12-29-2023 Flora Heard MA - 12/29/2023 11:00 AM EST Note Date [...] or undercooked meat, and stay away from [facility]. Patient has also been advised to [...] Flora Heard MA documented in this encounter [facility] Evaluation note Note Date & Type Note Facility Evaluation note Diagnosis Urticarial rash Urticaria, unspecified Sexually active child Problems related to high-risk sexual behavior BMI 35.0-35.9,adult Body Mass Index 35.0-35.9, adult Screening for thyroid disorder Screening, anemia, deficiency, iron Screening for iron deficiency anemia Screening for diabetes mellitus Tattoos Other dyschromia documented in this encounter [email or web address] Phone: Evaluation note Note Date & Type Note Facility Evaluation note Diagnosis Missed menses , unspecified gestational age Encounter for supervision of normal first in first trimester Nausea and vomiting, unspecified vomiting type documented in this encounter [facility] Evaluation note Note Date & Type Note Facility Evaluation note Diagnosis 11 weeks gestation of First trimester state, incidental documented in this encounter [facility] Evaluation note Note Date & Type Note Facility Evaluation note Diagnosis Second trimester state, incidental 15 weeks gestation of Well woman exam with routine gynecological exam Routine gynecological examination Vaginal discharge Leukorrhea, not specified as infective STD exposure documented in this encounter [facility] Advance Directives Documents on File Type Date Recorded Patient Analysis Tester Expl anation Advance Directives and Living Will Power of Comb Tender Documents on File Type Date Recorded Patient Analysis Tester Expl anation ACP-Advance Directive ACP-Power of Comb Tender Assessments Diagnosis Suspected COVID-19 virus infection Summary Purpose Family History No Family History Records FoundNo Family History Records FoundNo Family History Records FoundNo Family History Records Found Additional Source Comments INFORMATION SOURCE (unrecogn ized section and content) DATE CREATED AUTHOR 10/30/2020 [facility] DATE CREATED AUTHOR AUTHOR'S ORGANIZ ATION 07/15/2022 [facility] DATE CREATED AUTHOR AUTHOR'S ORGANIZ ATION 01/31/2024 [facility] EPIC DATE CREATED AUTHOR AUTHOR'S ORGANIZ ATION 02/01/2024 [facility] Reason for Visit (unrecogniz ed section and content) Reason Comments Amenorrhea Reason Comments Routine Visit FOR RECORDS PERTAINING TO PATIENTS WHO ARE [...] BE BASED ON THE PRIMARY CLINICAL RECORDS. [facility] provides no warranty or guarantee of the accuracy or completeness of information in this document.
== END 2024-02-26 21:49 | disposition home or self-care (01) ==
LOC: LAB 21:48
PROVIDERS: PCP Family Medicine; Visit Provider Physician Assistant
DX: Z01.419 Encounter for gynecological examination (general) (routine) without abnormal findings (principal)
CPT/HCPCS: 88175

== ENCOUNTER 2024-05-13 11:00 | Outpatient (OUT) | payer OTHER, SELFPAY ==
--- OUTSIDE RECORDS SUMMARY | 2024-05-13 11:23 | XMS_ITS | CCD ---
Author Organization [facility] Care Team Providers Care Copier Repair Technician Name Role Phone Dipti Quinones Primary Care Provider Unavailable Primary Care Provider Clayton Quinones TITLE I DIRECTOR - MARKET RELATIONSHIP MANAGERDipti Primary Care Provider OVIDIO ROY Referring Unavailable [...] AC Admitting Unavailable CRAON ., DR AC Attending Unavailable REQUEST, NONE [...] DR NONE LISTED Primary Care Unavaila ble [place]AT[place], DR AMIE Montemayor Consulting Unavailable CARON ., DR AC Attending Unavailable CARON ., DR AC Consulting Unavailable CARON ., DR AC Primary Care Unavailable VIRGILIO ., ROSSI Consulting Unavailable VIRGILIO ., ROSSI Attending Unavailable VIRGILIO ., ORSSI Admitting Unavailable CARON ., DR AC Primary [...] e Unavailable Primary Care Provider Unavailabl e Caron, Osorio Attending Unavailable Caron, Osorio Admitting Unavailable CARON, OSORIO Attending Unavailable VIRGILIO, ROSSI Attending Unavailable CARON, OSORIO Attending Unavailable VIRGILIO, ROSSI Attending Unavailable Medications Current Medications Medication Drug Class(es) Dates Sig (Normalized) Sig (Original) ibuprofen 600 mg oral tablet (4 sources) Nonsteroidal Anti-inflammatory Drug take 1 tablet by mouth every six hours as needed for pain ibuprofen (ADVIL;MOTRIN) 600 MG tablet Take 600 mg by mouth every 6 hours as needed for Pain 0 Active meclizine hydrochloride 25 mg oral tablet (11 sources) Antiemetic Start: 01-12-2024 End: 01-29-2024 take [...] Active ondansetron 4 mg disintegrating oral tablet (20 sources) Serotonin-3 Receptor Antagonist Start: 02-19-2024 take [...] 02/19/2024 Active MV-Min-Fe Fum-FA-DHA ( 1 PO) (13 sources) MV-Min- Fe Fum-FA-DHA ( 1 PO) Take by mouth. Active sertraline 100 mg oral tablet (19 sources) Serotonin Reuptake Inhibitor Start: 03-18-2024 End: 04-17-2024 take 1 tablet by mouth once daily sertraline (Zoloft) 100 MG tablet Indications: Major depressive disorder with current active episode, unspecified depression episode severity, unspecified whether recurrent (CMS/HCC) Take 1 tablet (100 mg) by mouth Daily 30 tablet 3 03/18/2024 04/17/2024 Active Start: 02-13-2024 End: 03-14-2024 take 1 tablet [...] Onset: 07-28-2014 07-28-2014 Chronic Nausea and vomiting (9 sources) Nausea and vomiting; Translations: [Nausea with [...] conditions (not mental disorders or infectious disease) (18 sources) Patient encounter status; Translations: [Encounter for [...] ] Onset: 04-25-2022 Episodic Residual codes; unclassified (14 sources) Gestation period, 11 weeks; Translations: [11 weeks gestation of ] Onset: 01-29-2024 01-29-2024 Episodic Residual codes; unclassified (2 sources) Gestation period, 15 weeks; Translations: [15 weeks gestation of ] 02-26-2024 Episodic Residual codes; unclassified (2 sources) Gestation period, 19 weeks; Translations: [19 weeks gestation of ] 03-26-2024 Episodic Past or Other Problems Problem Classification [...] Test Name Value Interpretation Reference Range Facility US OB 14+ WEEKS ANATOMY SCAN on 04-10-2024 US OB 14+ WEEKS ANATOMY SCAN EXAM: US OB 14+ WEEKS ANATOMY SCAN HISTORY: anatomy. TECHNIQUE: Two-dimensional transabdominal grayscale ultrasound imaging of the pelvis was performed. FINDINGS: Gestation: Single Presentation: Cephalic Cardiac Activity: 146 beats per minute Placental Location: Anterior with no sonographic abnormalities identified. Distance from Placental Tip to Cervix: 6.2 cm Cervical Length: 3.4 cm Amniotic Fluid: Appears adequate MEASUREMENTS: BPD: 4.9 cm EGA: 20 weeks 6 days HC: 18.6 cm EGA: 21 weeks 0 days AC: 16.3 cm EGA: 21 weeks 2 days HC/AC Ratio: 1.14 The gestational age by today's ultrasound is 21 weeks 0 days (+/- 10 days gestation). Estimated Weight: 403 grams, +/- 73 grams ( 0 lb 14 oz). Weight Percentile for gestational age: 30 % ANATOMY C-Spine: Unremarkable T-Spine: Unremarkable L-Spine: Unremarkable Sacrum: Unremarkable Four Chamber Heart: Unremarkable LVOT: Unremarkable RVOT: Unremarkable Stomach: Unremarkable Kidneys: Unremarkable Bladder: Unremarkable Diaphragm: Unremarkable Cord insertion: Unremarkable Cord vessels: Three Lateral Ventricles: Unremarkable Cerebellum: Unremarkable Cisterna Magna: Unremarkable Posterior Fossa: Unremarkable Right Femur: Unremarkable Left Femur: Unremarkable Right Tib/Fib: Unremarkable Left Tib/Fib: Unremarkable Right Rad/Ulnar: Unremarkable Left Rad/Ulnar: Unremarkable Right Humerus: Unremarkable Left Humerus: Unremarkable Nose/Lips: Unremarkable Profile: Unremarkable Orbits: Unremarkable IMPRESSION: 1. Single, live intrauterine gestation 21 weeks, 3 days by LMP. Today's ultrasound measurements correlate with a gestational age of 21 weeks 0 days. Estimated weight is 403 grams, +/- 73 grams ( 0 lb 14 oz) which correlates to 30 %. GORGE is 08/21/2024. 2. Unremarkable ultrasound of the anatomy. Electronically Signed:Electronical ly signed by VIKAS VEGAS II, MD, PHD at 11-Apr-2024 10:37:48 AM [facility] Normal Not Available Comment on above: Order Comment: US OB ANATOMY SINGLE W US OB CERVICAL LENGTH Estimated Date of Delivery: 08/18/24 Gestational Age as of 03/26/2024: 19w2d Urinalysis macro (dipstick) panel (U)on 03-26-2024 Bilirubin, UA Negative Negative - 4(70) +++ mg/dL [facility] Blood, UA Positive Negative - 50 Missael/mcL [facility] Comment on above: trace-intact Clarity, UA Clear [facility] Color, UA Yellow [facility] Glucose, UA Negative Negative - 2000(110) ++++ mg/dL [facility] Interpretation and review of laboratory results Abnormal [facility] Ketones, UA Negative Negative - 160(16) ++++ mg/dL [facility] Leukocytes, UA Negative Negative - 500+++ Philly/mcL [facility] Nitrite, UA Negative Negative - Positive [facility] pH, UA 7 5 - [address] [facility] Protein, UA Negative Negative - 1999(20) ++++ mg/dL [facility] Spec Grav, UA 1.02 1 - 1.[address] [facility] Urobilinogen, UA 1.0 0.2 - 12 mg/dL [facility] IGP,APTIMA HPV,AGE GDLNon AGE GDLN ACOG TESTING Note . [facility] Comment on above: TESTS RESULT FLAG U NITS REF RANGE LAB Clinician Provided Cytology Information Source.............Cervix;Endocervix No. of containers..01 ThinPrep Vial Age Algo ACOG Gaby... FLAG LEGEND: L-Low Normal,H-High Normal,LL-Alert Low,HH-Alert High <-Panic Low,>-Panic High,A-Abnormal,AA-Critical Abnormal Performed at: 01 =G Callie Johnston[address] [address] Azalia Flores MD, IGP, RFX APTIMA HPV ASCU Note . [facility] Comment on above: TESTS RESULT FLAG UN ITS REF RANGE LAB DIAGNOSIS: 02 NEGATIVE FOR INTRAEPITHELIAL LESION OR MALIGNANCY. FUNGAL ORGANISMS MORPHOLOGICALLY CONSISTENT WITH MARLA SPECIES ARE PRESENT. CELLULAR CHANGES ASSOCIATED WITH INFLAMMATION ARE PRESENT. Specimen adequacy: 02 Satisfactory for evaluation. Endocervical and/or squamous metaplastic cells (endocervical component) are present. Performed by: 02 Jeremias Cho, Airline Flight Attendant ([facility]) . 02 Note: Note 02 The Pap smear is a screening test designed to aid in the detection of premalignant and malignant conditions of the uterine cervix. It is not a diagnostic procedure and should not be used as the sole means of detecting cervical cancer. Both false-positive and false-negative reports do occur. Test Methodology: Note 02 This liquid based ThinPrep(R) pap test was screened with the use of an image guided system. . 02 The HPV DNA reflex criteria were not met with this specimen result therefore, no HPV testing was performed. FLAG LEGEND: L-Low Normal,H-High Normal,LL-Alert Low,HH-Alert High <-Panic Low,>-Panic High,A-Abnormal,AA-Critical Abnormal Performed at: [address] [place] [address] Azalia Flores MD, Performed at: = - [facility] [address], [place] [id number] Physicist Acoustics: Azalia Flores MD, Phone: [phone] Performed at: [facility] [id number] Physicist Acoustics: Azalia Flores MD, Phone: [phone] [facility]SPATULA CERVIX ENDOCERVIX [facility] RECURRENT VAGINITIS (HTRX)on 02-28-2024 ATOPOBIUM VAGINAE [address] [facility] ATOPOBIUM VAGINAE Not detected [facility] BVAB 2,3 (BACTERIAL VAGINOSIS ASSOCIATED BACTERIA 2, 3); MOBILUNCUS SPP [address] [facility] BVAB 2,3 (BACTERIAL VAGINOSIS ASSOCIATED BACTERIA 2, 3); MOBILUNCUS SPP Not detected [facility] MARLA ALBICANS, PARAPSILOSIS, TROPICALIS 28.[address] [facility] MARLA ALBICANS, PARAPSILOSIS, TROPICALIS Detected Abnormal [facility] MARLA GLABRATA [address] [facility] MARLA GLABRATA Not detected [facility] MARLA KRUSEI [address] [facility] MARLA KRUSEI Not detected [facility] CHLAMYDIA TRACHOMATIS 0 [facility] CHLAMYDIA TRACHOMATIS Not detected N [facility] GARDNERELLA VAGINALIS 22.919 Abnormal [facility] GARDNERELLA VAGINALIS Detected Abnormal [facility] Interpretation and review of laboratory results Abnormal [facility] MEGASPHAERA (TYPES 1, 2) [address] [facility] MEGASPHAERA (TYPES 1, 2) Not detected [facility] MYCOPLASMA GENITALIUM 0 [facility] MYCOPLASMA GENITALIUM Not detected N [facility] NEISSERIA GONORRHOEAE 0 [facility] NEISSERIA GONORRHOEAE Not detected N [facility] TET B, TET M 24.[address] [facility] TET B, TET M Detected Abnormal [facility] TRICHOMONAS VAGINALIS 0 [facility] TRICHOMONAS VAGINALIS Not detected N [facility] Urinalysis macro (dipstick) panel (U)on 02-26-2024 Bilirubin, UA Negative Negative - 4(70) +++ mg/dL [facility] Blood, UA Positive Negative - 50 Missael/mcL [facility] Clarity, UA Clear [facility] Color, UA Yellow [facility] Glucose, UA Negative Negative - 1999(110) ++++ mg/dL [facility] Interpretation and review of laboratory results Abnormal [facility] Ketones, UA Negative Negative - 160(16) ++++ mg/dL [facility] Leukocytes, UA Trace Negative - 500+++ Philly/mcL [facility] Nitrite, UA Negative Negative - Positive [facility] pH, UA 7.5 5 - [address] [facility] Protein, UA Trace Negative - 1999(20) ++++ mg/dL [facility] Spec Grav, UA 1.02 1 - 1.[address] [facility] Urobilinogen, UA 1.0 0.2 - 12 mg/dL [facility] ALL CBC WITH AUTO DIFFon BASOPHILS ABSOLUTE AUTO 0 N [facility] Basophils/100 WBC (Bld) 0.1 % Low 0.2 - 2.0 % [facility] Eosinophils/100 WBC (Bld) 2.8 % 0.9 - 7.0 % [facility] Erythrocyte distribution width (RBC) [Ratio] 13 % 11.0 - 15.0 % [facility] Hematocrit (Bld) [Volume fraction] 34.4 % Low 36.0 - 48.0 % [facility] Hemoglobin (Bld) [Mass/Vol] 11.5 g/dL Low 12.0 - 16.0 g/dL [facility] IMMATURE GRANULOCYTES ABS AUTO 0.[address] [facility] Immature granulocytes/100 WBC (Bld) 0.8 % High 0.0 - 0.5 % [facility] Interpretation and review of laboratory results Abnormal [facility] LYMPHOCYTES ABSOLUTE AUTO 1.[address] [facility] Lymphocytes/100 WBC (Bld) 24.3 % 20.5 - 60.0 % [facility] MCH (RBC) [Entitic mass] 29.9 pg 26.7 - 34.[address] [facility] MCHC (RBC) [Mass/Vol] 33.4 g/dL 29.9 - 35.2 g/dL [facility] MCV (RBC) [Entitic vol] 89.6 fL 81.0 - 99.[address] [facility] MONOCYTES ABSOLUTE AUTO 0.4 N [facility] Monocytes/100 WBC (Bld) 4.9 % 1.7 - 12.0 % [facility] NEUTROPHILS ABSOLUTE AUTO 5.[address] [facility] Neutrophils/100 WBC (Bld) 67.1 % 43.0 - 75.0 % [facility] Platelet mean volume (Bld) [Entitic vol] 9.8 fL 9.5 - 13.[address] [facility] TBH EO # 0.[address] [facility]H PLT [address] [facility] RBC 3.[address] [facility] TB WBC 7.[address] [facility] Urinalysis macro (dipstick) panel (U)Ordered By: Lamar Delacruz on 01-29-2024 Bilirubin, UA Negative Negative - 4(70) +++ mg/dL [facility] Work Phone: Blood, UA Negative Negative - 50 Missael/mcL [facility] Work Phone: Clarity, UA Clear [facility] Work Phone: Color, UA Yellow [facility] Work Phone: Glucose, UA Negative Negative - 1999(110) ++++ mg/dL [facility] Work Phone: Interpretation and review of laboratory results Abnormal [facility] Work Phone: Ketones, UA Negative Negative - 160(16) ++++ mg/dL [facility] Work Phone: Leukocytes, UA Positive Negative - 500+++ Philly/mcL [facility] Work Phone: Comment on above: small Nitrite, UA Negative Negative - Positive [facility] [employer] Work Phone: pH, UA 6 5 - 9 [facility] [employer] Work Phone: Protein, UA Negative Negative - 1999(20) ++++ mg/dL [facility] [employer] Work Phone: Spec Grav, UA 1.025 1 - 1.03 [facility] [employer] Work Phone: Urobilinogen, UA 0.2 0.2 - 12 mg/dL [facility] [employer] Work Phone: [facility] [employer] Work Phone: Urine Cultureon 01-29-2024 Bacteria identified Cx Nom (U) <9,000 colonies/ml mixed bacterial skin contaminants 2 Days PERFORMED BY: [place] [address] PATHOLOGIST PHARMACY STOCK CLERK MARY REYES M.D. Normal [facility] Comment on above: Performed By: #### C UU #### [address] HCG ( test) Ql (U)o n 12-29-2023 Interpretation and review of laboratory results Abnormal [facility] Preg Test, Ur Positive Negative [facility] Urinalysis macro (dipstick) panel (U)on 12-29-2023 Bilirubin, UA Negative Negative - 4(70) +++ mg/dL [facility] Blood, UA Negative Negative - 50 Missael/mcL [facility] Clarity, UA Clear [facility] Color, UA Yellow [facility] Glucose, UA Negative Negative - 1999(110) ++++ mg/dL [facility] Interpretation and review of laboratory results Normal [facility] Ketones, UA Negative Negative - 160(16) ++++ mg/dL [facility] Leukocytes, UA Negative Negative - 500+++ Philly/mcL [facility] Nitrite, UA Negative Negative - Positive [facility] pH, UA 6 5 - [address] [facility] Protein, UA Negative Negative - 1999(20) ++++ mg/dL [facility] Spec Grav, UA 1.025 1 - 1.[address] [facility] Urobilinogen, UA 0.2 0.2 - 12 mg/dL [facility] CBC AUTO DIFFon 07-02-2022 BASO # 0.0 103/ul Normal 0.0-0.1 [facility] Comment on above: Performed By: #### G LU1HR #### [facility] [address] [address] [address] Shell Cadena Basophils/100 WBC (Bld) 0.1 % Critically low 0.2-2.0 [facility] Comment on above: Performed By: #### G LU1HR #### [facility] [address] [address] [address] Shell Cadena EO # 0.1 103/ul Normal 0.0-0.7 [facility] Comment on above: Performed By: #### G LU1HR #### [facility] [address] [address] [address] Shell Cadena Eosinophils/100 WBC (Bld) 0.7 % Critically low 0.9-7.0 [facility] Comment on above: Performed By: #### G LU1HR #### [facility] [address] [address] [address] Shell Cadena Erythrocyte distribution width (RBC) [Ratio] 13.2 % Normal 11.0-15.0 [facility] Comment on above: Performed By: #### G LU1HR #### [facility] [address] [place] [address] Dr. Shell Cadena Hematocrit (Bld) [Volume fraction] 29.9 % Critically low 36.0-48.0 [facility] Comment on above: Performed By: #### G LU1HR #### [facility] [address] [place] [address] Dr. Shlel aCdena Hemoglobin (Bld) [Mass/Vol] 9.9 g/dL Critically low 12.0-16.0 [facility] Comment on above: Performed By: #### G LU1HR #### [facility] [address] [place] [address] Dr. Shell Cadena IG # 0.10 10e3/ul Critically high 0.00-0.03 [facility] Comment on above: Performed By: #### G LU1HR #### [facility] [address] [place] [address] Dr. Shell Cadena IG % 0.7 % Critically high 0.0-0.5 [facility] Comment on above: Performed By: #### G LU1HR #### [facility] [address] [place] [address] Dr. Shell Cadena LYMPH # 2.7 103/ul Normal 1.2-3.8 [facility] Comment on above: Performed By: #### G LU1HR #### [facility] [address] [place] [address] Dr. Shell Cadena Lymphocytes/100 WBC (Bld) 18.4 % Critically low 20.5-60.0 [facility] Comment on above: Performed By: #### G LU1HR #### [facility] [address] [place] [address] Dr. Shell Cadena MANUAL DIFF REQ NO Normal [facility] Comment on above: Performed By: #### G LU1HR #### [facility] [address] [place] [address] Dr. Shell Cadena MCH (RBC) [Entitic mass] 29.1 pg Normal 26.7-34.0 [facility] Comment on above: Performed By: #### G LU1HR #### [facility] [address] [place] [address] Dr. Shell Cadena MCHC (RBC) [Mass/Vol] 33.1 g/dL Normal 29.9-35.2 [facility] Comment on above: Performed By: #### G LU1HR #### [facility] [address] [place] [address] Dr. Shell Cadena MCV (RBC) [Entitic vol] 87.9 fL Normal 81.0-99.0 [facility] Comment on above: Performed By: #### G LU1HR #### [facility] [address] [place] [address] Dr. Shell Cadena MONO # 0.9 103/ul Critically high 0.3-0.8 [facility] Comment on above: Performed By: #### G LU1HR #### [facility] [address] [place] [address] Dr. Shell Cadena Monocytes/100 WBC (Bld) 5.7 % Normal 1.7-12.0 [facility] Comment on above: Performed By: #### G LU1HR #### [facility] [address] [place] [address] Dr. Shell Cadena NEUT # 11.0 103/ul Critically high 1.4-6.5 [facility] Comment on above: Performed By: #### G LU1HR #### [facility] [address] [place] [address] Dr. Shell Cadena Neutrophils/100 WBC (Bld) 74.4 % Normal 43.0-75.0 [facility] Comment on above: Performed By: #### G LU1HR #### [facility] [address] [place] [address] Dr. Shell Cadena Platelet mean volume (Bld) [Entitic vol] 10.8 fL Normal 9.5-13.5 [facility] Comment on above: Performed By: #### G LU1HR #### [facility] [address] [place] [address] Dr. Shell Cadena PLT 411 103/ul Normal 150-450 [facility] Comment on above: Performed By: #### G LU1HR #### [facility] [address] [place] [address] Dr. Shell Cadena RBC 3.40 106/ul Critically low 4.20-5.40 [facility] Comment on above: Performed By: #### G LU1HR #### [facility] [address] [place] [address] Dr. Shell Cadena WBC 14.8 103/ul Critically high 4.0-11.0 [facility] Comment on above: Performed By: #### G LU1HR #### [facility] [address] [place] [address] Dr. Shell Cadena CULTURE URINEon 07-02-2022 CULTURE URINE Culture Observations: GREATER THAN TWO ORGANISMS PRESENT. PLEASE RESUBMIT CLEAN CATCH MID-STREAM URINE IF CLINICALLY INDICATED. Normal [facility] Comment on above: Performed By: #### U RCX #### [facility] [address] [place] [address] Dr. Shell Cadena CBC AUTO DIFFon 07-01-2022 BASO # 0.0 103/ul Normal 0.0-0.1 [facility] Comment on above: Performed By: #### N BOX #### [facility] [address] [place] [address] Dr. Shell Cadena Basophils/100 WBC (Bld) 0.2 % Normal 0.2-2.0 [facility] Comment on above: Performed By: #### N BOX #### [facility] [address] [place] [address] Dr. Shell Cadena EO # 0.2 103/ul Normal 0.0-0.7 [facility] Comment on above: Performed By: #### N BOX #### [facility] [address] [place] [address] Dr. Shell Cadena Eosinophils/100 WBC (Bld) 1.3 % Normal 0.9-7.0 [facility] Comment on above: Performed By: #### N BOX #### [facility] [address] [place] [address] Dr. Shell Cadena Erythrocyte distribution width (RBC) [Ratio] 13.2 % Normal 11.0-15.0 [facility] Comment on above: Performed By: #### N BOX #### [facility] [address] [place] [address] Dr. Shell Cadena Hematocrit (Bld) [Volume fraction] 34.7 % Critically low 36.0-48.0 [facility] Comment on above: Performed By: #### N BOX #### [facility] [address] [place] [address] Dr. Shell Cadena Hemoglobin (Bld) [Mass/Vol] 11.5 g/dL Critically low 12.0-16.0 [facility] Comment on above: Performed By: #### N BOX #### [facility] [address] [place] [address] Dr. Shell Cadena IG # 0.07 10e3/ul Critically high 0.00-0.03 [facility] Comment on above: Performed By: #### N BOX #### [facility] [address] [place] [address] Dr. Shell Cadena IG % 0.5 % Normal 0.0-0.5 [facility] Comment on above: Performed By: #### N BOX #### [facility] [address] [place] [address] Dr. Shell Cadena LYMPH # 2.4 103/ul Normal 1.2-3.8 [facility] Comment on above: Performed By: #### N BOX #### [facility] [address] [place] [address] Dr. Shell Cadena Lymphocytes/100 WBC (Bld) 18.9 % Critically low 20.5-60.0 [facility] Comment on above: Performed By: #### N BOX #### [facility] [address] [place] [address] Dr. Shell Cadena MANUAL DIFF REQ NO Normal [facility] Comment on above: Performed By: #### N BOX #### [facility] [address] [place] [address] Dr. Shell Cadena MCH (RBC) [Entitic mass] 28.8 pg Normal 26.7-34.0 [facility] Comment on above: Performed By: #### N BOX #### [facility] [address] [address] [address] Shell Cadena MCHC (RBC) [Mass/Vol] 33.1 g/dL Normal 29.9-35.2 [facility] Comment on above: Performed By: #### N BOX #### [facility] [address] [address] [address] Shell Cadena MCV (RBC) [Entitic vol] 87.0 fL Normal 81.0-99.0 [facility] Comment on above: Performed By: #### N BOX #### [facility] [address] [place] [address] Dr. Shell Cadena MONO # 0.8 103/ul Normal 0.3-0.8 [facility] Comment on above: Performed By: #### N BOX #### [facility] [address] [address] [address] Shell Cadena Monocytes/100 WBC (Bld) 6.5 % Normal 1.7-12.0 [facility] Comment on above: Performed By: #### N BOX #### [facility] [address] [place] [address] Dr. Shell Cadena NEUT # 9.4 103/ul Critically high 1.4-6.5 [facility] Comment on above: Performed By: #### N BOX #### [facility] [address] [address] [address] Shell Cadena Neutrophils/100 WBC (Bld) 72.6 % Normal 43.0-75.0 [facility] Comment on above: Performed By: #### N BOX #### [facility] [address] [address] [address] Shell Cadena Platelet mean volume (Bld) [Entitic vol] 10.7 fL Normal 9.5-13.5 [facility] Comment on above: Performed By: #### N BOX #### [facility] [address] [address] [address] Shell Cadena PLT 466 103/ul Critically high 150-450 [facility] Comment on above: Performed By: #### N BOX #### [facility] [address] [address] [address] Shell Cadena RBC 3.99 106/ul Critically low 4.20-5.40 [facility] Comment on above: Performed By: #### N BOX #### [facility] [address] [address] [address] Shell Cadena WBC 12.9 103/ul Critically high 4.0-11.0 [facility] Comment on above: Performed By: #### N BOX #### [facility] [address] [place] [address] Dr. Shell Cadena DRUG SCREEN RAPID (URINE)on 07-01-2022 AMP Negative Normal NEGATIVE [facility] Comment on above: Performed By: #### N BOX #### [facility] [address] [place] [address] Dr. Shell Cadena BAR Negative Normal NEGATIVE [facility] Comment on above: Performed By: #### N BOX #### [facility] [address] [place] [address] Dr. Shell Cadena BUP Negative Normal NEGATIVE [facility] Comment on above: Performed By: #### N BOX #### [facility] [address] [place] [address] Dr. Shell Cadena BZO Negative Normal NEGATIVE [facility] Comment on above: Performed By: #### N BOX #### [facility] [address] [place] [address] Dr. Shell Cadena PAMELA Negative Normal NEGATIVE [facility] Comment on above: Performed By: #### N BOX #### [facility] [address] [place] [address] Dr. Shell Cadena CUT-OFFS SEE BELOW Normal [facility] Comment on above: Result Comment: AMP [...] ng/mL Performed By: #### N BOX #### [facility] [address] [place] [address] Dr. Shell Cadena DRUG CUT HEADER DRUG CLASS TEST SYSTEM CUT-OFF CONCENTRATIONS ARE FOLLOWS: Normal [facility] Comment on above: Performed By: #### N BOX #### [facility] [address] [place] [address] Dr. Shell Cadena mAMP Negative Normal NEGATIVE [facility] Comment on above: Performed By: #### N BOX #### [facility] [address] [place] [address] Dr. Shell Cadena MTD Negative Normal NEGATIVE [facility] Comment on above: Performed By: #### N BOX #### [facility] [address] [place] [address] Dr. Shell Cadena OPI Negative Normal NEGATIVE [facility] Comment on above: Performed By: #### N BOX #### [facility] [address] [place] [address] Dr. Shell Cadena OXY Negative Normal NEGATIVE [facility] Comment on above: Performed By: #### N BOX #### [facility] [address] [place] [address] Dr. Shell Cadena PCP Negative Normal NEGATIVE [facility] Comment on above: Performed By: #### N BOX #### [facility] [address] [place] [address] Dr. Shell Cadena PPX Negative Normal NEGATIVE [facility] Comment on above: Performed By: #### N BOX #### [facility] [address] [place] [address] Dr. Shell Cadena TCA Negative Normal NEGATIVE [facility] Comment on above: Performed By: #### N BOX #### [facility] [address] [place] [address] Dr. Shell Cadena THC Positive Abnormal NEGATIVE The [facility] Comment on above: Performed By: #### N BOX #### [facility] [address] [place] [address] Dr. Shell Cadena TYPE AND SCREENon 07-01-2022 TYPE AND SCREEN Negative Normal [facility] Comment on above: Performed By: #### G LU1HR #### [facility] [address] [place] [address] Dr. Shell Cadena UA (CLEAN/CATCH) LAUNDRY PRESSER/MICRO I F IND.on 07-01-2022 Bilirubin Ql (U) Negative Normal NEGATIVE [facility] Comment on above: Performed By: #### U ACSIND, UMICRO #### [facility] [address] [place] [address] Dr. Shell Cadena Clarity (U) CLEAR Normal CLEAR The [facility] Comment on above: Performed By: #### U ACSIND, UMICRO #### [facility] [address] [place] [address] Dr. Shell Cadena Color (U) LT. YELLOW Normal YELLOW The [facility] Comment on above: Performed By: #### U ACSIND, ICRO #### [facility] [address] [place] [address] Dr. Shell Cadena Glucose Ql (U) Negative Normal NEGATIVE [facility] Comment on above: Performed By: #### U ACSIND, UMICRO #### [facility] [address] [place] [address] Dr. Shell Cadena Hemoglobin Ql (U) LARGE Abnormal NEGATIVE [facility] Comment on above: Performed By: #### U ACSIND, UMICRO #### [facility] [address] [place] [address] Dr. Shell Cadena Ketones Ql (U) Negative Normal NEGATIVE [facility] Comment on above: Performed By: #### U ACSIND, UMICRO #### [facility] [address] [place] [address] Dr. Shell Cadena LEUKOCYTES SMALL Abnormal NEGATIVE The [facility] Comment on above: Performed By: #### U ACSIND, UMICRO #### [facility] [address] [address] [address] Shell Cadena Nitrite Ql (U) Negative Normal NEGATIVE [facility] Comment on above: Performed By: #### U ACSIND, UMICRO #### [facility] [address] [address] [address] Shell Cadena pH (U) 6.5 [pH] Normal 5-9 [facility] Comment on above: Performed By: #### U ACSIND, UMICRO #### [facility] [address] [address] [address] Shell Cadena SPEC GRAVITY 1.020 Normal 1.005-<=1.025 [facility] Comment on above: Performed By: #### U ACSIND, UMICRO #### [facility] [address] [address] [address] Shell Cadena UA PROTEIN Negative Normal NEGATIVE/ TRACE The [facility] Comment on above: Performed By: #### U ACSIND, UMICRO #### [facility] [address] [address] [address] Shell Cadena UR MICRO IND INDICATED Normal [facility] Comment on above: Performed By: #### U ACSIND, UMICRO #### [facility] [address] [address] [address] Shell Cadena Urobilinogen Qn (U) 0.2 {Tabitha'U}/dL Normal 0.2 - 1. 0 [facility] Comment on above: Performed By: #### U ACSIND, UMICRO #### [facility] [address] [address] [address] Shell Cadena URINE MICROSCOPIC ONLYon BACTERIA TRACE Abnormal NONE SEEN The [facility] Comment on above: Performed By: #### U ACSIND, UMICRO #### [facility] [address] [address] [address] Shell Cadena Bacteria identified Cx Nom (U) INDICATED Normal [facility] Comment on above: Performed By: #### U ACSIND, UMICRO #### [facility] [address] [address] [address] Shell Cadena CAST NONE SEEN Normal NONE SEEN [facility] Comment on above: Performed By: #### U ACSTERRI, UMICRO #### [facility] [address] [address] [address] Shell Cadena Crystals LM Nom (Urine sed) NONE SEEN Normal NONE SEEN [facility] Comment on above: Performed By: #### U ACSTERRI, UMICRO #### [facility] [address] [address] [address] Shell Cadena Epithelial cells LM Ql (Urine sed) FEW Abnormal NONE SEEN /RARE The [facility] Comment on above: Performed By: #### U ACSTERRI, UMICRO #### [facility] [address] [place] [address] Dr. Shell Cadena MUCOUS NONE SEEN Normal NONE SEEN [facility] Comment on above: Performed By: #### U ACSTERRI, UMICRO #### [facility] [address] [place] [address] Dr. Shell Cadena RBC (U) [#/Vol] /uL Abnormal 0-2 [facility] Comment on above: Performed By: #### U ACSTERRI, UMICRO #### [facility] [address] [place] [address] Dr. Shell Cadena WBC 10-20 Abnormal NONE SEEN The [facility] Comment on above: Performed By: #### U ACSTERRI, UMICRO #### [facility] [address] [place] [address] Dr. Shell Cadena GROUP B STREP CULTUREon 06-06 S. agalactiae Ag Ql (Unsp spec) Culture Observations: NEGATIVE FOR GROUP B STREPTOCOCCUS. Normal The [facility] Comment on above: Performed By: #### G BSCX #### [facility] [address] [place] [address] Dr. Shell Cadena US PREG AMNIOTIC FLUID [...] by: VIC SOTO Date: 2022-05-26 15:21 Normal [facility] CBC AUTO DIFFon 04-23-2022 BASO # 0.0 103/ul Normal 0.0-0.1 [facility] Comment on above: Performed By: #### G LU1HR #### [facility] [address] [place] [address] Dr. Shell Cadena Basophils/100 WBC (Bld) 0.2 % Normal 0.2-2.0 [facility] Comment on above: Performed By: #### G LU1HR #### [facility] [address] [place] [address] Dr. Shell Cadena EO # 0.2 103/ul Normal 0.0-0.7 [facility] Comment on above: Performed By: #### G LU1HR #### [facility] [address] [place] [address] Dr. Shell Cadena Eosinophils/100 WBC (Bld) 2.1 % Normal 0.9-7.0 [facility] Comment on above: Performed By: #### G LU1HR #### [facility] [address] [place] [address] Dr. Shell Cadena Erythrocyte distribution width (RBC) [Ratio] 12.8 % Normal 11.0-15.0 [facility] Comment on above: Performed By: #### G LU1HR #### [facility] [address] [place] [address] Dr. Shell Cadena Hematocrit (Bld) [Volume fraction] 31.7 % Critically low 36.0-48.0 [facility] Comment on above: Performed By: #### G LU1HR #### [facility] [address] [place] [address] Dr. Shell Cadena Hemoglobin (Bld) [Mass/Vol] 10.7 g/dL Critically low 12.0-16.0 [facility] Comment on above: Performed By: #### G LU1HR #### [facility] [address] [place] [address] Dr. Shell Cadena IG # 0.09 10e3/ul Critically high 0.00-0.03 [facility] Comment on above: Performed By: #### G LU1HR #### [facility] [address] [place] [address] Dr. Shell Cadena IG % 0.8 % Critically high 0.0-0.5 [facility] Comment on above: Performed By: #### G LU1HR #### [facility] [address] [place] [address] Dr. Shell Cadena LYMPH # 2.0 103/ul Normal 1.2-3.8 [facility] Comment on above: Performed By: #### G LU1HR #### [facility] [address] [place] [address] Dr. Shell Cadena Lymphocytes/100 WBC (Bld) 18.1 % Critically low 20.5-60.0 [facility] Comment on above: Performed By: #### G LU1HR #### [facility] [address] [place] [address] Dr. Shell Cadena MANUAL DIFF REQ NO Normal [facility] Comment on above: Performed By: #### G LU1HR #### [facility] [address] [place] [address] Dr. Shell Cadena MCH (RBC) [Entitic mass] 30.4 pg Normal 26.7-34.0 [facility] Comment on above: Performed By: #### G LU1HR #### [facility] [address] [place] [address] Dr. Shell Cadena MCHC (RBC) [Mass/Vol] 33.8 g/dL Normal 29.9-35.2 [facility] Comment on above: Performed By: #### G LU1HR #### [facility] [address] [place] [address] Dr. Shell Cadena MCV (RBC) [Entitic vol] 90.1 fL Normal 81.0-99.0 [facility] Comment on above: Performed By: #### G LU1HR #### [facility] [address] [place] [address] Dr. Shell Cadena MONO # 0.7 103/ul Normal 0.3-0.8 [facility] Comment on above: Performed By: #### G LU1HR #### [facility] [address] [place] [address] Dr. Shell Cadena Monocytes/100 WBC (Bld) 6.1 % Normal 1.7-12.0 [facility] Comment on above: Performed By: #### G LU1HR #### [facility] [address] [place] [address] Dr. Shell Cadena NEUT # 7.9 103/ul Critically high 1.4-6.5 [facility] Comment on above: Performed By: #### G LU1HR #### [facility] [address] [place] [address] Dr. Shell Cadena Neutrophils/100 WBC (Bld) 72.7 % Normal 43.0-75.0 [facility] Comment on above: Performed By: #### G LU1HR #### [facility] [address] [place] [address] Dr. Shell Cadena Platelet mean volume (Bld) [Entitic vol] 10.4 fL Normal 9.5-13.5 [facility] Comment on above: Performed By: #### G LU1HR #### [facility] [address] [place] [address] Dr. Shell Cadena PLT 369 103/ul Normal 150-450 [facility] Comment on above: Performed By: #### G LU1HR #### [facility] [address] [place] [address] Dr. Shell Cadena RBC 3.52 106/ul Critically low 4.20-5.40 [facility] Comment on above: Performed By: #### G LU1HR #### [facility] [address] [place] [address] Dr. Shell Cadena WBC 10.9 103/ul Normal 4.0-11.0 [facility] Comment on above: Performed By: #### G LU1HR #### [facility] [address] [address] [address] Shell Cadena GLUCOSE - 1HRon 04-23-2022 Glucose [Mass/Vol] 117 mg/dL Critically high 74-106 T [facility] Comment on above: Performed By: #### G LU1HR #### [facility] [address] [address] [address] Shell Cadena UA (CLEAN/CATCH) LAUNDRY PRESSER/MICRO I F IND.on 04-20-2022 Bilirubin Ql (U) Negative Normal NEGATIVE [facility] Comment on above: Performed By: #### U ACSIND #### [facility] [address] [place] [address] Dr. Shell Cadena Clarity (U) CLEAR Normal CLEAR [facility] Comment on above: Performed By: #### U ACSIND #### [facility] [address] [address] [address] Shell Cadena Color (U) LT. YELLOW Normal YELLOW [facility] Comment on above: Performed By: #### U ACSIND #### [facility] [address] [address] [address] Shell Cadena Glucose Ql (U) Negative Normal NEGATIVE [facility] Comment on above: Performed By: #### U ACSIND #### [facility] [address] [address] [address] Shell Cadena Hemoglobin Ql (U) Negative Normal NEGATIVE [facility] Comment on above: Performed By: #### U ACSIND #### [facility] [address] [address] [address] Shell Cadena Ketones Ql (U) Negative Normal NEGATIVE [facility] Comment on above: Performed By: #### U ACSIND #### [facility] [address] [place] [address] Dr. Shell Cadena LEUKOCYTES Negative Normal NEGATIVE [facility] Comment on above: Performed By: #### U ACSIND #### [facility] [address] [place] [address] Dr. Shell Cadena Nitrite Ql (U) Negative Normal NEGATIVE [facility] Comment on above: Performed By: #### U ACSIND #### [facility] [address] [place] [address] Dr. Shell Cadena pH (U) 6.0 [pH] Normal 5-9 [facility] Comment on above: Performed By: #### U ACSIND #### [facility] [address] [place] [address] Dr. Shell Cadena SPEC GRAVITY 1.015 Normal 1.005-<=1.025 [facility] Comment on above: Performed By: #### U ACSIND #### [facility] [address] [place] [address] Dr. Shell Cadena UA PROTEIN Negative Normal NEGATIVE/ TRACE [facility] Comment on above: Performed By: #### U ACSIND #### [facility] [address] [place] [address] Dr. Shell Cadena UR MICRO IND NOT INDICATED Normal [facility] Comment on above: Performed By: #### U ACSIND #### [facility] [address] [place] [address] Dr. Shell Cadena Urobilinogen Qn (U) 0.2 {Tabitha'U}/dL Normal 0.2 - 1. 0 [facility] Comment on above: Performed By: #### U ACSIND #### [facility] [address] [place] [address] Dr. Shell Cadena US PREG ANATOMY SINGLEon [...] authenticated by: VIC SOTO Date: 2022-03-11 07:26 [facility] PAP ACOG PANEL 2: 21 to 27on 03-09-2022 . . Normal [facility] Comment on above: Result Comment: Perf ormed at: WB Performed By: #### N BOX #### [facility] [address] [place] [address] Dr. Shell Cadena Age Gdln ACOG Testing - [facility] Comment on above: Performed By: #### N BOX #### [facility] [address] [place] [address] Dr. Shell Cadena DIAGNOSIS: Comment [facility] Comment on above: Result Comment: NEGA TIVE FOR INTRAEPITHELIAL LESION OR MALIGNANCY. THIS SPECIMEN WAS RESCREENED PART OF OUR CUSTOMER SERVICE REP PROGRAM. Performed at: WB Performed By: #### N BOX #### [facility] [address] [address] [address] Shell Cadena Methodology: Comment [facility] Comment on above: Result Comment: This liquid based ThinPrep(R) pap test was screened with the use of an image guided system. Performed at: WB Performed By: #### N BOX #### [facility] [address] [place] [address] Dr. Shell Cadena Note: Comment Normal [facility] Comment on above: Result Comment: The [...] WB Performed By: #### N BOX #### [facility] [address] [address] [address] Shell Cadena Performed by: Comment Normal [facility] Comment on above: Result Comment: Hudson Roy, Airline Flight Attendant (ASCP) Performed at: [facility] Performed By: #### N BOX #### [facility] [address] [address] [address] Shell Cadena QC reviewed by: Comment Normal [facility] Comment on above: Result Comment: Han Quevedo, Airline Flight Attendant Performed at: WB Performed By: #### N BOX #### [facility] [address] [address] [address] Shell Cadena Reflex Criteria: Comment Normal [facility] Comment on above: Result Comment: The HPV DNA reflex criteria were not met with this specimen result therefore, no HPV testing was performed. . Performed at: WB Performed By: #### N BOX #### [facility] [address] [address] [address] Shell Cadena Specimen adequacy: Comment Normal [facility] Comment on above: Result Comment: Sati sfactory for evaluation. No endocervical component is identified. Performed at: WB Performed By: #### N BOX #### [facility] [address] [address] [address] Shell Cadena AFP MATERNAL FOR SPINA BIFID Aon 03-04-2022 AFP MoM 1.01 [facility] Comment on above: Performed By: #### N BOX #### [facility] [address] [address] [address] Shell Cadena AFP Value 61.7 ng/mL [facility] Comment on above: Performed By: #### N BOX #### [facility] [address] [address] [address] Shell Cadena AFP, Serum for Spina Bifida Report Normal [facility] Comment on above: Performed By: #### N BOX #### [facility] [address] [address] [address] Shell Cadena Comment Comment Normal [facility] Comment on above: Result Comment: Zen Messer, Ph.D., [facility] Director . References: Available Upon Request. . Multiples Of Median Cutoffs For AFP Elevations Silveira 2.5 Black 2.8 IDD 2.0 Twins 4.5 Abbreviation Definitions IDD - Insulin Dep Diabetes OSBR - Open Spina Bifida Risk . For further inquiries contact [facility] at [phone]. . This test was developed and its performance characteristics determined by [employer]. It has not been cleared or approved by the Food and Drug Administration. Performed By: #### N BOX #### [facility] [address] [place] [address] Dr. Shell Cadena Gest Age Collection Date 20.7 weeks Normal [facility] Comment on above: Performed By: #### N BOX #### [facility] [address] [place] [address] Dr. Shell Cadena Gestat, Age Based on LMP Normal [facility] Comment on above: Result Comment: 02/2021 Recalculations are not recommended when gestational dating by LMP and ultrasound are within 10 days. Performed By: #### N BOX #### [facility] [address] [place] [address] Dr. Shell Cadena Insulin Dep Diabetes No Normal [facility] Comment on above: Performed By: #### N BOX #### [facility] [address] [place] [address] Dr. Shell Cadena Interpretation Comment Normal [facility] Comment on above: Result Comment: Inte rpretation: [...] Customer Services to discuss available options. The [employer] recommends amniocentesis be offered to women age 35 and older. Performed By: #### N BOX #### [facility] [address] [place] [address] Dr. Shell Cadena [age] Normal [facility] Comment on above: Performed By: #### N BOX #### [facility] [facility] [address] [place] [address] Dr. Shell Cadena Multiple Gestation No Normal [facility] Comment on above: Performed By: #### N BOX #### [facility] [address] [place] [address] Dr. Shell [place] [id number] Normal [facility] Comment on above: Performed By: #### N BOX #### [facility] [address] [place] [address] Dr. Shell Cadena PDF . Normal [place] [facility] Comment on above: Performed By: #### N BOX #### [facility] [address] [address] [address] Shell Cadena Race Normal [place] [facility] Comment on above: Performed By: #### N BOX #### [facility] [address] [place] [address] Dr. Shell Cadena Test Results: Negative Normal [facility] Comment on above: Performed By: #### N BOX #### [facility] [address] [place] [address] Dr. Shell Cadena CHLAMYDIA/GONOCOCCUS FERNANDO (SW AB/URINE/PAPon 03-03-2022 Chlamydia trachomatis, FERNANDO Negative Normal Negative [facility] Comment on above: Performed By: #### N BOX #### [facility] [address] [place] [address] Dr. Shell Cadena Neisseria gonorrhoeae, FERNANDO Negative Normal Negative [place] [facility] Comment on above: Performed By: #### N BOX #### [facility] [address] [place] [address] Dr. Shell Cadena VAGINITIS/VAGINOSIS DNA PROB Eddie 03-03-2022 Marla species Negative Normal Negative [facility] Comment on above: Performed By: #### G LU1HR #### [facility] [address] [place] [address] Dr. Shell Cadena Gardnerella vaginalis Negative Normal Negative [facility] Comment on above: Performed By: #### G LU1HR #### [facility] [address] [place] [address] Dr. Shell Cadena Trichomonas vaginalis Negative Normal Negative [place] [facility] Comment on above: Performed By: #### G LU1HR #### [facility] [address] [place] [address] Dr. Shell Cadena HEP B SURFACE ANTIGEN SCREEN on 01-05-2022 HBsAg Screen Negative Normal Negative [place] [facility] Comment on above: Performed By: #### H BSANS #### [facility] [address] [place] [address] Dr. Shell Cadena HEPATITIS C VIRUS AB W/ REFL EX QUANTon 01-05-2022 HCV AB <0.1 Normal 0.0-0.9 [facility] Comment on above: Performed By: #### H CVPCRR #### [facility] [address] [place] [address] Dr. Shell Cadena Interpretation: Comment Normal [facility] Comment on above: Result Comment: Nega tive Not infected with HCV, unless recent infection is suspected or other evidence exists to indicate HCV infection. Performed By: #### H CVPCRR #### [facility] [address] [place] [address] Dr. Shell Cadena HIV 1 AND 2 WITH REFLEXon HIV Screen 4th Generation wRfx Non-Reactive Normal Non Reactive [facility] Comment on above: Result Comment: HIV Negative HIV-1/HIV-2 antibodies and HIV-1 p24 antigen were NOT detected. There is no laboratory evidence of HIV infection. Performed By: #### G LU1HR #### [facility] [address] [place] [address] Dr. Shell Cadena RPR QUANTon 01-05-2022 Rapid Plasma Reagin, Quant Non-Reactive Normal NonRea<1:1 [facility] Comment on above: Result Comment: Margot de Note: This test does not meet current guidelines for screening and diagnosis of syphilis. This test is intended for following treatment response in patients being treated for syphilis infection. To screen for syphilis infection, a reflex cascade that includes both RPR and a treponema-specific assay should be utilized, such as Treponema pallidum (Syphilis) Screening [place] (651565) or Rapid Plasma Reagin (RPR) Test With Reflex to Quantitative RPR and Confirmatory Treponema pallidum Antibodies (613623). Performed By: #### N BOX #### [facility] [address] [place] [address] Dr. Shell Cadena RUBELLA AB IGGon 01-05-2022 Rubella Antibodies, IgG 2.83 index Normal Immune >0.99 [place] [facility] Comment on above: Result Comment: Non- immune <0.90 Equivocal 0.90 - 0.99 Immune >0.99 Performed By: #### N BOX #### [facility] [address] [place] [address] Dr. Shell Cadena CBC AUTO DIFFon 01-04-2022 BASO # 0.0 103/ul Normal 0.0-0.1 [place] [facility] Comment on above: Performed By: #### C BC #### [facility] [address] [place] [address] Dr. Shell Cadena Basophils/100 WBC (Bld) 0.1 % Critically low 0.2-2.0 [facility] Comment on above: Performed By: #### C BC #### [facility] [address] [place] [address] Dr. Shell Cadena EO # 0.3 103/ul Normal 0.0-0.7 [facility] Comment on above: Performed By: #### C BC #### [facility] [address] [place] [address] Dr. Shell Cadena Eosinophils/100 WBC (Bld) 3.5 % Normal 0.9-7.0 [facility] Comment on above: Performed By: #### C BC #### [facility] [address] [place] [address] Dr. Shell Cadena Erythrocyte distribution width (RBC) [Ratio] 12.4 % Normal 11.0-15.0 [place] [facility] Comment on above: Performed By: #### C BC #### [facility] [address] [place] [address] Dr. Shell Cadena Hematocrit (Bld) [Volume fraction] 34.8 % Critically low 36.0-48.0 [place] [facility] Comment on above: Performed By: #### C BC #### [facility] [address] [place] [address] Dr. Shell Cadena Hemoglobin (Bld) [Mass/Vol] 12.0 g/dL Normal 12.0-16.0 [place] [facility] Comment on above: Performed By: #### C BC #### [facility] [address] [place] [address] Dr. Shell Cadena IG # 0.03 10e3/ul Normal 0.00-0.03 [place] [facility] Comment on above: Performed By: #### C BC #### [facility] [address] [place] [address] Dr. Shell Cadena IG % 0.4 % Normal 0.0-0.5 [place] [facility] Comment on above: Performed By: #### C BC #### [facility] [address] [place] [address] Dr. Shell Cadena LYMPH # 1.5 103/ul Normal 1.2-3.8 [facility] Comment on above: Performed By: #### C BC #### [facility] [address] [place] [address] Dr. Shell Cadena Lymphocytes/100 WBC (Bld) 20.5 % Normal 20.5-60.0 [place] [facility] Comment on above: Performed By: #### C BC #### [facility] [address] [place] [address] Dr. Shell Cadena MANUAL DIFF REQ NO Normal [facility] Comment on above: Performed By: #### C BC #### [facility] [address] [place] [address] Dr. Shell Cadena MCH (RBC) [Entitic mass] 29.6 pg Normal 26.7-34.0 [facility] Comment on above: Performed By: #### C BC #### [facility] [address] [place] [address] Dr. Shell Cadena MCHC (RBC) [Mass/Vol] 34.5 g/dL Normal 29.9-35.2 [facility] Comment on above: Performed By: #### C BC #### [facility] [address] [place] [address] Dr. Shell Cadena MCV (RBC) [Entitic vol] 85.9 fL Normal 81.0-99.0 [facility] Comment on above: Performed By: #### C BC #### [facility] [address] [place] [address] Dr. Shell Cadena MONO # 0.4 103/ul Normal 0.3-0.8 [facility] Comment on above: Performed By: #### C BC #### [facility] [address] [place] [address] Dr. Shell Cadena Monocytes/100 WBC (Bld) 6.0 % Normal 1.7-12.0 [facility] Comment on above: Performed By: #### C BC #### [facility] [address] [place] [address] Dr. Shell Cadena NEUT # 5.0 103/ul Normal 1.4-6.5 [facility] Comment on above: Performed By: #### C BC #### [facility] [address] [place] [address] Dr. Shell Cadena Neutrophils/100 WBC (Bld) 69.5 % Normal 43.0-75.0 [facility] Comment on above: Performed By: #### C BC #### [facility] [address] [place] [address] Dr. Shell Cadena Platelet mean volume (Bld) [Entitic vol] 10.1 fL Normal 9.5-13.5 [facility] Comment on above: Performed By: #### C BC #### [facility] [address] [place] [address] Dr. Shell Cadena PLT 364 103/ul Normal 150-450 [facility] Comment on above: Performed By: #### C BC #### [facility] [address] [place] [address] Dr. Shell Cadena RBC 4.05 106/ul Critically low 4.20-5.40 [facility] Comment on above: Performed By: #### C BC #### [facility] [address] [place] [address] Dr. Shell Cadena WBC 7.2 103/ul Normal 4.0-11.0 [facility] Comment on above: Performed By: #### C BC #### [facility] [address] [place] [address] Dr. Shell Cadena CULTURE URINEon 01-04-2022 CULTURE URINE Culture Observations: NO GROWTH. Normal [facility] Comment on above: Performed By: #### G LU1HR #### [facility] [address] [place] [address] Dr. Shell Cadena GLYCOHEMOGLOBIN A1Con 2021 ADA RECOMMENDATION SEE BELOW Normal [facility] Comment on above: Result Comment: ADA RECOMMENDED LIMIT 4.0 - 6.0 ADA THERAPEUTIC TARGET < 7.0 ACTION SUGGESTED > 7.0 Performed By: #### N BOX #### [facility] [address] [place] [address] Dr. Shell Cadena Glucose [Mass/Vol] 91 mg/dL Normal [facility] Comment on above: Performed By: #### N BOX #### [facility] [address] [place] [address] Dr. Shell Cadena HbA1c (Bld) [Mass fraction] 4.8 % Normal 4.5-6.2 [facility] Comment on above: Performed By: #### N BOX #### [facility] [address] [place] [address] Dr. Shell Cadena ISIS BOX TEST PT SEND OUTo n 01-04-2022 SENT TO REF LAB 01/04/2022 Normal [facility] Comment on above: Performed By: #### N BOX #### [facility] [address], [place] [address] Dr. Shell Cadena TYPE AND SCREENon 01-04-2022 TYPE AND SCREEN Negative Normal [facility] Comment on above: Performed By: #### G LU1HR #### [facility] [address], [place] [address] Dr. Shell Cadena US PREG TVon 12-10-2021 [...] AMIE CABRERA Date: 2021-12-10 17:08 Normal [facility] Chanelle Pierre Panelon 021 EBV (VCA) Ab, IgG 1296 U/mL High <100 [facility] Comment on above: Performed By: #### H IVCMB, PHEP, CRP, ANAX, EBVPRO #### [address] [id number] Phys[employer]ist [employer]: Sebastian Roman MD #### CP, SED, TSHX, CDP, HCG #### [facility] [address] [place] [address] Physicist [employer]oust[employer]: Amie Urrutia MD EBV (VCA) Ab, IgM 15 U/mL Normal <100 [facility] Comment on above: Performed By: #### H IVCMB, PHEP, CRP, ANAX, EBVPRO #### [address] [place], [place] [id number] Phys[employer]ist [employer]: Sebastian Roman MD #### CP, SED, TSHX, CDP, HCG #### [facility] [address] [place], [place] [id number] Phys[employer]ist [employer]oust[employer]: Amie Urrutia MD EBV Early Ab, IgG 76 U/mL Normal <100 [facility] Comment on above: Performed By: #### H IVCMB, PHEP, CRP, ANAX, EBVPRO #### [facility] [address] [place], [place] [id number] Physicist [employer]oust[employer]: Sebastian Roman MD #### CP, SED, TSHX, CDP, HCG #### [facility] [address] [place] [address] Physicist [employer]oust[employer]: Amie Urrutia MD EBV Interpretation (NOTE) Normal [facility] Comment on above: Result Comment: Reference [...] H IVCMB, PHEP, CRP, ANAX, EBVPRO #### [facility] [address] [place], [place] [id number] Physicist [employer]oust[employer]: Sebastian Roman MD #### CP, SED, TSHX, CDP, HCG #### [facility] [address] [place], [place] [address] Phys[employer]ist [employer]: Amie Urrutia MD EBV Nuclear Ab, IgG 416 U/mL High <100 [facility] Comment on above: Performed By: #### H IVCMB, PHEP, CRP, ANAX, EBVPRO #### [address] [id number] Phys[employer]ist [employer]: Sebastian Roman MD #### CP, SED, TSHX, CDP, HCG #### [facility] [address] [place] [id number] Physicist [employer]oust[employer]: Amie Urrutia MD NAS Screen w/reflexon 2020 NAS Screen Negative Normal NEG [facility] Comment on above: Performed By: #### H IVCMB, PHEP, CRP, ANAX, EBVPRO #### [address] [id number] Phys[employer]ist [employer]: Sebastian Roman MD #### CP, SED, TSHX, CDP, HCG #### [facility] [address] [place] [id number] Phys[employer]ist [employer]: Amie Urrutia MD Anti-dsDNA 0.7 IU/mL Normal <10.0 [facility] Comment on above: Result Comment: Reference Range: <10.0 Negative 10.0-15.0 Equivocal >15.0 Positive Performed By: #### H IVCMB, PHEP, CRP, ANAX, EBVPRO #### [address] [id number] Phys[employer]ist [employer]: Sebastian Roman MD #### CP, SED, TSHX, CDP, HCG #### [facility] [address] [place] [id number] Phys[employer]ist [employer]oust[employer]: Amie Urrutia MD RAJ Screen 0.2 U/mL Normal <0.7 [facility] Comment on above: Result Comment: Reference Range: <0.7 Negative 0.7-1.0 Equivocal >1.0 Positive RAJ Screen includes U1RNP,RNP70,Sm,Ro(SS-A),La(SS-B),CENP,Scl-70,Molly-1 Performed By: #### H IVCMB, PHEP, CRP, ANAX, EBVPRO #### [facility] [employer] [address] [place], [place] [id number] Physicist Acoustics: Sebastian Roman MD #### CP, SED, TSHX, CDP, HCG #### [facility] [address] [place] [address] Physicist [employer]oust[employer]: Amie Urrutia MD C-Reactive Proteinon CRP [Mass/Vol] mg/L Normal 0.0-5.0 [facility] [place] Comment on above: Performed By: #### H IVCMB, PHEP, CRP, ANAX, EBVPRO #### [address] [id number] Phys[employer]ist [employer]oust[employer]: Sebastian Roman MD #### CP, SED, TSHX, CDP, HCG #### [facility] [address] [place] [address] Physicist [employer]oust[employer]: Amie Urrutia MD Food, Comprehensiveon 2020 Barley IgE <0.10 Normal 0.00-0.34 [facility] Comment on above: Result Comment: ALLERGEN, [...] H IVCMB, PHEP, CRP, ANAX, EBVPRO #### [facility] [employer] [facility] [place], [place] [address] Physicist [employer]oust[employer]: Sebastian Roman MD #### CP, SED, TSHX, CDP, HCG #### [facility] [address] [place] [id number] Phys[employer]ist [employer]: Amie Urrutia MD Beef IgE <0.10 Normal 0.00-0.34 [facility] Comment on above: Performed By: #### H IVCMB, PHEP, CRP, ANAX, EBVPRO #### [address] [id number] Phys[employer]ist [employer]: Sebastian Roman MD #### CP, SED, TSHX, CDP, HCG #### [facility] [address] [place] [address] Physicist [employer]oust[employer]: Amie Urrutia MD Cabbage IgE <0.10 Normal 0.00-0.34 [facility] Comment on above: Performed By: #### H IVCMB, PHEP, CRP, ANAX, EBVPRO #### [address] [id number] Phys[employer]ist [employer]: Sebastian Roman MD #### CP, SED, TSHX, CDP, HCG #### [facility] [address] [place] [id number] Physicist [employer]oust[employer]: Amie Urrutia MD Carrot IgE <0.10 Normal 0.00-0.34 [facility] Comment on above: Performed By: #### H IVCMB, PHEP, CRP, ANAX, EBVPRO #### [address] [id number] Phys[employer]ist [employer]: Sebastian Roman MD #### CP, SED, TSHX, CDP, HCG #### [facility] [address] [place] [id number] Physicist [employer]oust[employer]: Amie Urrutia MD Chicken IgE <0.10 Normal 0.00-0.34 [facility] Comment on above: Performed By: #### H IVCMB, PHEP, CRP, ANAX, EBVPRO #### [address] [id number] Physicist [employer]oust[employer]: Sebastian Roman MD #### CP, SED, TSHX, CDP, HCG #### [facility] [address] [place], [place] [id number] Physicist Acoust[employer]: Amie Urrutia MD Codfish IgE <0.10 Normal 0.00-0.34 [facility] Comment on above: Performed By: #### H IVCMB, PHEP, CRP, ANAX, EBVPRO #### [address] [id number] Physicist [employer]oust[employer]: Sebastian Roman MD #### CP, SED, TSHX, CDP, HCG #### [facility] [address] [place] [id number] Physicist [employer]oust[employer]: Amie Urrutia MD [place] IgE <0.10 Normal 0.00-0.34 [facility] Comment on above: Performed By: #### H IVCMB, PHEP, CRP, ANAX, EBVPRO #### [address] [id number] Phys[employer]ist [employer]: Sebastian Roman MD #### CP, SED, TSHX, CDP, HCG #### [facility] [address] [place] [address] Physicist [employer]oust[employer]: Amie Urrutia MD Crab IgE <0.10 Normal 0.00-0.34 [facility] Comment on above: Performed By: #### H IVCMB, PHEP, CRP, ANAX, EBVPRO #### [address] [id number] Phys[employer]ist [employer]: Sebastian Roman MD #### CP, SED, TSHX, CDP, HCG #### [facility] [address] [place] [address] Physicist Acoust[employer]: Amie Urrutia MD Egg White IgE <0.10 Normal 0.00-0.34 [facility] Comment on above: Performed By: #### H IVCMB, PHEP, CRP, ANAX, EBVPRO #### [address] [id number] Physicist [employer]oust[employer]: Sebastian Rmoan MD #### CP, SED, TSHX, CDP, HCG #### [facility] [address] [place] [id number] Physicist Acoustics: Amie Urrutia MD Grape IgE <0.10 Normal 0.00-0.34 [facility] Comment on above: Performed By: #### H IVCMB, PHEP, CRP, ANAX, EBVPRO #### [address] [id number] Phys[employer]ist [employer]oust[employer]: Sebastian Roman MD #### CP, SED, TSHX, CDP, HCG #### [facility] [address] [place] [phone] Physicist Acoustics: Amie Urrutia MD Lettuce IgE <0.10 Normal 0.00-0.34 [facility] Comment on above: Performed By: #### H IVCMB, PHEP, CRP, ANAX, EBVPRO #### [address] [id number] Physicist [employer]oust[employer]: Sebastian Roman MD #### CP, SED, TSHX, CDP, HCG #### [facility] [address] [place] [phone] Physicist Acoustics: Amie Urrutia MD Milk (Cow) IgE <0.10 Normal 0.00-0.34 [facility] [place] Comment on above: Performed By: #### H IVCMB, PHEP, CRP, ANAX, EBVPRO #### [address] [id number] Physicist [employer]oust[employer]: Sebastian Roman MD #### CP, SED, TSHX, CDP, HCG #### [facility] [address] [place], [place] 290[address] Physicist Acoustics: Amie Urrutia MD [place] IgE <0.10 Normal 0.00-0.34 [facility] Comment on above: Performed By: #### H IVCMB, PHEP, CRP, ANAX, EBVPRO #### [address] [id number] Physicist [employer]oust[employer]: Sebastian Roman MD #### CP, SED, TSHX, CDP, HCG #### [facility] [address] [place], [place] [address] Physicist Acoustics: Amie Urrutia MD Oat IgE <0.10 Normal 0.00-0.34 [facility] Comment on above: Performed By: #### H IVCMB, PHEP, CRP, ANAX, EBVPRO #### [address] [id number] Physicist [employer]: Sebastian Roman MD #### CP, SED, TSHX, CDP, HCG #### [facility] [address] [place] [address] Physicist Acoustics: Amie Urrutia MD [place] IgE <0.10 Normal 0.00-0.34 [facility] Comment on above: Performed By: #### H IVCMB, PHEP, CRP, ANAX, EBVPRO #### [address] [id number] Physicist [employer]oust[employer]: Sebastian Roman MD #### CP, SED, TSHX, CDP, HCG #### [facility] [address] [place] [address] Physicist Acoustics: Amie Urrutia MD Peanut IgE <0.10 Normal 0.00-0.34 [facility] Comment on above: Performed By: #### H IVCMB, PHEP, CRP, ANAX, EBVPRO #### [address] [id number] Physicist [employer]oust[employer]: Sebastian Roman MD #### CP, SED, TSHX, CDP, HCG #### [facility] [address] [place] [id number] Physicist [employer]oust[employer]: MD Jaz Bran Oneil owen IgE <0.10 Normal 0.00-0.34 [facility] Comment on above: Performed By: #### H IVCMB, PHEP, CRP, ANAX, EBVPRO #### [address] [id number] Physicist [employer]oust[employer]: Sebastian Roman MD #### CP, SED, TSHX, CDP, HCG #### [facility] [address] [place] [address] Physicist Acoustics: Amie Urrutia MD Pork IgE <0.10 Normal 0.00-0.34 [facility] Comment on above: Performed By: #### H IVCMB, PHEP, CRP, ANAX, EBVPRO #### [address] [id number] Physicist [employer]oust[employer]: Sebastian Roman MD #### CP, SED, TSHX, CDP, HCG #### [facility] [address] [place] [phone] Physicist Acoustics: Amie Urrutia MD Potato IgE <0.10 Normal 0.00-0.34 [facility] Comment on above: Performed By: #### H IVCMB, PHEP, CRP, ANAX, EBVPRO #### [address] [id number] Physicist [employer]oust[employer]: Sebastian Roman MD #### CP, SED, TSHX, CDP, HCG #### [facility] [address] [place] [id number] Physicist Acoustics: Amie Urrutia MD Rice IgE <0.10 Normal 0.00-0.34 [facility] Comment on above: Performed By: #### H IVCMB, PHEP, CRP, ANAX, EBVPRO #### [address] [id number] Physicist Acoustics: Sebastian Roman MD #### CP, SED, TSHX, CDP, HCG #### [facility] [address] [place] [id number] Physicist Acoustics: Amie Urrutia MD [place] IgE <0.10 Normal 0.00-0.34 [facility] Comment on above: Performed By: #### H IVCMB, PHEP, CRP, ANAX, EBVPRO #### [address] [id number] Physicist [employer]oust[employer]: Sebastian Roman MD #### CP, SED, TSHX, CDP, HCG #### [facility] [address] [place] [id number] Physicist Acoustics: Amie Urrutia MD Shrimp IgE <0.10 Normal 0.00-0.34 [facility] Comment on above: Performed By: #### H IVCMB, PHEP, CRP, ANAX, EBVPRO #### [place] [id number] Physicist [employer]: Sebastian Roman MD #### CP, SED, TSHX, CDP, HCG #### [facility] [address] [place] [id number] Physicist Acoustics: Amie Urrutia MD Soybean IgE <0.10 Normal 0.00-0.34 [facility] Comment on above: Performed By: #### H IVCMB, PHEP, CRP, ANAX, EBVPRO #### [place] [id number] Physicist [employer]: Sebastian Roman MD #### CP, SED, TSHX, CDP, HCG #### [facility] [address] [place] [id number] Physicist Acoustics: Amie Urrutia MD Tomato IgE <0.10 Normal 0.00-0.34 [facility] Comment on above: Performed By: #### H IVCMB, PHEP, CRP, ANAX, EBVPRO #### [address] [id number] Physicist [employer]oustics: Sebastian Roman MD #### CP, SED, TSHX, CDP, HCG #### [facility] [address] [place] [id number] Physicist Acoustics: Amie Urrutia MD Tuna IgE <0.10 Normal 0.00-0.34 [facility] Comment on above: Performed By: #### H IVCMB, PHEP, CRP, ANAX, EBVPRO #### [address] [id number] Physicist [employer]oust[employer]: Sebastian Roman MD #### CP, SED, TSHX, CDP, HCG #### [facility] [address] [place] [id number] Physicist Acoustics: Amie Urrutia MD Wheat IgE <0.10 Normal 0.00-0.34 [facility] Comment on above: Performed By: #### H IVCMB, PHEP, CRP, ANAX, EBVPRO #### [address] [id number] Physicist [employer]oust[employer]: Sebastian Roman MD #### CP, SED, TSHX, CDP, HCG #### [facility] [address] [place] [id number] Physicist Acoust[employer]: Amie Urrutia MD Immunoglobulin E 41 IU/mL Normal <101 [facility] Comment on above: Performed By: #### H IVCMB, PHEP, CRP, ANAX, EBVPRO #### [address] [id number] Physicist [employer]oust[employer]: Sebastian Roman MD #### CP, SED, TSHX, CDP, HCG #### [facility] [address] [place], [place] 338[address] Physicist Acoust[employer]: Amie Urrutia MD HIV Ag/Abon 10-27-2020 HIV Ag/Ab Non-Reactive Normal NR [facility] Comment on above: Result Comment: No l aboratory evidence of HIV infection. If acute HIV infection is suspected, consider testing for HIV-1 RNA. Performed By: #### H IVCMB, PHEP, CRP, ANAX, EBVPRO #### [address] [id number] Physicist Acoustics: Sebastian Roman MD #### CP, SED, TSHX, CDP, HCG #### [facility] [address] [place], [place] [id number] Physicist Acoustics: Amie Urrutia MD Hepatitis Acute [facility] 10-27 Hep A Ab,IgM Non-Reactive Normal NR [facility] Comment on above: Performed By: #### H IVCMB, PHEP, CRP, ANAX, EBVPRO #### [address] [address] Physicist Acoustics: Sebastian Roman MD #### CP, SED, TSHX, CDP, HCG #### [facility] [address] [place], [place] 03154[address] Physicist Acoustics: Amie Urrutia MD Hep B Core Ab,IgM Non-Reactive Normal [facility] Comment on above: Performed By: #### H IVCMB, PHEP, CRP, ANAX, EBVPRO #### [address] [id number] Physicist Acoustics: Sebastian Roman MD #### CP, SED, TSHX, CDP, HCG #### [facility] [address] [place], [place] [id number] Physicist Acoustics: Amie Urrutia MD Hep B Surf Ag Non-Reactive Normal NR [facility] Comment on above: Performed By: #### H IVCMB, PHEP, CRP, ANAX, EBVPRO #### [facility] [address] [place], [place] [id number] Physicist Acoustics: Sebastian Roman MD #### CP, SED, TSHX, CDP, HCG #### [facility] [address] [place] [address] Physicist Acoustics: Amie Urrutia MD Hep C Ab Non-Reactive Normal NR [facility] Comment on above: Result Comment: The hepatitis [...] H IVCMB, PHEP, CRP, ANAX, EBVPRO #### [facility] [address] [place], [place] 1396[address] Physicist Acoustics: Sebastian Roman MD #### CP, SED, TSHX, CDP, HCG #### [facility] [address] [place] [address] Physicist Acoustics: Amie Urrutia MD C-Reactive ProteinOrdered By : Dipti Quinones on 10-26-2020 CRP [Mass/Vol] mg/L 0.0 - 5.0 mg/L [facility] Work Phone: [facility] Work Phone: CBC Auto DifferentialOrdered By: Dipti Quinones on 10-26-2020 [employer] # 0.20 [facility] Work Phone: Absolute Immature Granulocyte NOT REPORTED [facility] Work Phone: Absolute Lymph # 2.30 [facility] Work Phone: Absolute Taylor # 0.[address] [facility] Work Phone: Basophils (Bld) [#/Vol] 0.00 10*3/uL [facility] Work Phone: Basophils/100 WBC (Bld) 0 % 0 - 2 % M [employer] Work Phone: Differential Type YES [employer] Work Phone: Eosinophils/100 WBC (Bld) 3 % 0 - 5 % [employer] Phone: Hematocrit (Bld) [Volume fraction] 39.0 % 36 - 46 % [employer] Phone: Hemoglobin.gastrointest inal spec 1 Ql (Stl) 13.3 g/dL 12.0 - 16.0 g/dL [employer] Phone: Immature Granulocytes NOT REPORTED 0 % [employer] Phone: Lymphocytes/100 WBC (Bld) 30 % 15 - 40 % [employer] Phone: MCH (RBC) [Entitic mass] 29.8 pg 26 - 34 pg [employer] Phone: MCHC (RBC) [Mass/Vol] 34.2 g/dL 31 - 37 g/dL [employer] Phone: MCV (RBC) [Entitic vol] 87.0 fL 80 - 100 fL [employer] Phone: Monocytes/100 WBC (Bld) 6 % 4 - 8 % [employer] Phone: NRBC Automated NOT REPORTED per 100 WBC [employer] Work Phone: Platelet distribution width (Bld) [Ratio] 13.4 % 12.1 - 15.2 % [employer] Phone: Platelet Estimate NOT REPORTED [employer] Phone: Platelet mean volume (Bld) [Entitic vol] NOT REPORTED 6.0 - 12.0 fL [employer] Phone: Platelets (Bld) [#/Vol] 403 10*3/uL [employer] Phone: RBC (Bld) [#/Vol] 4.48 10*6/uL 4.0 - 5.2 m/uL [facility] Work Phone: RBC (Bld) [#/Vol] NOT REPORTED [facility] Phone: Segmented neutrophils/100 WBC (Bld) 61 % 47 - 75 % [facility] Work Phone: Segs Absolute 4.60 [facility] [employer] Work Phone: WBC (Bld) [#/Vol] 7.6 10*3/uL [facility] Work Phone: WBC (Bld) [#/Vol] NOT REPORTED [facility] Phone: [facility] Work Phone: CBC with Diffon 10-26-2020 Abs. Basophil 0.00 k/uL Normal 0.0-0.2 [facility] Comment on above: Performed By: #### H IVCMB, PHEP, CRP, ANAX, EBVPRO #### [place] [address] Physicist Acoustics: Sebastian Roman MD #### CP, SED, TSHX, CDP, HCG #### [facility] [address] [place] [address] Physicist Acoustics: Amie Urrutia MD Abs.Neutrophil (Seg) 4.60 k/uL Normal 2.5-7.0 [facility] Comment on above: Performed By: #### H IVCMB, PHEP, CRP, ANAX, EBVPRO #### [place] [id number] Physicist Acoustics: Sebastian Roman MD #### CP, SED, TSHX, CDP, HCG #### [facility] [address] [place] [id number] Physicist Acoustics: Amie Urrutia MD Auto Diff Performed YES Normal [facility] Comment on above: Performed By: #### H IVCMB, PHEP, CRP, ANAX, EBVPRO #### [address] [id number] Physicist Acoustics: Sebastian Roman MD #### CP, SED, TSHX, CDP, HCG #### [facility] [address] [place] 275[address] Physicist Acoustics: Amie Urrutia MD Basophils/100 WBC (Bld) 0 % Normal 0-2 M [facility] Comment on above: Performed By: #### H IVCMB, PHEP, CRP, ANAX, EBVPRO #### [address] [id number] Physicist Acoustics: Sebastian Roman MD #### CP, SED, TSHX, CDP, HCG #### [facility] [address] [place] [address] Physicist Acoustics: Amie Urrutia MD Eosinophils (Bld) [#/Vol] 0.20 10*3/uL Normal 0.0-0.4 [facility] Comment on above: Performed By: #### H IVCMB, PHEP, CRP, ANAX, EBVPRO #### [address] [id number] Physicist Acoustics: Sebastian Roman MD #### CP, SED, TSHX, CDP, HCG #### [facility] [address] [place], [place] 1141090 Physicist Acoustics: Amie Urrutia MD Eosinophils/100 WBC (Bld) 3 % Normal 0-5 [facility] Comment on above: Performed By: #### H IVCMB, PHEP, CRP, ANAX, EBVPRO #### [address] [id number] Physicist Acoustics: Sebastian Roman MD #### CP, SED, TSHX, CDP, HCG #### [facility] [address] [place] [address] Physicist Acoustics: Amie Urrutia MD Erythrocyte distribution width (RBC) [Ratio] 13.4 % Normal 12.1-15.2 [facility] Comment on above: Performed By: #### H IVCMB, PHEP, CRP, ANAX, EBVPRO #### [address] [phone] Physicist Acoustics: Sebastian Roman MD #### CP, SED, TSHX, CDP, HCG #### [facility] [address] [place] [address] Physicist Acoustics: Amie Urrutia MD Hematocrit (Bld) [Volume fraction] 39.0 % Normal 36-46 [facility] Comment on above: Performed By: #### H IVCMB, PHEP, CRP, ANAX, EBVPRO #### [place] [id number] Physicist Acoustics: Sebastian Roman MD #### CP, SED, TSHX, CDP, HCG #### [facility] [address] [place] [phone] Physicist Acoustics: Amie Urrutia MD Hemoglobin (Bld) [Mass/Vol] 13.3 g/dL Normal 12.0-16.0 [facility] Comment on above: Performed By: #### H IVCMB, PHEP, CRP, ANAX, EBVPRO #### [address] [id number] Physicist Acoustics: Sebastian Roman MD #### CP, SED, TSHX, CDP, HCG #### [facility] [address] [place] 275[address] Physicist Acoustics: Amie Urrutia MD Lymphocytes (Bld) [#/Vol] 2.30 10*3/uL Normal 1.0-4.8 [facility] Comment on above: Performed By: #### H IVCMB, PHEP, CRP, ANAX, EBVPRO #### [address] [id number] Physicist Acoustics: Sebastian Roman MD #### CP, SED, TSHX, CDP, HCG #### [facility] [address] [place], [place] 6234890 Physicist Acoustics: Amie Urrutia MD Lymphocytes/100 WBC (Bld) 30 % Normal 15-40 [facility] Comment on above: Performed By: #### H IVCMB, PHEP, CRP, ANAX, EBVPRO #### [address] [address] Physicist Acoustics: Sebastian Roman MD #### CP, SED, TSHX, CDP, HCG #### [facility] [address] [place] [address] Physicist Acoustics: Amie Urrutia MD MCH (RBC) [Entitic mass] 29.8 pg Normal 26-34 [facility] Comment on above: Performed By: #### H IVCMB, PHEP, CRP, ANAX, EBVPRO #### [address] [address] Physicist Acoustics: Sebastian Roman MD #### CP, SED, TSHX, CDP, HCG #### [facility] [address] [place] [phone] Physicist Acoustics: Amie Urrutia MD MCHC (RBC) [Mass/Vol] 34.2 g/dL Normal 31-37 [facility] Comment on above: Performed By: #### H IVCMB, PHEP, CRP, ANAX, EBVPRO #### [address] [id number] Physicist Acoustics: Sebastian Roman MD #### CP, SED, TSHX, CDP, HCG #### [facility] [address] [place] [address] Physicist Acoustics: Amie Urrutia MD MCV (RBC) [Entitic vol] 87.0 fL Normal 80-100 M [facility] Comment on above: Performed By: #### H IVCMB, PHEP, CRP, ANAX, EBVPRO #### [address] [id number] Physicist Acoustics: Sebastian Roman MD #### CP, SED, TSHX, CDP, HCG #### [facility] [address] [place], [place] 6257190 Physicist Acoustics: Amie Urrutia MD Monocytes (Bld) [#/Vol] 0.40 10*3/uL Normal 0.0-1.0 [facility] Comment on above: Performed By: #### H IVCMB, PHEP, CRP, ANAX, EBVPRO #### [address] [address] Physicist Acoustics: Sebastian Roman MD #### CP, SED, TSHX, CDP, HCG #### [facility] [address] [place], [place] 4151090 Physicist Acoustics: Amie Urrutia MD Monocytes/100 WBC (Bld) 6 % Normal 4-8 M [facility] Comment on above: Performed By: #### H IVCMB, PHEP, CRP, ANAX, EBVPRO #### [address] [id number] Physicist Acoustics: Sebastian Roman MD #### CP, SED, TSHX, CDP, HCG #### [facility] [address] [place], [place] 2295690 Physicist Acoustics: Amie Urrutia MD Neutrophil (Seg) 61 % Normal 47-75 [facility] Comment on above: Performed By: #### H IVCMB, PHEP, CRP, ANAX, EBVPRO #### [address] [phone] Physicist Acoustics: Sebastian Roman MD #### CP, SED, TSHX, CDP, HCG #### [facility] [address] [place] [address] Physicist Acoustics: Amie Urrutia MD Platelets (Bld) [#/Vol] 403 10*3/uL Normal 140-450 [facility] Comment on above: Performed By: #### H IVCMB, PHEP, CRP, ANAX, EBVPRO #### [address] [address] Physicist Acoustics: Sebastian Roman MD #### CP, SED, TSHX, CDP, HCG #### [facility] [address] [place] [address] Physicist Acoustics: Amie Urrutia MD RBC (Bld) [#/Vol] 4.48 10*6/uL Normal 4.0-5.2 [facility] Comment on above: Performed By: #### H IVCMB, PHEP, CRP, ANAX, EBVPRO #### [address] [address] Physicist Acoustics: Sebastian Roman MD #### CP, SED, TSHX, CDP, HCG #### [facility] [address] [place] [address] Physicist Acoustics: Amie Urrutia MD WBC (Bld) [#/Vol] 7.6 10*3/uL Normal 4.5-13.5 [facility] Comment on above: Performed By: #### H IVCMB, PHEP, CRP, ANAX, EBVPRO #### [address] [address] Physicist Acoustics: Sebastian Roman MD #### CP, SED, TSHX, CDP, HCG #### [facility] [address] [place], [place] 9265590 Physicist Acoustics: Amie Urrutia MD Abs.Imm.Granulocyte NOT REPORTED Normal 0.00-0.30 [facility] Comment on above: Performed By: #### H IVCMB, PHEP, CRP, ANAX, EBVPRO #### [address] [phone] Physicist Acoustics: Sebastian Roman MD #### CP, SED, TSHX, CDP, HCG #### [facility] [address] [place], [place] 7934090 Physicist Acoustics: Amie Urrutia MD Immature Granulocyte NOT REPORTED Normal 0 [facility] Comment on above: Performed By: #### H IVCMB, PHEP, CRP, ANAX, EBVPRO #### [address] 4042008 Physicist Acoustics: Sebastian Roman MD #### CP, SED, TSHX, CDP, HCG #### [facility] [address] [place] [address] Physicist Acoustics: Amie Urrutia MD MPV NOT REPORTED Normal 6.0-12.0 [facility] Comment on above: Performed By: #### H IVCMB, PHEP, CRP, ANAX, EBVPRO #### [address] [phone] Physicist Acoustics: Sebastian Roman MD #### CP, SED, TSHX, CDP, HCG #### [facility] [address] [place], [place] 5929290 Physicist Acoustics: Amie Urrutia MD NRBC Automated NOT REPORTED Normal [facility] Comment on above: Performed By: #### H IVCMB, PHEP, CRP, ANAX, EBVPRO #### [address] [id number] Physicist Acoustics: Sebastian Roman MD #### CP, SED, TSHX, CDP, HCG #### [facility] [address] [place] 275[address] Physicist Acoustics: Amie Urrutia MD Platelet Estimate NOT REPORTED Normal [facility] Comment on above: Performed By: #### H IVCMB, PHEP, CRP, ANAX, EBVPRO #### [address] [id number] Physicist Acoustics: Sebastian Roman MD #### CP, SED, TSHX, CDP, HCG #### [facility] [address] [place], [place] 5129690 Physicist Acoustics: Amie Urrutia MD RBC morphology finding Nom (Bld) NOT REPORTED Normal [facility] Comment on above: Performed By: #### H IVCMB, PHEP, CRP, ANAX, EBVPRO #### [address] [id number] Physicist Acoustics: Sebastian Roman MD #### CP, SED, TSHX, CDP, HCG #### [facility] [address] [place], [place] 1537090 Physicist Acoustics: Amie Urrutia MD WBC Morphology NOT REPORTED Normal [facility] Comment on above: Performed By: #### H IVCMB, PHEP, CRP, ANAX, EBVPRO #### [address] [id number] Physicist Acoustics: Sebastian Roman MD #### CP, SED, TSHX, CDP, HCG #### [facility] [address] [place], [place] 5040190 Physicist Acoustics: Amie Urrutia MD Comp Metabolic Profon 2020 (cont.) Normal [facility] Comment on above: Result Comment: Aver age GFR for 20-29 years old: 116 mL/min/1.73sq m Chronic Kidney Disease: <60 mL/min/1.73sq m Kidney failure: <15 mL/min/1.73sq m eGFR calculated using average adult body mass. Additional eGFR calculator available at: http://www.WegoWise.PubGame/multiple_crcl_2011.htm Performed By: #### H IVCMB, PHEP, CRP, ANAX, EBVPRO #### [address] [id number] Physicist Acoustics: Sebastian Roman MD #### CP, SED, TSHX, CDP, HCG #### [facility] [address] [place], [place] 8429490 Physicist Acoustics: Amie Urrutia MD Albumin [Mass/Vol] 4.3 g/dL Normal 3.5-5.2 [facility] Comment on above: Performed By: #### H IVCMB, PHEP, CRP, ANAX, EBVPRO #### [address] [id number] Physicist Acoustics: Sebastian Roman MD #### CP, SED, TSHX, CDP, HCG #### [facility] [address] [place] [phone] Physicist Acoustics: Amie Urrutia MD Alkaline Phos 82 U/L Normal 35-104 [facility] Comment on above: Performed By: #### H IVCMB, PHEP, CRP, ANAX, EBVPRO #### [address] [phone] Physicist Acoustics: Sebastian Roman MD #### CP, SED, TSHX, CDP, HCG #### [facility] [address] [place] 275[address] Physicist Acoustics: Amie Urrutia MD ALT [Catalytic activity/Vol] 13 U/L Normal 5-33 [facility] Comment on above: Performed By: #### H IVCMB, PHEP, CRP, ANAX, EBVPRO #### [address] [id number] Physicist Acoustics: Sebastian Roman MD #### CP, SED, TSHX, CDP, HCG #### [facility] [address] [place] [phone] Physicist Acoustics: Amie Urrutia MD Anion gap [Moles/Vol] 10 mmol/L Normal 9-17 [facility] Comment on above: Performed By: #### H IVCMB, PHEP, CRP, ANAX, EBVPRO #### [address] [phone] Physicist Acoustics: Sebastian Roman MD #### CP, SED, TSHX, CDP, HCG #### [facility] [address] [place], [place] 7939690 Physicist Acoustics: Amie Urrutia MD AST [Catalytic activity/Vol] 14 U/L Normal <32 [facility] Comment on above: Performed By: #### H IVCMB, PHEP, CRP, ANAX, EBVPRO #### [address] [id number] Physicist Acoustics: Sebastian Roman MD #### CP, SED, TSHX, CDP, HCG #### [facility] [address] [place], [place] 7460790 Physicist Acoustics: Amie Urrutia MD Bilirubin [Mass/Vol] 0.26 mg/dL Low 0.30-1.20 [facility] Comment on above: Performed By: #### H IVCMB, PHEP, CRP, ANAX, EBVPRO #### [address] [id number] Physicist Acoustics: Sebastian Roman MD #### CP, SED, TSHX, CDP, HCG #### [facility] [address] [place], [place] 9339490 Physicist Acoustics: Amie Urrutia MD BUN/CRE Ratio 12 Normal 9-20 [facility] Comment on above: Performed By: #### H IVCMB, PHEP, CRP, ANAX, EBVPRO #### [address] [phone] Physicist Acoustics: Sebastian Roman MD #### CP, SED, TSHX, CDP, HCG #### [facility] [address] [place], [place] 0907590 Physicist Acoustics: Amie Urrutia MD Calcium [Mass/Vol] 9.5 mg/dL Normal 8.6-10.4 [facility] Comment on above: Performed By: #### H IVCMB, PHEP, CRP, ANAX, EBVPRO #### [address] [id number] Physicist Acoustics: Sebastian Roman MD #### CP, SED, TSHX, CDP, HCG #### [facility] [address] [place] [address] Physicist Acoustics: Amie Urrutia MD Chloride [Moles/Vol] 103 mmol/L Normal 98-107 [facility] Comment on above: Performed By: #### H IVCMB, PHEP, CRP, ANAX, EBVPRO #### [address] [id number] Physicist Acoustics: Sebastian Roman MD #### CP, SED, TSHX, CDP, HCG #### [facility] [address] [place] 2754[address] Physicist Acoustics: Amie Urrutia MD CO2 [Moles/Vol] 24 mmol/L Normal 20-[address] [facility] Comment on above: Performed By: #### H IVCMB, PHEP, CRP, ANAX, EBVPRO #### [address] [id number] Physicist Acoustics: Sebastian Roman MD #### CP, SED, TSHX, CDP, HCG #### [facility] [address] [place] [address] Physicist Acoustics: Amie Urrutia MD Creatinine [Mass/Vol] 0.51 mg/dL Normal 0.50-0.90 [facility] Comment on above: Performed By: #### H IVCMB, PHEP, CRP, ANAX, EBVPRO #### [address] [address] Physicist Acoustics: Sebastian Roman MD #### CP, SED, TSHX, CDP, HCG #### [facility] [address] [place] [address] Physicist Acoustics: Amie Urrutia MD GFR, Amer >60 Normal >60 [facility] Comment on above: Performed By: #### H IVCMB, PHEP, CRP, ANAX, EBVPRO #### [address] [phone] Physicist Acoustics: Sebastian Roman MD #### CP, SED, TSHX, CDP, HCG #### [facility] [address] [place], [place] 8340690 Physicist Acoustics: Amie Urrutia MD GFR,non Amer >60 Normal >60 [facility] Comment on above: Performed By: #### H IVCMB, PHEP, CRP, ANAX, EBVPRO #### [address] [address] Physicist Acoustics: Sebastian Roman MD #### CP, SED, TSHX, CDP, HCG #### [facility] [address] [place], [place] 4105290 Physicist Acoustics: Amie Urrutia MD Glucose [Mass/Vol] 87 mg/dL Normal 70-99 [facility] Comment on above: Performed By: #### H IVCMB, PHEP, CRP, ANAX, EBVPRO #### [address] [id number] Physicist Acoustics: Sebastian Roman MD #### CP, SED, TSHX, CDP, HCG #### [facility] [address] [place], [place] 0015890 Physicist Acoustics: Amie Urrutia MD Potassium [Moles/Vol] 3.4 mmol/L Low 3.7-5.3 [facility] Comment on above: Performed By: #### H IVCMB, PHEP, CRP, ANAX, EBVPRO #### [address] [phone] Physicist Acoustics: Sebastian Roman MD #### CP, SED, TSHX, CDP, HCG #### [facility] [address] [place], [place] 9773190 Physicist Acoustics: Amie Urrutia MD Protein [Mass/Vol] 7.1 g/dL Normal 6.4-8.3 [facility] Comment on above: Performed By: #### H IVCMB, PHEP, CRP, ANAX, EBVPRO #### [address] [id number] Physicist Acoustics: Sebastian Roman MD #### CP, SED, TSHX, CDP, HCG #### [facility] [address] [place], [place] 1284890 Physicist Acoustics: Amie Urrutia MD Sodium [Moles/Vol] 137 mmol/L Normal 135-144 [facility] Comment on above: Performed By: #### H IVCMB, PHEP, CRP, ANAX, EBVPRO #### [address] [id number] Physicist Acoustics: Sebastian Roman MD #### CP, SED, TSHX, CDP, HCG #### [facility] [address] [place], [place] 8962190 Physicist Acoustics: Amie Urrutia MD Urea nitrogen [Mass/Vol] 6 mg/dL Normal 6-20 [facility] Comment on above: Performed By: #### H IVCMB, PHEP, CRP, ANAX, EBVPRO #### [address] [phone] Physicist Acoustics: Sebastian Roman MD #### CP, SED, TSHX, CDP, HCG #### [facility] [address] [place] [address] Physicist Acoustics: Amie Urrutia MD Albumin/Glob Ratio NOT REPORTED Normal 1.0-2.5 [facility] Comment on above: Performed By: #### H IVCMB, PHEP, CRP, ANAX, EBVPRO #### [facility] [address] [place], [place] 6887708 Physicist Acoustics: Sebastian Roman MD #### CP, SED, TSHX, CDP, HCG #### [facility] [address] [place] [address] Physicist Acoustics: Amie Urrutia MD Staging: NOT REPORTED Normal [facility] Comment on above: Performed By: #### H IVCMB, PHEP, CRP, ANAX, EBVPRO #### [facility] [address] [place], [place] 7814608 Physicist Acoustics: Sebastian Roman MD #### CP, SED, TSHX, CDP, HCG #### [facility] [address] [place] [address] Physicist Acoustics: Amie Urrutia MD [facility] Metabolic Pane lOrdered By: Dipti Quinones on 10-26-2020 Albumin [Mass/Vol] 4.3 g/dL 3.5 - 5.2 g/dL [facility] [employer] Phone: Albumin/Globulin Ratio NOT REPORTED [facility] Phone: ALP (Bld) [Catalytic activity/Vol] 82 U/L 35 - 104 U/L [facility] [employer] Phone: ALT [Catalytic activity/Vol] 13 U/L 5 - 33 U/L [facility] [employer] Phone: Anion gap [Moles/Vol] 10 mmol/L 9 - 17 mmol/L [facility] [employer] Phone: AST [Catalytic activity/Vol] 14 U/L <32 [facility] [employer] Phone: Bilirubin [Mass/Vol] 0.26 mg/dL Low 0.30 - 1.20 mg/dL [employer] Phone: Calcium [Mass/Vol] 9.5 mg/dL 8.6 - 10. 4 mg/dL [employer] Phone: Chloride [Moles/Vol] 103 mmol/L 98 - 10 7 mmol/L [employer] Phone: CO2 [Moles/Vol] 24 mmol/L 20 - 31 mmol/L [facility] Phone: Creatinine [Mass/Vol] 0.51 mg/dL 0.50 - 0.90 mg/dL [employer] Phone: Free PSA/Total PSA [Mass fraction] 7.1 g/dL 6.4 - 8.3 g/dL [employer] Phone: GFR >60 >60 mL/min [employer] Phone: GFR Non- >60 >60 mL/min [employer] Phone: GFR/1.73 sq M.predicted MDRD (S/P/Bld) [Vol rate/Area] [employer] Phone: Comment on above: Average GFR for 20-2 9 years old: 116 mL/min/1.73sq m Chronic Kidney Disease: <60 mL/min/1.73sq m Kidney failure: <15 mL/min/1.73sq m eGFR calculated using average adult body mass. Additional eGFR calculator available at: http://www.WegoWise.com/multiple_crcl_2012.htm GFR/1.73 sq M.predicted MDRD (S/P/Bld) [Vol rate/Area] NOT REPORTED [facility] Phone: Glucose [Mass/Vol] 87 mg/dL 70 - 99 mg/dL [facility] [employer] Phone: Interpretation and review of laboratory results Abnormal [employer] Phone: Potassium [Moles/Vol] 3.4 mmol/L Low 3.7 - 5.3 mmol/L [employer] Phone: Sodium [Moles/Vol] 137 mmol/L 135 - 144 mmol/L [employer] Phone: Urea nitrogen (BldV) [Mass/Vol] 6 mg/dL 6 - 20 mg/dL [employer] Phone: Urea nitrogen/Creatinine (Bld) [Mass ratio] 12 [employer] Phone: HCG Screen, Bloodon 10-27-19 21 HCG Screen, Blood Negative Normal NEG [facility] Comment on above: Result Comment: Spec imens with hCG levels near the threshold of the test (25 mIU/mL) may give a negative or indeterminate result. In such cases, another test should be performed with a new specimen in 48-72 hours. If early is suspected clinically in this setting, correlation with quantitative serum b-hCG level is suggested. [employer] has confirmed the use of plasma for this test. This has not been cleared or approved by the U.S. Food and Drug Administration. The FDA has determined that such clearance is not necessary. Performed By: #### H IVCMB, PHEP, CRP, ANAX, EBVPRO #### [employer] [address] [place], [place] 3977208 Physicist Acoustics: Sebastian Roman MD #### CP, SED, TSHX, CDP, HCG #### [facility] [address] [place] [address] Physicist Acoustics: Amie Urrutia MD HIV ScreenOrdered By: Dipti Quinones on 10-26-2020 HIV Ag/Ab Non-Reactive NONREACTIVE [employer] [facility] Phone: Comment on above: No laboratory eviden ce of HIV infection. If acute HIV infection is suspected, consider testing for HIV-1 RNA. [employer] Phone: Hepatitis Panel, AcuteOrdere d By: Dipti Quinones on 10-26-2020 HAV IgM IA Qn (S) Non-Reactive NONREACTIVE [facility] [employer] [employer] Work Phone: Hep B Core Ab, IgM Non-Reactive NONREACTIVE [facility] [employer] Work Phone: Hepatitis B Surface Ag Non-Reactive NONREACTIVE [facility] Work Phone: Hepatitis C Ab Non-Reactive NONREACTIVE [facility] [email or web address] [facility] Work Phone: Comment on above: The hepatitis [...] recommended by ordering HCV RNA by PCR. [employer] Phone: No Panel InformationOrdered By: Dipti Quinones on 10-26-2020 [facility] Phone: Sedimentation Rateon 021 Sedimentation Rate 7 mm Normal 0-20 [facility] Comment on above: Performed By: #### H IVCMB, PHEP, CRP, ANAX, EBVPRO #### [facility] [address] [place] [address] Physicist Acoustics: Sebastian Roman MD #### CP, SED, TSHX, CDP, HCG #### [facility] [address] [place] [address] Physicist Acoustics: Amie Urrutia MD Sedimentation RateOrdered By : Dipti Quinones on 10-26-2020 Sed Rate 7 mm 0 - 20 mm [facility] Phone: [facility] Phone: TSH w/reflex to FT4on 2020 TSH Qn 3.36 m[IU]/L Normal 0.30-5.00 [facility] Comment on above: Performed By: #### H IVCMB, PHEP, CRP, ANAX, EBVPRO #### [facility] [employer] [address] [place] [address] Physicist Acoustics: Sebastian Roman MD #### CP, SED, TSHX, CDP, HCG #### [facility] [address] [place] [address] Physicist Acoustics: Amie Urrutia MD TSH with ReflexOrdered By: Ar Quinones on 10-26-2020 TSH Qn 3.36 m[IU]/L [facility] Work Phone: UrinalysisOrdered By: Dipti Quinones on 10-26-2020 Bilirubin Urine Negative NEGATIVE [facility] Work Phone: Color, UA YELLOW YELLOW [facility] Work Phone: Glucose, Ur Negative NEGATIVE [facility] Work Phone: Ketones Ql (U) Negative NEGATIVE [facility] Work Phone: Leukocyte esterase Test strip Ql (U) Negative NEGATIVE [facility] [employer] Work Phone: Nitrite, Urine Negative NEGATIVE [facility] Work Phone: pH, UA 7.0 [facility] Work Phone: Protein, UA Negative NEGATIVE [facility] Work Phone: Specific [place], UA 1.010 [facility] [employer] Work Phone: Turbidity UA CLEAR CLEAR [facility] [employer] Work Phone: Urinalysis Comments [facility] [employer] Work Phone: Urine Hgb Negative NEGATIVE [facility] [employer] Phone: Urobilinogen, Urine Normal Normal [facility] [employer] Work Phone: [facility] Work Phone: Urinalysis, Routineon 2020 Bilirubin, SemiQt,Ur Negative Normal NEG [facility] Comment on above: Performed By: #### H IVCMB, PHEP, CRP, ANAX, EBVPRO #### [facility] [address] [place] [address] Physicist Acoustics: Sebastian Roman MD #### CP, SED, TSHX, CDP, HCG #### [facility] [address] [place], [place] [phone] Physicist Acoustics: Amie Urrutia MD Blood, Urine Negative Normal NEG [facility] Comment on above: Performed By: #### H IVCMB, PHEP, CRP, ANAX, EBVPRO #### [address] [id number] Physicist Acoustics: Sebastian Roman MD #### CP, SED, TSHX, CDP, HCG #### [facility] [address] [place], [place] [id number] Physicist Acoustics: Amie Urrutia MD Clarity (U) CLEAR Normal CLEAR [facility] Comment on above: Performed By: #### H IVCMB, PHEP, CRP, ANAX, EBVPRO #### [address] [id number] Physicist Acoustics: Sebastian Roman MD #### CP, SED, TSHX, CDP, HCG #### [facility] [address] [place], [place] [id number] Physicist Acoustics: Amie Urrutia MD Color (U) YELLOW Normal YEL [facility] Comment on above: Performed By: #### H IVCMB, PHEP, CRP, ANAX, EBVPRO #### [address] [phone] Physicist Acoustics: Sebastian Roman MD #### CP, SED, TSHX, CDP, HCG #### [facility] [address] [place], [place] [id number] Physicist Acoustics: Amie Urrutia MD Comment Normal [facility] Comment on above: Performed By: #### H IVCMB, PHEP, CRP, ANAX, EBVPRO #### [address] [place] [address] Physicist Acoustics: Sebastian Roman MD #### CP, SED, TSHX, CDP, HCG #### [facility] [address] [place] [address] Physicist Acoustics: Amie Urrutia MD Glucose Ql (U) Negative Normal NEG [facility] Comment on above: Performed By: #### H IVCMB, PHEP, CRP, ANAX, EBVPRO #### [address] [address] Physicist Acoustics: Sebastian Roman MD #### CP, SED, TSHX, CDP, HCG #### [facility] [address] [place] [address] Physicist Acoustics: Amie Urrutia MD Ketones Ql (U) Negative Normal NEG [facility] Comment on above: Performed By: #### H IVCMB, PHEP, CRP, ANAX, EBVPRO #### [address] [address] Physicist Acoustics: Sebastian Roman MD #### CP, SED, TSHX, CDP, HCG #### [facility] [address] [place] [address] Physicist Acoustics: Amie Urrutia MD Leukocyte esterase Test strip Ql (U) Negative Normal NEG [facility] Comment on above: Performed By: #### H IVCMB, PHEP, CRP, ANAX, EBVPRO #### [address] [address] Physicist Acoustics: Sebastian Roman MD #### CP, SED, TSHX, CDP, HCG #### [facility] [address] [place] [address] Physicist Acoustics: Amie Urrutia MD Nitrite,Ur Negative Normal NEG [facility] Comment on above: Performed By: #### H IVCMB, PHEP, CRP, ANAX, EBVPRO #### [address] [phone] Physicist Acoustics: Sebastian Roman MD #### CP, SED, TSHX, CDP, HCG #### [facility] [address] [place], [place] [phone] Physicist Acoustics: Amie Urrutia MD PH,Ur 7.0 Normal 5.0-8.0 [facility] Comment on above: Performed By: #### H IVCMB, PHEP, CRP, ANAX, EBVPRO #### [address] [phone] Physicist Acoustics: Sebastian Roman MD #### CP, SED, TSHX, CDP, HCG #### [facility] [address] [place] [phone] Physicist Acoustics: Amie Urrutia MD Protein Ql (U) Negative Normal NEG [facility] Comment on above: Performed By: #### H IVCMB, PHEP, CRP, ANAX, EBVPRO #### [address] [phone] Physicist Acoustics: Sebastian Roman MD #### CP, SED, TSHX, CDP, HCG #### [facility] [address] [place], [place] [phone] Physicist Acoustics: Amie Urrutia MD Spec. [place],Ur 1.010 Normal 1.005-1.030 [facility] Comment on above: Performed By: #### H IVCMB, PHEP, CRP, ANAX, EBVPRO #### [address] [phone] Physicist Acoustics: Sebastian Roman MD #### CP, SED, TSHX, CDP, HCG #### [facility] [address] [place] [id number] Physicist Acoustics: Amie Urrutia MD Urobilinogen,Ur Normal Normal NORM [facility] Comment on above: Performed By: #### H IVCMB, PHEP, CRP, ANAX, EBVPRO #### [facility] [address] [place], [place] [phone] Physicist Acoustics: Sebastian Roman MD #### CP, SED, TSHX, CDP, HCG #### [facility] [address] [place] [address] Physicist Acoustics: Amie Urrutia MD hCG, Serum, QualitativeOrder ed By: Dipti Quinones on 10-26-2020 hCG Qual Negative NEGATIVE [facility] [employer] Phone: Comment on above: Specimens with hCG l evels near the threshold of the test (25 mIU/mL) may give a negative or indeterminate result. In such cases, another test should be performed with a new specimen in 48-72 hours. If early is suspected clinically in this setting, correlation with quantitative serum b-hCG level is suggested. [employer] has confirmed the use of plasma for this test. This has not been cleared or approved by the U.S. Food and Drug Administration. The FDA has determined that such clearance is not necessary. [employer] Phone: [id number] 03-18-2020 SARS-CoV-2 (COVID-19) RNA FERNANDO+probe Ql (Unsp spec) Normal [facility] Comment on above: Performed By: #### H IVCMB, PHEP, CRP, ANAX, EBVPRO #### [facility] [address] [place], [place] [phone] Physicist Acoustics: Sebastian Roman MD #### CP, SED, TSHX, CDP, HCG #### [facility] [address] [place] [address] Physicist Acoustics: Amie Urrutia MD SARS-CoV-2 (COVID-19) RNA FERNANDO+probe Ql (Unsp spec) Not detected Normal NOTDET [facility] Comment on above: Result Comment: The specimen is NEGATIVE for SARS-CoV-2, the novel coronavirus associated with COVID-19. A negative result does not rule out COVID-19. Erin SARS-CoV-2 for use on the [employer]/8800 [employer] is a real-time RT-PCR test intended [...] this assay. Fact sheet for Healthcare Providers: https://www.fda.gov/media/667382/download Fact sheet for Patients: https://www.fda.gov/media/247576/download METHODOLOGY: RT-PCR Performed By: #### H IVCMB, PHEP, CRP, ANAX, EBVPRO #### [facility] [employer] [address] [place] [address] [id number] Physicist Acoustics: Sebastian Roman MD #### CP, SED, TSHX, CDP, HCG #### [facility] [address] [place] [address] Physicist Acoustics: Amie Urrutia MD [id number] 03-17-2020 SARS-CoV-2 (COVID-19) RNA FERNANDO+probe Ql (Unsp spec) .THROAT Normal [facility] Comment on above: Performed By: #### H IVCMB, PHEP, CRP, ANAX, EBVPRO #### [facility] [employer] [address] [place] [id number] Physicist Acoustics: Sebastian Roman MD #### CP, SED, TSHX, CDP, HCG #### [facility] [address] [place] [address] Physicist Acoustics: Amie Urrutia MD Glucose, Fastingon 9 Glucose [Mass/Vol] 102 mg/dL High 70 - 99 mg/dL [place], [place] Interpretation and review of laboratory results Abnormal [place] Hemoglobin A1Con 11-22-2018 Glucose [Mass/Vol] 97 mg/dL [place] Comment on above: The ADA and AACC rec ommend providing the estimated average glucose result to permit better patient understanding of their HBA1c result. HbA1c (Bld) [Mass fraction] 5.0 % 4.8 - 5.9 % [place] CBC Auto Differentialon 10-08 Basophils (Bld) [#/Vol] 0.10 10*3/uL [place] Basophils/100 WBC (Bld) 1 % 0 - 2 % [place], [place] Differential Type YES [place] Eosinophils (Bld) [#/Vol] 0.50 10*3/uL [place] Eosinophils/100 WBC (Bld) 10 % High 0 - 5 % [place] Erythrocyte distribution width (RBC) [Ratio] 13.5 % 12.1 - 15.2 % [place] Hematocrit (Bld) [Volume fraction] 40.9 % 36 - 46 % [place] Hemoglobin (Bld) [Mass/Vol] 13.9 g/dL 12 - 16 g/dL [place] Interpretation and review of laboratory results Abnormal [place] Lymphocytes (Bld) [#/Vol] 1.70 10*3/uL [place] Lymphocytes/100 WBC (Bld) 36 % 15 - 40 % [place] MCH (RBC) [Entitic mass] 29.6 pg 26 - 34 pg [place] MCHC (RBC) [Mass/Vol] 33.9 g/dL 31 - 37 g/dL [place] MCV (RBC) [Entitic vol] 87.4 fL 80 - 100 fL [place] Monocytes (Bld) [#/Vol] 0.40 10*3/uL [place] Monocytes/100 WBC (Bld) 8 % 4 - 8 % [place] Platelet mean volume (Bld) [Entitic vol] NOT REPORTED 6 - 12 fL [place], [place] Platelets (Bld) [#/Vol] NOT REPORTED [place] Platelets (Bld) [#/Vol] 309 10*3/uL [place] RBC (Bld) [#/Vol] 4.68 10*6/uL 4 - 5.2 m/uL [place] RBC morphology finding Nom (Bld) NOT REPORTED [place] Segmented neutrophils/100 WBC (Bld) 45 % Low 47 - 75 % [place] Segs Absolute 2.20 Low [place] WBC (Bld) [#/Vol] NOT REPORTED per 100 WBC [place] WBC (Bld) [#/Vol] 4.9 10*3/uL [place] WBC Morphology NOT REPORTED [place], [place] Otheron 10-26-2018 Immature granulocytes (Bld) [#/Vol] NOT REPORTED 0 % [place] T4, Freeon 10-26-2018 Thyroxine, Free 1.21 ng/dL 0.93 - 1.7 ng/dL [place] TSH without Reflexon 019 TSH Qn 1.86 m[IU]/L [place] Vital Signs Date Time Vital Sign Value Performing Clinician Facility 03-26-2024 14:25-0500 Body mass index (BMI) [Ratio] 21.36 kg/m2 [facility] [employer] Work Phone: [facility] 03-26-2024 14:25-0500 Body weight 52.98 kg Osorio [employer] Work Phone: [facility] 03-26-2024 14:25-0500 Diastolic blood pressure 52 mm[Hg] [employer] Work Phone: [facility] 03-26-2024 14:25-0500 Systolic blood pressure 110 mm[Hg] Osorio [employer] Work Phone: [facility] 02-26-2024 13:41-0500 Body mass index (BMI) [Ratio] 21 kg/m2 Rossi Poole PA Work Phone: [facility] 02-26-2024 13:41-0500 Body weight 52.07 kg Rossi Maoey PA Work Phone: [facility] 02-26-2024 13:41-0500 Diastolic blood pressure 52 mm[Hg] Rossi Maoey PA Work Phone: [facility] 02-26-2024 13:41-0500 Systolic blood pressure 102 mm[Hg] Rossi Poole PA Work Phone: [facility] 01-29-2024 11:08-0500 Body mass index (BMI) [Ratio] 20.51 kg/m2 Osorio Caron DO Work Phone: [facility] 01-29-2024 11:08-0500 Body weight 50.86 kg Osorio Caron DO Work Phone: [facility] 01-29-2024 11:08-0500 Diastolic blood pressure 50 mm[Hg] Osorio Caron DO Work Phone: [facility] 01-29-2024 11:08-0500 Systolic blood pressure 110 mm[Hg] Osorio Caron DO Work Phone: [facility] 12-29-2023 11:19-0500 Body mass index (BMI) [Ratio] 20.67 kg/m2 [facility] Nurse [facility] 12-29-2023 11:19-0500 Body weight 51.26 kg Nom Nurse [facility] 12-29-2023 11:19-0500 Diastolic blood pressure 77 mm[Hg] [facility] Nurse [facility] 12-29-2023 11:19-0500 Systolic blood pressure 109 mm[Hg] Nom Nurse [facility] 03-04-2022 04:06-0500 Body weight 75.[address] OSORIO REARDON . [facility] Comment on above: Performed By: #### NBOX #### [facility] [address] [place] [address] Dr. Shell Cadena Encounters Encounter Date Encounter Type Care Provider Facility Start: 04-23-2024 End: 04-23-2024 ambulatory ROSSI POOLE Not Available Start: 04-10-2024 End: 04-10-2024 ambulatory OSORIO CARON Not Available Start: 03-26-2024 End: 03-26-2024 ambulatory OSORIO CARON Not Available Start: 03-26-2024 End: 03-26-2024 Office outpatient visit 15 minutes Osorio Caron DO Work Phone: [facility] Comment on above: 19 weeks gestation o f ; Second trimester ; Screening, , for anatomic survey Start: 03-26-2024 End: 03-26-2024 Bamboo flowsheet Osorio Caron DO Work Phone: [facility] Start: 03-26-2024 End: 03-26-2024 Bamboo flowsheet Osorio Caron DO Work Phone: [facility] Start: 02-26-2024 End: 02-26-2024 Bamboo flowsheet Rossi KENNEDY Work Phone: [facility] Start: 02-26-2024 End: 03-01-2024 Bamboo flowsheet Rossi KENNEDY Work Phone: [facility] Start: 02-26-2024 End: 03-01-2024 Clinisync Result Encounter Rossi KENNEDY Work Phone: [facility] External Department Unsolicited Start: 02-26-2024 End: 02-28-2024 External Result Encounter Rossi KENNEDY Work Phone: [facility] External Department Unsolicited Start: 02-26-2024 End: 02-26-2024 Patient encounter procedure Rossi KENNEDY Work Phone: [facility] Start: 02-26-2024 End: 02-26-2024 Periodic preventive med est patient 18-39 yrs Rossi KENNEDY Work Phone: [facility] Comment on above: Second trimester pre gnancy; 15 weeks gestation of ; Well woman exam with routine gynecological exam; Vaginal discharge; STD exposure Start: 02-26-2024 End: 02-26-2024 ambulatory ROSSI POOLE Not Available Start: 01-29-2024 End: 01-29-2024 Bamboo flowsheet Osorio Caron DO Work Phone: [facility] Start: 01-29-2024 End: 01-29-2024 Bamboo flowsheet Osorio Caron DO Work Phone: [facility] Start: 01-29-2024 End: 01-29-2024 Clinisync Result Encounter Osorio Caron DO Work Phone: [facility] External Department Unsolicited Start: 01-29-2024 End: 01-29-2024 ambulatory Osorio Reardon Facility:[facility] Start: 01-29-2024 End: 01-29-2024 Office outpatient visit [...] Facility:[facility] Start: 10-26-2020 End: 10-27-2020 [facility] Start: 10-26-2020 End: 10-26-2020 Subsequent hospital visit by physician Dipti Quinones TITLE I DIRECTOR - MARKET RELATIONSHIP MANAGER Work Phone: [facility] Laboratory Comment on above: Urticarial rash; Sexually active child; BMI 35.0-35.9,adult; Screening for thyroid disorder; Screening, anemia, deficiency, iron; Screening for diabetes mellitus; Tattoos Start: 03-17-2020 End: 03-18-2020 ambulatory [facility] Start: 03-17-2020 End: 03-17-2020 Subsequent hospital visit by physician [facility] Laboratory Comment on above: Suspected COVID-19 v irus infection Start: 11-22-2018 End: 11-22-2018 Subsequent hospital visit by physician Dipti Quinones [facility] Start: 10-26-2018 End: 10-26-2018 Subsequent hospital visit by physician Dipti Quinones [facility] Laboratory Procedures Date Procedure Procedure Detail Performing Clinician Start: 03-26-2024 Urnls dip stick/tabl et rgnt non-auto w/o micrscp Osorio Reardon DO Work Phone: Start: 02-26-2024 RECURRENT VAGINITIS (HTRX) Rossi KENNEDY Work Phone: Start: 02-26-2024 Urnls dip stick/tabl et rgnt non-auto w/o micrscp Rossi KENNEDY Work Phone: Start: 02-26-2024 IGP,APTIMA HPV,AGE GDLN Rossi KENNEDY Work Phone: Start: 01-29-2024 ALL CBC WITH AUTO DIFF Osorio Reardon DO Work Phone: Start: 01-29-2024 Urnls dip stick/tabl et rgnt non-auto w/o micrscp Osorio Reardon DO Work Phone: Start: 12-29-2023 Urnls dip stick/tabl et rgnt non-auto w/o micrscp Osoriosheri Reardon DO Work Phone: Start: 07-01-2022 Delivery of Products of Conception, External Approach DR OSORIO REARDON . Start: 07-01-2022 Division of Female Perineum, External Approach DR OSORIO REARDON . Start: 07-01-2022 Drainage of Amniotic Fluid, Therapeutic from Products of Conception, Via Natural or Artificial Opening DR OSORIO REARDON . Start: 10-26-2020 ALLERGEN, FOOD, COMPREHENSIVE PROFILE 1 Dipti Quinones TITLE I DIRECTOR - MARKET RELATIONSHIP MANAGER Work Phone: Start: 10-26-2020 C-reactive protein Thao Quinones TITLE I DIRECTOR - MARKET RELATIONSHIP MANAGER Work Phone: Start: 10-26-2020 Comprehensive metabo lic panel Dipti Quinones TITLE I DIRECTOR - MARKET RELATIONSHIP MANAGER Work Phone: Start: 10-26-2020 Urnls dip stick/tabl et rgnt auto w/o microscopy Dipti Quinones TITLE I DIRECTOR - MARKET RELATIONSHIP MANAGER Work Phone: Start: 11-22-[address] gtt 3 specimens Osorio Valladareszio Work Phone: Start: 11-22-2018 Hemoglobin glycosylated a1c Osorio Valladareszio Work Phone: Start: 10-26-2018 Assay of free thyroxine Osorio Valladareszio Work Phone: Start: 10-26-2018 Assay of thyroid stimulating hormone tsh Osorio Valladareszio Work Phone: Start: 10-26-2018 Blood count complete auto&auto difrntl wbc Osorio Valladareszio Work Phone: Plan of Treatment Date Care Activity Detail Author Start: 04-23-2024 End: 04-23-2024 Patient encounter procedure 04/23/2024 2:30 PM EDT Routine [facility] [address] [place] [id number] Rossi Poole PA [address] [place] [address] [facility] Start: 04-10-2024 End: 04-10-2024 Professional / ancillary services management 04/10/2024 11:00 AM EST Ancillary Procedure [facility] [address] [place] [id number] [facility] Start: 03-26-2024 End: 03-26-2024 Patient encounter procedure 03/26/2024 2:10 PM EST Routine [facility] [address] [place] [id number] Osorio Reardon, [address] [place] [address] [facility] Start: 03-26-2024 End: 03-26-2025 US for US OB 14+ weeks anatomy scan Imaging Routine Screening, , for anatomic survey Expected: 03/26/2024, Expires: 03/26/2025 [facility] Work Phone: Comment on above: Expected: 03/26/2024 , Expires: 03/26/2025 Start: 02-26-2024 End: 02-26-2024 Patient encounter procedure 02/26/2024 1:30 PM EST Routine [facility] [address] [place] [phone] Rossi Poole PA [address] [place] [address] [facility] Start: 01-29-2024 End: 01-29-2024 Patient encounter procedure 01/29/2024 10:40 AM EST Routine [facility] [address] [facility] [place] [phone] Osorio Reardon, DO [facility] [place] [address] [facility] Start: 12-29-2023 End: 12-28-2024 ABO/Rh ABO/Rh Lab Routine Missed menses , unspecified gestational age Expected: 12/29/2023 (Approximate), Expires: 12/28/2024 [facility] Healthcare Comment on above: Expected: 12/29/2023 (Approximate), Expires: 12/28/2024 Start: 12-29-2023 End: 12-28-2024 Blood type and Indirect antibody screen panel - Blood Type and screen Lab Routine Missed menses , unspecified gestational age Expected: 12/29/2023 (Approximate), Expires: 12/28/[address] [facility] Work Phone: Comment on above: Expected: 12/29/2023 (Approximate), Expires: 12/28/2024 Start: 12-29-2023 End: 12-28-2024 Drugs of abuse panel - Urine by Screen method Rapid drug screen, urine Lab Routine , unspecified gestational age Encounter for supervision of normal first in first trimester Expected: 12/29/2023 (Approximate), Expires: 12/28/2024 [facility] Healthcare Comment on above: Expected: 12/29/2023 (Approximate), Expires: 12/28/2024 Start: 12-29-2023 End: 12-28-2024 US Pelvis transvaginal US OB transvaginal Imaging Routine Missed menses Expected: 12/29/2023 (Approximate), Expires: 12/28/2024 [facility] Comment on above: Expected: 12/29/2023 (Approximate), Expires: 12/28/2024 Start: 01-05-2022 DTaP/Tdap/Td vaccine (7 - Td or Tdap) DTaP/Tdap/Td vaccine (7 - Td or Tdap) [employer] Phone: Start: 10-07-2020 Influenza vaccination Flu vaccine (# 1) [employer] Phone: Start: 12-31-2019 Screening for malign ant neoplasm of cervix [employer] [place] Start: 10-08-2019 Influenza vaccination Flu vaccine (# 1) [place] Start: 10-07-2018 Influenza vaccination Flu vaccine (# 1) [place] Start: 2017 DTaP/Tdap/Td vaccine (1 - Tdap) DTaP/Tdap/Td vaccine (1 - Tdap) [place] Start: 2014 Chlamydia screen Chlamydia screen [place], [place] Start: 2014 Screening for Chlamy yan trachomatis Chlamydia [place] Start: 2013 HIV screen HIV screen [place], [place] Start: 2013 HIV screening HIV screen [facility] [place] Start: 2013 HPV vaccine (1 - Fem pritesh 3-dose series) HPV vaccine (1 - Female 3-dose series) [place] Start: 2010 COVID-19 Vaccine (1) COVID-19 Vaccin e (1) [facility] [employer] Phone: Start: 2009 HPV vaccine (1 - 2-d ose series) HPV vaccine (1 - 2-dose series) [place] Start: 12-31-1999 Varicella vaccine (1 of 2 - 2-dose childhood series) Varicella vaccine (1 of 2 - 2-dose childhood series) [place] Start: 1998 Hepatitis C screening Hepatitis C sc reen [place] End: 10-26-2020 NAS Screen With Reflex NAS Screen With Reflex Lab Routine Urticarial rash 1 Occurrences starting 10/26/2020 until 10/26/2020 [facility] [employer] Phone: Comment on above: 1 Occurrences starti ng 10/26/2020 until 10/26/2020 NAS Screen With Reflex NAS Scree n With Reflex Lab Routine Urticarial rash 10/26/2020 3:45 PM EDT [facility] [employer] Phone: Bacteria identified in Urine by Culture Urine culture Microbiology Routine Missed menses Ordered: 12/29/2023 [facility] Comment on above: Ordered: 12/29/2023 CBC W Auto Different ial panel - Blood CBC and differential Lab Routine Missed menses , unspecified gestational age Ordered: 12/29/[address] [facility] Comment on above: Ordered: 12/29/2023 CHLAMYDIA TRACHOMATI S (GENITO/STI) CHLAMYDIA TRACHOMATIS (GENITO/STI) Lab Routine Vaginal discharge STD exposure Ordered: 02/26/[address] [facility] Comment on above: Ordered: 02/26/2024 End: 03-17-2020 COVID-19 COVID-19 Lab Routine Suspected Covid-19 Virus Infection 1 Occurrences starting 03/17/2020 until 03/17/2020 [facility] [place] Comment on above: 1 Occurrences starti ng 03/17/2020 until 03/17/2020 COVID-19 COVID-19 Lab Rou annalisa Suspected COVID-19 virus infection 03/17/2020 2:52 PM EST [facility] [place] [facility] Cervical or vaginal smear or scraping study Pap Smear Pathology and Cytology Routine Well woman exam with routine gynecological exam Ordered: 02/26/2024 [facility] [employer] Work Phone: Comment on above: Ordered: 02/26/2024 End: 10-26-2020 Chanelle Pierre Virus (EBV) Antibody Panel I Chanelle Pierre Virus (EBV) Antibody Panel I Lab Routine Urticarial rash BMI 35.0-35.9,adult 1 Occurrences starting 10/26/2020 until 10/26/2020 [employer] Phone: Comment on above: 1 Occurrences starti ng 10/26/2020 until 10/26/2020 End: 10-26-2020 Chanelle-Pierre virus VCA antibody panel Chanelle-Pierre virus VCA antibody panel Lab Routine Once for 1 Occurrences starting 10/26/2020 until 10/26/2020 [employer] Phone: Comment on above: Once for 1 Occurrenc es starting 10/26/2020 until 10/26/2020 Chanelle-Pierre virus V CA antibody panel Chanelle-Pierre virus VCA antibody panel Lab Routine 10/26/2020 3:45 PM EDT [employer] Phone: Food Comprehensive Panel Food Co mprehensive Panel Lab Routine Urticarial rash 10/26/2020 3:45 PM EDT [employer] Phone: Hemoglobin A1c/Hemoglobin.total in Blood Hemoglobin A1c Lab Routine Missed menses , unspecified gestational age Ordered: 12/29/[address] [facility] Comment on above: Ordered: 12/29/2023 Hepatitis B virus surface Ag [Presence] in Serum or Plasma by Immunoassay Hepatitis B surface antigen Lab Routine Missed menses , unspecified gestational age Ordered: 12/29/[address] [facility] Comment on above: Ordered: 12/29/2023 Hepatitis C virus Ab [Presence] in Serum or Plasma by Immunoassay Hepatitis C antibody Lab Routine Missed menses , unspecified gestational age Ordered: 12/29/[address] [facility] Comment on above: Ordered: 12/29/2023 HIV-1/HIV-2 antigen/antibody combination immunoassay HIV-1 and HIV-2 antibodies Lab Routine Missed menses , unspecified gestational age Ordered: 12/29/[address] [facility] Comment on above: Ordered: 12/29/2023 Neisseria gonorrhoea e DNA [Presence] in Unspecified specimen by FERNANDO with probe detection Neisseria gonorrhea DNA probe, direct Lab Routine Vaginal discharge STD exposure Ordered: 02/26/[address] [facility] Comment on above: Ordered: 02/26/2024 Reagin Ab [Presence] in Serum by RPR RPR Lab Routine Missed menses , unspecified gestational age Ordered: 12/29/[address] [facility] Comment on above: Ordered: 12/29/2023 Rubella antibody, IgG Rubella an tibody, IgG Lab Routine Missed menses , unspecified gestational age Ordered: 12/29/[address] [facility] Comment on above: Ordered: 12/29/2023 SURESWAB(R) ADVANCED VAGINITIS PLUS, TMA SURESWAB(R) ADVANCED VAGINITIS PLUS, TMA Pathology and Cytology Routine Vaginal discharge STD exposure Ordered: 02/26/[address] [facility] Comment on above: Ordered: 02/26/2024 Payers Date Payer Category Payer Self-pay 2022 Private Health Insurance [employer] [id number] 2014 Unknown [employer] xxxxxxxxxxx 2014-Present [phone] [address] [place] [address] xxxxxxxxxxx [id number] 2014 Unknown [id number] [id number]. [id number] 1998 Unknown [id number] 2.16840.1.356907.3.579.2. 174 1998 Unknown [id number] 2.16840.1.421860.3.579.2. 174 1998 Unknown [id number] 2.16.840.1.149676.3.579.2. 593 1998 Unknown [id number] 2.16840.1.076277.3.579.2. 593 1998 Unknown [id number] 2.16840.1.799664.3.579.2. 593 1998 Unknown [id number] 2.16840.1.415255.3.579.2. 593 1998 Unknown [id number] 2.16.840.1.759426.3.579.2. 593 1998 Unknown [id number] 2.16.840.1.058082.3.579.2. 593 1998 Unknown [id number] 2.16840.1.889487.3.579.2. 593 1998 Unknown [id number] 2.16.840.1.528035.3.579.2. 593 1998 Unknown [id number] 2.16.840.1.539051.3.579.2. 593 1998 Unknown [id number] 2.16.840.1.736241.3.579.2. 593 1998 Unknown [id number] 2.16.840.1.781857.3.579.2. 593 1998 Unknown [id number] 2.16.840.1.388093.3.579.2. 1259 1998 Unknown [id number] 2.16.840.1.270427.3.579.2. 1259 1998 Unknown [id number] 2.16840.1.271235.3.579.2. 1259 1998 Unknown [id number] 2.16.840.1.318103.3.579.2. 1259 1998 Unknown [id number] 2.16.840.1.254619.3.579.2. 1259 1998 Unknown [id number] 2.16.840.1.152933.3.579.2. 1259 1959 Unknown [id number] 1959 Unknown [id number] Unknown [id number] 2.16840.1.110534.3.579.2. 593 Unknown [id number] 2.16840.1.854061.3.579.2. 531 Social History Date Type Detail Facility Start: 07-05-2017 [facility] [place] [place] Start: 07-05-2017 Alcohol intake No Emilie [place], [place] Start: 1998 Sex Assigned At Not on file M [place], [place] Start: 03-17-2020 Tobacco smoking stat [facility] Current every day smoker [place] Start: 12-27-2019 End: 09-25-2020 History of tobacco use Cigarette Smoker [place] Start: 03-17-2020 End: 10-26-2020 Cigarettes smoked current (pack per day) - Reported [facility] Start: 03-17-2020 End: 10-26-2020 Tobacco use and exposure Never used [facility] Start: 03-17-2020 End: 10-26-2020 Alcohol intake Current non-drinker of alcohol (finding) [facility] Start: 10-26-2020 Tobacco smoking stat [facility] Former smoker [employer] Work Phone: Start: 12-27-2019 End: 09-25-2020 History of tobacco use Current smoker [employer] Start: 08-26-2022 Tobacco smoking stat [facility] Tobacco smoking consumption unknown [facility] Start: 11-26-2023 [facility] History of Present illness Narrative 03-26-2024 Sirisha Long, ELECTRICAL CALIBRATOR - 03/26/2024 2:10 PM EST Note Date & Type Note Facility 03-26-2024 History of Presen t illness Narrative Reason for Appointment: Patient ID: Alecia Maldonado is a 23 y.o. female who presents for Routine Visit Patient presents today for Return OB appointment. MEDICATIONS Current Outpatient Medications [...] Objective: Physical Exam Constitutional: Appearance: Normal appearance. She [...] nursing note reviewed. Exam conducted with a car chaser present. Vitals: Estimated body mass index is 21.36 kg/m as calculated from the following: Height as of 08/29/22: 5' 2 . Weight as of this encounter: 116 lb 12.8 oz. BP: 110/52 Patient's last menstrual period was 10/12/2023. ASSESSMENT & PLAN ICD-10-CM 1. 19 weeks gestation of Z3A.19 POCT urinalysis dipstick manually resulted 2. Second trimester Z34.92 3. Screening, , for anatomic survey Z36.89 US OB 14+ weeks anatomy scan Patient presents today for a routine obstetrics appointment. Patient is currently 19w2d with a Estimated Date of Delivery: 08/18/24. Given anatomy scan with instructions to have scheduled. Pt to return in 4 weeks for scheduled Obappt. Documented by Sirisha Long LPN on behalf of: Osorio Reardon DO documented in this encounter [facility] History of Present illness Narrative 02-26-2024 BRENT Nathan - 02/26/2024 1:30 PM EST Note Date & Type Note Facility 02-26-2024 History of Presen t illness Narrative Reason for Appointment: Patient ID: Alecia Maldonado is a 23 y.o. female who presents [...] nursing note reviewed. Exam conducted with a car chaser present. Vitals: Estimated body mass index is [...] Narrative Reason for Appointment: Patient ID: Alecia Maldonado is a 23 y.o. female who presents [...] nursing note reviewed. Exam conducted with a car chaser present. Vitals: Estimated body mass index is [...] Narrative Reason for Appointment: Patient ID: Alecia Maldonado is a 22 y.o. female who presents [...] undercooked meat, and stay away from [facility]. Patient has also been advised to [...] Flora Heard MA documented in this encounter [facility] Evaluation note Note Date & Type Note Facility Evaluation note Diagnosis Urticarial rash Urticaria, unspecified Sexually active child Problems related to high-risk sexual behavior BMI 35.0-35.9,adult Body Mass Index 35.0-35.9, adult Screening for thyroid disorder Screening, anemia, deficiency, iron Screening for iron deficiency anemia Screening for diabetes mellitus Tattoos Other dyschromia documented in this encounter [employer] Phone: Evaluation note Note Date & Type Note Facility Evaluation note Diagnosis Missed menses , unspecified gestational age Encounter for supervision of normal first in first trimester Nausea and vomiting, unspecified vomiting type documented in this encounter [facility] Evaluation note Note Date & Type Note Facility Evaluation note Diagnosis 11 weeks gestation of First trimester state, incidental documented in this encounter [facility] Evaluation note Note Date & Type Note Facility Evaluation note Diagnosis Second trimester state, incidental 15 weeks gestation of Well woman exam with routine gynecological exam Routine gynecological examination Vaginal discharge Leukorrhea, not specified as infective STD exposure documented in this encounter [facility] Evaluation note Note Date & Type Note Facility Evaluation note Diagnosis 19 weeks gestation of Second trimester state, incidental Screening, , for anatomic survey Encounter for anatomic survey documented in this encounter 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 Institution Branch Manager Expl anation Advance Directives and Living Will Power of Helicopter Crew Chief Documents on File Type Date Recorded Patient Financial Institution Branch Manager Expl anation ACP-Advance Directive ACP-Power of Helicopter Crew Chief Assessments Diagnosis Suspected COVID-19 virus infection Summary Purpose Family History No Family History Records FoundNo Family History Records FoundNo Family History Records FoundNo Family History Records Found Additional Source Comments INFORMATION SOURCE (unrecogn ized section and content) DATE CREATED AUTHOR 10/30/2020 [facility] DATE CREATED AUTHOR AUTHOR'S ORGANIZ ATION 07/15/2022 [facility] DATE CREATED AUTHOR AUTHOR'S ORGANIZ ATION 02/01/2024 [facility] DATE CREATED AUTHOR AUTHOR'S ORGANIZ ATION 04/26/2024 [facility] EPIC Reason for Visit (unrecogniz ed [...] BE BASED ON THE PRIMARY CLINICAL RECORDS. [facility] [employer] [facility]. provides no warranty or guarantee of the accuracy or completeness of information in this document.
[2024-05-13 12:42] LABS: Glucose 1 Hour 106 mg/dL (<130)
[2024-05-13 12:47] LABS: Basophils Percent Auto 0.1 % (0.2-2.0); Eosinophils Absolute Auto 0.1 10^3/uL (0.0-0.7); Eosinophils Percent Auto 1.4 % (0.9-7.0); Hematocrit 32.8 % (36.0-48.0); Hemoglobin 10.8 g/dL (12.0-16.0); Immature Granulocytes Abs Auto 0.07 10^3/uL (0.00-0.03); Immature Granulocytes Pct Auto 0.9 % (0.0-0.5); Lymphocytes Absolute Auto 1.3 10^3/uL (1.2-3.8); Lymphocytes Percent Auto 17.2 % (20.5-60.0); Mean Corpuscular HGB Conc 32.9 g/dL (29.9-35.2); Mean Corpuscular Hemoglobin 31.2 pg (26.7-34.0); Mean Corpuscular Volume 94.8 fL (81.0-99.0); Mean Platelet Volume 9.9 fL (9.5-13.5); Monocytes Absolute Auto 0.5 10^3/uL (0.3-0.8); Monocytes Percent Auto 6.7 % (1.7-12.0); Neutrophils Absolute Auto 5.8 10^3/uL (1.4-6.5); Neutrophils Percent Auto 73.7 % (43.0-75.0); Platelet Count 380 10^3/uL (150-450); Red Blood Count 3.46 10^6/uL (4.20-5.40); Red Cell Distribution Width 12.9 % (11.0-15.0); White Blood Count 7.8 10^3/uL (4.0-11.0)
== END 2024-05-13 11:01 | disposition home or self-care (01) ==
LOC: LAB 11:01
PROVIDERS: PCP Family Medicine; Visit Provider Physician Assistant
DX: Z13.1 Encounter for screening for diabetes mellitus (principal)
CPT/HCPCS: 36415; 82950; 85025

== ENCOUNTER 2024-07-23 19:11 | Outpatient (REF) | payer OTHER, SELFPAY | END 2024-07-23 19:12 | disposition home or self-care (01) | LOC: LAB 19:11 | PROVIDERS: PCP Family Medicine; Visit Provider Physician Assistant | DX: Z34.93 Encounter for supervision of normal pregnancy, unspecified, third trimester (principal); Z3A.36 36 weeks gestation of pregnancy | CPT/HCPCS: 87081 ==

== ENCOUNTER 2024-08-05 09:30 | Inpatient (IN) | payer OTHER, SELFPAY ==
[2024-08-05] VITALS (34 sets, daily range): BP systolic 96–127; BP diastolic 56–86; PULSE 65–115; TEMP 36.1–36.4
[2024-08-05] MEDS: 0.9 % SODIUM CHLORIDE 1,000 ML 1000 ML IV (10:10)
[2024-08-05 10:24] LABS: Hematocrit 32.0 % (36.0-48.0); Hemoglobin 10.8 g/dL (12.0-16.0); Mean Corpuscular HGB Conc 33.8 g/dL (29.9-35.2); Mean Corpuscular Hemoglobin 30.7 pg (26.7-34.0); Mean Corpuscular Volume 90.9 fL (81.0-99.0); Platelet Count 346 10^3/uL (150-450); Red Blood Count 3.52 10^6/uL (4.20-5.40); White Blood Count 8.4 10^3/uL (4.0-11.0)
[2024-08-05] MEDS: ROPIVACAINE HCL/PF 400 MG/200 ML PREMIX 10 MG EPIDURAL (10:51)
[2024-08-05] MEDS: 0.9 % SODIUM CHLORIDE 1,000 ML 125 ML IV (11:12)
[2024-08-05 12:45] LABS: Cannabinoid Screen Urine NEGATIVE (NEGATIVE); Methamphetamines Screen Urine NEGATIVE (NEGATIVE); Tricyclic Antidepressant Urine NEGATIVE (NEGATIVE)
[2024-08-05] MEDS: OXYTOCIN/0.9 % SODIUM CHLORIDE 20 UNITS/1,000 ML PLAST..BAG 125 UNIT IV (15:06)
--- NOTE | 2024-08-05 15:13 | PM.OBPRCVD ---
Procedure Intrapartal events: None Delivery augmentation: rupture of membranes Delivery monitor: external FHT and external uterine Route of delivery: Episiotomy Description: none L&D Laceration Description: none Estimated blood loss (mL): 5 Anesthesia type: Epidural Disposition: floor Infant Delivery date: 08/05/24 Gender: female presentation: vertex Placental delivery description: Spontaneous cord description: 3 Vessels and Nuchal Cord
[2024-08-05] MEDS: IBUPROFEN 600 MG TABLET PO (17:29)
[2024-08-05] MEDS: SERTRALINE HCL 100 MG TABLET PO (21:47)
[2024-08-05] MEDS: ACETAMINOPHEN 325 MG TABLET 650 MG PO (21:49)
[2024-08-06 00:29] VITALS: BP 93/60; PULSE 91; TEMP 36.7
[2024-08-06] MEDS: IBUPROFEN 600 MG TABLET PO ×3 (04:24→20:50)
[2024-08-06 06:25] LABS: Hematocrit 33.0 % (36.0-48.0); Hemoglobin 10.9 g/dL (12.0-16.0); Immature Granulocytes Abs Auto 0.12 10^3/uL (0.00-0.03); Immature Granulocytes Pct Auto 0.9 % (0.0-0.5); Lymphocytes Absolute Auto 2.2 10^3/uL (1.2-3.8); Mean Corpuscular HGB Conc 33.0 g/dL (29.9-35.2); Mean Corpuscular Hemoglobin 30.6 pg (26.7-34.0); Mean Corpuscular Volume 92.7 fL (81.0-99.0); Platelet Count 309 10^3/uL (150-450); Red Blood Count 3.56 10^6/uL (4.20-5.40); White Blood Count 13.8 10^3/uL (4.0-11.0)
[2024-08-06 09:42] VITALS: BP 117/66; PULSE 89; TEMP 36.4
[2024-08-06] MEDS: DOCUSATE SODIUM 100 MG CAPSULE PO ×2 (09:44→20:50)
[2024-08-06] MEDS: ACETAMINOPHEN 325 MG TABLET 650 MG PO ×2 (09:44→23:02)
--- NOTE | 2024-08-06 12:26 | PM.OBPN ---
OB - PN: Subj Subjective Patient comments: no complaints [place] status: doing well feeding status: exclusively Exam Constitutional Vital Signs, click to edit/add: Last Vital Signs Temp 97.5 F L 08/06/24 09:42 Pulse 89 08/06/24 09:42 Resp 16 08/06/24 09:42 BP 117/66 08/06/24 09:42 O2 Del Method Room Air 08/06/24 07:30 Documenting provider has reviewed patient's vital signs: yes Common normals: no apparent distress Exam limitations: altered mental status General appearance: cooperative, comfortable, well kempt and well developed Orientation/consciousness: Yes awake, Yes oriented to person, Yes oriented to place and Yes oriented to time HENMT Common normals: normocephalic Eye Common normals: EOMs intact bilaterally General eye: normal appearance of both eyes Visual acuity: acuity normal Neck & C-Spine Common normals: full ROM and no lymphadenopathy Lymph Lymphatic: no lymphadenopathy noted Chest Common normals: inspection of chest normal Respiratory Common normals: normal respiratory effort Effort & inspection: able to speak in complete sentences Auscultation: clear to auscultation bilaterally Cardio Common normals: regular rate and regular rhythm Rate: regular rate Rhythm: regular rhythm GI Common normals: Normal to inspection, nondistended, normoactive bowel sounds present Inspection: normal to inspection Auscultation: normoactive bowel sounds Palpation: soft Rectal Exam - Female: deferred Common normals: no CVA tenderness Back & Pelvis Common normals: no CVA tenderness Extremity Common normals: normal to inspection Neuro Common normals: oriented x3 Sensorium/orientation: awake, alert, oriented to person, oriented to place and oriented to time Psych Psychiatry clinicians, please identify where your Mental Status Exam is documented: Mental Status Exam documented in the separate MSE Common normals: mental status grossly normal, thought process normal, cooperative, affect normal, speech normal, activity/motor behavior normal, denies hallucinations, denies homicidal ideation and denies suicidal ideation Appearance: grossly normal Attitude: calm Thought content: normal thought content Results Labs Labs: Short CBC 08/06/24 Range/Units 06:20 WBC 13.8 H (4.0-11.0) 10^3/uL Hgb 10.9 L (12.0-16.0) g/dL Hct 33.0 L (36.0-48.0) % Plt Count 309 (150-450) 10^3/uL OB - PN: A/P Plan - Vaginal Delivery day: 1 Plan: routine care Time Spent with Patient Time: Total time spent is greater than 50% in coordination of care (as documented) at patient's floor/unit and/or counseling patient: Total time spent with greater than 50% in coordination of care (as documented) at patient's floor/unit and/or counseling patient: less than 15 minutes
[2024-08-06 16:30] VITALS: BP 118/73; PULSE 67
[2024-08-06] MEDS: SERTRALINE HCL 50 MG TABLET 100 MG PO (20:51)
[2024-08-06 23:01] VITALS: BP 111/72; PULSE 70
[2024-08-07] MEDS: IBUPROFEN 600 MG TABLET PO (06:48)
--- NOTE | 2024-08-07 07:37 | P.OBPN_ITS ---
OB - PN: Subj Subjective Patient comments: no complaints and pain well controlled [place] status: doing well Exam Constitutional Vital Signs, click to edit/add: Last Vital Signs Temp 97.5 F L 08/06/24 09:42 Pulse 70 08/06/24 23:01 Resp 16 08/06/24 16:30 BP 111/72 08/06/24 23:01 O2 Del Method Room Air 08/06/24 22:45 Documenting provider has reviewed patient's vital signs: yes Common normals: no apparent distress Respiratory Common normals: normal respiratory effort and clear to auscultation bilaterally Cardio Common normals: regular rate and regular rhythm GI Common normals: Normal to inspection, nondistended, normoactive bowel sounds present Extremity Common normals: no clubbing, cyanosis or edema and no calf tenderness OB - PN: A/P Plan - Vaginal Delivery day: 2 Plan: routine care, discharge home and follow up 6 weeks Time Spent with Patient Time: Total time spent is greater than 50% in coordination of care (as documented) at patient's floor/unit and/or counseling patient: Total time spent with greater than 50% in coordination of care (as documented) at patient's floor/unit and/or counseling patient: less than 15 minutes
[2024-08-07 09:44] VITALS: BP 126/74; PULSE 110; TEMP 36.9
[2024-08-07] MEDS: DOCUSATE SODIUM 100 MG CAPSULE PO (11:40)
== END 2024-08-07 14:15 | disposition home or self-care (01) | DRG 560 ==
PROVIDERS: Admitting Provider Obstetrics & Gynecology; PCP Family Medicine; Visit Provider Obstetrics & Gynecology
DX: O69.81X0 Labor and delivery complicated by cord around neck, without compression, not applicable or unspecified (principal); Z37.0 Single live birth; Z3A.38 38 weeks gestation of pregnancy; O99.334 Smoking (tobacco) complicating childbirth; F17.290 Nicotine dependence, other tobacco product, uncomplicated
CPT/HCPCS: 36415; 59050; 59410; 80307; 85025; 85027; 86850; 86900; 86901; J2795